=== PATIENT | male | born 1955 | race Caucasian/White ===

== ENCOUNTER → 2016-12-22 | Outpatient (CLI) | payer OTHER ==
[~2016-12-22] MED LIST: ACET325T49 PO; ACET500C4; ANXIETY MED; ARIP10TA11; ASP81CT PO; ASPI-84; BACL10TA; BACL10TA PO; CLOP75TA; CLOP75TA PO; CYAN100T12 PO; DEPRESSION MED; FLUO20CA25; FLUO20CA25 PO; HYDR1CAP2; HYDR1CAP2 PO; LISI10TA PO; LISI5TAB; MELO7.5T PO; NAPR-243 PO; NF-ESOM40C PO; NORT50CA; OXYC-109 PO; PRD20T PO; PYRI25TA11 PO; SIMV80TA3 PO; TEMA30CA PO; TOPI50TA2 PO; TRAM50TA2 PO; lisinopril; metoprolol; seroquel; temazepam
[2016-12-22 13:59] LABS: BASOPHILS % (AUTO) 0 % (0-10); EOSINOPHILS # (AUTO) 0.1 10^3/uL (0.0-0.3); EOSINOPHILS % (AUTO) 1 % (0-10); LYMPHOCYTES # (AUTO) 2.7 X 10^3 (1.0-4.0); LYMPHOCYTES % (AUTO) 27 % (12-44); MEAN CORPUSCULAR HEMOGLOBIN 31 PG (25-34); MEAN CORPUSCULAR HGB CONC 34 G/DL (32-36); MEAN CORPUSCULAR VOLUME 94 FL (80-99); MEAN PLATELET VOLUME 9.6 FL (7.4-10.4); MONOCYTES # (AUTO) 0.6 X 10^3 (0.0-1.0); MONOCYTES % (AUTO) 5 % (0-12); NEUTROPHILS # (AUTO) 6.7 X 10^3 (1.8-7.8); NEUTROPHILS % (AUTO) 66 % (42-75); PLATELET COUNT 247 10^3/uL (130-400); RED CELL DISTRIBUTION WIDTH 13.5 % (10.0-14.5); WHITE BLOOD COUNT 10.1 10^3/uL (4.3-11.0)
--- NOTE | 2016-12-22 14:17 | Diagnostic Imaging Report ---
INDICATION: Preop for lung cancer. COMPARISON: No previous CT scan for comparison. Comparison with the chest x-ray from 04/18/2013. FINDINGS: There is a well-circumscribed nodule that has developed in the right upper lobe measuring 17 mm. There is a calcified granuloma in the left upper lung which is stable. There is question of 2 cm nodule in the right lower lobe noted on the PA view only. The heart is not enlarged. There is no pulmonary edema. No pneumothorax. No pleural effusion. No hilar adenopathy. IMPRESSION: 1. Pulmonary nodule in the right upper lobe measuring 1.7 cm. Question of a second pulmonary nodule in the right lower lobe. 2. Stable granulomatous changes noted on the left. Dictated by: Dictated on workstation # [id number]
[2016-12-22 14:21] LABS: ALANINE AMINOTRANSFERASE 17 U/L (0-55); ALBUMIN 3.9 GM/DL (3.2-4.5); ANION GAP 10 MMOL/L (5-14); ASPARTATE AMINO TRANSFERASE 17 U/L (5-34); BILIRUBIN,TOTAL 0.4 MG/DL (0.1-1.0); BLOOD UREA NITROGEN 7 MG/DL (7-18); BUN/CREATININE RATIO 7 (0-20); CALCIUM 9.1 MG/DL (8.5-10.1); CARBON DIOXIDE 25 MMOL/L (21-32); CHLORIDE 103 MMOL/L (98-107); CREATININE SERUM 0.96 MG/DL (0.60-1.30); GFR ESTIMATED > 60; GLUCOSE 81 MG/DL (70-105); HEMOLYSIS 6 (-100-29); ICTERUS 0.4 (-100-1.9); LIPEMIA 13 (-100-49); POTASSIUM 4.1 MMOL/L (3.6-5.0); SODIUM 138 MMOL/L (135-145); TOTAL PROTEIN 7.4 GM/DL (6.4-8.2)
[2016-12-22 14:23] LABS: BILIRUBIN,URINE NEGATIVE (NEGATIVE); KETONES,URINE NEGATIVE (NEGATIVE); LEUKOCYTE ESTERASE ,URINE NEGATIVE (NEGATIVE); NITRITE,URINE NEGATIVE (NEGATIVE); PH,URINE 6 (5-9); PROTEIN,URINE NEGATIVE (NEGATIVE); UROBILINOGEN,URINE NORMAL (NORMAL)
== END ==
LOC: CARD 13:28
PROVIDERS: ATTEND Thoracic Surgery (Cardiothoracic Vascular Surgery)
DX: Z01.810 Encounter for preprocedural cardiovascular examination (principal); Z01.818 Encounter for other preprocedural examination; C34.90 Malignant neoplasm of unspecified part of unspecified bronchus or lung; R91.8 Other nonspecific abnormal finding of lung field
CPT/HCPCS: 36415; 71020; 80053; 81000; 85025; 93005

== ENCOUNTER 2017-03-04 10:03 | Emergency (ER) | payer OTHER ==
[~2017-03-04] VITALS: Ht 172.7 cm; Wt 80.4 kg
[2017-03-04 11:15] LABS: BASOPHILS % (AUTO) 0 % (0-10); EOSINOPHILS % (AUTO) 0 % (0-10); LYMPHOCYTES # (AUTO) 2.6 X 10^3 (1.0-4.0); LYMPHOCYTES % (AUTO) 20 % (12-44); MEAN CORPUSCULAR HEMOGLOBIN 30 PG (25-34); MEAN CORPUSCULAR HGB CONC 33 G/DL (32-36); MEAN CORPUSCULAR VOLUME 91 FL (80-99); MEAN PLATELET VOLUME 9.2 FL (7.4-10.4); MONOCYTES # (AUTO) 0.9 X 10^3 (0.0-1.0); MONOCYTES % (AUTO) 7 % (0-12); NEUTROPHILS # (AUTO) 9.3 X 10^3 (1.8-7.8); NEUTROPHILS % (AUTO) 73 % (42-75); PLATELET COUNT 274 10^3/uL (130-400); RED BLOOD COUNT 3.99 10^6/uL (4.35-5.85); WHITE BLOOD COUNT 12.7 10^3/uL (4.3-11.0)
[2017-03-04 11:25] LABS: PROTHROMBIN TIME PATIENT 13.7 SEC (12.2-14.7)
[2017-03-04 11:35] LABS: ALANINE AMINOTRANSFERASE 10 U/L (0-55); ALBUMIN 3.7 GM/DL (3.2-4.5); ANION GAP 11 MMOL/L (5-14); ASPARTATE AMINO TRANSFERASE 15 U/L (5-34); BILIRUBIN,TOTAL 0.3 MG/DL (0.1-1.0); BLOOD UREA NITROGEN 15 MG/DL (7-18); BUN/CREATININE RATIO 18; CALCIUM 9.1 MG/DL (8.5-10.1); CARBON DIOXIDE 23 MMOL/L (21-32); CHLORIDE 102 MMOL/L (98-107); CREATININE SERUM 0.84 MG/DL (0.60-1.30); GFR ESTIMATED > 60; GLUCOSE 95 MG/DL (70-105); POTASSIUM 3.9 MMOL/L (3.6-5.0); SODIUM 136 MMOL/L (135-145); TOTAL PROTEIN 7.2 GM/DL (6.4-8.2)
[2017-03-04] MEDS ORDERED: fentaNYL INJECTION 100 MCG/2 ML AMP ONE (11:57)
[2017-03-04] MEDS ORDERED: NS 100 ML (IVPB) BAG IV ONE (12:00)
[2017-03-04] MEDS ORDERED: NS IV 1000 ML 1,000 ML IV SCH (12:00)
[2017-03-04] MEDS ORDERED: IOHEXOL 350 MG/ML 100 ML (OMNIPAQUE 350) VIAL IV ONE (12:00)
--- NOTE | 2017-03-04 12:06 | ED GI ---
General Chief Complaint: Abdominal/GI Problems Stated Complaint: BLACK STOOL Nursing Triage Note: pt reports diarrhea x 1 week and black tarry stools x 2 days; weakness, nausea, abd cramping, diaphoretic. pt s/p RUL Lobectomy 3 months ago. pt has had diarrhea x 4 this am Sepsis Screen: No Definite Risk Source of Information: Patient Exam Limitations: No Limitations History of Present Illness Time Seen By Provider: 12:04 Initial Comments To ER with reports of diarrhea for one week. He's had suprapubic abdominal cramping and discomfort for this timeframe as well. He rates that pain 7 out of 10. He's had weakness and nausea as well. He reports that for the past 2 days his stools have been dark and tarry & without owen blood or mucus. He has no history of GI bleeding. He does state that he has lung cancer and had a right upper lobectomy 3 months ago at [facility]. States he's been taking quite a bit of naproxen lately to control his pain his usual physician is through the [place] in [place]. His last colonoscopy was 2-3 years ago at the [place] in [place]. Timing/Duration: 1 Week Radiation: No Radiation Activities at Onset: None Associated Symptoms: Denies Symptoms Allergies and Home Medications Allergies Coded Allergies: No Known Drug Allergies (Unverified , 12/17/08) Home Medications Aspirin 81 Mg Chew, 81 MG PO DAILY, (Reported) Ciprofloxacin HCl 500 Mg Tablet, 500 MG PO BID, #14 Prescribed by: VENANCIO MEHTA on 03/04/17 1405 Clopidogrel Bisulfate 75 Mg Tablet, 75 MG PO DAILY, (Reported) Hydrocodone/Acetaminophen 1 Each Tablet, 1 EACH PO Q4H PRN for PAIN-SEVERE, #14 Prescribed by: VENANCIO MEHTA on 03/04/17 1407 Metronidazole 500 Mg Tablet, 500 MG PO TID, #21 Prescribed by: VENANCIO MEHTA on 03/04/17 1405 Ondansetron 8 Mg Tab.rapdis, 8 MG PO Q6H PRN for NAUSEA/VOMITING-1ST LINE, #10 Prescribed by: VENANCIO MEHTA on 03/04/17 1405 Oxycodone Hcl/Acetaminophen 1 Each Tablet, 1 EACH PO Q4H PRN, #14 Ref 0 Prescribed by: OSWALD BOWIE on 04/18/132118 Prednisone 20 Mg Tab, 20 MG PO DAILY for 5 Days Prescribed by: OSWALD BOWIE on 04/18/132119 Pyridoxine Hcl 25 Mg Tablet, 25 MG PO DAILY, (Reported) Simvastatin 80 Mg Tablet, 80 MG PO HS, (Reported) Temazepam 30 Mg Capsule, 30 MG PO HS, (Reported) Tramadol Hcl 50 Mg Tablet, 50 MG PO BID, (Reported) [Anxiety Med] , (Reported) [Depression Med] , (Reported) Review of Systems Constitutional: see HPI EENTM: No Symptoms Reported Respiratory: No Symptoms Reported Cardiovascular: No Symptoms Reported Gastrointestinal: See HPI, Abdominal Pain, Diarrhea, Nausea Genitourinary: No Symptoms Reported Musculoskeletal: no symptoms reported Skin: no symptoms reported Psychiatric/Neurological: No Symptoms Reported Endocrine: No Symptoms Reported Hematologic/Lymphatic: No Symptoms Reported Past Hnlxjhy-Nxvofj-Zitdnf Hx Patient Social History Alcohol Use: Denies Use Recreational Drug Use: Yes Drug of Choice: Marijuana--yesterday Smoking Status: Current Everyday Smoker Type Used: Cigarettes 2nd Hand Smoke Exposure: Yes Recent Foreign Travel: No Contact w/Someone Who Travel: No Recent Infectious Disease Expo: No Recent Hopitalizations: Yes (December--lobectomy) Surgeries History of Surgeries: Yes (CAROTID stent) Surgeries: Coronary Stent, Lobectomy Respiratory History of Respiratory Disorde: No Cardiovascular History of Cardiac Disorders: Yes (carotid with stents) Cardiac Disorders: High Cholesterol, Hypertension Neurological History of Neurological Disord: Yes Neurological Disorders: Seizure Disorder, Stroke Reproductive System Hx Reproductive Disorders: No Genitourinary History of Genitourinary Disor: No Gastrointestinal History of Gastrointestinal Di: No Musculoskeletal History of Musculoskeletal Dis: Yes Musculoskeletal Disorders: Arthritis Endocrine History of Endocrine Disorders: No HEENT History of HEENT Disorders: No Cancer History of Cancer: Yes Cancer: Lung, Skin Type of Tx Receive: Surgical Intervention Psychosocial History of Psychiatric Problem: Yes Behavioral Health Disorders: Anxiety, PTSD, Depression Integumentary History of Skin or Integumenta: No Blood Transfusions History of Blood Disorders: No Family Medical History Significant Family History: No Pertinent Family Hx Physical Exam Vital Signs VS - Last 72 Hours, by Label 03/04/17 03/04/17 03/04/17 03/04/17 10:42 12:06 12:06 13:22 Temp 97.0 97.0 97.0 97.0 Pulse 78 Resp 20 B/P (MAP) 140/73 Pulse Ox 97 O2 Delivery Room Air Capillary Refill : Less Than 3 Seconds General Appearance: WD/WN, no apparent distress HEENT: PERRL/EOMI, normal ENT inspection Neck: non-tender, full range of motion Respiratory: normal breath sounds, no respiratory distress, no accessory muscle use Gastrointestinal: normal bowel sounds, soft, tenderness Extremities: normal range of motion, non-tender Neurologic/Psychiatric: alert, normal mood/affect, oriented x 3 Skin: normal color, warm/dry Exam Comments Bedside fecal occult blood is positive Progress/Results/Core Measures Results/Orders Lab Results Laboratory Tests Test 03/04/17 11:09 03/04/17 12:26 Range/Units White Blood Count 12.7 H 4.3-11.0 10^3/uL Red Blood Count 3.99 L 4.35-5.85 10^6/uL Hemoglobin 12.1 L 13.3-17.7 G/DL Hematocrit 36 L 40-54 % Mean Corpuscular Volume 91 80-99 FL Mean Corpuscular Hemoglobin 30 25-34 PG Mean Corpuscular Hemoglobin Concent 33 32-36 G/DL Red Cell Distribution Width 13.0 10.0-14.5 % Platelet Count 274 130-400 10^3/uL Mean Platelet Volume 9.2 7.4-10.4 FL Neutrophils (%) (Auto) 73 42-75 % Lymphocytes (%) (Auto) 20 12-44 % Monocytes (%) (Auto) 7 0-12 % Eosinophils (%) (Auto) 0 0-10 % Basophils (%) (Auto) 0 0-10 % Neutrophils # (Auto) 9.3 H 1.8-7.8 X 10^3 Lymphocytes # (Auto) 2.6 1.0-4.0 X 10^3 Monocytes # (Auto) 0.9 0.0-1.0 X 10^3 Eosinophils # (Auto) 0.0 0.0-0.3 10^3/uL Basophils # (Auto) 0.0 0.0-0.1 10^3/uL Prothrombin Time 13.7 12.2-14.7 SEC INR Comment 1.0 0.8-1.4 Activated Partial Thromboplast Time 38 H 24-35 SEC Sodium Level 136 135-145 MMOL/L Potassium Level 3.9 3.6-5.0 MMOL/L Chloride Level 102 98-107 MMOL/L Carbon Dioxide Level 23 21-32 MMOL/L Anion Gap 11 5-14 MMOL/L Blood Urea Nitrogen 15 7-18 MG/DL Creatinine 0.84 0.60-1.30 MG/DL Estimat Glomerular Filtration Rate > 60 BUN/Creatinine Ratio 18 Glucose Level 95 70-105 MG/DL Calcium Level 9.1 8.5-10.1 MG/DL Total Bilirubin 0.3 0.1-1.0 MG/DL Aspartate Amino Transf (AST/SGOT) 15 5-34 U/L Alanine Aminotransferase (ALT/SGPT) 10 0-55 U/L Alkaline Phosphatase 97 40-136 U/L Total Protein 7.2 6.4-8.2 GM/DL Albumin 3.7 3.2-4.5 GM/DL Urine Color YELLOW Urine Clarity CLEAR Urine pH 6.5 5-9 Urine Specific [place] 1.010 L 1.016-1.022 Urine Protein 1+ H NEGATIVE Urine Glucose (UA) NEGATIVE NEGATIVE Urine Ketones NEGATIVE NEGATIVE Urine Nitrite NEGATIVE NEGATIVE Urine Bilirubin NEGATIVE NEGATIVE Urine Urobilinogen 1 NORMAL MG/DL Urine Leukocyte Esterase NEGATIVE NEGATIVE Urine RBC (Auto) NEGATIVE NEGATIVE Urine RBC NONE /HPF Urine WBC 0-2 /HPF Urine Crystals NONE /LPF Urine Bacteria TRACE /HPF Urine Casts NONE /LPF Urine Mucus NEGATIVE /LPF Urine Culture Indicated NO My Orders Orders - VENANCIO MEHTA APRN Ns Iv 1000 Ml (Sodium Chloride 0.9%) (03/04/17 12:00) Ct Abdomen/Pelvis W (03/04/17 11:54) Fentanyl Injection (Sublimaze Injection (03/04/17 12:15) Fecal Occult Bedside (03/04/17 12:02) Fentanyl Injection (Sublimaze Injection (03/04/17 11:57) Pantoprazole Injection (Protonix Injecti (03/04/17 12:15) Ua Culture If Indicated (03/04/17 12:12) Morphine Injection (Morphine Injection (03/04/17 13:15) Stool Culture (03/04/17 13:06) Parasite Scrn Stool Giard Cryp (03/04/17 13:06) C Difficile Ag + Toxin A/B. (03/04/17 13:06) Ciprofloxacin Tablet (Cipro Tablet) (03/04/17 13:15) Metronidazole Tablet (Flagyl Tablet) (03/04/17 13:15) Medications Given in ED Current Medications Medications Dose Ordered Sig/Pool Route Start Time Stop Time Status Last Admin Dose Admin Fentanyl Citrate 50 mcg ONCE ONCE IVP 03/04/17 12:15 03/04/17 12:16 DC 03/04/17 12:06 50 MCG Iohexol 100 ml ONCE ONCE IV 03/04/17 12:00 03/04/17 12:07 DC 03/04/17 12:14 100 ML Metronidazole 500 mg ONCE ONCE PO 03/04/17 13:15 03/04/17 13:16 DC 03/04/17 13:23 500 MG Morphine Sulfate 4 mg ONCE ONCE IVP 03/04/17 13:15 03/04/17 13:16 DC 03/04/17 13:22 4 MG Pantoprazole 80 mg ONCE ONCE IV 03/04/17 12:15 03/04/17 12:16 DC 03/04/17 13:22 80 MG Sodium Chloride 100 ml ONCE ONCE IV 03/04/17 12:00 03/04/17 12:07 DC 03/04/17 12:14 100 ML Vital Signs/I&O Vital Sign - Last 12Hours 03/04/17 03/04/17 03/04/17 03/04/17 10:42 12:06 12:06 13:22 Temp 97.0 97.0 97.0 97.0 Pulse 78 Resp 20 B/P (MAP) 140/73 Pulse Ox 97 O2 Delivery Room Air Blood Pressure Mean: 95 Diagnostic Imaging Diagonstic Imaging: CT Comments NAME: SOLANGE MAHONEY [facility] REC#: [id number] PT STATUS: REG ER : 1955 PHYSICIAN: VENANCIO MEHTA APRN ADMIT DATE: 03/04/17/ER Draft Date of Exam:03/04/17 CT ABDOMEN/PELVIS W PROCEDURE: CT abdomen and pelvis with contrast. TECHNIQUE: Multiple contiguous axial images were obtained through the abdomen and pelvis after administration of intravenous contrast. INDICATION: Lower abdominal pain. Diarrhea. Black stools. COMPARISON: None FINDINGS: Included portions of the lung bases show 5-6 mm micronodule within the medial margins of the left lower lobe (image 11, series 2). CT abdomen: There is diffuse colonic wall thickening. There is colonic diverticulosis. There is no focal pericolonic inflammatory stranding to suggest acute diverticulitis. Normal appendix is identified. Small bowel loops are nondistended. The kidneys, adrenal glands, spleen, and pancreas have a normal CT appearance. There is a small subcentimeter hypoenhancing focus within the dome of segment 2 of the liver. This may represent a small cyst, but is too small to adequately characterize based on this exam. There is no loculated fluid collection, free fluid, nor free air within the abdomen. No abnormal mesenteric or retroperitoneal adenopathy is seen. There is moderate calcified aortic and arterial atherosclerosis. Bony structures show age-related degenerative changes, but no acute bony abnormalities are identified. CT pelvis: Urinary bladder is grossly unremarkable. There is no loculated fluid collection, free fluid, nor free air within the pelvis. No abnormal lymph nodes are seen. Bony structures show no acute abnormalities. IMPRESSION: 1. Diffuse abnormal colonic wall thickening. Findings are nonspecific, but can be seen with infectious or inflammatory colitis. Colonic malignancy cannot be excluded, but is felt to be unlikely given the diffuse nature of the disease. 2. Colonic diverticulosis, but no convincing evidence of focal acute diverticulitis. 3. Probable small cyst within the dome of segment 2 of the liver. 4. Moderate calcified aortic and arterial atherosclerosis. Correlation for underlying risk factors is recommended. Dictated on workstation # [id number] Dict: 03/04/17 1250 Trans: 03/04/17 1301 [id number] Interpreted by: GERARDO DUENAS MD Electronically signed by: Departure Communication (Admissions) Progress Notes I did discuss the case with Dr. Vasquez. Recommends if the patient is not nauseated and tolerating oral intake okay that he can go home, antibiotics, stool studies, follow up with him for colonoscopy in 3-4 weeks. Patient is agreeable to this. He has no nausea now and states that he is hungry. We have not given anything for nausea here. Impression Impression: Primary Impression: Diarrhea Additional Impression: Colon wall thickening Disposition: 01 HOME, SELF-CARE Condition: Stable Departure-Patient Inst. Decision time for Depature: 14:03 Referrals: SU VASQUEZ BRETT D DO JENKINS, XAVIER M MD NO,LOCAL PHYSICIAN (PCP) Primary Care Physician Patient Instructions: Diarrhea in Adolescents and Adults Add. Discharge Instructions: 1. Return to the emergency room for any bright red bloody stools, lightheadedness, shortness of breath or other concerns 2. Drink plenty of fluids to stay hydrated. Gatorade is a good choice. Pedialyte is an even better choice. 3. Call Dr. Vasquez or a surgeon of your choosing on Sunday to make an appointment to be seen for repeat colonoscopy 4. Antibiotics as directed 5. Stop using the naproxen 6. Do not mix the new pain medication (hydrocodone 7.5) with your current pain medication. All discharge instructions reviewed with patient and/or family. Voiced understanding. Scripts Hydrocodone/Acetaminophen (Elmo 7.5-325 Tablet) 1 Each Tablet 1 EACH PO Q4H Y for PAIN-SEVERE, #14 TAB Prov: VENANCIO MEHTA APRN 03/04/17 Ondansetron (Zofran Odt) 8 Mg Tab.rapdis 8 MG PO Q6H Y for NAUSEA/VOMITING-1ST LINE, #10 TAB Prov: VENANCIO MEHTA APRN 03/04/17 Metronidazole (Flagyl) 500 Mg Tablet 500 MG PO TID, #21 TAB Prov: VENANCIO MEHTA APRN 03/04/17 Ciprofloxacin HCl (Cipro) 500 Mg Tablet 500 MG PO BID, #14 TAB Prov: VENANCIO MEHTA APRN 03/04/17 VENANCIO MEHTA APRN Mar 04, 2017 12:05
[2017-03-04] MEDS ORDERED: PANTOPRAZOLE 40 MG/10 ML (PROTONIX) VIAL IV ONE (12:15)
[2017-03-04] MEDS ORDERED: fentaNYL INJECTION 100 MCG/2 ML AMP IVP ONE (12:15)
[2017-03-04 12:36] LABS: BILIRUBIN,URINE NEGATIVE (NEGATIVE); KETONES,URINE NEGATIVE (NEGATIVE); LEUKOCYTE ESTERASE ,URINE NEGATIVE (NEGATIVE); NITRITE,URINE NEGATIVE (NEGATIVE); PH,URINE 6.5 (5-9); PROTEIN,URINE 1+ (NEGATIVE); UROBILINOGEN,URINE 1 MG/DL (NORMAL)
[2017-03-04 12:43] LABS: WBC,URINE 0-2 /HPF
--- NOTE | 2017-03-04 13:01 | Diagnostic Imaging Report ---
PROCEDURE: CT abdomen and pelvis with contrast. TECHNIQUE: Multiple contiguous axial images were obtained through the abdomen and pelvis after administration of intravenous contrast. INDICATION: Lower abdominal pain. Diarrhea. Black stools. COMPARISON: None FINDINGS: Included portions of the lung bases show 5-6 mm micronodule within the medial margins of the left lower lobe (image 11, series 2). CT abdomen: There is diffuse colonic wall thickening. There is colonic diverticulosis. There is no focal pericolonic inflammatory stranding to suggest acute diverticulitis. Normal appendix is identified. Small bowel loops are nondistended. The kidneys, adrenal glands, spleen, and pancreas have a normal CT appearance. There is a small subcentimeter hypoenhancing focus within the dome of segment 2 of the liver. This may represent a small cyst, but is too small to adequately characterize based on this exam. There is no loculated fluid collection, free fluid, nor free air within the abdomen. No abnormal mesenteric or retroperitoneal adenopathy is seen. There is moderate calcified aortic and arterial atherosclerosis. Bony structures show age-related degenerative changes, but no acute bony abnormalities are identified. CT pelvis: Urinary bladder is grossly unremarkable. There is no loculated fluid collection, free fluid, nor free air within the pelvis. No abnormal lymph nodes are seen. Bony structures show no acute abnormalities. IMPRESSION: 1. Diffuse abnormal colonic wall thickening. Findings are nonspecific, but can be seen with infectious or inflammatory colitis. Colonic malignancy cannot be excluded, but is felt to be unlikely given the diffuse nature of the disease. 2. Colonic diverticulosis, but no convincing evidence of focal acute diverticulitis. 3. Probable small cyst within the dome of segment 2 of the liver. 4. Moderate calcified aortic and arterial atherosclerosis. Correlation for underlying risk factors is recommended. Dictated by: Dictated on workstation # [id number]
[2017-03-04] MEDS ORDERED: morphine INJ 10 MG/ML 1ML (SYR OR VIAL) IVP ONE (13:15)
[2017-03-04] MEDS ORDERED: CIPROFLOXACIN 500 MG (CIPRO) TABLET PO SCH (13:15)
[2017-03-04] MEDS ORDERED: metroNIDAZOLE 500 MG (FLAGYL) TAB PO ONE (13:15)
[2017-03-04] MEDS ORDERED: METR500T PO (14:05)
[2017-03-04] MEDS ORDERED: ONDA8TAB9 PO (14:05)
[2017-03-04] MEDS ORDERED: CIPR-225 PO (14:05)
[2017-03-04] MEDS ORDERED: HYDR-756 PO (14:07)
[2017-03-04 14:25] VITALS: BP 120/79
== END 2017-03-04 14:25 | disposition home or self-care (01) ==
LOC: EDUNIT# 10:03 → ER 10:04
DX: R19.7 Diarrhea, unspecified (principal); K63.89 Other specified diseases of intestine; C34.90 Malignant neoplasm of unspecified part of unspecified bronchus or lung; E78.00 Pure hypercholesterolemia, unspecified; I10 Essential (primary) hypertension; G40.909 Epilepsy, unspecified, not intractable, without status epilepticus; F41.9 Anxiety disorder, unspecified; F32.9 Major depressive disorder, single episode, unspecified; F43.10 Post-traumatic stress disorder, unspecified; M19.90 Unspecified osteoarthritis, unspecified site; F12.10 Cannabis abuse, uncomplicated; F17.210 Nicotine dependence, cigarettes, uncomplicated; Z95.5 Presence of coronary angioplasty implant and graft; Z85.828 Personal history of other malignant neoplasm of skin; Z86.73 Personal history of transient ischemic attack (TIA), and cerebral infarction without residual deficits; Z90.2 Acquired absence of lung [part of]; Z79.82 Long term (current) use of aspirin
CPT/HCPCS: 36415; 74177; 80053; 81000; 85025; 85610; 85730; 96361; 96374; 96375

== ENCOUNTER → 2017-03-05 | Outpatient (CLI) | payer OTHER ==
[~2017-03-05] MED LIST changes: +ASPI-999 PO; +CARV12.53 PO; +CHOL10003 PO; +CIPR-225 PO; +CLON0.5T3 PO; +CLOP75TA69 PO; +HYDR-3062 PO; +HYDR-756 PO; +LEVE500T6 PO; +METR500T PO; +OMG1KC PO; +ONDA8TAB9 PO; +PANT40TA2 PO; +ROSU20TA28 PO; +TRAZ100T92 PO; +VERA40TA2 PO
== END ==
LOC: LAB 10:49
PROVIDERS: ATTEND Nurse Practitioner Family
DX: R19.7 Diarrhea, unspecified (principal)
CPT/HCPCS: 87045; 87046; 87177; 87324; 87328; 87329; 87449

== ENCOUNTER → 2017-03-12 | Day surgery (SDC) | payer OTHER ==
[~2017-03-12] VITALS: Ht 172.7 cm; Wt 79.4 kg
[~2017-03-12] MED LIST changes: -ASPI-999 PO; -CLOP75TA69 PO; +EPINEPHrine INJECTION 1 MG/ML AMP IV SCH; +EPINEPHrine INJECTION 1 MG/ML AMP ONE; +HURRICAINE EXT TUBE (BENZOCAINE) ONE; +HURRICAINE EXT TUBE (BENZOCAINE) XX PRN; +MIDAZOLAM 2 MG/2 ML (VERSED) VIAL ONE; +NICOTINE 21 MG (NICODERM) PATCH TD ONE; +NS IV 1000 ML 1,000 ML IV ONE; +NS IV 500 ML 500 ML IV SCH; +NS IV 500 ML 500 ML ONE; +fentaNYL INJECTION 100 MCG/2 ML AMP IVP ONE; +fentaNYL INJECTION 100 MCG/2 ML AMP IVP STA; +fentaNYL INJECTION 100 MCG/2 ML AMP ONE
--- NOTE | 2017-03-12 11:40 | ED Abdominal Pain ---
General Chief Complaint: Abdominal/GI Problems Stated Complaint: BLACK STOOLS Nursing Triage Note: Pt c/o lower abd pain, nausea, and black stools for 1 week. Pt reports he was seen here in this ED for same symptoms last week and symptoms have not improved. Pt also c/o weakness and dizziness that has gradually gotten worse throughout the week. Sepsis Screen: No Definite Risk Source of Information: Patient Exam Limitations: No Limitations (OSWALD BOWIE MD) History of Present Illness Time Seen By Provider: 11:27 Initial Comments Here with report of nausea, black stools that are watery for the last week and left lower quadrant abdominal pain. States that he is increasingly weak and dizzy and that has gotten worse. [facility] He [facility] and they told him to come here for further evaluation. Denies fever or chills. He did take the antibiotic that was prescribed for the last week and that has not helped. Timing/Duration: 1 Week Severity/Quality: Moderate, Aching Location: LLQ Radiation: No Radiation Activities at Onset: None Modifying Factors: Worsens With Eating, Improves With Resting Associated Symptoms: No Back Pain, No Chest Pain, No Fever/Chills, Fatigue, Nausea/Vomiting, Weakness (OSWALD BOWIE MD) Allergies and Home Medications Allergies Coded Allergies: bupropion (Unverified Allergy, Unknown, 03/12/17) rash Home Medications Aspirin 81 Mg Chew, 2 TAB PO DAILY, (Reported) Carvedilol 12.5 Mg Tablet, 6.25 MG PO BID, (Reported) Cholecalciferol (Vitamin D3) 1,000 Unit Tablet, 1,000 UNIT PO DAILY, (Reported) Clonazepam 0.5 Mg Tablet, 0.5 MG PO DAILY, (Reported) Clopidogrel Bisulfate 75 Mg Tablet, 75 MG PO DAILY, (Reported) Hydrocodone/Acetaminophen 1 Each Tablet, 1-2 TAB PO Q6H, (Reported) Levetiracetam 500 Mg Tablet, 1,000 MG PO BID, (Reported) [place] 3 Polyunsat Fatty Acids 1,000 Mg Cap, 2,000 MG PO DAILY, (Reported) [place] 3 Polyunsat Fatty Acids 1,000 Mg Cap, 1,000 MG PO HS, (Reported) Ondansetron 8 Mg Tab.rapdis, 8 MG PO Q6H PRN for NAUSEA/VOMITING-1ST LINE, #10 Prescribed by: VENANCIO MEHTA on 03/04/17 1405 Pantoprazole Sodium 40 Mg Tablet.dr, 40 MG PO DAILY for 30 Days, #30 Ref 5 Prescribed by: DANA LEWIS on 03/12/17 1734 Rosuvastatin Calcium 20 Mg Tablet, 20 MG PO DAILY, (Reported) Trazodone HCl 100 Mg Tablet, 200 MG PO HS, (Reported) Verapamil HCl 40 Mg Tablet, 40 MG PO BID, (Reported) Review of Systems Constitutional: see HPI, No chills, No fever EENTM: No Symptoms Reported Respiratory: No Symptoms Reported Cardiovascular: No Symptoms Reported Gastrointestinal: See HPI, Abdominal Pain, Diarrhea, Nausea, Poor Appetite, Rectal Bleeding, Denies Vomiting Genitourinary: No Symptoms Reported Musculoskeletal: no symptoms reported Skin: no symptoms reported (OSWALD BOWIE MD) All Other Systems Reviewed Negative Unless Noted: Yes (OSWALD BOWIE MD) Past Beqekgq-Edbpjx-Iszlii Hx Patient Social History Alcohol Use: Denies Use Recreational Drug Use: No Drug of Choice: Marijuana--yesterday Smoking Status: Current Everyday Smoker Type Used: Cigarettes 2nd Hand Smoke Exposure: Yes Recent Foreign Travel: No Contact w/Someone Who Travel: No Recent Infectious Disease Expo: No Recent Hopitalizations: Yes (lobectomy in December @ [place]) (OSWALD BOWIE MD) Surgeries History of Surgeries: Yes (CAROTID stent) Surgeries: Lobectomy (OSWALD BOWIE MD) Respiratory History of Respiratory Disorde: No (OSWALD BOWIE MD) Cardiovascular History of Cardiac Disorders: Yes (carotid with stents) Cardiac Disorders: High Cholesterol, Hypertension (OSWALD BOWIE MD) Neurological History of Neurological Disord: Yes Neurological Disorders: Seizure Disorder, Stroke (OSWALD BOWIE MD) Reproductive System Hx Reproductive Disorders: No (OSWALD BOWIE MD) Genitourinary History of Genitourinary Disor: No (OSWALD BOWIE MD) Gastrointestinal History of Gastrointestinal Di: No (OSWALD BOWIE MD) Musculoskeletal History of Musculoskeletal Dis: Yes Musculoskeletal Disorders: Arthritis (OSWALD BOWIE MD) Endocrine History of Endocrine Disorders: No (OSWALD BOWIE MD) HEENT History of HEENT Disorders: No (OSWALD BOWIE MD) Cancer History of Cancer: Yes Cancer: Lung, Skin Type of Tx Receive: Surgical Intervention (OSWALD BOWIE MD) Psychosocial History of Psychiatric Problem: Yes Behavioral Health Disorders: Anxiety, PTSD, Depression (OSWALD BOWIE MD) Integumentary History of Skin or Integumenta: No (OSWALD BOWIE MD) Blood Transfusions History of Blood Disorders: No (OSWALD BOWIE MD) Reviewed Nursing Assessment Reviewed/Agree w Nursing PMH: Yes (OSWALD BOWIE MD) Family Medical History Significant Family History: No Pertinent Family Hx (OSWALD BOWIE MD) Physical Exam Vital Signs VS - Last 72 Hours, by Label 03/12/17 11:02 Temp 98.1 Pulse 69 Resp 18 B/P (MAP) 107/72 Pulse Ox 98 O2 Delivery Room Air (IMCAH WILSON MD) Vital Signs Capillary Refill : Less Than 3 Seconds (OSWALD BOWIE MD) General Appearance: WD/WN, no apparent distress HEENT: PERRL/EOMI, pharynx normal Neck: full range of motion, supple Respiratory: lungs clear, normal breath sounds Cardiovascular: regular rate, rhythm, no murmur Gastrointestinal: non tender, soft Extremities: non-tender, normal inspection Back: normal inspection, no CVA tenderness, no vertebral tenderness Neurologic/Psychiatric: alert, oriented x 3 Skin: warm/dry (OSWALD BOWIE MD) Progress/Results/Core Measures Results/Orders Lab Results Laboratory Tests Test 03/12/17 11:20 03/12/17 12:28 Range/Units White Blood Count 11.8 H 4.3-11.0 10^3/uL Red Blood Count 3.34 L 4.35-5.85 10^6/uL Hemoglobin 10.1 L 13.3-17.7 G/DL Hematocrit 31 L 40-54 % Mean Corpuscular Volume 93 80-99 FL Mean Corpuscular Hemoglobin 30 25-34 PG Mean Corpuscular Hemoglobin Concent 33 32-36 G/DL Red Cell Distribution Width 13.7 10.0-14.5 % Platelet Count 385 130-400 10^3/uL Mean Platelet Volume 9.3 7.4-10.4 FL Neutrophils (%) (Auto) 72 42-75 % Lymphocytes (%) (Auto) 21 12-44 % Monocytes (%) (Auto) 6 0-12 % Eosinophils (%) (Auto) 1 0-10 % Basophils (%) (Auto) 0 0-10 % Neutrophils # (Auto) 8.5 H 1.8-7.8 X 10^3 Lymphocytes # (Auto) 2.4 1.0-4.0 X 10^3 Monocytes # (Auto) 0.8 0.0-1.0 X 10^3 Eosinophils # (Auto) 0.1 0.0-0.3 10^3/uL Basophils # (Auto) 0.0 0.0-0.1 10^3/uL Sodium Level 134 L 135-145 MMOL/L Potassium Level 4.1 3.6-5.0 MMOL/L Chloride Level 103 98-107 MMOL/L Carbon Dioxide Level 27 21-32 MMOL/L Anion Gap 4 L 5-14 MMOL/L Blood Urea Nitrogen 7 7-18 MG/DL Creatinine 0.79 0.60-1.30 MG/DL Estimat Glomerular Filtration Rate > 60 BUN/Creatinine Ratio 9 Glucose Level 106 H 70-105 MG/DL Calcium Level 8.7 8.5-10.1 MG/DL Total Bilirubin 0.3 0.1-1.0 MG/DL Aspartate Amino Transf (AST/SGOT) 21 5-34 U/L Alanine Aminotransferase (ALT/SGPT) 14 0-55 U/L Alkaline Phosphatase 69 40-136 U/L C-Reactive Protein High Sensitivity 0.66 H 0.00-0.50 MG/DL Total Protein 6.9 6.4-8.2 GM/DL Albumin 3.5 3.2-4.5 GM/DL Urine Color YELLOW Urine Clarity CLEAR Urine pH 6.5 5-9 Urine Specific [place] 1.005 L 1.016-1.022 Urine Protein NEGATIVE NEGATIVE Urine Glucose (UA) NEGATIVE NEGATIVE Urine Ketones NEGATIVE NEGATIVE Urine Nitrite NEGATIVE NEGATIVE Urine Bilirubin NEGATIVE NEGATIVE Urine Urobilinogen NORMAL NORMAL MG/DL Urine Leukocyte Esterase 1+ H NEGATIVE Urine RBC (Auto) NEGATIVE NEGATIVE Urine RBC NONE /HPF Urine WBC RARE /HPF Urine Squamous Epithelial Cells RARE /HPF Urine Crystals NONE /LPF Urine Bacteria NEGATIVE /HPF Urine Casts NONE /LPF Urine Mucus NEGATIVE /LPF Urine Culture Indicated NO (MICAH WILSON MD) Medications Given in ED Current Medications Medications Dose Ordered Sig/Pool Route Start Time Stop Time Status Last Admin Dose Admin Sodium Chloride 1,000 ml @ 0 mls/hr Q0M ONCE IV 03/12/17 11:33 03/12/17 11:35 DC 03/12/17 11:43 1,000 MLS/HR (MICAH WILSON MD) Vital Signs/I&O Vital Sign - Last 12Hours 03/12/17 11:02 Temp 98.1 Pulse 69 Resp 18 B/P (MAP) 107/72 Pulse Ox 98 O2 Delivery Room Air Intake and Output 03/13/17 00:00 Intake Total 1000 ml Balance 1000 ml (MICAH WILSON MD) Blood Pressure Mean: 84 Progress Note : Progress Note Seen and evaluated. IV, labs, normal saline 1 L bolus and fentanyl 75 g IV. Currently states he is not nauseated so we will hold Zofran. Monitor patient. 1500: I did discuss the case with the [facility]. There were able to verify approval for the colonoscopy and upper endoscopy at [facility]. Dr. Lewis paged. I did discuss the case with Dr. Lewis at 1508. He will take patient for upper endoscopy tonight and set up for outpatient colonoscopy in a few days. This was discussed with the patient and family who agree. He is complaining of some abdominal pain. Fentanyl 50 g IV ordered. Patient is a smoker and he is having nicotine withdrawal which is causing him some concern. Nicotine patch 21 mg transdermal ordered. Monitor patient. 1605 : Patient to endoscopy lab. 1733: I did discuss the endoscopy results with Dr. Lewis. Apparently he did have a bleeding ulcer that was injected. He has written discharge instructions on his and and prescriptions and he will have him follow-up for further evaluation and lower GI evaluation including colonoscopy. Postanesthesia care in the ER and then discharged home. (OSWALD BOWIE MD) Departure Communication (Admissions) Progress Notes 1210 went over the patient's lab work with the patient and his . His hemoglobin was 14 1 on a visit here on 12/22/16. On 03/04/17 his hemoglobin was 12.1. Today 03/12/17. His hemoglobin is 10.1. Blood pressure is noted to be 107/72 and pulse 69. It is my opinion that he does not require transfusion or admission today but does require relatively urgent endoscopy to define his problem. He is provided with phone numbers for his providers at the [facility] and I placed a call to his contact nurse Karlene De Leon at [phone] call back from [facility]. They were familiar with the case and allowed that they believe he had been approved for colonoscopy and with confirm this and call back with confirmation materials. [phone] call back from Rossana Toro M.D. she was also aware of the situation. She to allowed that she would confirm and call back. (MICAH WILSON MD) Impression Impression: Primary Impression: GI bleed Qualified Codes: K92.2 - Gastrointestinal hemorrhage, unspecified Additional Impression: Anemia Qualified Codes: D64.9 - Anemia, unspecified Disposition: 01 HOME, SELF-CARE Condition: Stable Departure-Patient Inst. Referrals: DANA LEWIS MD NO,LOCAL PHYSICIAN (PCP) Primary Care Physician Patient Instructions: Gastric Ulcer (DC), Gastrointestinal Bleeding (DC) Add. Discharge Instructions: All discharge instructions reviewed with patient and/or family. Voiced understanding. Follow the discharge instructions given by Dr. Lewis. He will follow-up with him later this week for early next week as directed for colonoscopy. Take medications as directed. Return for worse pain, fever, vomiting, weakness, breathing problems or other concerns as needed. Scripts Pantoprazole Sodium (Protonix) 40 Mg Tablet. 40 MG PO DAILY for 30 Days, #30 TAB 5 Refills Prov: DANA LEWIS MD 03/12/17 OSWALD BOWIE MD Mar 12, 2017 11:40 MICAH WILSON MD Mar 12, 2017 12:20
[2017-03-12 11:47] LABS: BASOPHILS % (AUTO) 0 % (0-10); EOSINOPHILS # (AUTO) 0.1 10^3/uL (0.0-0.3); EOSINOPHILS % (AUTO) 1 % (0-10); LYMPHOCYTES # (AUTO) 2.4 X 10^3 (1.0-4.0); LYMPHOCYTES % (AUTO) 21 % (12-44); MEAN CORPUSCULAR HEMOGLOBIN 30 PG (25-34); MEAN CORPUSCULAR HGB CONC 33 G/DL (32-36); MEAN CORPUSCULAR VOLUME 93 FL (80-99); MEAN PLATELET VOLUME 9.3 FL (7.4-10.4); MONOCYTES # (AUTO) 0.8 X 10^3 (0.0-1.0); MONOCYTES % (AUTO) 6 % (0-12); NEUTROPHILS # (AUTO) 8.5 X 10^3 (1.8-7.8); NEUTROPHILS % (AUTO) 72 % (42-75); PLATELET COUNT 385 10^3/uL (130-400); RED BLOOD COUNT 3.34 10^6/uL (4.35-5.85); RED CELL DISTRIBUTION WIDTH 13.7 % (10.0-14.5); WHITE BLOOD COUNT 11.8 10^3/uL (4.3-11.0)
[2017-03-12 12:17] LABS: ALANINE AMINOTRANSFERASE 14 U/L (0-55); ALBUMIN 3.5 GM/DL (3.2-4.5); ANION GAP 4 MMOL/L (5-14); ASPARTATE AMINO TRANSFERASE 21 U/L (5-34); BILIRUBIN,TOTAL 0.3 MG/DL (0.1-1.0); BLOOD UREA NITROGEN 7 MG/DL (7-18); BUN/CREATININE RATIO 9; CALCIUM 8.7 MG/DL (8.5-10.1); CARBON DIOXIDE 27 MMOL/L (21-32); CHLORIDE 103 MMOL/L (98-107); CREATININE SERUM 0.79 MG/DL (0.60-1.30); GFR ESTIMATED > 60; GLUCOSE 106 MG/DL (70-105); POTASSIUM 4.1 MMOL/L (3.6-5.0); SODIUM 134 MMOL/L (135-145); TOTAL PROTEIN 6.9 GM/DL (6.4-8.2); hs C REACTIVE PROTEIN 0.66 MG/DL (0.00-0.50)
[2017-03-12 12:40] LABS: BILIRUBIN,URINE NEGATIVE (NEGATIVE); KETONES,URINE NEGATIVE (NEGATIVE); LEUKOCYTE ESTERASE ,URINE 1+ (NEGATIVE); NITRITE,URINE NEGATIVE (NEGATIVE); PH,URINE 6.5 (5-9); PROTEIN,URINE NEGATIVE (NEGATIVE); UROBILINOGEN,URINE NORMAL (NORMAL)
[2017-03-12 12:52] LABS: SQUAMOUS EPITHELIAL CELL,UR RARE /HPF; WBC,URINE RARE /HPF
[2017-03-12] MEDS: fentaNYL INJECTION 100 MCG/2 ML AMP IVP PRN ×2 (17:00→17:08)
[2017-03-12] MEDS: MIDAZOLAM 2 MG/2 ML (VERSED) VIAL IVP PRN ×2 (17:03→17:10)
--- NOTE | 2017-03-12 17:24 | Conscious Sedation/ASA ---
Conscious Sedation Pre-Proced Time Reviewed: 16:10 ASA Class: 3 Airway Mallampati Classification: ([place] appropriate class) I. II. III, IV Lungs Heart ASA score ASA 1: a normal healthy patient ASA 2: a patient with a mild systemic disease (mid diabetes, controlled hypertension, obesity ASA 3: a patient with a severe systemic disease that limits activity (angina , COPD, prior Myocardial infarction) ASA 4: a patient with an incapacitating disease that is a constant threat to life (CHF, renal failure) ASA 5: a moribund patient not expected to survive 24 hrs. (ruptured aneurysm) ASA 6: a declared brain patient whose organs are being harvested. For emergent operations, add the letter E after the classification Grade 2 Sedation Plan: Discussed options with patient/fam Note The patient is an appropriate candidate to undergo the planned procedure, sedation, and anesthesia. The patient immediately re-assessed prior to indication. DANA LEWIS MD Mar 12, 2017 5:24 pm
--- NOTE | 2017-03-12 17:28 | History & Physicial ---
History of Present Illness History of Present Illness Reason for visit/HPI 3 weeks history of melena and decreasing hemoglobin by 4 g him a resulting in multiple ER visits. Date of Admission Date Seen by Provider: Mar 12, 2017 Time Seen by Provider: 16:10 I consulted on this patient on 03/12/17 17:24 Attending Physician Dana Lewis MD Admitting Physician No,Local Physician Consult Allergies and Home Medications Allergies Coded Allergies: bupropion (Unverified Allergy, Unknown, 03/12/17) rash Home Medications Aspirin 81 Mg Chew, 2 TAB PO DAILY, (Reported) Carvedilol 12.5 Mg Tablet, 6.25 MG PO BID, (Reported) Cholecalciferol (Vitamin D3) 1,000 Unit Tablet, 1,000 UNIT PO DAILY, (Reported) Clonazepam 0.5 Mg Tablet, 0.5 MG PO DAILY, (Reported) Clopidogrel Bisulfate 75 Mg Tablet, 75 MG PO DAILY, (Reported) Hydrocodone/Acetaminophen 1 Each Tablet, 1-2 TAB PO Q6H, (Reported) Levetiracetam 500 Mg Tablet, 1,000 MG PO BID, (Reported) [place] 3 Polyunsat Fatty Acids 1,000 Mg Cap, 2,000 MG PO DAILY, (Reported) [place] 3 Polyunsat Fatty Acids 1,000 Mg Cap, 1,000 MG PO HS, (Reported) Ondansetron 8 Mg Tab.rapdis, 8 MG PO Q6H PRN for NAUSEA/VOMITING-1ST LINE, #10 Prescribed by: VENANCIO MEHTA on 03/04/17 1405 Rosuvastatin Calcium 20 Mg Tablet, 20 MG PO DAILY, (Reported) Trazodone HCl 100 Mg Tablet, 200 MG PO HS, (Reported) Verapamil HCl 40 Mg Tablet, 40 MG PO BID, (Reported) Past Cxncotw-Rdzyzc-Mxdiiu Hx Patient Social History Marrital Status: Employed/Student: retired Alcohol Use: Denies Use Recreational Drug Use: No Drug of Choice: Marijuana--yesterday Smoking Status: Current Everyday Smoker Type Used: Cigarettes 2nd Hand Smoke Exposure: Yes Recent Foreign Travel: No Contact w/other who traveled: No Recent Hopitalizations: Yes (lobectomy in December @ [place]) Recent Infectious Disease Expo: No Surgeries Yes (CAROTID stent) Cardiac, Lobectomy Respiratory Yes COPD Cardiovascular Yes (carotid with stents) High Cholesterol, Hypertension Neurological Yes Seizure Disorder, Stroke Reproductive System Hx Reproductive Disorders: No Genitourinary No Gastrointestinal Yes Gastrointestinal Bleed Musculoskeletal Yes Arthritis Endocrine History of Endocrine Disorders: No HEENT History of HEENT Disorders: No Cancer Yes Lung, Skin Type of Treatment: Surgical Intervention Psychosocial History of Psychiatric Problem: Yes Behavioral Health Disorders: Anxiety, PTSD, Depression Integumentary History of Skin or Integumenta: No Blood Transfusions History of Blood Disorders: No Reviewed Nursing Assessment Reviewed/Agree w Nursing PMH: Yes Family Medical History Significant Family History: No Pertinent Family Hx Constitutional: weakness Respiratory: cough Cardiovascular: no symptoms reported Gastrointestinal: see HPI Genitourinary: no symptoms reported Skin: no symptoms reported Psychiatric/Neurological: No Symptoms Reported Physical Exam Vital Signs Vital Sign - Last 12Hours 03/12/17 11:02 Temp 98.1 Pulse 69 Resp 18 B/P (MAP) 107/72 Pulse Ox 98 O2 Delivery Room Air Capillary Refill : Less Than 3 Seconds General Appearance: No Apparent Distress HEENT: Normal ENT Inspection Neck: Normal Inspection Respiratory: Lungs Clear Cardiovascular: Regular Rate, Rhythm Gastrointestinal: Non Tender, Soft Rectal: Deferred Back: Normal Inspection Extremity: Normal Inspection Neurologic/Psychiatric: Oriented x3 Skin: Warm/Dry Assessment/Plan Assessment and Plan gentleman with possible upper GI bleeding. Antiplatelet therapy. The risks history of colon polyps 3 years ago. At this point it is reasonable to perform therapeutic upper endoscopy first. Due to stable hemodynamics, an outpatient colonoscopy will be arranged subsequently. Problems: Admission Diagnosis upper GI bleeding DANA LEWIS MD Mar 12, 2017 5:28 pm
--- NOTE | 2017-03-12 17:32 | Endo Procedure Record ---
Endo Procedure Report Date of Procedure Mar 12, 2017 Surgeon (s) DANA LEWIS MD Post Procedure/Op Diagnosis distal erosions and gastritis.healed distal gastric ulcer 4 mm pyloric channel ulcer with surrounding erythema and an adherent blood clot at the center. Procedure Performed EGD with sclerotherapy Description of Procedure Anesthesia Type: Conscious Sedation Specimen(s) collected/removed none Description of the Procedure Indication for the procedure: This gentleman presented with 3 weeks history of melena and decreasing hemoglobin within normal hemodynamics. It is notable that he has been on dual antiplatelet therapy resecting from cardiac intervention and due to history of stroke. In addition, he also reported a history of polyps based a colonoscopy under the [place] system, performed 3 years ago. It was reasonable to perform an upper endoscopy first. Informed consent was obtained after reviewing the procedure in detail. Description of procedure:he was placed in left lateral decub indisposition and his vital signs were monitored. Conscious sedation was achieved using Versed and fentanyl. The flexible gastroscope was introduced down the esophagus, past the stomach, into the proximal duodenum. Findings: Esophagus: Quite tortuous without any varices. There was no esophagitis either. Stomach: Severe distal gastritis and erosions. Healed distal gastric ulcer. 4 mm pyloric channel ulcer with surrounding erythema and an adherent clot at the base. Sclerotherapy was achieved using 1 in 10,000 epinephrine, revealing adequate blanching. Duodenum: Normal He tolerated the procedure well and was taken back to the nursing area in a stable condition. Impression:GI blood loss possibly subacute/chronic, upper GI source very likely. Pyloric channel ulcer with adherent clot. Sclerotherapy completed. Note: Proton pump any beta therapy would be initiated immediately. He'll be brought back within a week to undergo surveillance colonoscopy. DANA LEWIS MD Mar 12, 2017 5:32 pm
--- NOTE | 2017-03-12 17:36 | Discharge Inst-Simple/Standard ---
Discharge Inst-Standard Discharge Medications New, Converted or Re-Newed RX: RX on Chart Patient Instructions/Follow Up Plan of Care/Instructions/FU: my staff will call him regarding an outpatient colonoscopy within a week. Activity as Tolerated: Yes Discharge Diet: No Restrictions DANA LEWIS MD Mar 12, 2017 5:36 pm
[2017-03-12 18:52] VITALS: BP 133/81
== END ==
LOC: EDUNIT# 10:33 → ER 10:36 → ENDO 16:08
PROVIDERS: ATTEND Surgery
DX: K25.4 Chronic or unspecified gastric ulcer with hemorrhage (principal); K29.70 Gastritis, unspecified, without bleeding; Z95.5 Presence of coronary angioplasty implant and graft; F17.210 Nicotine dependence, cigarettes, uncomplicated; E78.00 Pure hypercholesterolemia, unspecified; I10 Essential (primary) hypertension; G40.909 Epilepsy, unspecified, not intractable, without status epilepticus; Z86.73 Personal history of transient ischemic attack (TIA), and cerebral infarction without residual deficits; F41.9 Anxiety disorder, unspecified; F32.9 Major depressive disorder, single episode, unspecified; D64.9 Anemia, unspecified
CPT/HCPCS: 36415; 80053; 81000; 85025; 86141

== ENCOUNTER 2017-03-15 05:34 | Outpatient (CLI) | payer OTHER ==
[~2017-03-15] VITALS: Ht 172.7 cm; Wt 79.5 kg
[~2017-03-15 05:34] MED LIST changes: -EPINEPHrine INJECTION 1 MG/ML AMP IV SCH; -EPINEPHrine INJECTION 1 MG/ML AMP ONE; -HURRICAINE EXT TUBE (BENZOCAINE) ONE; -HURRICAINE EXT TUBE (BENZOCAINE) XX PRN; -MIDAZOLAM 2 MG/2 ML (VERSED) VIAL ONE; -NICOTINE 21 MG (NICODERM) PATCH TD ONE; -NS IV 1000 ML 1,000 ML IV ONE; -NS IV 500 ML 500 ML IV SCH; -NS IV 500 ML 500 ML ONE; -fentaNYL INJECTION 100 MCG/2 ML AMP IVP ONE; -fentaNYL INJECTION 100 MCG/2 ML AMP IVP STA; -fentaNYL INJECTION 100 MCG/2 ML AMP ONE
[2017-03-15] MEDS ORDERED: CLOP75TA69 PO (13:46)
[2017-03-15] MEDS ORDERED: ASPI-999 PO (13:46)
== END 2017-03-15 14:15 ==
LOC: PREOP 05:34
PROVIDERS: ATTEND Surgery
DX: Z01.818 Encounter for other preprocedural examination (principal); Z86.010 Personal history of colon polyps

== ENCOUNTER 2017-03-19 09:46 | Day surgery (SDC) | payer OTHER ==
[~2017-03-19 09:46] MED LIST changes: +ASPI-999 PO; +CLOP75TA69 PO
[2017-03-19] MEDS ORDERED: NS IV 500 ML 500 ML ONE (10:00)
[2017-03-19] MEDS ORDERED: NS IV 500 ML 500 ML IV PRN (10:00)
[2017-03-19 10:10] VITALS: BP 113/44
[2017-03-19] MEDS ORDERED: MIDAZOLAM 2 MG/2 ML (VERSED) VIAL ONE ×3 (10:25)
[2017-03-19] MEDS ORDERED: fentaNYL INJECTION 100 MCG/2 ML AMP ONE ×2 (10:25→10:54)
[2017-03-19] MEDS: fentaNYL INJECTION 100 MCG/2 ML AMP IVP PRN ×4 (10:43→11:02)
[2017-03-19] MEDS: MIDAZOLAM 2 MG/2 ML (VERSED) VIAL IVP PRN ×3 (10:44→11:00)
--- NOTE | 2017-03-19 10:44 | Conscious Sedation/ASA ---
Conscious Sedation Pre-Proced Time Reviewed: 10:43 ASA Class: 2 Airway Mallampati Classification: ([place] appropriate class) I. II. III, IV Lungs Heart ASA score ASA 1: a normal healthy patient ASA 2: a patient with a mild systemic disease (mid diabetes, controlled hypertension, obesity ASA 3: a patient with a severe systemic disease that limits activity (angina , COPD, prior Myocardial infarction) ASA 4: a patient with an incapacitating disease that is a constant threat to life (CHF, renal failure) ASA 5: a moribund patient not expected to survive 24 hrs. (ruptured aneurysm) ASA 6: a declared brain patient whose organs are being harvested. For emergent operations, add the letter E after the classification Grade 1 Sedation Plan: Discussed options with patient/fam Note The patient is an appropriate candidate to undergo the planned procedure, sedation, and anesthesia. The patient immediately re-assessed prior to indication. DANA LEWIS MD Mar 19, 2017 10:44 am
[2017-03-19 11:20] VITALS: BP_SYST 111; BP_SYST 114; BP_DIAS 66
--- NOTE | 2017-03-19 11:20 | Endo Procedure Record ---
Endo Procedure Report Date of Procedure Mar 19, 2017 Surgeon (s) DANA LEWIS MD Post Procedure/Op Diagnosis sigmoid diverticulosis. Procedure Performed colonoscopy to cecum Description of Procedure Anesthesia Type: Conscious Sedation Specimen(s) collected/removed none Description of the Procedure Indication for procedure: This gentleman has a personal history of polyps and came in for surveillance colonoscopy. Quite recently, he has been found to have upper GI bleeding due to a pyloric channel ulcer. Protonix was prescribed but he reports not being compliant.I have encouraged him to continue the tablet without fail. Informed consent was obtained after reviewing the procedure in detail. Description of procedure: He was placed in left lateral decubitus position and his vital signs were monitored. Conscious sedation was achieved using Versed and fentanyl. Digital rectal examination was unremarkable. The colonoscope was then introduced into the rectum and advanced all the way up to the cecum. The scope was then withdrawn slowly and the mucosa examined in a systematic fashion. Findings: Diffuse diverticulosis. No recurrent polyps were found. He tolerated the procedure well and was taken back to the nursing area in a stable condition. Impression: Personal history of polyps. No recurrence today recommend repeating in 5 years. DANA LEWIS MD Mar 19, 2017 11:20 am
--- NOTE | 2017-03-19 11:21 | Discharge Inst-Simple/Standard ---
Discharge Inst-Standard Discharge Medications New, Converted or Re-Newed RX: Other Patient Instructions/Follow Up Plan of Care/Instructions/FU: repeat colonoscopy in 5 years. To continue taking Protonix as directed last week Activity as Tolerated: Yes Discharge Diet: No Restrictions DANA LEWIS MD Mar 19, 2017 11:21 am
[2017-03-19] MEDS ORDERED: PANT40TA2 PO (12:14)
[2017-03-19 12:20] VITALS: BP 114/66
== END 2017-03-19 12:20 | disposition home or self-care (01) ==
LOC: ENDO 09:46
PROVIDERS: ATTEND Surgery
DX: K57.30 Diverticulosis of large intestine without perforation or abscess without bleeding (principal); Z86.010 Personal history of colon polyps; G40.909 Epilepsy, unspecified, not intractable, without status epilepticus; J44.9 Chronic obstructive pulmonary disease, unspecified; F17.210 Nicotine dependence, cigarettes, uncomplicated; Z86.73 Personal history of transient ischemic attack (TIA), and cerebral infarction without residual deficits

== ENCOUNTER 2018-05-01 14:48 | Emergency (ER) | payer OTHER ==
[~2018-05-01] VITALS: Ht 172.7 cm; Wt 79.5 kg
[~2018-05-01 14:48] MED LIST changes: +CLON0.5T13 PO; -CLON0.5T3 PO; +HYDR-4227 PO; -HYDR-756 PO; -ROSU20TA28 PO; +ROSU20TA31 PO; +TRAZ-190 PO; -TRAZ100T92 PO
[2018-05-01] MEDS ORDERED: NS IV 500 ML 500 ML IV ONE (15:05)
--- NOTE | 2018-05-01 15:16 | ED General ---
General Stated Complaint: COUGH FLU SYMPTOMS Source of Information: Patient Exam Limitations: No Limitations History of Present Illness Date Seen by Provider: May 01, 2018 Time Seen by Provider: 14:58 Initial Comments Here with report of chills, cough, body aches and shortness of breath. Has history of lung cancer with lobectomy on the right. Has history of COPD and is oxygen dependent. Arrives coughing with runny nose and low-grade fever. Patient is treated through the [place] system in [place] with hospital at [place]. Patient would prefer to stay here if possible. Timing/Duration: 2-3 Days, Getting Worse Severity: Moderate Associated Systoms: Chest Pain (right side with cough), Cough, Fever/Chills; No Nausea/Vomiting; Shortness of Air, Weakness Allergies and Home Medications Allergies Coded Allergies: bupropion (Unverified Allergy, Unknown, 03/12/17) rash Home Medications Aspirin 81 Mg Tab.chew, 162 MG PO DAILY, (Reported) Carvedilol 12.5 Mg Tablet, 6.25 MG PO BID, (Reported) Cholecalciferol (Vitamin D3) 1,000 Unit Tablet, 1,000 UNIT PO DAILY, (Reported) Clonazepam 0.5 Mg Tablet, 0.5 MG PO DAILY, (Reported) Clopidogrel Bisulfate 75 Mg Tablet, 75 MG PO DAILY, (Reported) Hydrocodone/Acetaminophen 1 Each Tablet, 1-2 TAB PO Q6H, (Reported) Levetiracetam 500 Mg Tablet, 1,000 MG PO BID, (Reported) [place] 3 Polyunsat Fatty Acids 1,000 Mg Cap, 2,000 MG PO DAILY, (Reported) [place] 3 Polyunsat Fatty Acids 1,000 Mg Cap, 1,000 MG PO HS, (Reported) Ondansetron 8 Mg Tab.rapdis, 8 MG PO Q6H PRN for NAUSEA/VOMITING-1ST LINE Prescribed by: VENANCIO MEHTA on 03/04/17 1405 Pantoprazole Sodium 40 Mg Tablet., 40 MG PO DAILY Prescribed by: DANA LEWIS on 03/12/17 1734 Pantoprazole Sodium 40 Mg Tablet., 40 MG PO DAILY Prescribed by: DANA LEWIS on 03/19/17 1214 Rosuvastatin Calcium 20 Mg Tablet, 20 MG PO DAILY, (Reported) Trazodone HCl 100 Mg Tablet, 200 MG PO HS, (Reported) Verapamil HCl 40 Mg Tablet, 40 MG PO BID, (Reported) Patient Home Medication List Home Medication List Reviewed: Yes Review of Systems Review of Systems Constitutional: see HPI EENTM: no symptoms reported Respiratory: see HPI, cough, dyspnea on exertion, short of breath, wheezing Cardiovascular: see HPI; No edema, No syncope Gastrointestinal: No abdominal pain, No melena, No nausea Genitourinary: no symptoms reported Musculoskeletal: see HPI; No back pain; muscle pain Skin: no symptoms reported Psychiatric/Neurological: No Symptoms Reported All Other Systems Reviewed Negative Unless Noted: Yes Past Rcwqaue-Tmbqfk-Tuseom Hx Past Med/Social Hx: Reviewed Nursing Past Med/Soc Hx Patient Social History Alcohol Use: Denies Use Recreational Drug Use: Yes Drug of Choice: Marijuana--yesterday Smoking Status: Current Everyday Smoker Type Used: Cigarettes 2nd Hand Smoke Exposure: Yes Recent Foreign Travel: No Contact w/Someone Who Travel: No Recent Hopitalizations: Yes (lobectomy in December @ [place]) Past Medical History Surgeries: Yes (CAROTID stent) Cardiac, Lobectomy Respiratory: Yes Cardiac: Yes (carotid with stents) High Cholesterol, Hypertension Neurological: Yes Seizure Disorder, Stroke Reproductive Disorders: No Genitourinary: No Gastrointestinal: Yes Gastrointestinal Bleed Musculoskeletal: Yes Arthritis Endocrine: No HEENT: No Cancer: Yes Lung, Skin What Type of Treatment Did You: Surgical Intervention Psychosocial: Yes Anxiety, PTSD, Depression Integumentary: No Blood Disorders: No Family Medical History Reviewed Nursing Family Hx No Pertinent Family Hx Physical Exam-Suspected Sepsis Physical Exam Vital Signs Vital Signs - First Documented 05/01/18 14:52 Temp 99.0 Pulse 89 Resp 18 B/P (MAP) 150/82 (104) Pulse Ox 89 O2 Delivery Room Air Capillary Refill : Height, Weight, BMI Height: 5'8.00" Weight: 175lbs. 5.0oz. 79.401670uo; 26.7 BMI Method:Stated General Appearance: No Apparent Distress, WD/WN HEENT: PERRL/EOMI, Pharyngeal Erythema; No Tonsillar Exudate, No Tonsillar Enlargement; Other (moderate clear rhinorrhea bilateral) Neck: Non Tender, Supple Respiratory: No Respiratory Distress, Decreased Breath Sounds, Wheezing Cardiovascular: Regular Rate, Rhythm, No Murmur Gastrointestinal: Non Tender, Soft Back: Normal Inspection, No CVA Tenderness, No Vertebral Tenderness Extremity: Normal Range of Motion, Non Tender Neurologic/Psychiatric: Alert, Oriented x3 Skin: normal color, warm/dry Focused Exam Lactate Level 05/01/18 15:15: Lactic Acid Level 0.86 Lactic Acid Level Laboratory Tests Test 05/01/18 15:15 Lactic Acid Level 0.86 MMOL/L (0.50-2.00) Progress/Results/Core Measures Suspected Sepsis SIRS Temperature: Pulse: Respiratory Rate: Laboratory Tests 05/01/18 15:15: White Blood Count 8.9 Blood Pressure / Mean: 05/01/18 15:15: Lactic Acid Level 0.86 Laboratory Tests 05/01/18 15:15: Creatinine 0.84, INR Comment 1.0, Platelet Count 199, Total Bilirubin 0.4 Results/Orders Lab Results Laboratory Tests Test 05/01/18 15:15 Range/Units White Blood Count 8.9 4.3-11.0 10^3/uL Red Blood Count 4.66 4.35-5.85 10^6/uL Hemoglobin 14.0 13.3-17.7 G/DL Hematocrit 44 40-54 % Mean Corpuscular Volume 94 80-99 FL Mean Corpuscular Hemoglobin 30 25-34 PG Mean Corpuscular Hemoglobin Concent 32 32-36 G/DL Red Cell Distribution Width 14.5 10.0-14.5 % Platelet Count 199 130-400 10^3/uL Mean Platelet Volume 10.4 7.4-10.4 FL Neutrophils (%) (Auto) 59 42-75 % Lymphocytes (%) (Auto) 29 12-44 % Monocytes (%) (Auto) 11 0-12 % Eosinophils (%) (Auto) 1 0-10 % Basophils (%) (Auto) 0 0-10 % Neutrophils # (Auto) 5.3 1.8-7.8 X 10^3 Lymphocytes # (Auto) 2.6 1.0-4.0 X 10^3 Monocytes # (Auto) 1.0 0.0-1.0 X 10^3 Eosinophils # (Auto) 0.1 0.0-0.3 10^3/uL Basophils # (Auto) 0.0 0.0-0.1 10^3/uL Prothrombin Time 12.9 12.2-14.7 SEC INR Comment 1.0 0.8-1.4 Activated Partial Thromboplast Time 38 H 24-35 SEC Sodium Level 136 135-145 MMOL/L Potassium Level 3.9 3.6-5.0 MMOL/L Chloride Level 97 L 98-107 MMOL/L Carbon Dioxide Level 29 21-32 MMOL/L Anion Gap 10 5-14 MMOL/L Blood Urea Nitrogen 7 7-18 MG/DL Creatinine 0.84 0.60-1.30 MG/DL Estimat Glomerular Filtration Rate > 60 BUN/Creatinine Ratio 8 Glucose Level 88 70-105 MG/DL Lactic Acid Level 0.86 0.50-2.00 MMOL/L Calcium Level 9.6 8.5-10.1 MG/DL Corrected Calcium 9.5 8.5-10.1 MG/DL Total Bilirubin 0.4 0.1-1.0 MG/DL Aspartate Amino Transf (AST/SGOT) 19 5-34 U/L Alanine Aminotransferase (ALT/SGPT) 20 0-55 U/L Alkaline Phosphatase 135 40-136 U/L Total Protein 7.9 6.4-8.2 GM/DL Albumin 4.1 3.2-4.5 GM/DL Micro Results Microbiology 05/01/18 Influenza Types A,B Antigen (JOSE) - Final, Complete My Orders Orders - OSWALD BOWIE MD Cbc With Automated Diff (05/01/18 15:05) Comprehensive Metabolic Panel (05/01/18 15:05) Blood Culture (05/01/18 15:05) Sputum Culture (05/01/18 15:05) Urinalysis (05/01/18 15:05) Urine Culture (05/01/18 15:05) Protime With Inr (05/01/18 15:05) Partial Thromboplastin Time (05/01/18 15:05) Chest 1 View, Ap/Pa Only (05/01/18 15:05) Saline Lock/Iv-Start (05/01/18 15:05) Saline Lock/Iv-Start (05/01/18 15:05) Vital Signs Adult Sepsis Patie Q15M (05/01/18 15:05) O2 (05/01/18 15:05) Remove Rings In Anticipation O (05/01/18 15:05) Lactic Acid Analyzer (05/01/18 15:05) Saline Lock/Iv-Start (05/01/18 15:05) Ns Iv 500 Ml (Sodium Chloride 0.9%) (05/01/18 15:05) Influenza A And B Antigens (05/01/18 15:35) Hydrocodone/Apap 7.5/325 Tab (Lortab 7. (05/01/18 15:49) Ketorolac Injection (Toradol Injection) (05/01/18 15:49) Prednisone Tablet (Deltasone Tablet) (05/01/18 17:00) Medications Given in ED Current Medications Medications Dose Ordered Sig/Pool Route Start Time Stop Time Status Last Admin Dose Admin Sodium Chloride 500 ml @ 0 mls/hr Q0M ONCE IV 05/01/18 15:05 05/01/18 15:08 DC 05/01/18 15:28 500 MLS/HR Vital Signs/I&O 05/01/18 14:52 Temp 99.0 Pulse 89 Resp 18 B/P (MAP) 150/82 (104) Pulse Ox 89 O2 Delivery Room Air Capillary Refill : Progress Note : Progress Note Seen and evaluated. IV, labs, chest x-ray, lactic acid and blood cultures ordered. Normal saline 500 mL bolus. Duo neb ordered. We will get influenza screen. Monitor patient. Toradol 30 mg IV and hydrocodone 7.5/325 one tab by mouth for cough and pain. Monitor patient. 1655: Overall improved. No significant findings for pneumonia and no laboratory data to suggest significant infection. Patient does have rather markedly chronic lung disease. I will go ahead and initiate outpatient doxycycline and steroids for a few days. Patient like to go home. Discharged home with return precautions. Patient verbalize understanding instructions and agreement with plan. Prednisone 40 mg by mouth given prior to discharge. Diagnostic Imaging Diagonstic Imaging: Xray Plain Films/CT/US/NM/MRI: chest Comments VIA [facility] [place], [place] NAME: SOLANGE MAHONEY [facility] REC#: [id number] PT STATUS: REG ER : 1955 PHYSICIAN: OSWALD BOWIE MD ADMIT DATE: 05/01/18/ER Draft Date of Exam:05/01/18 CHEST 1 VIEW, AP/PA ONLY INDICATION: Cough, flu-like symptoms. This patient has history of lung cancer and lobectomy. Exam compared with preoperative study 12/22/2016. FINDINGS: There is interval postsurgical volume loss in the right lung accounting for elevation of the right diaphragm. There is only slight right basilar atelectasis. There is postsurgical retraction at the right hilum. Calcified benign granuloma in the left lung stable. There are rib deformities nonacute on the right presumed postthoracotomy. No pneumothorax. IMPRESSION: Benign left lung granuloma. Postsurgical volume loss and hilar distortion on the right as an expected postoperative finding. Mild basilar atelectasis, otherwise negative. Dictated on workstation # [id number] Dict: 05/01/18 1542 Trans: 05/01/18 1617 [id number] [id number] Interpreted by: SOLANGE BOYER Electronically signed by: Departure Impression Primary Impression: Upper respiratory infection, acute Additional Impression: COPD (chronic obstructive pulmonary disease) with chronic bronchitis Disposition: 01 HOME, SELF-CARE Condition: Improved Departure-Patient Inst. Decision time for Depature: 16:57 Referrals: NO,LOCAL PHYSICIAN (PCP/Family) Primary Care Physician Patient Instructions: Acute Bronchitis, Adult (DC) Add. Discharge Instructions: Take medications as directed. Follow-up with your Dr. in a few days for recheck. Return for worse pain, fever, vomiting, weakness, breathing problems or other concerns as needed. Scripts Prednisone (Prednisone) 20 Mg Tab 40 MG PO DAILY, #6 TAB 0 Refills Prov: OSWALD BOWIE MD 05/01/18 Hydrocodone Bit/Acetaminophen (Hydrocodone/Acetaminophen 5/325mg Tablet) 1 Tab Tab 1 EACH PO Q4-6HR PRN for PAIN-MODERATE MDD 10, #14 TAB 0 Refills Prov: OSWALD BOWIE MD 05/01/18 Doxycycline Hyclate (Doxycycline Hyclate) 100 Mg Tablet 100 MG PO BID, #14 TAB 0 Refills Prov: OSWALD BOWIE MD 05/01/18 OSWALD BOWIE MD May 01, 2018 15:15
--- OUTSIDE RECORDS SUMMARY | 2018-05-01 15:20 | XMS REPORT | Continuity of Care Document ---
Author Author [facility] Organization [facility] Address Unknown Phone Unavailable Care Team Providers Care Locum Tenens Psychiatrist Name Role Phone NO, LOCAL PHYSICIAN PP Unavailable Insurance Providers Payer Name Policy Number Subscriber Name Relationship [facility] [id number] Pedro Mahoney Candi 01 Self / Same As Patient Advance Directives Directive Response Recorded Date Advance Directives N 04/18/13 6:44pm Organ Donor N 04/18/13 6:44pm Problems No Known Problems or Medical conditions. Family History History Response Recorded Date/Time Hx Family Cancer Y sis 11/23/10 8:31pm Hx Family Cardiac Disorders N 11/23/10 8: 31pm Social History History Response Recorded Date/Time Alcohol Use Denies Use 04/18/13 6:44pm Recreational Drug Use N 04/18/13 6:44pm Recent Foreign Travel N 04/18/13 6:44pm Allergies, Adverse Reactions, Alerts Allergen Type Severity Reaction Last Updated No Known Drug Allergies 12/17/08 Medications Medication Dose Units Route Sig Qty Days Prednisone 20 Mg PO DAILY 5 Oxycodone Hcl/Acetaminophen (Percocet 7.5-325 Mg Tablet) 1 Each PO Q4H PRN 14 [Anxiety Med] [Depression Med] Tramadol Hcl 50 Mg PO BID Pyridoxine Hcl 25 Mg PO DAILY Aspirin (Aspirin 81 Mg Chew Tab) 81 Mg PO DAILY Temazepam 30 Mg PO HS Simvastatin 80 Mg PO HS Clopidogrel Bisulfate (Plavix 75 Mg) 75 Mg PO DAILY Topiramate 50 Mg PO DAILY Baclofen 10 Mg PO BID Response Recorded Date/Time Status not known Unknown Results No Known Relevant Diagnostic Tests, Laboratory Data and/or Discharge Summary. Procedures Procedure Code Date LEFT HEART CARDIAC CATH 37.22 12/19/08 CONTRAST AORTOGRAM 88.42 12/19/08 LT HEART ANGIOCARDIOGRAM 88.53 12/19/08 CORONAR ARTERIOGR-2 CATH 88.56 12/19/08 Encounters Encounter Location Date/Time Departed Emergency Room [facility] 6:36pm Discharged Inpatient [facility] 6:30pm
--- OUTSIDE RECORDS SUMMARY | 2018-05-01 15:20 | XMS REPORT | Clinical Summary ---
Author Author [facility] Organization [facility] Address Unknown Phone Unavailable Care Team Providers Care Gettering Operator Name Role Phone PCP Unavailable Allergies Not on File Current Medications Not on file Active Problems Not on file Social History Tobacco Use Types Packs/Day Years Used Date Never Assessed Sex Assigned at Date Recorded Not on file Last Filed Vital Signs Not on file Plan of Treatment Not on file Results Not on filefrom Last 3 Months
--- OUTSIDE RECORDS SUMMARY | 2018-05-01 15:21 | XMS REPORT | Continuity of Care Document ---
Author Author [facility] Organization [facility] Address Unknown Phone Unavailable Allergies Active Description Code Type Severity Reaction Onset Reported/Identified Relationship to Patient Clinical Status Yes No Known Drug Allergies [id number] Drug Allergy Mild N/A 12/17/2008 Yes bupropion [id number] Drug Allergy Unknown N/A 03/12/2017 Medications There is no data. Problems Date Dx Coded Attending Type Code Diagnosis Diagnosed By 04/18/2013 OSWALD BOWIE MD Ot 719.45 JOINT PAIN-PELVIS 04/18/2013 OSWALD BOWIE MD Ot 784.0 HEADACHE 03/04/2017 VENANCIO MEHTA APRN Ot C34.90 MALIGNANT NEOPLASM OF UNSP PART OF UNSP 03/04/2017 VENANCIO MEHTA APRN Ot E78.00 PURE HYPERCHOLESTEROLEMIA, UNSPECIFIED 03/04/2017 VENANCIO MEHTA APRN Ot F12.10 CANNABIS ABUSE, UNCOMPLICATED 03/04/2017 VENANCIO MEHTA APRN Ot F17.210 NICOTINE DEPENDENCE, CIGARETTES, UNCOMPL 03/04/2017 VENANCIO MEHTA APRN Ot F32.9 MAJOR DEPRESSIVE DISORDER, SINGLE EPISOD 03/04/2017 VENANCIO MEHTA APRN Ot F41.9 ANXIETY DISORDER, UNSPECIFIED 03/04/2017 VENANCIO MEHTA APRN Ot F43.10 POST-TRAUMATIC STRESS DISORDER, UNSPECIF 03/04/2017 VENANCIO MEHTA APRN Ot G40.909 EPILEPSY, UNSP, NOT INTRACTABLE, WITHOUT 03/04/2017 VENANCIO MEHTA APRN Ot I10 ESSENTIAL (PRIMARY) HYPERTENSION 03/04/2017 VENANCIO MEHTA APRN Ot K63.89 OTHER SPECIFIED DISEASES OF INTESTINE 03/04/2017 VENANCIO MEHTA APRN Ot M19.90 UNSPECIFIED OSTEOARTHRITIS, UNSPECIFIED 03/04/2017 VENANCIO MEHTA APRN Ot R19.7 DIARRHEA, UNSPECIFIED 03/04/2017 VENANCIO MEHTA APRN Ot Z79.82 MCC (CURRENT) USE OF ASPIRIN 03/04/2017 VENANCIO MEHTA APRN Ot Z85.828 PERSONAL HISTORY OF OTHER MALIGNANT NEOP 03/04/2017 VENANCIO MEHTA APRN Ot Z86.73 PRSNL HX OF TIA (TIA), AND CEREB INFRC W 03/04/2017 VENANCIO MEHTA APRN Ot 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] 03/04/2017 VENANCIO MEHTA APRN Ot Z95.5 PRESENCE OF CORONARY ANGIOPLASTY IMPLANT 03/04/2017 JULIANO YE MD F Ot C34.90 MALIGNANT NEOPLASM OF UNSP PART OF UNSP 03/04/2017 JULIANO YE MD F Ot R91.8 OTHER NONSPECIFIC ABNORMAL FINDING OF VERN 03/04/2017 JULIANO YE MD F Ot Z01.810 ENCOUNTER FOR PREPROCEDURAL CARDIOVASCUL 03/04/2017 JULIANO YE MD Ot Z01.818 ENCOUNTER FOR OTHER PREPROCEDURAL EXAMIN 03/06/2017 VENANCIO MEHTA APRN Ot C34.90 MALIGNANT NEOPLASM OF UNSP PART OF UNSP 03/06/2017 VENANCIO MEHTA APRN Ot E78.00 PURE HYPERCHOLESTEROLEMIA, UNSPECIFIED 03/06/2017 VENANCIO MEHTA APRN Ot F12.10 CANNABIS ABUSE, UNCOMPLICATED 03/06/2017 VENANCIO MEHTA APRN Ot F17.210 NICOTINE DEPENDENCE, CIGARETTES, UNCOMPL 03/06/2017 VENANCIO MEHTA APRN Ot F32.9 MAJOR DEPRESSIVE DISORDER, SINGLE EPISOD 03/06/2017 VENANCIO MEHTA APRN Ot F41.9 ANXIETY DISORDER, UNSPECIFIED 03/06/2017 VENANCIO MEHTA APRN Ot F43.10 POST-TRAUMATIC STRESS DISORDER, UNSPECIF 03/06/2017 VENANCIO MEHTA APRN Ot G40.909 EPILEPSY, UNSP, NOT INTRACTABLE, WITHOUT 03/06/2017 VENANCIO MEHTA APRN Ot I10 ESSENTIAL (PRIMARY) HYPERTENSION 03/06/2017 VENANCIO MEHTA APRN Ot K63.89 OTHER SPECIFIED DISEASES OF INTESTINE 03/06/2017 VENANCIO MEHTA APRN Ot M19.90 UNSPECIFIED OSTEOARTHRITIS, UNSPECIFIED 03/06/2017 VENANCIO MEHTA APRN Ot R19.7 DIARRHEA, UNSPECIFIED 03/06/2017 VENANCIO MEHTA APRN Ot Z79.82 MCC (CURRENT) USE OF ASPIRIN 03/06/2017 VENANCIO MEHTA APRN Ot Z85.828 PERSONAL HISTORY OF OTHER MALIGNANT NEOP 03/06/2017 VENANCIO MEHTA APRN Ot Z86.73 PRSNL HX OF TIA (TIA), AND CEREB INFRC W 03/06/2017 VENANCIO MEHTA APRN Ot 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] 03/06/2017 VENANCIO MEHTA APRN Ot Z95.5 PRESENCE OF CORONARY ANGIOPLASTY IMPLANT 03/06/2017 VENANCIO MEHTA APRN Ot C34.90 MALIGNANT NEOPLASM OF UNSP PART OF UNSP 03/06/2017 VENANCIO MEHTA APRN Ot E78.00 PURE HYPERCHOLESTEROLEMIA, UNSPECIFIED 03/06/2017 VENANCIO MEHTA APRN Ot F12.10 CANNABIS ABUSE, UNCOMPLICATED 03/06/2017 VENANCIO MEHTA APRN Ot F17.210 NICOTINE DEPENDENCE, CIGARETTES, UNCOMPL 03/06/2017 VENANCIO MEHTA APRN Ot F32.9 MAJOR DEPRESSIVE DISORDER, SINGLE EPISOD 03/06/2017 VENANCIO MEHTA APRN Ot F41.9 ANXIETY DISORDER, UNSPECIFIED 03/06/2017 VENANCIO MEHTA APRN Ot F43.10 POST-TRAUMATIC STRESS DISORDER, UNSPECIF 03/06/2017 VENANCIO MEHTA APRN Ot G40.909 EPILEPSY, UNSP, NOT INTRACTABLE, WITHOUT 03/06/2017 VENANCIO MEHTA APRN Ot I10 ESSENTIAL (PRIMARY) HYPERTENSION 03/06/2017 VENANCIO MEHTA APRN Ot K63.89 OTHER SPECIFIED DISEASES OF INTESTINE 03/06/2017 VENANCIO MEHTA APRN Ot M19.90 UNSPECIFIED OSTEOARTHRITIS, UNSPECIFIED 03/06/2017 VENANCIO MEHTA APRN Ot R19.7 DIARRHEA, UNSPECIFIED 03/06/2017 VENANCIO MEHTA APRN Ot Z79.82 MCC (CURRENT) USE OF ASPIRIN 03/06/2017 VENANCIO MEHTA APRN Ot Z85.828 PERSONAL HISTORY OF OTHER MALIGNANT NEOP 03/06/2017 VENANCIO MEHTA APRN Ot Z86.73 PRSNL HX OF TIA (TIA), AND CEREB INFRC W 03/06/2017 VENANCIO MEHTA APRN Ot 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] 03/06/2017 VENANCIO MEHTA APRN Ot Z95.5 PRESENCE OF CORONARY ANGIOPLASTY IMPLANT 03/10/2017 VENANCIO MEHTA APRN Ot C34.90 MALIGNANT NEOPLASM OF UNSP PART OF UNSP 03/10/2017 VENANCIO MEHTA APRN Ot E78.00 PURE HYPERCHOLESTEROLEMIA, UNSPECIFIED 03/10/2017 VENANCIO MEHTA APRN Ot F12.10 CANNABIS ABUSE, UNCOMPLICATED 03/10/2017 VENANCIO MEHTA APRN Ot F17.210 NICOTINE DEPENDENCE, CIGARETTES, UNCOMPL 03/10/2017 VENANCIO MEHTA APRN Ot F32.9 MAJOR DEPRESSIVE DISORDER, SINGLE EPISOD 03/10/2017 VENANCIO MEHTA APRN Ot F41.9 ANXIETY DISORDER, UNSPECIFIED 03/10/2017 VENANCIO MEHTA APRN Ot F43.10 POST-TRAUMATIC STRESS DISORDER, UNSPECIF 03/10/2017 VENANCIO MEHTA APRN Ot G40.909 EPILEPSY, UNSP, NOT INTRACTABLE, WITHOUT 03/10/2017 VENANCIO MEHTA APRN Ot I10 ESSENTIAL (PRIMARY) HYPERTENSION 03/10/2017 VENANCIO MEHTA APRN Ot K63.89 OTHER SPECIFIED DISEASES OF INTESTINE 03/10/2017 VENANCIO MEHTA APRN Ot M19.90 UNSPECIFIED OSTEOARTHRITIS, UNSPECIFIED 03/10/2017 VENANCIO MEHTA APRN Ot R19.7 DIARRHEA, UNSPECIFIED 03/10/2017 VENANCIO MEHTA APRN Ot Z79.82 PRACTICE ASSISTANT (CURRENT) USE OF ASPIRIN 03/10/2017 VENANCIO MEHTA APRN Ot Z85.828 PERSONAL HISTORY OF OTHER MALIGNANT NEOP 03/10/2017 VENANCIO MEHTA APRN Ot Z86.73 PRSNL HX OF TIA (TIA), AND CEREB INFRC W 03/10/2017 VENANCIO MEHTA APRN Ot 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] 03/10/2017 VENANCIO MEHTA APRN Ot Z95.5 PRESENCE OF CORONARY ANGIOPLASTY IMPLANT 03/13/2017 DEBBIE TAN, DANA Hui Ot D64.9 ANEMIA, UNSPECIFIED 03/13/2017 DEBBIE TAN, DANA Hui Ot E78.00 PURE HYPERCHOLESTEROLEMIA, UNSPECIFIED 03/13/2017 DEBBIE TAN, DANA Hui Ot F17.210 NICOTINE DEPENDENCE, CIGARETTES, UNCOMPL 03/13/2017 LEWISDANA FOX MD Ot F32.9 MAJOR DEPRESSIVE DISORDER, SINGLE EPISOD 03/13/2017 DANA LEWIS MD Ot F41.9 ANXIETY DISORDER, UNSPECIFIED 03/13/2017 DANA LEWIS MD Ot G40.909 EPILEPSY, UNSP, NOT INTRACTABLE, WITHOUT 03/13/2017 DANA LEWIS MD Ot I10 ESSENTIAL (PRIMARY) HYPERTENSION 03/13/2017 DANA LEWIS MD Ot K25.4 CHRONIC OR UNSPECIFIED GASTRIC ULCER WIT 03/13/2017 DANA LEWIS MD Ot K29.70 GASTRITIS, UNSPECIFIED, WITHOUT BLEEDING 03/13/2017 DANA LEWIS MD Ot Z86.73 PRSNL HX OF TIA (TIA), AND CEREB INFRC W 03/13/2017 DANA LEWIS MD Ot Z95.5 PRESENCE OF CORONARY ANGIOPLASTY IMPLANT 03/14/2017 DANA LEWIS MD Ot D64.9 ANEMIA, UNSPECIFIED 03/14/2017 DANA LEWIS MD Ot E78.00 PURE HYPERCHOLESTEROLEMIA, UNSPECIFIED 03/14/2017 DANA LEWIS MD Ot F17.210 NICOTINE DEPENDENCE, CIGARETTES, UNCOMPL 03/14/2017 DANA LEWIS MD Ot F32.9 MAJOR DEPRESSIVE DISORDER, SINGLE EPISOD 03/14/2017 DANA LEWIS MD Ot F41.9 ANXIETY DISORDER, UNSPECIFIED 03/14/2017 DANA LEWIS MD Ot G40.909 EPILEPSY, UNSP, NOT INTRACTABLE, WITHOUT 03/14/2017 DANA LEWIS MD Ot I10 ESSENTIAL (PRIMARY) HYPERTENSION 03/14/2017 DANA LEWIS MD Ot K25.4 CHRONIC OR UNSPECIFIED GASTRIC ULCER WIT 03/14/2017 DANA LEWIS MD Ot K29.70 GASTRITIS, UNSPECIFIED, WITHOUT BLEEDING 03/14/2017 DANA LEWIS MD Ot Z86.73 PRSNL HX OF TIA (TIA), AND CEREB INFRC W 03/14/2017 DANA LEWIS MD Ot Z95.5 PRESENCE OF CORONARY ANGIOPLASTY IMPLANT 03/15/2017 DANA LEWIS MD Ot Z01.818 ENCOUNTER FOR OTHER PREPROCEDURAL EXAMIN 03/15/2017 DANA LEWIS MD Ot Z86.010 PERSONAL HISTORY OF COLONIC POLYPS 03/16/2017 DANA LEWIS MD Ot Z01.818 ENCOUNTER FOR OTHER PREPROCEDURAL EXAMIN 03/16/2017 DANA LEWIS MD Ot Z86.010 PERSONAL HISTORY OF COLONIC POLYPS 03/19/2017 DANA LEWIS MD Ot F17.210 NICOTINE DEPENDENCE, CIGARETTES, UNCOMPL 03/19/2017 DANA LEWIS MD, Ot G40.909 EPILEPSY, UNSP, NOT INTRACTABLE, WITHOUT 03/19/2017 DANA LEWIS MD Ot J44.9 CHRONIC OBSTRUCTIVE PULMONARY DISEASE, U 03/19/2017 DANA LEWIS MD Ot K57.30 DVRTCLOS OF LG INT W/O PERFORATION OR AB 03/19/2017 DANA LEWIS MD Ot Z86.010 PERSONAL HISTORY OF COLONIC POLYPS 03/19/2017 DANA LEWIS MD Ot Z86.73 PRSNL HX OF TIA (TIA), AND CEREB INFRC W 03/22/2017 JULIANO YE MD Ot C34.90 MALIGNANT NEOPLASM OF UNSP PART OF UNSP 03/22/2017 RABBI TAN, JULIANO Flores Ot R91.8 OTHER NONSPECIFIC ABNORMAL FINDING OF VERN 03/22/2017 JULIANO YE MD F Ot Z01.810 ENCOUNTER FOR PREPROCEDURAL CARDIOVASCUL 03/22/2017 JULIANO YE MD Ot Z01.818 ENCOUNTER FOR OTHER PREPROCEDURAL EXAMIN 03/22/2017 DANA LEWIS MD Ot D64.9 ANEMIA, UNSPECIFIED 03/22/2017 DANA LEWIS MD Ot E78.00 PURE HYPERCHOLESTEROLEMIA, UNSPECIFIED 03/22/2017 DANA LEWIS MD Ot F17.210 NICOTINE DEPENDENCE, CIGARETTES, UNCOMPL 03/22/2017 DANA LEWIS MD Ot F32.9 MAJOR DEPRESSIVE DISORDER, SINGLE EPISOD 03/22/2017 DANA LEWIS MD Ot F41.9 ANXIETY DISORDER, UNSPECIFIED 03/22/2017 DANA LEWIS MD Ot G40.909 EPILEPSY, UNSP, NOT INTRACTABLE, WITHOUT 03/22/2017 DANA LEWIS MD Ot I10 ESSENTIAL (PRIMARY) HYPERTENSION 03/22/2017 DANA LEWIS MD Ot K25.4 CHRONIC OR UNSPECIFIED GASTRIC ULCER WIT 03/22/2017 DANA LEWIS MD Ot K29.70 GASTRITIS, UNSPECIFIED, WITHOUT BLEEDING 03/22/2017 DANA LEWIS MD Ot Z86.73 PRSNL HX OF TIA (TIA), AND CEREB INFRC W 03/22/2017 DANA LEWIS MD Ot Z95.5 PRESENCE OF CORONARY ANGIOPLASTY IMPLANT 03/23/2017 JULIANO YE MD Ot C34.90 MALIGNANT NEOPLASM OF UNSP PART OF UNSP 03/23/2017 JULIANO YE MD Ot R91.8 OTHER NONSPECIFIC ABNORMAL FINDING OF VERN 03/23/2017 JULIANO YE MD Ot Z01.810 ENCOUNTER FOR PREPROCEDURAL CARDIOVASCUL 03/23/2017 JULIANO YE MD Ot Z01.818 ENCOUNTER FOR OTHER PREPROCEDURAL EXAMIN 03/26/2017 DANA LEWIS MD Ot D64.9 ANEMIA, UNSPECIFIED 03/26/2017 DANA LEWIS MD Ot E78.00 PURE HYPERCHOLESTEROLEMIA, UNSPECIFIED 03/26/2017 DANA LEWIS MD Ot F17.210 NICOTINE DEPENDENCE, CIGARETTES, UNCOMPL 03/26/2017 DANA LEWIS MD Ot F32.9 MAJOR DEPRESSIVE DISORDER, SINGLE EPISOD 03/26/2017 DANA LEWIS MD Ot F41.9 ANXIETY DISORDER, UNSPECIFIED 03/26/2017 DANA LEWIS MD Ot G40.909 EPILEPSY, UNSP, NOT INTRACTABLE, WITHOUT 03/26/2017 DANA LEWIS MD Ot I10 ESSENTIAL (PRIMARY) HYPERTENSION 03/26/2017 DANA LEWIS MD Ot K25.4 CHRONIC OR UNSPECIFIED GASTRIC ULCER WIT 03/26/2017 DANA LEWIS MD Ot K29.70 GASTRITIS, UNSPECIFIED, WITHOUT BLEEDING 03/26/2017 DANA LEWIS MD Ot Z86.73 PRSNL HX OF TIA (TIA), AND CEREB INFRC W 03/26/2017 DANA LEWIS MD Ot Z95.5 PRESENCE OF CORONARY ANGIOPLASTY IMPLANT 03/27/2017 DANA LEWIS MD Ot F17.210 NICOTINE DEPENDENCE, CIGARETTES, UNCOMPL 03/27/2017 DANA LEWIS MD Ot G40.909 EPILEPSY, UNSP, NOT INTRACTABLE, WITHOUT 03/27/2017 DANA LEWIS MD Ot J44.9 CHRONIC OBSTRUCTIVE PULMONARY DISEASE, U 03/27/2017 DANA LEWIS MD Ot K57.30 DVRTCLOS OF LG INT W/O PERFORATION OR AB 03/27/2017 DANA LEWIS MD Ot Z86.010 PERSONAL HISTORY OF COLONIC POLYPS 03/27/2017 DANA LEWIS MD Ot Z86.73 PRSNL HX OF TIA (TIA), AND CEREB INFRC W 03/28/2017 DANA LEWIS MD Ot D64.9 ANEMIA, UNSPECIFIED 03/28/2017 DANA LEWIS MD Ot E78.00 PURE HYPERCHOLESTEROLEMIA, UNSPECIFIED 03/28/2017 DANA LEWIS MD Ot F17.210 NICOTINE DEPENDENCE, CIGARETTES, UNCOMPL 03/28/2017 DANA LEWIS MD Ot F32.9 MAJOR DEPRESSIVE DISORDER, SINGLE EPISOD 03/28/2017 DANA LEWIS MD Ot F41.9 ANXIETY DISORDER, UNSPECIFIED 03/28/2017 DANA LEWIS MD Ot G40.909 EPILEPSY, UNSP, NOT INTRACTABLE, WITHOUT 03/28/2017 DANA LEWIS MD Ot I10 ESSENTIAL (PRIMARY) HYPERTENSION 03/28/2017 DANA LEWIS MD Ot K25.4 CHRONIC OR UNSPECIFIED GASTRIC ULCER WIT 03/28/2017 DANA LEWIS MD Ot K29.70 GASTRITIS, UNSPECIFIED, WITHOUT BLEEDING 03/28/2017 DANA LEWIS MD Ot Z86.73 PRSNL HX OF TIA (TIA), AND CEREB INFRC W 03/28/2017 DANA LEWIS MD Ot Z95.5 PRESENCE OF CORONARY ANGIOPLASTY IMPLANT 03/28/2017 DANA LEWIS MD Ot D64.9 ANEMIA, UNSPECIFIED 03/28/2017 DANA LEWIS MD Ot E78.00 PURE HYPERCHOLESTEROLEMIA, UNSPECIFIED 03/28/2017 DANA LEWIS MD Ot F17.210 NICOTINE DEPENDENCE, CIGARETTES, UNCOMPL 03/28/2017 DANA LEWIS MD Ot F32.9 MAJOR DEPRESSIVE DISORDER, SINGLE EPISOD 03/28/2017 DANA LEWIS MD Ot F41.9 ANXIETY DISORDER, UNSPECIFIED 03/28/2017 DANA LEWIS MD Ot G40.909 EPILEPSY, UNSP, NOT INTRACTABLE, WITHOUT 03/28/2017 DANA LEWIS MD Ot I10 ESSENTIAL (PRIMARY) HYPERTENSION 03/28/2017 DANA LEWIS MD Ot K25.4 CHRONIC OR UNSPECIFIED GASTRIC ULCER WIT 03/28/2017 DANA LEWIS MD Ot K29.70 GASTRITIS, UNSPECIFIED, WITHOUT BLEEDING 03/28/2017 DANA LEWIS MD Ot Z86.73 PRSNL HX OF TIA (TIA), AND CEREB INFRC W 03/28/2017 DANA LEWIS MD Ot Z95.5 PRESENCE OF CORONARY ANGIOPLASTY IMPLANT 03/30/2017 DANA LEWIS MD Ot F17.210 NICOTINE DEPENDENCE, CIGARETTES, UNCOMPL 03/30/2017 DANA LEWIS MD Ot G40.909 EPILEPSY, UNSP, NOT INTRACTABLE, WITHOUT 03/30/2017 DANA LEWIS MD Ot J44.9 CHRONIC OBSTRUCTIVE PULMONARY DISEASE, U 03/30/2017 DANA LEWIS MD Ot K57.30 DVRTCLOS OF LG INT W/O PERFORATION OR AB 03/30/2017 DANA LEWIS MD Ot Z86.010 PERSONAL HISTORY OF COLONIC POLYPS 03/30/2017 DANA LEWIS MD Ot Z86.73 PRSNL HX OF TIA (TIA), AND CEREB INFRC W 04/03/2017 VENANCIO MEHTA APRN Ot R19.7 DIARRHEA, UNSPECIFIED 06/05/2017 JULIANO YE MD Ot C34.90 MALIGNANT NEOPLASM OF UNSP PART OF UNSP 06/05/2017 JULIANO YE MD Ot R91.8 OTHER NONSPECIFIC ABNORMAL FINDING OF VERN 06/05/2017 JULIANO YE MD F Ot Z01.810 ENCOUNTER FOR PREPROCEDURAL CARDIOVASCUL 06/05/2017 JULIANO YE MD Ot Z01.818 ENCOUNTER FOR OTHER PREPROCEDURAL EXAMIN 06/05/2017 JULIANO YE MD Ot C34.90 MALIGNANT NEOPLASM OF UNSP PART OF UNSP 06/05/2017 JULIANO YE MD Ot R91.8 OTHER NONSPECIFIC ABNORMAL FINDING OF VERN 06/05/2017 JULIANO YE MD F Ot Z01.810 ENCOUNTER FOR PREPROCEDURAL CARDIOVASCUL 06/05/2017 JULIANO YE MD Ot Z01.818 ENCOUNTER FOR OTHER PREPROCEDURAL EXAMIN 06/05/2017 VENANCIO MEHTA APRN Ot R19.7 DIARRHEA, UNSPECIFIED 06/05/2017 DANA LEWIS MD Ot D64.9 ANEMIA, UNSPECIFIED 06/05/2017 DANA LEWIS MD Ot E78.00 PURE HYPERCHOLESTEROLEMIA, UNSPECIFIED 06/05/2017 DANA LEWIS MD Ot F17.210 NICOTINE DEPENDENCE, CIGARETTES, UNCOMPL 06/05/2017 DANA LEWIS MD Ot F32.9 MAJOR DEPRESSIVE DISORDER, SINGLE EPISOD 06/05/2017 DANA LEWIS MD Ot F41.9 ANXIETY DISORDER, UNSPECIFIED 06/05/2017 DANA LEWIS MD Ot G40.909 EPILEPSY, UNSP, NOT INTRACTABLE, WITHOUT 06/05/2017 DANA LEWIS MD Ot I10 ESSENTIAL (PRIMARY) HYPERTENSION 06/05/2017 DANA LEWIS MD Ot K25.4 CHRONIC OR UNSPECIFIED GASTRIC ULCER WIT 06/05/2017 DANA LEWIS MD Ot K29.70 GASTRITIS, UNSPECIFIED, WITHOUT BLEEDING 06/05/2017 DANA LEWIS MD Ot Z86.73 PRSNL HX OF TIA (TIA), AND CEREB INFRC W 06/05/2017 DANA LEWIS MD Ot Z95.5 PRESENCE OF CORONARY ANGIOPLASTY IMPLANT 06/08/2017 VENANCIO MEHTA APRN Ot R19.7 DIARRHEA, UNSPECIFIED 06/18/2017 VENANCIO MEHTA APRN Ot R19.7 DIARRHEA, UNSPECIFIED 06/18/2017 VENANCIO MEHTA APRN Ot R19.7 DIARRHEA, UNSPECIFIED Procedures There is no data. Results Test Result Range Complete blood count (CBC) with automated white blood cell (WBC) differential - 12/22/16 13:53 Blood leukocytes automated count (number/volume) 10.1 10*3/uL 4.3-11.0 Blood erythrocytes automated count (number/volume) 4.50 10*6/uL 4.35-5.85 Venous blood hemoglobin measurement (mass/volume) 14.1 g/dL 13.3-17.7 Blood hematocrit (volume fraction) 42 % 40-54 Automated erythrocyte mean corpuscular volume 94 [foz_us] 80-99 Automated erythrocyte mean corpuscular hemoglobin (mass per erythrocyte) 31 pg 25-34 Automated erythrocyte mean corpuscular hemoglobin concentration measurement ( mass/volume) 34 g/dL 32-36 Automated erythrocyte distribution width ratio 13.5 % 10.0-14.5 Automated blood platelet count (count/volume) 247 10*3/uL 130-400 Automated blood platelet mean volume measurement 9.6 [foz_us] 7.4-10.4 Automated blood neutrophils/100 leukocytes 66 % 42-75 Automated blood lymphocytes/100 leukocytes 27 % 12-44 Blood monocytes/100 leukocytes 5 % 0-12 Automated blood eosinophils/100 leukocytes 1 % 0-10 Automated blood basophils/100 leukocytes 0 % 0-10 Blood neutrophils automated count (number/volume) 6.7 10*3 1.8-7.8 Blood lymphocytes automated count (number/volume) 2.7 10*3 1.0-4.0 Blood monocytes automated count (number/volume) 0.6 10*3 0.0-1.0 Automated eosinophil count 0.1 10*3/uL 0.0-0.3 Automated blood basophil count (count/volume) 0.0 10*3/uL 0.0-0.1 Comprehensive metabolic panel - 12/22/16 13:53 Serum or plasma sodium measurement (moles/volume) 138 mmol/L 135-145 Serum or plasma potassium measurement (moles/volume) 4.1 mmol/L 3.6-5.0 Serum or plasma chloride measurement (moles/volume) 103 mmol/L 98-107 Carbon dioxide 25 mmol/L 21-32 Serum or plasma anion gap determination (moles/volume) 10 mmol/L 5-14 Serum or plasma urea nitrogen measurement (mass/volume) 7 mg/dL 7-18 Serum or plasma creatinine measurement (mass/volume) 0.96 mg/dL 0.60-1.30 Serum or plasma urea nitrogen/creatinine mass ratio 7 0- 20 Serum or plasma creatinine measurement with calculation of estimated glomerular filtration rate > NRG Serum or plasma glucose measurement (mass/volume) 81 mg/dL 70-105 Serum or plasma calcium measurement (mass/volume) 9.1 mg/dL 8.5-10.1 Serum or plasma total bilirubin measurement (mass/volume) 0.4 mg/dL 0.1-1.0 Serum or plasma alkaline phosphatase measurement (enzymatic activity/volume) 79 U/L 40-136 Serum or plasma aspartate aminotransferase measurement (enzymatic activity/ volume) 17 U/L 5-34 Serum or plasma alanine aminotransferase measurement (enzymatic activity/volume ) 17 U/L 0-55 Serum or plasma protein measurement (mass/volume) 7.4 g/dL 6.4-8.2 Serum or plasma albumin measurement (mass/volume) 3.9 g/dL 3.2-4.5 Complete urinalysis with reflex to culture - 12/22/16 14:18 Urine color determination YELLOW NRG Urine clarity determination CLEAR NRG Urine pH measurement by test strip 6 5-9 Specific gravity of urine by test strip 1.010 1.016- 1.022 Urine protein assay by test strip, semi-quantitative NEGATIVE NEGATIVE Urine glucose detection by automated test strip NEGATIVE NEGATIVE Erythrocytes detection in urine sediment by light microscopy NEGATIVE NEGATIVE Urine ketones detection by automated test strip NEGATIVE NEGATIVE Urine nitrite detection by test strip NEGATIVE NEGATIVE Urine total bilirubin detection by test strip NEGATIVE NEGATIVE Urine urobilinogen measurement by automated test strip (mass/volume) NORMAL NORMAL Urine leukocyte esterase detection by dipstick NEGATIVE NEGATIVE Automated urine sediment erythrocyte count by microscopy (number/high power field) NONE NRG Automated urine sediment leukocyte count by microscopy (number/high power field ) NONE NRG Bacteria detection in urine sediment by light microscopy NEGATIVE NRG Squamous epithelial cells detection in urine sediment by light microscopy NONE NRG Crystals detection in urine sediment by light microscopy NONE NRG Casts detection in urine sediment by light microscopy NONE NRG Mucus detection in urine sediment by light microscopy NEGATIVE NRG Complete urinalysis with reflex to culture NO NRG Complete blood count (CBC) with automated white blood cell (WBC) differential - 03/04/17 11:09 Blood leukocytes automated count (number/volume) 12.7 10*3/uL 4.3-11.0 Blood erythrocytes automated count (number/volume) 3.99 10*6/uL 4.35-5.85 Venous blood hemoglobin measurement (mass/volume) 12.1 g/dL 13.3-17.7 Blood hematocrit (volume fraction) 36 % 40-54 Automated erythrocyte mean corpuscular volume 91 [foz_us] 80-99 Automated erythrocyte mean corpuscular hemoglobin (mass per erythrocyte) 30 pg 25-34 Automated erythrocyte mean corpuscular hemoglobin concentration measurement ( mass/volume) 33 g/dL 32-36 Automated erythrocyte distribution width ratio 13.0 % 10.0-14.5 Automated blood platelet count (count/volume) 274 10*3/uL 130-400 Automated blood platelet mean volume measurement 9.2 [foz_us] 7.4-10.4 Automated blood neutrophils/100 leukocytes 73 % 42-75 Automated blood lymphocytes/100 leukocytes 20 % 12-44 Blood monocytes/100 leukocytes 7 % 0-12 Automated blood eosinophils/100 leukocytes 0 % 0-10 Automated blood basophils/100 leukocytes 0 % 0-10 Blood neutrophils automated count (number/volume) 9.3 10*3 1.8-7.8 Blood lymphocytes automated count (number/volume) 2.6 10*3 1.0-4.0 Blood monocytes automated count (number/volume) 0.9 10*3 0.0-1.0 Automated eosinophil count 0.0 10*3/uL 0.0-0.3 Automated blood basophil count (count/volume) 0.0 10*3/uL 0.0-0.1 PT panel in platelet poor plasma by coagulation assay - 03/04/17 11:09 Prothrombin time (PT) in platelet poor plasma by coagulation assay 13.7 s 12.2-14.7 INR in platelet poor plasma or blood by coagulation assay 1.0 0.8-1.4 Activated partial thromboplastin time (aPTT) in platelet poor plasma bycoagulation assay - 03/04/17 11:09 Activated partial thromboplastin time (aPTT) in platelet poor plasma bycoagulation assay 38 s 24-35 Comprehensive metabolic panel - 03/04/17 11:09 Serum or plasma sodium measurement (moles/volume) 136 mmol/L 135-145 Serum or plasma potassium measurement (moles/volume) 3.9 mmol/L 3.6-5.0 Serum or plasma chloride measurement (moles/volume) 102 mmol/L 98-107 Carbon dioxide 23 mmol/L 21-32 Serum or plasma anion gap determination (moles/volume) 11 mmol/L 5-14 Serum or plasma urea nitrogen measurement (mass/volume) 15 mg/dL 7-18 Serum or plasma creatinine measurement (mass/volume) 0.84 mg/dL 0.60-1.30 Serum or plasma urea nitrogen/creatinine mass ratio 18 NRG Serum or plasma creatinine measurement with calculation of estimated glomerular filtration rate > NRG Serum or plasma glucose measurement (mass/volume) 95 mg/dL 70-105 Serum or plasma calcium measurement (mass/volume) 9.1 mg/dL 8.5-10.1 Serum or plasma total bilirubin measurement (mass/volume) 0.3 mg/dL 0.1-1.0 Serum or plasma alkaline phosphatase measurement (enzymatic activity/volume) 97 U/L 40-136 Serum or plasma aspartate aminotransferase measurement (enzymatic activity/ volume) 15 U/L 5-34 Serum or plasma alanine aminotransferase measurement (enzymatic activity/volume ) 10 U/L 0-55 Serum or plasma protein measurement (mass/volume) 7.2 g/dL 6.4-8.2 Serum or plasma albumin measurement (mass/volume) 3.7 g/dL 3.2-4.5 Complete urinalysis with reflex to culture - 03/04/17 12:26 Urine color determination YELLOW NRG Urine clarity determination CLEAR NRG Urine pH measurement by test strip 6.5 5-9 Specific gravity of urine by test strip 1.010 1.016- 1.022 Urine protein assay by test strip, semi-quantitative 1+ NEGATIVE Urine glucose detection by automated test strip NEGATIVE NEGATIVE Erythrocytes detection in urine sediment by light microscopy NEGATIVE NEGATIVE Urine ketones detection by automated test strip NEGATIVE NEGATIVE Urine nitrite detection by test strip NEGATIVE NEGATIVE Urine total bilirubin detection by test strip NEGATIVE NEGATIVE Urine urobilinogen measurement by automated test strip (mass/volume) 1 mg/dL NORMAL Urine leukocyte esterase detection by dipstick NEGATIVE NEGATIVE Automated urine sediment erythrocyte count by microscopy (number/high power field) NONE NRG Automated urine sediment leukocyte count by microscopy (number/high power field ) [HPF] NRG Bacteria detection in urine sediment by light microscopy TRACE NRG Crystals detection in urine sediment by light microscopy NONE NRG Casts detection in urine sediment by light microscopy NONE NRG Mucus detection in urine sediment by light microscopy NEGATIVE NRG Complete urinalysis with reflex to culture NO NRG Stool bacteria identification by culture - 03/04/17 22:00 Stool bacteria identification by culture N2 NRG [id number] - 03/04/17 22:00 [id number] FOOTNOTE NRG C DIFFICILE AG + TOXIN A/B. - 03/05/17 11:45 RESULTS NEGATIVE FOR ANTIGEN AND TOXIN A/B NRG Complete blood count (CBC) with automated white blood cell (WBC) differential - 03/12/17 11:20 Blood leukocytes automated count (number/volume) 11.8 10*3/uL 4.3-11.0 Blood erythrocytes automated count (number/volume) 3.34 10*6/uL 4.35-5.85 Venous blood hemoglobin measurement (mass/volume) 10.1 g/dL 13.3-17.7 Blood hematocrit (volume fraction) 31 % 40-54 Automated erythrocyte mean corpuscular volume 93 [foz_us] 80-99 Automated erythrocyte mean corpuscular hemoglobin (mass per erythrocyte) 30 pg 25-34 Automated erythrocyte mean corpuscular hemoglobin concentration measurement ( mass/volume) 33 g/dL 32-36 Automated erythrocyte distribution width ratio 13.7 % 10.0-14.5 Automated blood platelet count (count/volume) 385 10*3/uL 130-400 Automated blood platelet mean volume measurement 9.3 [foz_us] 7.4-10.4 Automated blood neutrophils/100 leukocytes 72 % 42-75 Automated blood lymphocytes/100 leukocytes 21 % 12-44 Blood monocytes/100 leukocytes 6 % 0-12 Automated blood eosinophils/100 leukocytes 1 % 0-10 Automated blood basophils/100 leukocytes 0 % 0-10 Blood neutrophils automated count (number/volume) 8.5 10*3 1.8-7.8 Blood lymphocytes automated count (number/volume) 2.4 10*3 1.0-4.0 Blood monocytes automated count (number/volume) 0.8 10*3 0.0-1.0 Automated eosinophil count 0.1 10*3/uL 0.0-0.3 Automated blood basophil count (count/volume) 0.0 10*3/uL 0.0-0.1 Comprehensive metabolic panel - 03/12/17 11:20 Serum or plasma sodium measurement (moles/volume) 134 mmol/L 135-145 Serum or plasma potassium measurement (moles/volume) 4.1 mmol/L 3.6-5.0 Serum or plasma chloride measurement (moles/volume) 103 mmol/L 98-107 Carbon dioxide 27 mmol/L 21-32 Serum or plasma anion gap determination (moles/volume) 4 mmol/L 5-14 Serum or plasma urea nitrogen measurement (mass/volume) 7 mg/dL 7-18 Serum or plasma creatinine measurement (mass/volume) 0.79 mg/dL 0.60-1.30 Serum or plasma urea nitrogen/creatinine mass ratio 9 NRG Serum or plasma creatinine measurement with calculation of estimated glomerular filtration rate > NRG Serum or plasma glucose measurement (mass/volume) 106 mg/dL 70-105 Serum or plasma calcium measurement (mass/volume) 8.7 mg/dL 8.5-10.1 Serum or plasma total bilirubin measurement (mass/volume) 0.3 mg/dL 0.1-1.0 Serum or plasma alkaline phosphatase measurement (enzymatic activity/volume) 69 U/L 40-136 Serum or plasma aspartate aminotransferase measurement (enzymatic activity/ volume) 21 U/L 5-34 Serum or plasma alanine aminotransferase measurement (enzymatic activity/volume ) 14 U/L 0-55 Serum or plasma protein measurement (mass/volume) 6.9 g/dL 6.4-8.2 Serum or plasma albumin measurement (mass/volume) 3.5 g/dL 3.2-4.5 Serum or plasma C reactive protein measurement (mass/volume) - 03/12/17 11:20 Serum or plasma C reactive protein measurement (mass/volume) 0.66 mg /dL 0.00-0.50 Complete urinalysis with reflex to culture - 03/12/17 12:28 Urine color determination YELLOW NRG Urine clarity determination CLEAR NRG Urine pH measurement by test strip 6.5 5-9 Specific gravity of urine by test strip 1.005 1.016- 1.022 Urine protein assay by test strip, semi-quantitative NEGATIVE NEGATIVE Urine glucose detection by automated test strip NEGATIVE NEGATIVE Erythrocytes detection in urine sediment by light microscopy NEGATIVE NEGATIVE Urine ketones detection by automated test strip NEGATIVE NEGATIVE Urine nitrite detection by test strip NEGATIVE NEGATIVE Urine total bilirubin detection by test strip NEGATIVE NEGATIVE Urine urobilinogen measurement by automated test strip (mass/volume) NORMAL NORMAL Urine leukocyte esterase detection by dipstick 1+ NEGATIVE Automated urine sediment erythrocyte count by microscopy (number/high power field) NONE NRG Automated urine sediment leukocyte count by microscopy (number/high power field ) RARE NRG Bacteria detection in urine sediment by light microscopy NEGATIVE NRG Squamous epithelial cells detection in urine sediment by light microscopy RARE NRG Crystals detection in urine sediment by light microscopy NONE NRG Casts detection in urine sediment by light microscopy NONE NRG Mucus detection in urine sediment by light microscopy NEGATIVE NRG Complete urinalysis with reflex to culture NO NRG Encounters ACCT No. Visit Date/Time Discharge Status Pt. Type Provider Facility Loc./Unit Complaint [id number] 03/19/2017 09:46:00 03/19/2017 12:20:00 DIS Outpatient DEBBIE TAN, DANA Hiu [facility] ENDO HX POLYPS [id number] 03/15/2017 05:34:00 03/15/2017 14:15:00 DIS Outpatient DEBBIE TAN, DANA Hui [facility] PREOP HX POLPYS [id number] 03/12/2017 16:08:00 03/12/2017 23:59:59 CLS Outpatient DANA LEWIS MD [facility] ENDO ESOPHAGOGASTRODUODENOSCOPY [id number] 03/05/2017 10:49:00 03/05/2017 23:59:59 CLS Outpatient VENANCIO MEHTA APRN [facility] LAB STOOL CULTURE [id number] 03/04/2017 10:04:00 03/04/2017 14:25:00 DIS Emergency VENANCIO MEHTA 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
[2018-05-01 15:23] LABS: BASOPHILS % (AUTO) 0 % (0-10); EOSINOPHILS # (AUTO) 0.1 10^3/uL (0.0-0.3); EOSINOPHILS % (AUTO) 1 % (0-10); HEMATOCRIT 44 % (40-54); LYMPHOCYTES # (AUTO) 2.6 X 10^3 (1.0-4.0); LYMPHOCYTES % (AUTO) 29 % (12-44); MEAN CORPUSCULAR HEMOGLOBIN 30 PG (25-34); MEAN CORPUSCULAR HGB CONC 32 G/DL (32-36); MEAN CORPUSCULAR VOLUME 94 FL (80-99); MEAN PLATELET VOLUME 10.4 FL (7.4-10.4); MONOCYTES % (AUTO) 11 % (0-12); NEUTROPHILS # (AUTO) 5.3 X 10^3 (1.8-7.8); NEUTROPHILS % (AUTO) 59 % (42-75); PLATELET COUNT 199 10^3/uL (130-400); RED BLOOD COUNT 4.66 10^6/uL (4.35-5.85); RED CELL DISTRIBUTION WIDTH 14.5 % (10.0-14.5); WHITE BLOOD COUNT 8.9 10^3/uL (4.3-11.0)
[2018-05-01 15:42] LABS: PROTHROMBIN TIME PATIENT 12.9 SEC (12.2-14.7)
[2018-05-01 15:47] LABS: ALANINE AMINOTRANSFERASE 20 U/L (0-55); ALBUMIN 4.1 GM/DL (3.2-4.5); ALKALINE PHOSPHATASE 135 U/L (40-136); BILIRUBIN,TOTAL 0.4 MG/DL (0.1-1.0); BUN/CREATININE RATIO 8; CALCIUM 9.6 MG/DL (8.5-10.1); CARBON DIOXIDE 29 MMOL/L (21-32); CHLORIDE 97 MMOL/L (98-107); CREATININE SERUM 0.84 MG/DL (0.60-1.30); GFR ESTIMATED > 60; GLUCOSE 88 MG/DL (70-105); POTASSIUM 3.9 MMOL/L (3.6-5.0); SODIUM 136 MMOL/L (135-145); TOTAL PROTEIN 7.9 GM/DL (6.4-8.2)
[2018-05-01] MEDS ORDERED: KETOROLAC 30 MG/ML VIAL IVP STA (15:49)
[2018-05-01] MEDS ORDERED: HYDROcodone/APAP 7.5 MG/325 MG (LORTAB, LORCET PLUS) TABLET PO STA (15:49)
--- NOTE | 2018-05-01 15:52 | Diagnostic Imaging Report ---
INDICATION: Cough, flu-like symptoms. This patient has history of lung cancer and lobectomy. Exam compared with preoperative study 12/22/2016. FINDINGS: There is interval postsurgical volume loss in the right lung accounting for elevation of the right diaphragm. There is only slight right basilar atelectasis. There is postsurgical retraction at the right hilum. Calcified benign granuloma in the left lung stable. There are rib deformities nonacute on the right presumed postthoracotomy. No pneumothorax. IMPRESSION: Benign left lung granuloma. Postsurgical volume loss and hilar distortion on the right as an expected postoperative finding. Mild basilar atelectasis, otherwise negative. Dictated by: Dictated on workstation # [id number]
[2018-05-01] MEDS ORDERED: ACHD5005 PO (16:56)
[2018-05-01] MEDS ORDERED: DOXY100T2 PO (16:56)
[2018-05-01] MEDS ORDERED: PRD20T PO (16:56)
[2018-05-01] MEDS ORDERED: predniSONE 20 MG TAB PO ONE (17:00)
[2018-05-01 17:05] VITALS: BP 136/76
== END 2018-05-01 17:05 | disposition home or self-care (01) ==
LOC: EDUNIT# 14:48 → ER 14:51
DX: J06.9 Acute upper respiratory infection, unspecified (principal); J44.9 Chronic obstructive pulmonary disease, unspecified; E78.00 Pure hypercholesterolemia, unspecified; I10 Essential (primary) hypertension; G40.909 Epilepsy, unspecified, not intractable, without status epilepticus; F12.10 Cannabis abuse, uncomplicated; F41.9 Anxiety disorder, unspecified; F32.9 Major depressive disorder, single episode, unspecified; F43.10 Post-traumatic stress disorder, unspecified; F17.210 Nicotine dependence, cigarettes, uncomplicated; Z95.5 Presence of coronary angioplasty implant and graft; Z86.73 Personal history of transient ischemic attack (TIA), and cerebral infarction without residual deficits; Z87.19 Personal history of other diseases of the digestive system; Z85.118 Personal history of other malignant neoplasm of bronchus and lung; Z85.828 Personal history of other malignant neoplasm of skin; Z99.81 Dependence on supplemental oxygen; Z88.8 Allergy status to other drugs, medicaments and biological substances; Z79.82 Long term (current) use of aspirin; Z79.02 Long term (current) use of antithrombotics/antiplatelets
CPT/HCPCS: 36415; 71045; 80053; 83605; 85025; 85610; 85730; 87040; 87804; 96361; 96374

== ENCOUNTER 2018-11-05 10:19 | Emergency (ER) | payer OTHER ==
[~2018-11-05] VITALS: Ht 172.7 cm; Wt 69.4 kg
[2018-11-05 10:19] VITALS: BP 130/84
[~2018-11-05 10:19] MED LIST changes: +ACHD5005 PO; +DOXY100T2 PO
--- OUTSIDE RECORDS SUMMARY | 2018-11-05 10:32 | XMS REPORT | Clinical Summary ---
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
--- OUTSIDE RECORDS SUMMARY | 2018-11-05 10:33 | XMS REPORT | Continuity of Care Document ---
Author Organization Unknown Address Unknown Allergies Active Description Code Type Severity Reaction Onset Reported/Identified Relationship to Patient Clinical Status Yes No Known Drug Allergies [id number] Drug Allergy Mild N/A 12/17/2008 Yes bupropion [id number] Drug Allergy Unknown N/A 03/12/2017 Medications There is no data. Problems Date Dx Coded Attending Type Code Diagnosis Diagnosed By 04/18/2013 AZEB TAN, OSWALD Jeffrey Ot 719.45 JOINT PAIN-PELVIS 04/18/2013 OSWALD BOWIE [...] EPILEPSY, UNSP, NOT INTRACTABLE, WITHOUT 03/04/2017 VENANCIO EMHTA APRN Ot I10 ESSENTIAL (PRIMARY) HYPERTENSION 03/04/2017 VENANCIO MEHTA APRN Ot K63.89 OTHER SPECIFIED DISEASES OF INTESTINE 03/04/2017 VENANCIO MEHTA APRN Ot M19.90 UNSPECIFIED OSTEOARTHRITIS, UNSPECIFIED 03/04/2017 VENANCIO MEHTA APRN Ot R19.7 DIARRHEA, UNSPECIFIED 03/04/2017 VENANCIO MEHTA APRN Ot Z79.82 INTERMEDIATE (CURRENT) USE OF ASPIRIN 03/04/2017 VENANCIO MEHTA [...] PART OF UNSP 03/04/2017 JULIANO YE MD Ot R91.8 OTHER NONSPECIFIC ABNORMAL FINDING OF VERN 03/04/2017 JULIANO YE MD Ot Z01.810 ENCOUNTER FOR PREPROCEDURAL CARDIOVASCUL 03/04/2017 [...] EPILEPSY, UNSP, NOT INTRACTABLE, WITHOUT 03/06/2017 VENANCIO MHETA APRN Ot I10 ESSENTIAL (PRIMARY) HYPERTENSION 03/06/2017 VENANCIO MEHTA APRN Ot K63.89 OTHER SPECIFIED DISEASES OF INTESTINE 03/06/2017 VENANCIO MEHTA APRN Ot M19.90 UNSPECIFIED OSTEOARTHRITIS, UNSPECIFIED 03/06/2017 VENANCIO MEHTA APRN Ot R19.7 DIARRHEA, UNSPECIFIED 03/06/2017 VENANCIO MEHTA APRN Ot Z79.82 INTERMEDIATE (CURRENT) USE OF ASPIRIN 03/06/2017 VENANCIO MEHTA [...] UNSPECIFIED 03/06/2017 VENANCIO MEHTA APRN Ot Z79.82 MODEL MAKER SCALE (CURRENT) USE OF ASPIRIN 03/06/2017 VENANCIO MEHTA [...] UNSPECIFIED 03/10/2017 VENANCIO MEHTA APRN Ot Z79.82 INTERMEDIATE (CURRENT) USE OF ASPIRIN 03/10/2017 VENANCIO MEHTA [...] Ot F17.210 NICOTINE DEPENDENCE, CIGARETTES, UNCOMPL 03/13/2017 DEBBIE TAN, DANA uHi Ot F32.9 MAJOR DEPRESSIVE DISORDER, SINGLE EPISOD [...] Z01.818 ENCOUNTER FOR OTHER PREPROCEDURAL EXAMIN 03/16/2017 DEBBIE TAN, DANA Hui Ot Z86.010 PERSONAL HISTORY OF COLONIC POLYPS 03/19/2017 DANA LEWIS MD Ot F17.210 NICOTINE DEPENDENCE, CIGARETTES, UNCOMPL 03/19/2017 DANA LEWIS MD Ot G40.909 EPILEPSY, UNSP, NOT INTRACTABLE, WITHOUT 03/19/2017 DANA LEWIS MD Ot J44.9 CHRONIC OBSTRUCTIVE PULMONARY DISEASE, U 03/19/2017 DANA LEWIS MD Ot K57.30 DVRTCLOS OF LG INT W/O PERFORATION OR AB 03/19/2017 DANA LEWIS MD Ot Z86.010 PERSONAL HISTORY OF COLONIC POLYPS 03/19/2017 DANA LEWIS MD Ot Z86.73 PRSNL HX OF TIA (TIA), AND CEREB INFRC W 03/22/2017 RABBI TAN, JULIANO F Ot C34.90 MALIGNANT NEOPLASM OF UNSP PART OF UNSP 03/22/2017 RABBI TAN, JULIANO F Ot R91.8 OTHER NONSPECIFIC ABNORMAL FINDING OF VERN 03/22/2017 JULIANO YE MD F Ot Z01.810 ENCOUNTER FOR PREPROCEDURAL CARDIOVASCUL 03/22/2017 JULIANO YE MD F Ot Z01.818 ENCOUNTER FOR OTHER PREPROCEDURAL EXAMIN 03/22/2017 DEBBIE TAN, DANA Hui Ot D64.9 ANEMIA, UNSPECIFIED 03/22/2017 DANA LEWIS MD Ot E78.00 PURE HYPERCHOLESTEROLEMIA, UNSPECIFIED 03/22/2017 DANA LEWIS MD Ot F17.210 NICOTINE DEPENDENCE, CIGARETTES, UNCOMPL 03/22/2017 DEBBIE TAN, DANA Hui Ot F32.9 MAJOR DEPRESSIVE DISORDER, SINGLE EPISOD [...] AND CEREB INFRC W 04/03/2017 VENANCIO MEHTA BUTCHER OR SMALLGOODS MAKER Ot R19.7 DIARRHEA, UNSPECIFIED 06/05/2017 JULIANO YE MD Ot C34.90 MALIGNANT NEOPLASM OF UNSP PART OF UNSP 06/05/2017 JULIANO YE MD Ot R91.8 OTHER NONSPECIFIC ABNORMAL FINDING OF VERN 06/05/2017 JULIANO YE MD Ot Z01.810 ENCOUNTER FOR PREPROCEDURAL CARDIOVASCUL 06/05/2017 JULIANO YE MD Ot Z01.818 ENCOUNTER FOR OTHER PREPROCEDURAL EXAMIN 06/05/2017 JULIANO YE MD Ot C34.90 MALIGNANT NEOPLASM OF UNSP PART OF UNSP 06/05/2017 JULIANO YE MD Ot R91.8 OTHER NONSPECIFIC ABNORMAL FINDING OF VERN 06/05/2017 JULIANO YE MD Ot Z01.810 ENCOUNTER FOR PREPROCEDURAL CARDIOVASCUL 06/05/2017 JULIANO YE MD Ot Z01.818 ENCOUNTER FOR OTHER PREPROCEDURAL EXAMIN 06/05/2017 VENANCIO MEHTA BUTCHER OR SMALLGOODS MAKER Ot R19.7 DIARRHEA, UNSPECIFIED 06/05/2017 DEBBIE TAN, DANA Hui Ot D64.9 ANEMIA, UNSPECIFIED 06/05/2017 DEBBIE TAN, DANA Hui Ot E78.00 PURE HYPERCHOLESTEROLEMIA, UNSPECIFIED 06/05/2017 DEBBIE TAN, DANA Hui Ot F17.210 NICOTINE DEPENDENCE, CIGARETTES, UNCOMPL 06/05/2017 DEBBIE TAN, DANA Hui Ot F32.9 MAJOR DEPRESSIVE DISORDER, SINGLE EPISOD 06/05/2017 DEBBIE TAN, DANA Hui Ot F41.9 ANXIETY DISORDER, UNSPECIFIED 06/05/2017 DEBBIE TAN, DANA Hui Ot G40.909 EPILEPSY, UNSP, NOT INTRACTABLE, WITHOUT 06/05/2017 DANA LEWIS MD Ot I10 ESSENTIAL (PRIMARY) HYPERTENSION 06/05/2017 DEBBIE TAN, DANA Hui Ot K25.4 CHRONIC OR UNSPECIFIED GASTRIC ULCER WIT 06/05/2017 DEBBIE TAN, DANA Hui Ot K29.70 GASTRITIS, UNSPECIFIED, WITHOUT BLEEDING 06/05/2017 DEBBIE TAN, DANA Hui Ot Z86.73 PRSNL HX OF TIA (TIA), AND CEREB INFRC W 06/05/2017 DEBBIE TAN, DANA Hui Ot Z95.5 PRESENCE OF CORONARY ANGIOPLASTY IMPLANT 06/08/2017 VENANCIO MEHTA BUTCHER OR SMALLGOODS MAKER Ot R19.7 DIARRHEA, UNSPECIFIED 06/18/2017 VENANCIO MEHTA BUTCHER OR SMALLGOODS MAKER Ot R19.7 DIARRHEA, UNSPECIFIED 06/18/2017 VENANCIO MEHTA BUTCHER OR SMALLGOODS MAKER Ot R19.7 DIARRHEA, UNSPECIFIED 05/03/2018 OSWALD BOWIE MD Ot E78.00 PURE HYPERCHOLESTEROLEMIA, UNSPECIFIED 05/03/2018 OSWALD BOWIE MD Ot F12.10 CANNABIS ABUSE, UNCOMPLICATED 05/03/2018 OSWALD BOWIE MD Ot F17.210 NICOTINE DEPENDENCE, CIGARETTES, UNCOMPL 05/03/2018 OSWALD BOWIE MD Ot F32.9 MAJOR DEPRESSIVE DISORDER, SINGLE EPISOD 05/03/2018 OSWALD BOWIE MD Ot F41.9 ANXIETY DISORDER, UNSPECIFIED 05/03/2018 OSWALD BOWIE MD Ot F43.10 POST-TRAUMATIC STRESS DISORDER, UNSPECIF 05/03/2018 OSWALD BOWIE MD Ot G40.909 EPILEPSY, UNSP, NOT INTRACTABLE, WITHOUT 05/03/2018 OSWALD BOWIE MD Ot I10 ESSENTIAL (PRIMARY) HYPERTENSION 05/03/2018 OSWALD BOWIE MD, Ot J06.9 ACUTE UPPER RESPIRATORY INFECTION, UNSPE 05/03/2018 OSWALD BOIWE MD, Ot J44.9 CHRONIC OBSTRUCTIVE PULMONARY DISEASE, U 05/03/2018 OSWALD BOWIE MD Ot R05 COUGH 05/03/2018 OSWALD BOIWE MD, Ot Z79.02 MODEL MAKER SCALE (CURRENT) USE OF ANTITHROMBOTI 05/03/2018 OSWALD BOWIE MD, Ot Z79.82 MODEL MAKER SCALE (CURRENT) USE OF ASPIRIN 05/03/2018 OSWALD BOWIE MD, Ot Z85.118 PERSONAL HISTORY OF MALIGNANT NEOPLASM O 05/03/2018 OSWALD BOWIE MD, Ot Z85.828 PERSONAL HISTORY OF OTHER MALIGNANT NEOP 05/03/2018 OSWALD BOWIE MD, Ot Z86.73 PRSNL HX OF TIA (TIA), AND CEREB INFRC W 05/03/2018 OSWALD BOWIE MD, Ot Z87.19 PERSONAL HISTORY OF OTHER DISEASES OF TH 05/03/2018 OSWALD BOWIE MD, Ot Z88.8 ALLERGY STATUS TO OTH DRUG/MEDS/BIOL SUB 05/03/2018 OSWALD BOWIE MD Ot Z95.5 PRESENCE OF CORONARY ANGIOPLASTY IMPLANT 05/03/2018 OSWALD BOWIE MD Ot Z99.81 DEPENDENCE ON SUPPLEMENTAL OXYGEN 05/07/2018 OSWALD BOWIE MD Ot E78.00 PURE HYPERCHOLESTEROLEMIA, UNSPECIFIED 05/07/2018 OSWALD BOWIE MD Ot F12.10 CANNABIS ABUSE, UNCOMPLICATED 05/07/2018 OSWALD BOWIE MD Ot F17.210 NICOTINE DEPENDENCE, CIGARETTES, UNCOMPL 05/07/2018 OSWALD BOWIE MD Ot F32.9 MAJOR DEPRESSIVE DISORDER, SINGLE EPISOD 05/07/2018 OSWALD BOWIE MD, Ot F41.9 ANXIETY DISORDER, UNSPECIFIED 05/07/2018 OSWALD BOWIE MD Ot F43.10 POST-TRAUMATIC STRESS DISORDER, UNSPECIF 05/07/2018 OSWALD BOWIE MD Ot G40.909 EPILEPSY, UNSP, NOT INTRACTABLE, WITHOUT 05/07/2018 OSWALD BOWIE MD Ot I10 ESSENTIAL (PRIMARY) HYPERTENSION 05/07/2018 OSWALD BOWIE MD Ot J06.9 ACUTE UPPER RESPIRATORY INFECTION, UNSPE 05/07/2018 OSWALD BOWIE MD, Ot J44.9 CHRONIC OBSTRUCTIVE PULMONARY DISEASE, U 05/07/2018 OSWALD BOWIE MD, Ot R05 COUGH 05/07/2018 OSWALD BOWIE MD, Ot Z79.02 MODEL MAKER SCALE (CURRENT) USE OF ANTITHROMBOTI 05/07/2018 OSWALD BOWIE MD, Ot Z79.82 INTERMEDIATE (CURRENT) USE OF ASPIRIN 05/07/2018 OSWALD BOWIE MD, Ot Z85.118 PERSONAL HISTORY OF MALIGNANT NEOPLASM O 05/07/2018 OSWALD BOWIE MD, Ot Z85.828 PERSONAL HISTORY OF OTHER MALIGNANT NEOP 05/07/2018 OSWALD BOWIE MD, Ot Z86.73 PRSNL HX OF TIA (TIA), AND CEREB INFRC W 05/07/2018 OSWALD BOWIE MD, Ot Z87.19 PERSONAL HISTORY OF OTHER DISEASES OF TH 05/07/2018 OSWALD BOWIE MD, Ot Z88.8 ALLERGY STATUS TO OT DRUG/MEDS/BIOL SUB 05/07/2018 OSWALD BOWIE MD Ot Z95.5 PRESENCE OF CORONARY ANGIOPLASTY IMPLANT 05/07/2018 OSWALD BOWIE MD Ot Z99.81 DEPENDENCE ON SUPPLEMENTAL OXYGEN 10/25/2018 DWIGHT PHAN MD Ot C34.90 MALIGNANT NEOPLASM OF UNSP PART OF UNSP 10/25/2018 DWIGHT PHAN MD Ot 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 10/25/2018 DWIGHT PHAN MD Ot F17.210 NICOTINE DEPENDENCE, CIGARETTES, UNCOMPL 10/25/2018 DWIGHT PHAN MD Ot G40.909 EPILEPSY, UNSP, NOT INTRACTABLE, WITHOUT 10/25/2018 DWIGHT PHAN MD Ot I10 ESSENTIAL (PRIMARY) HYPERTENSION 10/25/2018 DWIGHT PHAN MD Ot I25.10 ATHSCL HEART DISEASE OF [place] CORONARY 10/25/2018 DWIGHT PHAN MD, Ot J44.9 CHRONIC OBSTRUCTIVE PULMONARY DISEASE, U 10/25/2018 DWIGHT PHAN MD Ot Z79.82 INTERMEDIATE (CURRENT) USE OF ASPIRIN 10/25/2018 DWIGHT PHAN MD, Ot Z79.899 OTHER MODEL MAKER SCALE (CURRENT) DRUG THERAPY 10/25/2018 DWIGHT PHAN MD, Ot Z80.3 FAMILY HISTORY OF MALIGNANT NEOPLASM OF 10/25/2018 DWIGHT PHAN MD, Ot Z86.73 PRSNL HX OF TIA (TIA), AND CEREB INFRC W Procedures There is no data. Results Test [...] Stool bacteria identification by culture N2 NRG [id number] - 03/04/17 22:00 [id number] FOOTNOTE NRG C DIFFICILE AG + TOXIN [...] automated white blood cell (WBC) differential - 05/01/18 15:15 Blood leukocytes automated count (number/volume) 8.9 10*3/uL 4.3-11.0 Blood erythrocytes automated count (number/volume) 4.66 10*6/uL 4.35-5.85 Venous blood hemoglobin measurement (mass/volume) 14.0 g/dL 13.3-17.7 Blood hematocrit (volume fraction) 44 % 40-54 Automated erythrocyte mean corpuscular volume 94 [foz_us] 80-99 Automated erythrocyte mean corpuscular hemoglobin (mass per erythrocyte) 30 pg 25-34 Automated erythrocyte mean corpuscular hemoglobin concentration measurement ( mass/volume) 32 g/dL 32-36 Automated erythrocyte distribution width ratio 14.5 % 10.0-14.5 Automated blood platelet count (count/volume) 199 10*3/uL 130-400 Automated blood platelet mean volume measurement 10.4 [foz_us] 7.4-10.4 Automated blood neutrophils/100 leukocytes 59 % 42-75 Automated blood lymphocytes/100 leukocytes 29 % 12-44 Blood monocytes/100 leukocytes 11 % 0-12 Automated blood eosinophils/100 leukocytes 1 % 0-10 Automated blood basophils/100 leukocytes 0 % 0-10 Blood neutrophils automated count (number/volume) 5.3 10*3 1.8-7.8 Blood lymphocytes automated count (number/volume) 2.6 10*3 1.0-4.0 Blood monocytes automated count (number/volume) 1.0 10*3 0.0-1.0 Automated eosinophil count 0.1 10*3/uL 0.0-0.3 Automated blood basophil count (count/volume) 0.0 10*3/uL 0.0-0.1 Blood lactic acid measurement (moles/volume) - 05/01/18 15:15 Blood lactic acid measurement (moles/volume) 0.86 mmol/L 0.50-2.00 Comprehensive metabolic panel - 05/01/18 15:15 Serum or plasma sodium measurement (moles/volume) 136 mmol/L 135-145 Serum or plasma potassium measurement (moles/volume) 3.9 mmol/L 3.6-5.0 Serum or plasma chloride measurement (moles/volume) 97 mmol/L 98-107 Carbon dioxide 29 mmol/L 21-32 Serum or plasma anion gap determination (moles/volume) 10 mmol/L 5-14 Serum or plasma urea nitrogen measurement (mass/volume) 7 mg/dL 7-18 Serum or plasma creatinine measurement (mass/volume) 0.84 mg/dL 0.60-1.30 Serum or plasma urea nitrogen/creatinine mass ratio 8 NRG Serum or plasma creatinine measurement with calculation of estimated glomerular filtration rate > NRG Serum or plasma glucose measurement (mass/volume) 88 mg/dL 70-105 Serum or plasma calcium measurement (mass/volume) 9.6 mg/dL 8.5-10.1 Serum or plasma total bilirubin measurement (mass/volume) 0.4 mg/dL 0.1-1.0 Serum or plasma alkaline phosphatase measurement (enzymatic activity/volume) 135 U/L 40-136 Serum or plasma aspartate aminotransferase measurement (enzymatic activity/ volume) 19 U/L 5-34 Serum or plasma alanine aminotransferase measurement (enzymatic activity/volume ) 20 U/L 0-55 Serum or plasma protein measurement (mass/volume) 7.9 g/dL 6.4-8.2 Serum or plasma albumin measurement (mass/volume) 4.1 g/dL 3.2-4.5 CALCIUM CORRECTED 9.5 mg/dL 8.5-10.1 PT panel in platelet poor plasma by coagulation assay - 05/01/18 15:15 Prothrombin time (PT) in platelet poor plasma by coagulation assay 12.9 s 12.2-14.7 INR in platelet poor plasma or blood by coagulation assay 1.0 0.8-1.4 Activated partial thromboplastin time (aPTT) in platelet poor plasma bycoagulation assay - 05/01/18 15:15 Activated partial thromboplastin time (aPTT) in platelet poor plasma bycoagulation assay 38 s 24-35 Influenza virus A and B antigen detection - 05/01/18 15:15 FLU RESULT NEGATIVE FOR INFLUENZA A AND B ANTIGENS BY IA NRG Bacterial blood culture - 05/01/18 15:15 QUANTITY OF GROWTH . NRG Bacterial blood culture SEE COMMEN NRG Bacterial blood culture - 05/01/18 15:30 Bacterial blood culture NG NRG Encounters ACCT No. Visit Date/Time Discharge Status Pt. Type Provider Facility Loc./Unit Complaint [id number] 10/24/2018 13:20:00 10/24/2018 23:59:59 CLS Outpatient DWIGHT PHAN MD [facility] ONC [id number] 05/01/2018 14:51:00 05/01/2018 17:05:00 DIS Outpatient OSWALD BOWIE MD [facility] ER COUGH FLU SYMPTOMS [id number] 03/19/2017 09:46:00 03/19/2017 12:20:00 DIS Outpatient DANA LEWIS MD [facility] ENDO HX POLYPS [id number] 03/15/2017 05:34:00 03/15/2017 14:15:00 DIS Outpatient DANA LEWIS MD [facility] PREOP HX POLPYS [id number] 03/12/2017 16:08:00 03/12/2017 23:59:59 CLS Outpatient DANA LEWIS MD [facility] ENDO ESOPHAGOGASTRODUODENOSCOPY [id number] 03/05/2017 10:49:00 03/05/2017 23:59:59 CLS Outpatient VENANCIO MEHTA APRN [facility] LAB STOOL CULTURE [id number] 03/04/2017 10:04:00 03/04/2017 14:25:00 DIS Emergency VENANCIO MEHTA APRN [facility] ER BLACK STOOL [id number] 12/22/2016 13:28:00 12/22/2016 23:59:59 CLS Outpatient RABBI TAN, JULIANO Flroes [facility] CARD Z01.810,Z01.818 [id number] 04/18/2013 18:36:00 04/18/2013 20:39:00 DIS Emergency AZEB TAN, OSWALD Jeffrey [facility] ER HEADACHE
[2018-11-05] MEDS ORDERED: RT-ALBUTEROL/IPRATROPIUM 3 ML (DUONEB) VIAL INH ONE (10:45)
[2018-11-05 10:48] LABS: BASOPHILS % (AUTO) 0 % (0-10); EOSINOPHILS # (AUTO) 0.1 10^3/uL (0.0-0.3); EOSINOPHILS % (AUTO) 1 % (0-10); HEMATOCRIT 41 % (40-54); HEMOGLOBIN 13.7 G/DL (13.3-17.7); LYMPHOCYTES # (AUTO) 1.8 X 10^3 (1.0-4.0); LYMPHOCYTES % (AUTO) 23 % (12-44); MEAN CORPUSCULAR HEMOGLOBIN 31 PG (25-34); MEAN CORPUSCULAR HGB CONC 33 G/DL (32-36); MEAN CORPUSCULAR VOLUME 92 FL (80-99); MEAN PLATELET VOLUME 8.9 FL (7.4-10.4); MONOCYTES # (AUTO) 0.1 X 10^3 (0.0-1.0); MONOCYTES % (AUTO) 1 % (0-12); NEUTROPHILS % (AUTO) 76 % (42-75); PLATELET COUNT 172 10^3/uL (130-400); RED CELL DISTRIBUTION WIDTH 14.2 % (10.0-14.5)
[2018-11-05 11:04] LABS: ALANINE AMINOTRANSFERASE 28 U/L (0-55); ALBUMIN 3.9 GM/DL (3.2-4.5); ALKALINE PHOSPHATASE 104 U/L (40-136); BILIRUBIN,TOTAL 0.9 MG/DL (0.1-1.0); BUN/CREATININE RATIO 16; CALCIUM 9.8 MG/DL (8.5-10.1); CARBON DIOXIDE 38 MMOL/L (21-32); CHLORIDE 94 MMOL/L (98-107); CREATININE SERUM 0.81 MG/DL (0.60-1.30); GFR ESTIMATED > 60; GLUCOSE 108 MG/DL (70-105); POTASSIUM 3.8 MMOL/L (3.6-5.0); SODIUM 135 MMOL/L (135-145); TOTAL PROTEIN 7.4 GM/DL (6.4-8.2)
--- NOTE | 2018-11-05 11:14 | Diagnostic Imaging Report ---
CLINICAL INDICATION: Possible pneumonia. EXAM: Chest x-ray PA and lateral views. COMPARISONS: Chest x-ray dated 04/21/2018. FINDINGS: There is interval improved aeration of right lung base. There is stable architectural distortion and scarring involving the right perihilar and right lung region. Surgical clips in the right perihilar region are again seen. Stable calcified granuloma in the left upper lobe region. There is no pleural effusion pneumothorax. There is no interval lung infiltrate. Pulmonary vasculature and cardiac silhouette is within normal limits. There are mildly hypertrophic spurs involving the thoracic spine. IMPRESSION: 1: There is no radiographic evidence of acute cardiopulmonary process. 2: Interval improved aeration of the right lung base. 3: Stable postop changes to the chest scarring in the right lung region. Dictated by: Dictated on workstation # [id number]
[2018-11-05] MEDS ORDERED: methylPREDNISolone 125 MG (Solu-MEDROL) VIAL IVP ONE (13:00)
[2018-11-05] MEDS ORDERED: ALBU2.5V4 INH (13:05)
[2018-11-05] MEDS ORDERED: PRD20T PO (13:05)
--- NOTE | 2018-11-05 13:07 | ED Respiratory ---
General Chief Complaint: Respiratory Problems Stated Complaint: FEVER;POSS PNEUMONIA;SOA Nursing Triage Note: PT STATES HE HAS HISTORY OF LUNG CANCER. INCREASED USE OF HOME O2 AND COUGHING. PT LAST CHEMO WAS 10/29. SYMPTOMS STARTED 11/01 PT STATES "LOW GRADE FEVER" Source: patient, family Exam Limitations: no limitations History of Present Illness Date Seen by Provider: November 05, 2018 Time Seen by Provider: 10:35 Initial Comments This 62-year-old gentleman presents to the emergency room with complaints of cough and shortness of breath that started on November 01. He has small cell metastatic lung cancer. His last chemotherapy treatment was on October 30. His oncologist is Dr. Phan. Temperature at home was 99.2. He has been afebrile. He uses nasal cannula oxygen as needed. He has used it more continuously over the last few days. Appetite has been poor. He presents here with his . He uses an inhaler at home but does not use nebulizer treatments. He continues to smoke. Allergies and Home Medications Allergies Coded Allergies: bupropion (Unverified Allergy, Unknown, 03/12/17) rash Home Medications Albuterol Sulfate 2.5 Mg/3 Ml Vial.neb, 2.5 MG INH Q4H PRN for SHORTNESS OF BREATH Prescribed by: PIOTR CALDWELL on 11/05/18 1305 Aspirin 81 Mg Tab.chew, 162 MG PO DAILY, (Reported) Carvedilol 12.5 Mg Tablet, 6.25 MG PO BID, (Reported) Cholecalciferol (Vitamin D3) 1,000 Unit Tablet, 1,000 UNIT PO DAILY, (Reported) Clonazepam 0.5 Mg Tablet, 0.5 MG PO DAILY, (Reported) Clopidogrel Bisulfate 75 Mg Tablet, 75 MG PO DAILY, (Reported) Doxycycline Hyclate 100 Mg Tablet, 100 MG PO BID Prescribed by: OSWALD BOWIE on 05/01/18 165 Hydrocodone Bit/Acetaminophen 1 Tab Tab, 1 EACH PO Q4-6HR PRN for PAIN-MODERATE Prescribed by: OSWALD BOWIE on 05/01/18 165 Hydrocodone/Acetaminophen 1 Each Tablet, 1-2 TAB PO Q6H, (Reported) Levetiracetam 500 Mg Tablet, 1,000 MG PO BID, (Reported) [place] 3 Polyunsat Fatty Acids 1,000 Mg Cap, 2,000 MG PO DAILY, (Reported) [place] 3 Polyunsat Fatty Acids 1,000 Mg Cap, 1,000 MG PO HS, (Reported) Ondansetron 8 Mg Tab.rapdis, 8 MG PO Q6H PRN for NAUSEA/VOMITING-1ST LINE Prescribed by: VENANCIO MEHTA on 03/04/17 1405 Pantoprazole Sodium 40 Mg Tablet.dr, 40 MG PO DAILY Prescribed by: DAAN LEWIS on 03/12/17 1734 Pantoprazole Sodium 40 Mg Tablet.dr, 40 MG PO DAILY Prescribed by: DANA LEWIS on 03/19/17 1214 Prednisone 20 Mg Tab, 40 MG PO DAILY Prescribed by: OSWALD BOWIE on 05/01/18 1656 Prednisone 20 Mg Tab, 20 MG PO BID Prescribed by: PIOTR CALDWELL on 11/05/18 1305 Rosuvastatin Calcium 20 Mg Tablet, 20 MG PO DAILY, (Reported) Trazodone HCl 100 Mg Tablet, 200 MG PO HS, (Reported) Verapamil HCl 40 Mg Tablet, 40 MG PO BID, (Reported) Patient Home Medication List Home Medication List Reviewed: Yes Review of Systems Review of Systems Constitutional: no symptoms reported EENTM: no symptoms reported Respiratory: see HPI Cardiovascular: no symptoms reported Gastrointestinal: no symptoms reported Genitourinary: no symptoms reported Musculoskeletal: no symptoms reported Skin: no symptoms reported Psychiatric/Neurological: No Symptoms Reported Hematologic/Lymphatic: See HPI Immunological/Allergic: see HPI Past Xasjwnf-[id number]-[id number] Hx Past Med/Social Hx: Reviewed and Corrections made Patient Social History Alcohol Use: Denies Use Recreational Drug Use: Yes (TRYING TO QUIT- USED TO SMOKE 2 PACKS/DAY) Drug of Choice: Marijuana--1 PER DAY Type Used: Cigarettes 2nd Hand Smoke Exposure: Yes Recent Foreign Travel: No Contact w/Someone Who Travel: No Recent Infectious Disease Expo: No Recent Hopitalizations: Yes (lobectomy in December @ [place]) Physical Abuse: No Sexual Abuse: No Mistreated: No Fear: No Seasonal Allergies Seasonal Allergies: No Past Medical History Surgeries: Yes (CAROTID stent) Cardiac, Lobectomy Respiratory: Yes (LUNG CANCER) COPD Cardiac: Yes (carotid with stents) High Cholesterol, Hypertension Neurological: Yes Seizure Disorder, Stroke Reproductive Disorders: No Genitourinary: No Gastrointestinal: Yes Gastrointestinal Bleed Musculoskeletal: Yes Arthritis Endocrine: No HEENT: No Cancer: Yes Lung, Skin What Type of Treatment Did You: Chemotherapy, Surgical Intervention Psychosocial: Yes Anxiety, PTSD, Depression Integumentary: No Blood Disorders: No Family Medical History No Pertinent Family Hx Physical Exam Vital Signs - First Documented 11/05/18 10:19 Temp 97.9 Pulse 86 Resp 20 B/P (MAP) 130/84 (99) Pulse Ox 93 O2 Delivery Nasal Cannula O2 Flow Rate 2.00 Capillary Refill : Less Than 3 Seconds Height: 5'8.00" Weight: 153lbs. 5.0oz. [id number]; 26.7 BMI Method:Stated General Appearance: WD/WN, mild distress (uncomfortable with cough and shortness of breath) HEENT: PERRL/EOMI, normal ENT inspection, pharynx normal Neck: normal inspection Respiratory: accessory muscle use; No crackles; wheezing, other (decreased air movement with delayed expiratory phase) Cardiovascular: regular rate, rhythm, no edema, no murmur Gastrointestinal: normal bowel sounds, non tender, soft Extremities: non-tender, normal inspection, no pedal edema Neurologic/Psychiatric: maple sugar maker II-XII nml as tested, no motor/sensory deficits, alert, normal mood/affect, oriented x 3 Skin: normal color, warm/dry Progress/Results/Core Measures Suspected Sepsis Recent Fever Within 48 Hours: Yes Infection Criteria Present: Suspected New Infection New/Unexplained Altered Menta: No Sepsis Screen: No Definite Risk SIRS Temperature:97.9 Pulse: 86 Respiratory Rate: 20 Laboratory Tests 11/05/18 10:40: White Blood Count 8.0 Blood Pressure 130 /84 Mean: 99 Laboratory Tests 11/05/18 10:40: Creatinine 0.81, Platelet Count 172, Total Bilirubin 0.9 Results/Orders Lab Results Laboratory Tests Test 11/05/18 10:40 Range/Units White Blood Count 8.0 4.3-11.0 10^3/uL Red Blood Count 4.47 4.35-5.85 10^6/uL Hemoglobin 13.7 13.3-17.7 G/DL Hematocrit 41 40-54 % Mean Corpuscular Volume 92 80-99 FL Mean Corpuscular Hemoglobin 31 25-34 PG Mean Corpuscular Hemoglobin Concent 33 32-36 G/DL Red Cell Distribution Width 14.2 10.0-14.5 % Platelet Count 172 130-400 10^3/uL Mean Platelet Volume 8.9 7.4-10.4 FL Neutrophils (%) (Auto) 76 H 42-75 % Lymphocytes (%) (Auto) 23 12-44 % Monocytes (%) (Auto) 1 0-12 % Eosinophils (%) (Auto) 1 0-10 % Basophils (%) (Auto) 0 0-10 % Neutrophils # (Auto) 6.0 1.8-7.8 X 10^3 Lymphocytes # (Auto) 1.8 1.0-4.0 X 10^3 Monocytes # (Auto) 0.1 0.0-1.0 X 10^3 Eosinophils # (Auto) 0.1 0.0-0.3 10^3/uL Basophils # (Auto) 0.0 0.0-0.1 10^3/uL Sodium Level 135 135-145 MMOL/L Potassium Level 3.8 3.6-5.0 MMOL/L Chloride Level 94 L 98-107 MMOL/L Carbon Dioxide Level 38 H 21-32 MMOL/L Anion Gap 3 L 5-14 MMOL/L Blood Urea Nitrogen 13 7-18 MG/DL Creatinine 0.81 0.60-1.30 MG/DL Estimat Glomerular Filtration Rate > 60 BUN/Creatinine Ratio 16 Glucose Level 108 H 70-105 MG/DL Calcium Level 9.8 8.5-10.1 MG/DL Corrected Calcium 9.9 8.5-10.1 MG/DL Total Bilirubin 0.9 0.1-1.0 MG/DL Aspartate Amino Transf (AST/SGOT) 20 5-34 U/L Alanine Aminotransferase (ALT/SGPT) 28 0-55 U/L Alkaline Phosphatase 104 40-136 U/L C-Reactive Protein High Sensitivity 12.95 H 0.00-0.50 MG/DL Total Protein 7.4 6.4-8.2 GM/DL Albumin 3.9 3.2-4.5 GM/DL My Orders Orders - PIOTR BETANCUR MD Cbc With Automated Diff (11/05/18 10:42) Comprehensive Metabolic Panel (11/05/18 10:42) Hs C Reactive Protein (11/05/18 10:42) Ed Iv/Invasive Line Start (11/05/18 10:42) Albuterol/Ipra Inhalation Soln (Duoneb I (11/05/18 10:45) Chest Pa/Lat (2 View) (11/05/18 10:42) Svn Small Volume Nebulizer (11/05/18 10:42) Methylprednisolone Sod Succ (Solu-Medrol (11/05/18 13:00) Medications Given in ED Current Medications Medications Dose Ordered Sig/Pool Route Start Time Stop Time Status Last Admin Dose Admin Albuterol/ Ipratropium 3 ml ONCE ONCE INH 11/05/18 10:45 11/05/18 10:46 DC 11/05/18 11:06 3 ML Methylprednisolone Sodium Succinate 125 mg ONCE ONCE IVP 11/05/18 13:00 11/05/18 13:01 DC 11/05/18 13:09 125 MG Vital Signs/I&O 11/05/18 11/05/18 10:19 11:06 Temp 97.9 Pulse 86 Resp 20 B/P (MAP) 130/84 (99) Pulse Ox 93 97 O2 Delivery Nasal Cannula Nasal Cannula O2 Flow Rate 2.00 2.00 Capillary Refill : Less Than 3 Seconds Blood Pressure Mean: 99 Progress Note : Progress Note Workup was not suggestive for pneumonia. Patient appears to be having a COPD exacerbation. Symptoms almost completely resolved with a DuoNeb treatment. Case was discussed with Dr. Phan who had no objections to nebulizer treatments and steroids. A dose of Solu-Medrol was given in the ER. Prescriptions for a nebulizer, albuterol solution, and prednisone were given. Diagnostic Imaging Diagonstic Imaging: Xray Plain Films/CT/US/NM/MRI: chest Comments Chest x-ray viewed by me and report reviewed. See report below: NAME: SOLANGE MAHONEY [facility] REC#: [id number] PT STATUS: REG ER : 1955 PHYSICIAN: PIOTR BETANCUR MD ADMIT DATE: 11/05/18/ER Signed Date of Exam: 11/05/18 CHEST PA/LAT (2 VIEW) CLINICAL INDICATION: Possible pneumonia. EXAM: Chest x-ray PA and lateral views. COMPARISONS: Chest x-ray dated 04/21/2018. FINDINGS: There is interval improved aeration of right lung base. There is stable architectural distortion and scarring involving the right perihilar and right lung region. Surgical clips in the right perihilar region are again seen. Stable calcified granuloma in the left upper lobe region. There is no pleural effusion pneumothorax. There is no interval lung infiltrate. Pulmonary vasculature and cardiac silhouette is within normal limits. There are mildly hypertrophic spurs involving the thoracic spine. IMPRESSION: 1: There is no radiographic evidence of acute cardiopulmonary process. 2: Interval improved aeration of the right lung base. 3: Stable postop changes to the chest scarring in the right lung region. Dictated by: Dictated on workstation # [id number] Dict: 11/05/18 1104 Trans: 11/05/18 1234 Interpreted by: DONOVAN FLORENCE MD Electronically signed by: DONOVAN FLROENCE MD 11/05/18 1234 Departure Impression Primary Impression: COPD exacerbation Additional Impression: Small cell lung cancer Disposition: HOME, SELF-CARE Condition: Improved Departure-Patient Inst. Decision time for Depature: 13:02 Referrals: NO,LOCAL PHYSICIAN (PCP/Family) Primary Care Physician Patient Instructions: Chronic Obstructive Pulmonary Disease (COPD), Including Emphysema Add. Discharge Instructions: Follow-up with your primary care provider as soon as possible. Complete the steroids as prescribed. Return to care if you have worsening symptoms or if you develop new symptoms such as fever. Use your inhaled medications as prescribed. Continue to work toward quitting smoking. Consider enrolling in the smoking cessation class and/or pulmonary rehabilitation. See attached information. All discharge instructions reviewed with patient and/or family. Voiced understanding. Scripts Prednisone (Prednisone) 20 Mg Tab 20 MG PO BID, #8 TAB 0 Refills Prov: PIOTR BETANCUR MD 11/05/18 Albuterol Sulfate (Albuterol Sulfate) 2.5 Mg/3 Ml Vial.neb 2.5 MG INH Q4H PRN for SHORTNESS OF BREATH, #30 EA 1 Refill Prov: PIOTR BETANCUR MD 11/05/18 Copy Copies To 1: DWIGHT PHAN MD, JOSHUA T MD November 05, 2018 13:07
== END 2018-11-05 13:30 | disposition home or self-care (01) ==
LOC: EDUNIT# 10:19 → ER 10:20
DX: J44.1 Chronic obstructive pulmonary disease with (acute) exacerbation (principal); C34.90 Malignant neoplasm of unspecified part of unspecified bronchus or lung; E78.00 Pure hypercholesterolemia, unspecified; I10 Essential (primary) hypertension; F41.9 Anxiety disorder, unspecified; F32.9 Major depressive disorder, single episode, unspecified; F43.10 Post-traumatic stress disorder, unspecified; G40.909 Epilepsy, unspecified, not intractable, without status epilepticus; F12.10 Cannabis abuse, uncomplicated; Z77.22 Contact with and (suspected) exposure to environmental tobacco smoke (acute) (chronic); Z95.5 Presence of coronary angioplasty implant and graft; Z85.828 Personal history of other malignant neoplasm of skin; Z87.19 Personal history of other diseases of the digestive system; Z90.2 Acquired absence of lung [part of]; Z88.8 Allergy status to other drugs, medicaments and biological substances; Z86.73 Personal history of transient ischemic attack (TIA), and cerebral infarction without residual deficits; Z92.21 Personal history of antineoplastic chemotherapy; Z99.81 Dependence on supplemental oxygen; Z79.82 Long term (current) use of aspirin; Z79.52 Long term (current) use of systemic steroids
CPT/HCPCS: 36415; 71046; 80053; 85025; 86141; 94640; 96374

== ENCOUNTER 2018-11-08 05:30 | Outpatient (CLI) | payer OTHER ==
[~2018-11-08] VITALS: Ht 172.7 cm; Wt 68.2 kg
[~2018-11-08 05:30] MED LIST changes: +ALBU2.5V4 INH
[2018-11-08] MEDS ORDERED: FOLI1TAB24 PO (10:13)
[2018-11-08] MEDS ORDERED: CYAN250010 PO (10:13)
[2018-11-08] MEDS ORDERED: BUSP10TA95 PO (10:13)
[2018-11-08] MEDS ORDERED: SERT50TA9 PO (10:13)
[2018-11-08] MEDS ORDERED: TRAM50TA2 PO (10:13)
== END 2018-11-08 10:37 | disposition home or self-care (01) ==
LOC: PREOP 05:30
PROVIDERS: ATTEND Surgery
DX: Z01.818 Encounter for other preprocedural examination (principal)

== ENCOUNTER 2018-11-11 09:16 | Day surgery (SDC) | payer OTHER ==
[~2018-11-11] VITALS: Ht 172.7 cm; Wt 68.2 kg
[2018-11-11] VITALS (9 sets, daily range): BP systolic 118–130; BP diastolic 64–74
[~2018-11-11 09:16] MED LIST changes: +BUSP10TA95 PO; +CYAN250010 PO; +FOLI1TAB24 PO; +SERT50TA9 PO
[2018-11-11] MEDS ORDERED: BUP/EPI 0.5% 1:200,000 (SENSORCAINE) 30 ML VIAL ONE (09:24)
[2018-11-11] MEDS ORDERED: HEParin (CENTRAL IV FLUSH) 500 UNIT/5 ML SYR ONE (09:25)
[2018-11-11] MEDS ORDERED: LACTATED RINGERS 1,000 ML IV PRN (09:25)
[2018-11-11] MEDS ORDERED: 0.9% SODIUM CHLORIDE PF INJ 20 ML VIAL ONE (09:25)
[2018-11-11] MEDS ORDERED: LIDOCAINE 1% INJ 20 ML 20 ML VIAL ONE (09:25)
[2018-11-11] MEDS ORDERED: CATHETER FLUSH 10 ML SYR IV PRN (09:30)
[2018-11-11] MEDS ORDERED: ceFAZolin 2 GM/50 ML NS 50 ML IV ONE (09:30)
[2018-11-11] MEDS ORDERED: PROPOFOL INJECTION 50 ML IV ONE (10:01)
[2018-11-11] MEDS ORDERED: MIDAZOLAM 2 MG/2 ML (VERSED) VIAL ONE (10:02)
--- NOTE | 2018-11-11 10:56 | Progress Note-Pre Operative ---
Pre-Operative Progress Note H&P Reviewed The H&P was reviewed, patient examined and no changes noted. Time Seen by Provider: 10:54 Date H&P Reviewed: November 11, 2018 Time H&P Reviewed: 10:55 Pre-Operative Diagnosis: Venous Insufficiency, Lung CA SU VASQUEZ DO November 11, 2018 10:56
--- NOTE | 2018-11-11 11:30 | Progress Note-Post Operative ---
Post-Operative Progess Note Surgeon (s)/Crown Perforator Operator (s) Surgeon SU VASQUEZ DO Crown Perforator Operator: none Pre-Operative Diagnosis Venous Insufficiency, Lung CA Post-Operative Diagnosis Same Procedure & Operative Findings Date of Procedure 11/11/18 Procedure Performed/Findings Guido-cath insertion Anesthesia Type IV sedation by ACADEMIC ADVISER Estimated Blood Loss Estimated blood loss (mL): less than 5ml Specimens/Packing Specimens Removed none SU VASQUEZ DO November 11, 2018 11:30
--- NOTE | 2018-11-11 11:32 | Discharge Inst-Surgical ---
Discharge Inst-Surgical Depart Medication/Instructions New, Converted or Re-Newed RX: Other (pt has home pain meds) Patient Instructions Follow up Appt: Make appointment for 1 week. [phone] Instructions: No strenuous activity. May shower in 24 hours, no tub bath or soaking. Use incentive spirometer at home as directed. No Smoking Skin/Wound Care: May remove bandages in am. You need to leave the Dermabond on incision it will fall off on it's own. Symptoms to Report: Appetite Changes, Extremity Discoloration, Numbness/Tingling, Swelling Increased , Bleeding Excessive, Eyesight Changes, Pain Increased, Urine Color Change, Constipation(Persistent), Fever over 101 degree F, Pain/Pressure in chest, Urinating Difficulty, Cough Up/Vomit Blood, Heart Beat Irreg/Pounding, Pain/ Pressure in jaw, Cramps in feet or legs, Lightheadedness, Pain/Pressure in shoulder, Diarrhea(Persistent), Memory Changes Suddenly, Questions/Concerns, Weight gain consecutive days, Dizziness/Fainting, Nausea/Vomiting, Shortness of Breath, Weight gain over 2 pounds If questions or concerns contact your physician Or seek help at emergency department. Activity Activity as Tolerated: Yes Activity Instructions: Avoid Stress to Incision Diet Discharge Diet: No Restrictions Diet After 24 Hours: Clear Liquid if Nauseous If Any Problems/Questions/Issu: Contact Your Physician, Go to Emergency Room Skin/Wound Care Infection Signs and Symptoms: Increased Redness, Foul Odor of Wound, Increased Drainage, Skin Itchy or Has a Rash, Increased Swelling, Temperature Above 101 F Bathing Instructions: Shower Stitches/Davis/Dermabond Dis: Dermabond Ice Pack: Ice On and Off Site (as needed for pain) SU VASQUEZ DO November 11, 2018 11:32
--- NOTE | 2018-11-11 12:05 | Diagnostic Imaging Report ---
Indication: Fluoroscopy during power port insertion. Fluoroscopy was provided in the OR during PowerPort insertion. 4 seconds of fluoroscopy was utilized. Impression: Fluoroscopy during right-sided PowerPort insertion. Dictated by: Dictated on workstation # [id number]
--- NOTE | 2018-11-11 12:16 | NUR ---
THIS RN PHONED DR. VASQUEZ TO SEE IF NEED CXR PRIOR TO DISCHARGE. DR. VASQUEZ GAVE ORDER NO XRAY NEEDED.
--- NOTE | 2018-11-11 14:51 | Anesthesia-General Post-Op ---
MAC Patient Condition Mental Status/LOC: Same as Preop Cardiovascular: Satisfactory Nausea/Vomiting: Absent Respiratory: Satisfactory Pain: Controlled Complications: Absent Post Op Complications Complications None Follow Up Care/Instructions Patient Instructions None needed. Anesthesiology Discharge Order Discharge Order Patient was seen after the procedure and he was doing well, no complaints, stable vital signs, no apparent adverse anesthesia problems. SUPRIYA VOGT DO November 11, 2018 14:51
--- NOTE | 2018-11-12 00:33 | OPERATIVE REPORT ---
DATE OF SERVICE: 11/11/2018 PREOPERATIVE DIAGNOSES: 1. Venous insufficiency. 2. Lung cancer. POSTOPERATIVE DIAGNOSES: 1. Venous insufficiency. 2. Lung cancer. PROCEDURE: Port-A-Cath insertion right anterior chest wall, right subclavian vein. SURGEON: Anjel Parikh DO. GAS DISTRIBUTION AND EMERGENCY CLERK: None. ANESTHESIA: IV sedation by CLASSROOM TECHNOLOGY TECHNICIAN. SPECIMENS: None. BLOOD LOSS: Less than 5 mL FLUIDS: Per anesthesia. POSTOPERATIVE CONDITION: Stable. INDICATION FOR PROCEDURE: The patient is a 62-year-old male who unfortunately was recently diagnosed with lung cancer, needs a port for IV access for long-term chemotherapy and he has no veins. He states they have been blown. FINDINGS: The patient had a Port-A-Cath placed right anterior chest wall, right subclavian vein, confirmed with fluoroscopy. PROCEDURE NOTE: After informed consent was obtained, the patient was brought to the operating room, placed on the operating table in supine position, sterilely prepped and draped in normal fashion. Local lidocaine was used to infiltrate the skin directly at the right clavicle as well as in the right anterior chest wall. The patient placed slightly Trendelenburg and then advanced the 18-gauge fine needle with negative inspiration, cannulated the subclavian vein on first attempt. Good flash of blood, removed the syringe, then placed a guidewire down the needle using Seldinger technique. It went in easily and then checked fluoroscopy, it was in the superior vena cava, removed the needle, and then held the wire in place with a hemostat, made a stab incision along the wire with a #11 blade and then using 11 blade, made an incision in the right anterior chest wall, carried down through the skin and subcutaneous tissue, then deepened down to subcutaneous tissue with Bovie electrocautery down to the pectoralis major muscle and the fascia and then bluntly created a pocket for the port. Hemostasis obtained using Bovie electrocautery and then used the tunneler to tunnel from the stab incision to pocket the catheter and then over the guidewire placed a dilator using Seldinger technique, it went in easily, checked fluoroscopy, it was in good position down the superior vena cava, removed the inner portion of the dilator sheath as well as the wire and then placed the catheter down the dilator sheath using the Seldinger technique, it went in easily, removed the dilator sheath and then checked with fluoroscopy and a catheter was in good position. There was a wire in the middle of the catheter. This was removed and then cut the catheter and attached to the port. This was then sutured in place with 3-0 Prolene and then accessed the port with a Garcia needle. Good flash of blood then easily flushed with saline and then aspirated and then flushed with 2 mL of heparin. This was then placed into the pocket, sutured in place with 3-0 Prolene and then elected to close the incision, closing the subcutaneous tissue with 3-0 Vicryl, 2 interrupted sutures and then closed the skin with 4-0 undyed Monocryl 3 interrupted subcuticular stitches as well as closing the stab incision with a 4-0 undyed Monocryl subcuticular stitch. Area was cleaned and dried. Dermabond placed over the incisions and then a bandage and pressure dressing. The patient tolerated the procedure. He was transferred to recovery room in stable condition. Sponge, instrument and needle count correct at the end of the case. Job ID: [id number] DocumentID: [id number] Dictated Date: 11/11/2018 13:40:56 Asphalt Dauber Date: 11/12/2018 00:32:13 Dictated By: ANJEL PARIKH DO
== END 2018-11-11 13:10 | disposition home or self-care (01) ==
LOC: SDC 09:16
PROVIDERS: ATTEND Surgery
DX: I87.2 Venous insufficiency (chronic) (peripheral) (principal); C34.91 Malignant neoplasm of unspecified part of right bronchus or lung; J44.9 Chronic obstructive pulmonary disease, unspecified; I11.9 Hypertensive heart disease without heart failure; Z80.3 Family history of malignant neoplasm of breast; F17.210 Nicotine dependence, cigarettes, uncomplicated; I69.354 Hemiplegia and hemiparesis following cerebral infarction affecting left non-dominant side; F32.9 Major depressive disorder, single episode, unspecified; G40.909 Epilepsy, unspecified, not intractable, without status epilepticus; Z79.899 Other long term (current) drug therapy
CPT/HCPCS: 87081; 94664

== ENCOUNTER 2018-11-23 15:44 | Inpatient (IN) | payer OTHER ==
[2018-11-23] VITALS (7 sets, daily range): BP systolic 88–131; BP diastolic 59–83
[~2018-11-23] VITALS: Ht 172.7 cm; Wt 78.3 kg
--- NOTE | 2018-11-23 15:50 | NUR ---
Dr. Govea performed neurological checks; no deficits noted at this time.
[2018-11-23] MEDS ORDERED: RT-ALBUTEROL/IPRATROPIUM 3 ML (DUONEB) VIAL INH ONE ×2 (16:00→16:30)
[2018-11-23] MEDS ORDERED: ASPIRIN 81 MG CHEW (CHILDREN'S ASA) PO ONE (16:00)
--- NOTE | 2018-11-23 16:00 | NUR ---
Pt received 1 L NS from EMS.
[2018-11-23] MEDS ORDERED: methylPREDNISolone 125 MG (Solu-MEDROL) VIAL IVP ONE (16:15)
[2018-11-23 16:19] LABS: BASOPHILS % (AUTO) 0 % (0-10); EOSINOPHILS % (AUTO) 0 % (0-10); HEMATOCRIT 32 % (40-54); HEMOGLOBIN 10.6 G/DL (13.3-17.7); LYMPHOCYTES # (AUTO) 1.1 X 10^3 (1.0-4.0); LYMPHOCYTES % (AUTO) 6 % (12-44); MEAN CORPUSCULAR HEMOGLOBIN 30 PG (25-34); MEAN CORPUSCULAR HGB CONC 33 G/DL (32-36); MEAN CORPUSCULAR VOLUME 91 FL (80-99); MEAN PLATELET VOLUME 8.7 FL (7.4-10.4); MONOCYTES # (AUTO) 0.1 X 10^3 (0.0-1.0); MONOCYTES % (AUTO) 1 % (0-12); NEUTROPHILS # (AUTO) 15.5 X 10^3 (1.8-7.8); NEUTROPHILS % (AUTO) 93 % (42-75); PLATELET COUNT 290 10^3/uL (130-400); WHITE BLOOD COUNT 16.6 10^3/uL (4.3-11.0)
[2018-11-23] MEDS ORDERED: RT-ALBUTEROL SULF 2.5 MG/3 ML PRE-MIX VIAL INH STA (16:19)
[2018-11-23] MEDS ORDERED: fentaNYL INJECTION 100 MCG/2 ML AMP IVP ONE (16:30)
[2018-11-23] MEDS ORDERED: PIPERACILLIN/TAZOBACTAM (BULK) 4.5 GM in NS (IVPB) 100 ML IV ONE (16:30)
[2018-11-23 16:35] LABS: MAGNESIUM 1.4 MG/DL (1.8-2.4)
[2018-11-23] MEDS ORDERED: NS IV 1000 ML 1,000 ML IV ONE ×2 (16:36)
[2018-11-23 16:39] LABS: INR 1.4 (0.8-1.4); PROTHROMBIN TIME PATIENT 17.7 SEC (12.2-14.7)
[2018-11-23 16:42] LABS: ALANINE AMINOTRANSFERASE 34 U/L (0-55); ALBUMIN 2.7 GM/DL (3.2-4.5); ALKALINE PHOSPHATASE 73 U/L (40-136); BILIRUBIN,TOTAL 0.6 MG/DL (0.1-1.0); BUN/CREATININE RATIO 24; CALCIUM 8.5 MG/DL (8.5-10.1); CARBON DIOXIDE 29 MMOL/L (21-32); CHLORIDE 96 MMOL/L (98-107); GFR ESTIMATED > 60; GLUCOSE 75 MG/DL (70-105); POTASSIUM 3.9 MMOL/L (3.6-5.0); SODIUM 134 MMOL/L (135-145); TOTAL PROTEIN 5.8 GM/DL (6.4-8.2)
[2018-11-23 16:52] LABS: LYMPHOCYTES % (MANUAL) 6 %; NEUTROPHILS % (MANUAL) 94 %; RBC MORPH NORMAL
--- NOTE | 2018-11-23 16:57 | ED General ---
General Chief Complaint: Respiratory Problems Stated Complaint: CHEST PAINS,SOB, STROKE LIKE SYMPTOMS Nursing Triage Note: Pt to ED via EMS. EMS reports pt's O2 sat was 74% on 2 L NC. EMS administered 4 L NC and brought pt's O2 sat to 84%. EMS reports then placing pt on mask. EMS reports pt's family believes pt had a seizure at 1500 yesterday. Pt reports feeling as if pt experienced a stroke. Pt reports cough for two days. EMS reports blood sugar of 72 enroute. EMS reports 50 mcg fentanyl. Pt has small cell lung cancer. Pt had chemo Wed. Nursing Sepsis Screen: Possible Sepsis Risk Source of Information: Patient Exam Limitations: No Limitations History of Present Illness Date Seen by Provider: November 23, 2018 Time Seen by Provider: 15:46 Initial Comments This 62-year-old gentleman presents to the emergency room with respiratory failure, dyspnea, and question of right upper extremity weakness. He is being t reated for small cell lung cancer. His last chemotherapy was 3 days ago. His oncologist is Dr. Fraser. His primary care provider is out of [place], [place]. EMS reports his oxygen saturation was 74 percent on his usual 2 L by nasal cannula. The increases nasal cannula to 4 L which improved his auction saturation to 84 percent. They then switched him to a high flow mask. Patient is moving very little air and seems to be having a significant COPD exacerbation. Patient complains of pain described as a belt tightening across his chest that pops when he takes a deep breath. Patient is afebrile upon arrival. A liter of IV fluids is infusing. It was also reported patient had some right upper extremity weakness. Patient has chronic left-sided weakness due to a prior stroke. Right upper extremity weakness is not appreciated on my assessment. Patient has known seizure disorder. Family thought he had a seizure yesterday around 15:00 and weakness started after that. Allergies and Home Medications Allergies Coded Allergies: bupropion (Unverified Allergy, Mild, RASH, 11/08/18) Home Medications Buspirone HCl 10 Mg Tablet, 5 MG PO BID, (Reported) Carvedilol 12.5 Mg Tablet, 6.25 MG PO BID, (Reported) Cyanocobalamin (Vitamin B-12) 2,500 Mcg Tablet, 2,500 MCG PO DAILY, (Reported) Folic Acid 1 Mg Tablet, 1 MG PO DAILY, (Reported) Levetiracetam 500 Mg Tablet, 1,000 MG PO BID, (Reported) [place] 3 Polyunsat Fatty Acids 1,000 Mg Cap, 2,000 MG PO DAILY, (Reported) [place] 3 Polyunsat Fatty Acids 1,000 Mg Cap, 1,000 MG PO HS, (Reported) Sertraline HCl 50 Mg Tablet, 50 MG PO DAILY, (Reported) Tramadol HCl 50 Mg Tablet, 50 MG PO PRN, (Reported) Trazodone HCl 100 Mg Tablet, 200 MG PO HS, (Reported) Verapamil HCl 40 Mg Tablet, 40 MG PO BID, (Reported) Patient Home Medication List Home Medication List Reviewed: Yes Review of Systems Review of Systems Constitutional: see HPI, weakness EENTM: no symptoms reported Respiratory: see HPI Cardiovascular: see HPI Gastrointestinal: no symptoms reported Genitourinary: no symptoms reported Musculoskeletal: no symptoms reported Skin: no symptoms reported Psychiatric/Neurological: No Symptoms Reported Hematologic/Lymphatic: See HPI Immunological/Allergic: see HPI Past Zucdvaa-Pqervr-Acgbyy Hx Past Med/Social Hx: Reviewed Nursing Past Med/Soc Hx Patient Social History Alcohol Use: Denies Use Recreational Drug Use: Yes (TRYING TO QUIT- USED TO SMOKE 2 PACKS/DAY) Drug of Choice: Marijuana--1 PER DAY Smoking Status: Current Everyday Smoker Type Used: Cigarettes 2nd Hand Smoke Exposure: Yes Recent Foreign Travel: No Contact w/Someone Who Travel: No Recent Infectious Disease Expo: No Recent Hopitalizations: No Immunizations Up To Date Date of Pneumonia Vaccine: November 08, 2014 Seasonal Allergies Seasonal Allergies: Yes Past Medical History Surgeries: Yes (CAROTID stent) Lobectomy Respiratory: Yes (LUNG CANCER) COPD (dependence on supplemental oxygen) Cardiac: Yes High Cholesterol, Hypertension Neurological: Yes (LAST SEIZURE-08/2018) Seizure Disorder, Stroke Reproductive Disorders: No Sexually Transmitted Disease: No HIV/AIDS: No Genitourinary: No Gastrointestinal: Yes Gastrointestinal Bleed Musculoskeletal: Yes Arthritis Endocrine: No HEENT: Yes (GLASSES) Loss of Vision: Bilateral Hearing Impairment: Denies Cancer: Yes Lung, Skin What Type of Treatment Did You: Chemotherapy, Surgical Intervention Psychosocial: Yes Anxiety, PTSD, Depression Integumentary: No Blood Disorders: No Adverse Reaction/Blood Tranf: No (N/A) Family Medical History No Pertinent Family Hx Physical Exam-Suspected Sepsis Physical Exam Vital Signs Vital Signs - First Documented 11/23/18 11/23/18 16:05 16:23 Temp 99.7 Pulse 96 Resp 26 B/P (MAP) 104/60 (75) Pulse Ox 98 O2 Delivery Non Rebreather O2 Flow Rate 10.00 Capillary Refill : Less Than 3 Seconds Blood Pressure Mean: 75 Height, Weight, BMI Height: 5'8.00" Weight: 149lbs. 5.0oz. 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 Norm as Tested Skin: normal color, warm/dry Focused Exam Sepsis Stage: Severe Sepsis Possible Source: Pulmonary Lactate Level 11/23/18 16:07: Lactic Acid Level 1.03 Time of Focused Exam: 18:40 Respiratory: No Respiratory Distress; No Crackles; Decreased Breath Sounds (ri ght lung), Wheezing Cardiovascular: Regular Rate, Rhythm, No Edema, No Murmur Capillary Refill: Less Than 3 Seconds Skin: normal color, warm/dry Lactic Acid Level Laboratory Tests Test 11/23/18 16:07 Lactic Acid Level 1.03 MMOL/L (0.50-2.00) Within 3hrs of presentation: Admin fluids, Admin 30ml/kg IBW due to BMI>30, Admin ABX, Blood cultures prior to ABX's, Focus exam, Lactate level Progress/Results/Core Measures Suspected Sepsis Recent Fever Within 48 Hours: Yes Infection Criteria Present: Suspected New Infection New/Unexplained Altered Menta: No Sepsis Screen: Possible Sepsis Risk SIRS Temperature:99.7 Pulse: 96 Respiratory Rate: 26 Laboratory Tests 11/23/18 16:07: White Blood Count 16.6H Blood Pressure 104 /60 Mean: 75 11/23/18 16:07: Lactic Acid Level 1.03 Laboratory Tests 11/23/18 16:07: Creatinine 0.80, INR Comment 1.4, Platelet Count 290, Total Bilirubin 0.6 Results/Orders Lab Results Laboratory Tests Test 11/23/18 16:07 11/23/18 17:15 Range/Units White Blood Count 16.6 H 4.3-11.0 10^3/uL Red Blood Count 3.49 L 4.35-5.85 10^6/uL Hemoglobin 10.6 L 13.3-17.7 G/DL Hematocrit 32 L 40-54 % Mean Corpuscular Volume 91 80-99 FL Mean Corpuscular Hemoglobin 30 25-34 PG Mean Corpuscular Hemoglobin Concent 33 32-36 G/DL Red Cell Distribution Width 15.0 H 10.0-14.5 % Platelet Count 290 130-400 10^3/uL Mean Platelet Volume 8.7 7.4-10.4 FL Neutrophils (%) (Auto) 93 H 42-75 % Lymphocytes (%) (Auto) 6 L 12-44 % Monocytes (%) (Auto) 1 0-12 % Eosinophils (%) (Auto) 0 0-10 % Basophils (%) (Auto) 0 0-10 % Neutrophils # (Auto) 15.5 H 1.8-7.8 X 10^3 Lymphocytes # (Auto) 1.1 1.0-4.0 X 10^3 Monocytes # (Auto) 0.1 0.0-1.0 X 10^3 Eosinophils # (Auto) 0.0 0.0-0.3 10^3/uL Basophils # (Auto) 0.0 0.0-0.1 10^3/uL Neutrophils % (Manual) 94 % Lymphocytes % (Manual) 6 % Blood Morphology Comment NORMAL Prothrombin Time 17.7 H 12.2-14.7 SEC INR Comment 1.4 0.8-1.4 Activated Partial Thromboplast Time 36 H 24-35 SEC Sodium Level 134 L 135-145 MMOL/L Potassium Level 3.9 3.6-5.0 MMOL/L Chloride Level 96 L 98-107 MMOL/L Carbon Dioxide Level 29 21-32 MMOL/L Anion Gap 9 5-14 MMOL/L Blood Urea Nitrogen 19 H 7-18 MG/DL Creatinine 0.80 0.60-1.30 MG/DL Estimat Glomerular Filtration Rate > 60 BUN/Creatinine Ratio 24 Glucose Level 75 70-105 MG/DL Lactic Acid Level 1.03 0.50-2.00 MMOL/L Calcium Level 8.5 8.5-10.1 MG/DL Corrected Calcium 9.5 8.5-10.1 MG/DL Magnesium Level 1.4 L 1.8-2.4 MG/DL Total Bilirubin 0.6 0.1-1.0 MG/DL Aspartate Amino Transf (AST/SGOT) 37 H 5-34 U/L Alanine Aminotransferase (ALT/SGPT) 34 0-55 U/L Alkaline Phosphatase 73 40-136 U/L Myoglobin 232.4 H 10.0-92.0 NG/ML Troponin I < 0.028 <0.028 NG/ML Total Protein 5.8 L 6.4-8.2 GM/DL Albumin 2.7 L 3.2-4.5 GM/DL Urine Color YELLOW Urine Clarity CLEAR Urine pH 5 5-9 Urine Specific [place] 1.010 L 1.016-1.022 Urine Protein 2+ H NEGATIVE Urine Glucose (UA) NEGATIVE NEGATIVE Urine Ketones NEGATIVE NEGATIVE Urine Nitrite NEGATIVE NEGATIVE Urine Bilirubin NEGATIVE NEGATIVE Urine Urobilinogen 1 NORMAL MG/DL Urine Leukocyte Esterase NEGATIVE NEGATIVE Urine RBC (Auto) 1+ H NEGATIVE Urine RBC NONE /HPF Urine WBC 2-5 /HPF Urine Squamous Epithelial Cells RARE /HPF Urine Crystals NONE /LPF Urine Bacteria TRACE /HPF Urine Casts NONE /LPF Urine Mucus NEGATIVE /LPF Urine Culture Indicated CULTURE PENDING My Orders Orders - PIOTR BETANCUR MD Cbc With Automated Diff (11/23/18 15:56) Comprehensive Metabolic Panel (11/23/18 15:56) Blood Culture (11/23/18 15:56) Sputum Culture (11/23/18 15:56) Urinalysis (11/23/18 15:56) Urine Culture (11/23/18 15:56) Protime With Inr (11/23/18 15:56) Partial Thromboplastin Time (11/23/18 15:56) Chest 1 View, Ap/Pa Only (11/23/18 15:56) Ed Iv/Invasive Line Start (11/23/18 15:56) Ed Iv/Invasive Line Start (11/23/18 15:56) Vital Signs Adult Sepsis Patie Q15M (11/23/18 15:56) O2 (11/23/18 15:56) Remove Rings In Anticipation O (11/23/18 15:56) Lactic Acid Analyzer (11/23/18 15:56) Ct Head Wo-R/O Stroke (11/23/18 15:56) Albuterol/Ipra Inhalation Soln (Duoneb I (11/23/18 16:00) Svn Small Volume Nebulizer (11/23/18 15:56) Magnesium (11/23/18 15:56) Ekg Tracing (11/23/18 15:56) Cardiac Profile 1 (11/23/18 15:56) Myoglobin Serum (11/23/18 15:56) Monitor-Rhythm Ecg Trace Only (11/23/18 15:56) Lipid Panel (11/24/18 06:00) Aspirin Chewable Tablet (Baby Aspirin Ch (11/23/18 16:00) Methylprednisolone Sod Succ (Solu-Medrol (11/23/18 16:15) Albuterol Pre-Mix Nebs (Rt) (Proventil (11/23/18 16:19) Albuterol/Ipra Inhalation Soln (Duoneb I (11/23/18 16:30) Svn Small Volume Nebulizer (11/23/18 16:19) Svn Small Volume Nebulizer (11/23/18 16:19) Manual Differential (11/23/18 16:07) Fentanyl Injection (Sublimaze Injection (11/23/18 16:30) Piperacillin/Tazobactam (Bulk) (Zosyn In (11/23/18 16:30) Ns Iv 1000 Ml (Sodium Chloride 0.9%) (11/23/18 16:36) Ns Iv 1000 Ml (Sodium Chloride 0.9%) (11/23/18 16:36) Ct Angio Chest W (11/23/18 17:32) Iohexol Injection (Omnipaque 350 Mg/Ml 1 (11/23/18 18:15) Received Contrast (Hold Metformin- Contr (11/23/18 18:15) Sodium Chloride Flush (Catheter Flush Sy (11/23/18 18:15) Ns (Ivpb) (Sodium Chloride 0.9% Ivpb Bag (11/23/18 18:15) Medications Given in ED Current Medications Medications Dose Ordered Sig/Pool Route Start Time Stop Time Status Last Admin Dose Admin Albuterol/ Ipratropium 3 ml ONCE ONCE INH 11/23/18 16:00 11/23/18 16:01 DC 11/23/18 16:05 3 ML Albuterol/ Ipratropium 3 ml ONCE ONCE INH 11/23/18 16:30 11/23/18 16:31 DC 11/23/18 16:23 3 ML Aspirin 324 mg ONCE ONCE PO 11/23/18 16:00 11/23/18 16:01 DC 11/23/18 16:42 324 MG Fentanyl Citrate 25 mcg ONCE ONCE IVP 11/23/18 16:30 11/23/18 16:31 DC 11/23/18 16:48 25 MCG Iohexol 150 ml ONCE ONCE IV 11/23/18 18:15 11/23/18 18:16 DC 11/23/18 18:07 125 ML Methylprednisolone Sodium Succinate 125 mg ONCE ONCE IVP 11/23/18 16:15 11/23/18 16:16 DC 11/23/18 16:43 125 MG Piperacillin Sod/ Tazobactam Sod 4.5 gm/Sodium Chloride 120 ml @ 240 mls/hr ONCE ONCE IV 11/23/18 16:30 11/23/18 16:59 DC 11/23/18 16:50 240 MLS/HR Sodium Chloride 10 ml NEEDED PRN IV 11/23/18 18:15 11/23/18 18:08 10 ML Sodium Chloride 100 ml ONCE ONCE IV 11/23/18 18:15 11/23/18 18:16 DC 11/23/18 18:08 80 ML Sodium Chloride 1,000 ml @ 0 mls/hr Q0M ONCE IV 11/23/18 16:36 11/23/18 16:39 DC 11/23/18 16:40 1,000 MLS/HR Vital Signs/I&O 11/23/18 11/23/18 11/23/18 16:05 16:23 16:24 Temp 99.7 Pulse 96 Resp 26 B/P (MAP) 104/60 (75) Pulse Ox 98 92 100 O2 Delivery Non Rebreather OxyMask Nasal Cannula O2 Flow Rate 10.00 10.00 10.00 Capillary Refill : Less Than 3 Seconds Blood Pressure Mean: 75 Progress Note : Time: 16:52 Progress Note Patient was seen and examined upon arrival. There is concern for possible sepsis. Septic workup was pursued along with chest pain workup. Patient was found to have extensive infiltrate and/or effusion of the right lung. He was started on Zosyn after blood cultures and lactic acid were drawn. 1 L of IV fluid was administered by EMS and a second liter of normal saline was ordered to fulfill the recommended a 30 ML per kilogram IV fluid bolus. This along with fluid volumes of medications exceeds the recommended volume resuscitation of 2025 mL. Patient received Solu-Medrol 125 mg IV. A DuoNeb treatment was administered. Patient still had delayed expiratory phase and expiratory wheezing. An hour-long nebulizer treatment was ordered. We will proceed to treat with Vapotherm after the hour-long treatment. Patient will be admitted to the ICU for severe sepsis and respiratory failure related to pneumonia, lung cancer, and COPD exacerbation. Patient initially stated he would like to have a full CODE STATUS. However, after discussing possible outcomes of a code situation, patient elects a DO NOT RESUSCITATE. CT head is pending and will be performed after completion of the hour-long nebulizer treatment. Patient's Keppra was ordered to continue on the bridging orders. Family thought patient had a seizure yesterday. Perhaps his pneumonia was precipitated by or worsen by aspiration. ECG Initial ECG Impression Date: November 23, 2018 Initial ECG Impression Time: 15:54 Initial ECG Rate: 94 Initial ECG Rhythm: Normal Sinus Comment Normal sinus rhythm with borderline tachycardia. No ST elevation or depression. No abnormal intervals or axis deviation. Diagnostic Imaging Diagonstic Imaging: Xray Plain Films/CT/US/NM/MRI: chest Comments Chest x-ray viewed by me and report reviewed. See report below: NAME: SOLANGE MAHONEY MED REC#: [id number] PT STATUS: REG ER : 1955 PHYSICIAN: PIOTR BETANCUR MD ADMIT DATE: 11/23/18/ER Signed Date of Exam: 11/23/18 CHEST 1 VIEW, AP/PA ONLY INDICATION: Shortness of air. COMPARISON: 11/05/2018. TECHNIQUE: Single radiograph of the chest dated 11/23/2018. FINDINGS: Right-sided Port-A-Cath is present, new since the prior examination. The distal tip appears to terminate expected location of the cavoatrial junction. The cardiac silhouette is predominantly obscured. Calcified granuloma within the left midlung. Mild left basilar pulmonary opacities have developed. Extensive opacification of the majority of the right hemithorax is identified, though a small portion of right upper lung remains aerated. No significant left pleural effusion. No pneumothorax. Slight rightward shift of the mediastinum. No acute osseous abnormality IMPRESSION: Interval development of near-complete opacification of the right hemithorax. This is felt to relate combination of pleural fluid, atelectasis, and infiltrate. Given mediastinal shift, a component of volume loss is present. Interval placement of right-sided Port-A-Cath with the distal tip near the cavoatrial junction. Mild left basilar atelectasis and/or pneumonitis. Additional findings as above. Dictated by: Dictated on workstation # [id number] Dict: 11/23/18 1631 Trans: 11/23/181748 Interpreted by: CRISTIANA JACOBS MD Electronically signed by: CRISTIANA JACOBS MD 11/23/181748 Diagonstic Imaging: CT Plain Films/CT/US/NM/MRI: chest Comments CT angiogram of the chest viewed by me and report reviewed. See report below: NAME: SOLANGE MAHONEY [facility] REC#: [id number] PT STATUS: REG ER : 1955 PHYSICIAN: PIOTR BETANCUR MD ADMIT DATE: 11/23/18/ER Draft Date of Exam:11/23/18 CT ANGIO CHEST W PROCEDURE: CT angiography of the chest with contrast. TECHNIQUE: Multiple contiguous axial images were obtained through the chest after uneventful bolus administration of intravenous contrast. 2D reconstructed CTA MIP acquisitions were also performed. Auto Exposure Controls were utilized during the CT exam to meet ALARA standards for radiation dose reduction. INDICATION: Small cell lung cancer currently on chemotherapy. Shortness of breath, cough and hypoxia. FINDINGS: The thoracic aorta is normal in caliber without evidence of dissection. There are no filling defects within the pulmonary arteries to suggest pulmonary embolism. There is some prominence of the main pulmonary artery. Pulmonary venous hypertension cannot be excluded. There is an extensive right upper lobe consolidation. There is also extensive right basilar consolidation. There is a right pleural effusion. There is some left basilar atelectasis and/or pneumonitis. Left lung is otherwise clear. There is no pneumothorax. There is subcarinal adenopathy measuring up to 3 cm. There also appears to be some adenopathy about the right hilum, however, this is difficult to delineate due to the areas of adjacent consolidation. There is no pneumothorax. The visualized intra-abdominal structures are unremarkable. There are degenerative changes in the spine. IMPRESSION: 1. Extensive consolidation in the right upper lobe and right lower lobe. Much of this is likely post obstructive pneumonitis although it's difficult to differentiate underlying neoplasm. There is also subcarinal right hilar adenopathy as well as a small right pleural effusion. 2. Minimal left basilar atelectasis and/or pneumonitis. 3. No evidence of aortic dissection or pulmonary embolism. There is, however, prominence of the main pulmonary artery suggestive of pulmonary hypertension. Recommend clinical correlation and, if warranted, followup with echocardiography. Dictated on workstation # [id number] Dict: 11/23/181809 Trans: 11/23/181828 [facility] [id number] Interpreted by: JYOTHI WHITLEY MD Diagonstic Imaging: CT Plain Films/CT/US/NM/MRI: head Comments CT head viewed by me and report reviewed. See report below: NAME: SOLANGE MAHONEY [facility] REC#: [id number] PT STATUS: REG ER : 1955 PHYSICIAN: PIOTR BETANCUR MD ADMIT DATE: 11/23/18/ER Signed Date of Exam: 11/23/18 CT HEAD WO-R/O STROKE PROCEDURE: CT head wo r/o stroke. TECHNIQUE: Multiple contiguous axial images were obtained through the brain without the use of intravenous contrast. Auto Exposure Controls were utilized during the CT exam to meet ALARA standards for radiation dose reduction. INDICATION: Left facial weakness and headache. Comparison made with prior examination 04/18/2013. FINDINGS: There is prominence of ventricles and sulci. There is an unchanged focal area of encephalomalacia in the right frontal lobe compatible with prior CVA. There is mild chronic microvascular ischemic disease. There is no hydrocephalus. There is no midline shift. There is no mass, hemorrhage or extra-axial fluid collection. There is mucosal thickening in the maxillary sinuses bilaterally. Remaining sinuses and mastoid air cells are clear. IMPRESSION: Chronic encephalomalacia in the right frontal lobe compatible with prior CVA. Atrophy and mild chronic microvascular ischemic disease. Mild bilateral maxillary sinus disease. Dictated by: Dictated on workstation # [id number] Dict: 11/23/181808 Trans: 11/23/181821 Interpreted by: JYOTHI WHITLEY MD Electronically signed by: JYOTHI WHITLEY MD 11/23/181821 Departure Communication (Admissions) Time/Spoke to Admitting Phy: 16:33 Dr. Sanchez Time/Spoke to Consulting Phy: 16:22 Dr. Chung Impression Primary Impression: Severe sepsis Additional Impressions: Respiratory failure Qualified Codes: J96.21 - Acute and chronic respiratory failure with hypoxia Pneumonia Qualified Codes: J18.1 - Lobar pneumonia, unspecified organism Small cell lung cancer Atypical chest pain COPD exacerbation Disposition: ADMITTED INPATIENT Condition: Improved Admissions Decision to Admit Reason: Admit from ER (General) Decision to Admit/Date: November 23, 2018 Time/Decision to Admit Time: 15:50 Departure-Patient Inst. Referrals: NO,LOCAL PHYSICIAN (PCP/Family) Primary Care Physician PIOTR BETANCUR MD November 23, 2018 16:57
[2018-11-23 17:25] LABS: BILIRUBIN,URINE NEGATIVE (NEGATIVE); CLARITY,URINE CLEAR; COLOR,URINE YELLOW; GLUCOSE, URINE (UA) NEGATIVE (NEGATIVE); KETONES,URINE NEGATIVE (NEGATIVE); LEUKOCYTE ESTERASE ,URINE NEGATIVE (NEGATIVE); NITRITE,URINE NEGATIVE (NEGATIVE); PH,URINE 5 (5-9); PROTEIN,URINE 2+ (NEGATIVE); UROBILINOGEN,URINE 1 MG/DL (NORMAL)
[2018-11-23 17:32] LABS: BACTERIA,URINE TRACE /HPF; SQUAMOUS EPITHELIAL CELL,UR RARE /HPF
[2018-11-23] MEDS ORDERED: CATHETER FLUSH 10 ML SYR IV PRN (18:15)
[2018-11-23] MEDS ORDERED: HOLD METFORMIN - RECEIVED CONTRAST 20 ML VIAL IV SCH (18:15)
[2018-11-23] MEDS ORDERED: IOHEXOL 350 MG/ML 150 ML (OMNIPAQUE 350) VIAL IV ONE (18:15)
[2018-11-23] MEDS ORDERED: NS 100 ML (IVPB) BAG IV ONE (18:15)
--- NOTE | 2018-11-23 18:17 | Diagnostic Imaging Report ---
PROCEDURE: CT head wo r/o stroke. TECHNIQUE: Multiple contiguous axial images were obtained through the brain without the use of intravenous contrast. Auto Exposure Controls were utilized during the CT exam to meet ALARA standards for radiation dose reduction. INDICATION: Left facial weakness and headache. Comparison made with prior examination 04/18/2013. FINDINGS: There is prominence of ventricles and sulci. There is an unchanged focal area of encephalomalacia in the right frontal lobe compatible with prior CVA. There is mild chronic microvascular ischemic disease. There is no hydrocephalus. There is no midline shift. There is no mass, hemorrhage or extra-axial fluid collection. There is mucosal thickening in the maxillary sinuses bilaterally. Remaining sinuses and mastoid air cells are clear. IMPRESSION: Chronic encephalomalacia in the right frontal lobe compatible with prior CVA. Atrophy and mild chronic microvascular ischemic disease. Mild bilateral maxillary sinus disease. Dictated by: Dictated on workstation # [id number]
--- NOTE | 2018-11-23 18:29 | Diagnostic Imaging Report ---
PROCEDURE: CT angiography of the chest with contrast. TECHNIQUE: Multiple contiguous axial images were obtained through the chest after uneventful bolus administration of intravenous contrast. 2D reconstructed CTA MIP acquisitions were also performed. Auto Exposure Controls were utilized during the CT exam to meet ALARA standards for radiation dose reduction. INDICATION: Small cell lung cancer currently on chemotherapy. Shortness of breath, cough and hypoxia. FINDINGS: The thoracic aorta is normal in caliber without evidence of dissection. There are no filling defects within the pulmonary arteries to suggest pulmonary embolism. There is some prominence of the main pulmonary artery. Pulmonary venous hypertension cannot be excluded. There is an extensive right upper lobe consolidation. There is also extensive right basilar consolidation. There is a right pleural effusion. There is some left basilar atelectasis and/or pneumonitis. Left lung is otherwise clear. There is no pneumothorax. There is subcarinal adenopathy measuring up to 3 cm. There also appears to be some adenopathy about the right hilum, however, this is difficult to delineate due to the areas of adjacent consolidation. There is no pneumothorax. The visualized intra-abdominal structures are unremarkable. There are degenerative changes in the spine. IMPRESSION: 1. Extensive consolidation in the right upper lobe and right lower lobe. Much of this is likely post obstructive pneumonitis although it's difficult to differentiate underlying neoplasm. There is also subcarinal right hilar adenopathy as well as a small right pleural effusion. 2. Minimal left basilar atelectasis and/or pneumonitis. 3. No evidence of aortic dissection or pulmonary embolism. There is, however, prominence of the main pulmonary artery suggestive of pulmonary hypertension. Recommend clinical correlation and, if warranted, followup with echocardiography. Dictated by: Dictated on workstation # [id number]
--- NOTE | 2018-11-23 18:50 | NUR ---
Report given to Marshall RN, in ICU. ICU nurse to call after shift change when ready to receive pt.
--- NOTE | 2018-11-23 19:00 | NUR ---
Report given to DAVID Fraser.
--- NOTE | 2018-11-23 19:03 | NUR ---
report from landon reynaga. she called admit report already and floor will call when they can take pt after shift change.
--- NOTE | 2018-11-23 19:26 | NUR ---
pt here by self alert gcs 15. i helped pt with urinal for ua 375 ml. pt c/o chest pain when he beaths only. also c/o dyspnea. no acute sighns of dyspnea noted though resp shallow nonlabored. no accessory muscle use noted. no cyanosis or duskiness noted. lungs cta with decreased aeration bilaterally. moreso on right. pt denies abd pain. pain rating 6. vs bp machine is 124/68 ausc hr 96 reg ausc resp 20. recheck temp 98.6 p ox 5/nrm is 97. tele shows sr 93.pt has nonproduictive congested cough in er.
--- NOTE | 2018-11-23 19:33 | NUR ---
i called another report to admit nurse mima. she knew some information already. i just gave new set vs . and other information.
--- NOTE | 2018-11-23 19:45 | NUR ---
i am taking pt to admit room now. o2 and tele continue to floor. pt has family here now.
--- NOTE | 2018-11-23 19:48 | NUR ---
SOLANGE MAHONEY admitted to room CU6-1, with an admitting diagnosis of PNEUMONIA,SEPSIS,LUNG CA, COPD EXAC, on 11/23/18 from AM via , accompanied by .SOLANGE MAHONEY introduced to surroundings, call light, bed controls, phone, TV, temperature control, lights, meal times, smoking policy, visitor policy, side rail policy, bathrooms and showers. Patient Rights given to patient in the handbook. SOLANGE MAHONEY verbalizes understanding that [facility] is not responsible for the loss or damage to any personal effects or valuables that are kept in the patients posession during their hospitalization. The following Patient Care Plans were discussed with the : Discharge Planning, ,, and . SOLANGE MAHONEY verbalizes understanding of Interdisciplinary Patient Education. Patient and/or family were informed about the Rapid Response Team and its purpose.
[2018-11-23] MEDS ORDERED: traZODone 100 MG (DESYREL) TAB ONE (20:06)
[2018-11-23] MEDS ORDERED: LEVETIRACETAM 500 MG (KEPPRA) TAB PO ONE (20:07)
[2018-11-23] MEDS ORDERED: VANCOMYCIN INJECTION 1GM (OMNI 250 ML IV ONE (20:08)
[2018-11-23] MEDS ORDERED: NS IV 1000 ML 1,000 ML ONE (20:13)
[2018-11-23] MEDS ORDERED: LACTATED RINGERS 1,000 ML IV SCH (20:41)
[2018-11-23] MEDS: traZODone 100 MG (DESYREL) TAB PO SCH (20:45)
[2018-11-23] MEDS ORDERED: RT-ALBUTEROL SULF 2.5 MG/3 ML PRE-MIX VIAL IH PRN (20:45)
[2018-11-23] MEDS ORDERED: ACETAMINOPHEN 500 MG TAB (TYLENOL) PO PRN (20:45)
[2018-11-23] MEDS ORDERED: EPINEPHrine 1 MG INJECTION 2 MG in NS (IVPB) 250 ML IV SCH (20:45)
[2018-11-23] MEDS: LEVETIRACETAM 1,000 MG (KEPPRA) TABLET PO SCH (20:45)
[2018-11-23] MEDS ORDERED: ONDANSETRON 4 MG/2 ML (SDV) Z0FRAN IV PRN (20:45)
[2018-11-23] MEDS: VASOPRESSIN INJECTION 20 UNIT in NS (IVPB) 100 ML IV SCH (21:03)
[2018-11-23] MEDS: NOREPINEPHRINE 4 MG in NS (IVPB) 250 ML IV SCH ×2 (21:07→22:30)
[2018-11-23] MEDS: NS IV 1000 ML 1,000 ML IV SCH (21:09)
[2018-11-23] MEDS: RT-ALBUTEROL/IPRATROPIUM 3 ML (DUONEB) VIAL IH SCH (21:40)
[2018-11-23] MEDS ORDERED: NS (IVPB) 250 ML ONE (22:19)
[2018-11-23] MEDS ORDERED: NOREPINEPHRINE 4 MG/4 ML (LEVOPHED) AMP IV ONE (22:20)
[2018-11-23] MEDS: PIPERACILLIN/TAZO 4.5 GM/NS 100 ML IV SCH ×2 (22:30)
[2018-11-24] VITALS (25 sets, daily range): BP systolic 89–152; BP diastolic 52–103
[2018-11-24] MEDS ORDERED: NS (IVPB) 100 ML ONE (00:04)
[2018-11-24] MEDS ORDERED: PIPERACILLIN/TAZO 4.5 GM VIAL (ZOSYN) IV ONE (00:04)
[2018-11-24] MEDS: NS IV 1000 ML 1,000 ML IV SCH ×6 (01:24→21:12)
[2018-11-24] MEDS: RT-ALBUTEROL/IPRATROPIUM 3 ML (DUONEB) VIAL IH SCH ×6 (02:25→22:08)
[2018-11-24 03:05] LABS: BASOPHILS % (AUTO) 0 % (0-10); EOSINOPHILS % (AUTO) 0 % (0-10); HEMATOCRIT 27 % (40-54); LYMPHOCYTES # (AUTO) 0.3 X 10^3 (1.0-4.0); LYMPHOCYTES % (AUTO) 3 % (12-44); MEAN CORPUSCULAR HEMOGLOBIN 30 PG (25-34); MEAN CORPUSCULAR HGB CONC 33 G/DL (32-36); MEAN CORPUSCULAR VOLUME 91 FL (80-99); MEAN PLATELET VOLUME 8.8 FL (7.4-10.4); MONOCYTES % (AUTO) 0 % (0-12); NEUTROPHILS # (AUTO) 12.1 X 10^3 (1.8-7.8); NEUTROPHILS % (AUTO) 97 % (42-75); PLATELET COUNT 251 10^3/uL (130-400); RED CELL DISTRIBUTION WIDTH 14.9 % (10.0-14.5); WHITE BLOOD COUNT 12.5 10^3/uL (4.3-11.0)
[2018-11-24 03:22] LABS: BUN/CREATININE RATIO 22; CARBON DIOXIDE 25 MMOL/L (21-32); CHLORIDE 104 MMOL/L (98-107); CHOLESTEROL 94 MG/DL (< 200); CREATININE SERUM 0.69 MG/DL (0.60-1.30); GFR ESTIMATED > 60; GLUCOSE 137 MG/DL (70-105); HDL CHOLESTEROL 28 MG/DL (40-60); MAGNESIUM 1.5 MG/DL (1.8-2.4); PHOSPHORUS 2.7 MG/DL (2.3-4.7); POTASSIUM 3.4 MMOL/L (3.6-5.0); SODIUM 136 MMOL/L (135-145); TRIGLYCERIDES 53 MG/DL (<150); VLDL CHOLESTEROL 11 MG/DL (5-40)
[2018-11-24] MEDS: MAGNESIUM 1 GM/100 ML IVPB 100 ML IV SCH ×3 (04:47→05:04)
[2018-11-24] MEDS: POTASSIUM CL 10MEQ/50ML IVPB 50 ML IV SCH ×3 (04:47→06:11)
[2018-11-24] MEDS: KCL 20 MEQ TAB (K-DUR) PO SCH (04:47)
[2018-11-24] MEDS: VASOPRESSIN INJECTION 20 UNIT in NS (IVPB) 100 ML IV SCH ×3 (05:03→20:31)
--- NOTE | 2018-11-24 05:16 | Pulmonary Consultation ---
History of Present Illness History of Present Illness Date of Consultation 11/24/18 05:11 Time Seen by Provider: 05:11 Date of Admission History of Present Illness 62yo with hx of small cell lung cancer last chemo was Sunday presented to ED secondary to worsening SOB, and questionable seizures with RUE weakness. Head CT in ED was normal. Pt was found to have sepsis he was started on vanco, Zosyn and admitted to ICU. PT normally uses 2 liters of oxygen at home however he states his Sp02 was only 74% on 2liters. Increasing oxygen to 4 liters improved Sp02 to 84%. CXR shows near opacification of right lung. PT is a DNR. He states he has finished chemotherapy. I am consulted for pulmonary/ICU management. Allergies and Home Medications Allergies Coded Allergies: bupropion (Unverified Allergy, Mild, RASH, 11/08/18) Home Medications Buspirone HCl 10 Mg Tablet, 5 MG PO BID, (Reported) Carvedilol 12.5 Mg Tablet, 6.25 MG PO BID, (Reported) Cyanocobalamin (Vitamin B-12) 2,500 Mcg Tablet, 2,500 MCG PO DAILY, (Reported) Folic Acid 1 Mg Tablet, 1 MG PO DAILY, (Reported) Levetiracetam 500 Mg Tablet, 1,000 MG PO BID, (Reported) [place] 3 Polyunsat Fatty Acids 1,000 Mg Cap, 2,000 MG PO DAILY, (Reported) [place] 3 Polyunsat Fatty Acids 1,000 Mg Cap, 1,000 MG PO HS, (Reported) Sertraline HCl 50 Mg Tablet, 50 MG PO DAILY, (Reported) Tramadol HCl 50 Mg Tablet, 50 MG PO PRN, (Reported) Trazodone HCl 100 Mg Tablet, 200 MG PO HS, (Reported) Verapamil HCl 40 Mg Tablet, 40 MG PO BID, (Reported) Past Npvpclf-Xwbbht-Ovryov Hx Past Med/Social Hx: Reviewed Nursing Past Med/Soc Hx Patient Social History Alcohol Use: Denies Use Recreational Drug Use: Yes (TRYING TO QUIT- USED TO SMOKE 2 PACKS/DAY) Drug of Choice: Marijuana--1 PER DAY Smoking Status: Current Everyday Smoker Type Used: Cigarettes 2nd Hand Smoke Exposure: Yes Recent Foreign Travel: No Contact w/Someone Who Travel: No Recent Infectious Disease Expo: No Recent Hopitalizations: No Immunizations Up To Date Date of Pneumonia Vaccine: November 08, 2014 Seasonal Allergies Seasonal Allergies: Yes Past Medical History Surgeries: Yes (CAROTID stent) Lobectomy Respiratory: Yes (LUNG CANCER) COPD (dependence on supplemental oxygen) Cardiac: Yes High Cholesterol, Hypertension Neurological: Yes (LAST SEIZURE-08/2018) Seizure Disorder, Stroke Reproductive Disorders: No Sexually Transmitted Disease: No HIV/AIDS: No Genitourinary: No Gastrointestinal: Yes Gastrointestinal Bleed Musculoskeletal: Yes Arthritis Endocrine: No HEENT: Yes (GLASSES) Loss of Vision: Bilateral Hearing Impairment: Denies Cancer: Yes Lung, Skin What Type of Treatment Did You: Chemotherapy, Surgical Intervention Psychosocial: Yes Anxiety, PTSD, Depression Integumentary: No Blood Disorders: No Adverse Reaction/Blood Tranf: No (N/A) Family Medical History No Pertinent Family Hx Review of Systems Time Seen by Provider: 07:40 Constitutional: Sweats, Weakness, Malaise, Other; No: Fever, Chills Eyes: No: Pain, Vision change, Conjunctivae inflammation, Eyelid inflammation, Other, Redness ENT: Nose congestion Respiratory: Cough, Dry, Shortness of breath, SOB with excertion, Wheezing; No: Hemoptysis Cardiovascular: Palpitations, Orthopnea, Paroxysmal Noc. Dyspnea, Lt Headedness; No: Edema Gastrointestinal: Constipation; No: Nausea, Vomiting, Abdominal Pain, Diarrhea, Melena, Hematochezia, Other Neurological: Weakness, Incoordination, Confusion, Seizures Sepsis Event Evaluation Height, Weight, BMI Height: 5'8.00" Weight: 147lbs. 0.0oz. 66.027451jf; 22.4 BMI Method:Stated Exam Exam Vital Signs Date Time Temp Pulse Resp B/P (MAP) Pulse Ox O2 Delivery O2 Flow Rate FiO2 11/24/18 04:00 90 21 137/72 (93) 95 Vapotherm 60.00 20.00 11/24/18 04:00 91 Vapotherm 20.00 60 11/24/18 03:00 97 14 114/103 (107) 95 Vapotherm 60.00 20.00 11/24/18 02:25 Vapotherm 20.00 55 11/24/18 02:00 89 15 123/64 (83) 95 Vapotherm 60.00 20.00 11/24/18 01:00 78 11/24/18 01:00 78 18 124/70 (88) 94 Vapotherm 60.00 20.00 11/24/18 00:00 91 Vapotherm 20.00 60 11/24/18 00:00 87 19 91/52 (65) 91 Vapotherm 60.00 20.00 11/23/18 23:58 92 Vapotherm 20.00 60 11/23/18 23:53 Vapotherm 60.00 20.00 11/23/18 23:00 85 17 118/66 (83) 96 Vapotherm 55.00 25.00 11/23/18 22:00 85 18 88/59 (69) 90 Vapotherm 55.00 25.00 11/23/18 21:42 Vapotherm 55.00 25.00 11/23/18 21:40 92 Vapotherm 25.00 55 11/23/18 21:16 97 Vapotherm 30.00 50 11/23/18 21:00 6 19 113/66 (82) 92 Vapotherm 50.00 30.00 11/23/18 20:45 90 14 131/83 (99) 95 Vapotherm 50.00 30.00 11/23/18 20:34 Vapotherm 30.00 50 11/23/18 20:30 93 15 128/71 (90) 94 Vapotherm 50.00 30.00 11/23/18 20:15 87 21 113/71 (85) 100 Vapotherm 50.00 30.00 11/23/18 20:00 97.1 89 21 128/69 (88) 98 Vapotherm 50.00 30.00 11/23/18 19:59 90 11/23/18 19:59 80 11/23/18 19:45 99.7 96 26 104/60 (75) 100 Nasal Cannula 10.00 11/23/18 16:24 100 Nasal Cannula 10.00 11/23/18 16:23 99.7 96 26 104/60 (75) 92 OxyMask 10.00 11/23/18 16:05 98 Non Rebreather 10.00 I & O 11/24/18 07:00 Intake Total 1820 ml Output Total 700 ml Balance 1120 ml Height & Weight Height: 5'8.00" Weight: 147lbs. 0.0oz. 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 Evelio Lamar -Mercedes Anemia -Monitor -Occult stool ESME PALOMINO DO November 24, 2018 05:16
[2018-11-24] MEDS: ENOXAPARIN 40 MG/0.4 ML (LOVENOX) SYR SC SCH (05:46)
[2018-11-24] MEDS: methylPREDNISolone 40 MG/ML (Solu-MEDROL) VIAL IV SCH ×4 (06:11→18:11)
[2018-11-24] MEDS: PIPERACILLIN/TAZO 4.5 GM/NS 100 ML IV SCH ×4 (06:32→14:53)
--- NOTE | 2018-11-24 07:12 | NUR ---
Vancomycin - Maint. Dose: 1250mg every 12 hours. Trough 10/26 @ 1900.
[2018-11-24] MEDS: VANCOMYCIN 1250 MG/NS 250 ML IVPB IV SCH ×4 (07:39→19:53)
[2018-11-24] MEDS ORDERED: KCL 20 MEQ TAB (K-DUR) PO ONE (09:00)
--- NOTE | 2018-11-24 09:15 | History & Physical-Hospitalist ---
History of Present Illness HPI/Chief Complaint The patient is a 62-year-old white male with history of small cell lung cancer who last underwent chemotherapy on . As I recall this was his third round any been tolerating them relatively well. He noted increased fatigue and then had a syncopal episode yesterday but the family felt was likely a seizure. They were not present to converse with but upon arrival to the emergency room his oxygen level was in the 70s. He required prolonged breathing treatment and was noted to have significant new chest x-ray findings essentially the right inferior two thirds of the thorax was krys out. He reported some increase in cough that was nonproductive and also denied hemoptysis. He denied chills or fever just reporting extreme fatigue. He had no night sweats denied abdominal pain dysuria or flank pain. He has past history of left-sided CVA with right- sided hemiparesis with good recovery but sometime following his stroke he did develop generalized seizure disorder and is been on Keppra a gram twice a day. He reports that he has been compliant with medication and does not believe he is missed any doses. Date Seen 11/24/18 Time Seen by a Provider: 08:00 Attending Physician Charli Christian MD PCP No,Local Physician Referring Physician Date of Admission November 23, 2018 at 16:56 Home Medications & Allergies Home Medications Reviewed patient Home Medication Reconciliation performed by pharmacy medication reconciliations windows laptop technician and/or nursing. Patients Allergies have been reviewed. Allergies Allergies Coded Allergies bupropion (Unverified Allergy, Mild, RASH, 11/08/18) Past Hdadeyf-Ldbpll-Cgnxtr Hx Past Med/Social Hx: Reviewed Nursing Past Med/Soc Hx, Reviewed and Corrections made Patient Social History Alcohol Use: Denies Use Recreational Drug Use: Yes (TRYING TO QUIT- USED TO SMOKE 2 PACKS/DAY) Drug of Choice: Marijuana--1 PER DAY Smoking Status: Current Everyday Smoker Type Used: Cigarettes 2nd Hand Smoke Exposure: Yes Recent Foreign Travel: No Contact w/other who traveled: No Recent Hopitalizations: No Recent Infectious Disease Expo: No Immunizations Up To Date Date of Pneumonia Vaccine: November 08, 2014 Seasonal Allergies Seasonal Allergies: Yes Past Medical History Surgeries: Lobectomy Respiratory: COPD Cardiac: High Cholesterol, Hypertension Neurological: Seizure Disorder, Stroke Reproductive: No Sexually Transmitted Disease: No HIV/AIDS: No Gastrointestinal: Gastrointestinal Bleed Musculoskeletal: Arthritis Loss of Vision: Bilateral Hearing Impairment: Denies Cancer: Lung, Skin What Type of Treatment Did You: Chemotherapy, Surgical Intervention Psychosocial: Anxiety, PTSD, Depression History of Blood Disorders: No Adverse Reaction to Blood Emmanuel: No (N/A) Family History No Pertinent Family Hx Review of Systems Constitutional: see HPI, weakness Respiratory: cough, dyspnea on exertion; No hemoptysis, No orthopnea, No phlegm; short of breath; No stridor; wheezing; No other Cardiovascular: see HPI; No chest pain, No edema, No Hx of Intervention, No palpitations; syncope; No vascular heart diseas, No other Physical Exam Physical Exam Vital Signs Vital Signs - First Documented 11/23/18 11/23/18 11/23/18 16:05 16:23 20:34 Temp 99.7 Pulse 96 Resp 26 B/P (MAP) 104/60 (75) Pulse Ox 98 O2 Delivery Non Rebreather O2 Flow Rate 10.00 FiO2 50 Capillary Refill : Less Than 3 Seconds Height, Weight, BMI Height: 5'8.00" Weight: 157lbs. 0.0oz. 71.663064mw; 22.4 BMI Method:Stated General Appearance: No Apparent Distress, Chronically ill, Mild Distress Neck: Full Range of Motion, Normal Inspection, Non Tender Respiratory: No Accessory Muscle Use, No Respiratory Distress, Other (Absent breath sounds right base and mid lung field few rales noted in the right upper lobe lung field posteriorly and left lower lobe no wheezing noted on regular respiration.) Cardiovascular: Regular Rate, Rhythm, No Edema, No Gallop, No JVD, No Murmur, N ormal Peripheral Pulses Gastrointestinal: Normal Bowel Sounds, No Organomegaly, No Pulsatile Mass, Soft, Other (Mild tenderness in the left mid and lower quadrants of the abdomen there is no rebound or guarding no mass is noted bowel sounds are positive no distention is noted.) Neurologic/Psychiatric: Alert, Oriented x3, Normal Mood/Affect Results Results/Procedures Labs Laboratory Tests 11/23/18 16:07 11/24/18 03:00 Patient resulted labs reviewed. Assessment/Plan Admission Diagnosis A/P 1. Likely postobstructive right sided pneumonia secondary to report of small cell lung cancer with severe sepsis. Condition improved significantly since admission continue anti-inflammatory therapy and broad-spectrum antibiotics. 2. 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 3. Reported small cell lung cancer patient just finished 3 rounds of chemotherapy considering thisblood count abnormalities noted and the patient has been able to mount a white blood cell response to infection. 4. 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 Considering this will hold sertraline for now Admission Status: Inpatient Order (span 2 midnights) Reason for Inpatient Admission: See admission diagnosis Clinical Quality Measures DVT/VTE Risk/Contraindication: Risk Factor Score Per Nursin RFS Level Per Nursing on Admit: 4+=Very High CHARLI CHRISTIAN MD November 24, 2018 09:15
[2018-11-24] MEDS: PANTOPRAZOLE 40 MG (PROTONIX) VIAL IV SCH (09:23)
[2018-11-24] MEDS: LEVETIRACETAM 1,000 MG (KEPPRA) TABLET PO SCH ×2 (09:23→19:54)
--- NOTE | 2018-11-24 09:27 | Diagnostic Imaging Report ---
INDICATION: Sepsis, pneumonia. COMPARISON: November 23, 2018. TECHNIQUE: Single radiograph of the chest dated 11/24/2018. FINDINGS: Right-sided Port-A-Cath is again identified. Near-complete opacification of the right hemithorax, worsened since the prior examination. Decreased lung volumes with increasing left basilar opacities. Calcified granuloma within the left midlung. The cardiac silhouette is predominantly obscured, though grossly stable. No significant pulmonary vascular congestion on the left. No pneumothorax. Osseous structures appear stable. IMPRESSION: Worsening near-complete opacification of the right hemithorax, felt to relate to a combination of pleural fluid with adjacent atelectasis and/or infiltrate. Neoplasm in this region not excluded. Decreasing lung volumes with increasing mild left basilar atelectasis and/or pneumonitis. Additional stable findings as above. Dictated by: Dictated on workstation # [id number]
[2018-11-24] MEDS: NOREPINEPHRINE 4 MG in NS (IVPB) 250 ML IV SCH (16:36)
[2018-11-24] MEDS: HYDROcodone/APAP 5 MG/325 MG (LORTAB) TAB PO PRN (17:08)
[2018-11-24] MEDS: traZODone 100 MG (DESYREL) TAB PO SCH (19:54)
[2018-11-25] VITALS (16 sets, daily range): BP systolic 110–184; BP diastolic 62–100
[2018-11-25] MEDS: methylPREDNISolone 40 MG/ML (Solu-MEDROL) VIAL IV SCH ×5 (00:22→23:50)
[2018-11-25] MEDS: PIPERACILLIN/TAZO 4.5 GM/NS 100 ML IV SCH ×8 (00:22→23:50)
[2018-11-25] MEDS: NOREPINEPHRINE 4 MG in NS (IVPB) 250 ML IV SCH (02:06)
[2018-11-25] MEDS: NS IV 1000 ML 1,000 ML IV SCH ×2 (02:06→05:29)
[2018-11-25] MEDS: RT-ALBUTEROL/IPRATROPIUM 3 ML (DUONEB) VIAL IH SCH ×6 (02:22→22:37)
[2018-11-25 04:25] LABS: BASOPHILS % (AUTO) 0 % (0-10); EOSINOPHILS % (AUTO) 0 % (0-10); HEMATOCRIT 25 % (40-54); HEMOGLOBIN 8.4 G/DL (13.3-17.7); LYMPHOCYTES # (AUTO) 0.4 X 10^3 (1.0-4.0); LYMPHOCYTES % (AUTO) 6 % (12-44); MEAN CORPUSCULAR HEMOGLOBIN 30 PG (25-34); MEAN CORPUSCULAR HGB CONC 33 G/DL (32-36); MEAN CORPUSCULAR VOLUME 92 FL (80-99); MEAN PLATELET VOLUME 8.4 FL (7.4-10.4); MONOCYTES % (AUTO) 1 % (0-12); NEUTROPHILS # (AUTO) 6.8 X 10^3 (1.8-7.8); NEUTROPHILS % (AUTO) 94 % (42-75); PLATELET COUNT 182 10^3/uL (130-400); RED CELL DISTRIBUTION WIDTH 15.3 % (10.0-14.5); WHITE BLOOD COUNT 7.3 10^3/uL (4.3-11.0)
[2018-11-25 04:47] LABS: BUN/CREATININE RATIO 17; CALCIUM 8.3 MG/DL (8.5-10.1); CARBON DIOXIDE 24 MMOL/L (21-32); CHLORIDE 107 MMOL/L (98-107); CREATININE SERUM 0.64 MG/DL (0.60-1.30); GFR ESTIMATED > 60; GLUCOSE 122 MG/DL (70-105); MAGNESIUM 1.7 MG/DL (1.8-2.4); PHOSPHORUS 2.9 MG/DL (2.3-4.7); POTASSIUM 3.4 MMOL/L (3.6-5.0); SODIUM 140 MMOL/L (135-145)
[2018-11-25] MEDS: POTASSIUM CL 10MEQ/50ML IVPB 50 ML IV SCH (05:31)
[2018-11-25] MEDS: VASOPRESSIN INJECTION 20 UNIT in NS (IVPB) 100 ML IV SCH (05:32)
[2018-11-25] MEDS: MAGNESIUM 1 GM/100 ML IVPB 100 ML IV SCH ×3 (05:32→07:03)
[2018-11-25] MEDS: KCL 20 MEQ TAB (K-DUR) PO SCH (05:32)
[2018-11-25] MEDS: ENOXAPARIN 40 MG/0.4 ML (LOVENOX) SYR SC SCH (05:43)
--- NOTE | 2018-11-25 06:51 | Pulmonary Progress Note ---
Subjective Time Seen by a Provider: 07:44 Subjective/Events-last exam PT states he feels improved however he is still requiring Vapotherm. Sepsis Event Evaluation Height, Weight, BMI Height: 5'8.00" Weight: 152lbs. 0.0oz. 68.806432fe; 22.4 BMI Method:Stated Focused Exam Lactate Level 11/23/18 16:07: Lactic Acid Level 1.03 Time of Focused Exam: 18:40 Exam Exam Vital Signs Date Time Temp Pulse Resp B/P (MAP) Pulse Ox O2 Delivery O2 Flow Rate FiO2 11/25/18 06:17 96 Vapotherm 20.00 50 11/25/18 06:00 91 20 150/75 (100) 95 Vapotherm 50.00 20.00 11/25/18 05:00 98 26 153/83 (106) 95 Vapotherm 50.00 20.00 11/25/18 04:00 95 Vapotherm 20.00 50 11/25/18 04:00 80 19 122/66 (84) 93 Vapotherm 50.00 20.00 11/25/18 03:00 86 11 134/73 (93) 95 Vapotherm 50.00 20.00 11/25/18 02:22 96 Vapotherm 20.00 50 11/25/18 02:00 80 10 126/69 (88) 96 Vapotherm 50.00 20.00 11/25/18 01:00 85 22 110/62 (78) 93 Vapotherm 50.00 20.00 11/25/18 01:00 85 11/25/18 00:00 93 23 126/66 (86) 98 Vapotherm 50.00 20.00 11/25/18 00:00 95 Vapotherm 20.00 50 11/24/18 23:00 99 20 110/61 (77) 97 Vapotherm 50.00 20.00 11/24/18 22:08 96 Vapotherm 20.00 50 11/24/18 22:00 109 20 132/75 (94) Vapotherm 50.00 20.00 11/24/18 21:00 126 31 142/91 (108) Vapotherm 50.00 20.00 11/24/18 20:00 112 13 125/68 (87) 95 Vapotherm 50.00 20.00 5/26/19 20:00 91 Vapotherm 20.00 60 11/24/18 19:18 98.3 113 20 131/73 (92) 94 Vapotherm 50.00 20.00 11/24/18 19:00 115 11/24/18 19:00 115 20 129/84 (99) 94 Vapotherm 50.00 20.00 11/24/18 18:44 95 Vapotherm 20.00 50 11/24/18 18:00 112 18 121/65 (83) 91 Vapotherm 50.00 20.00 11/24/18 17:00 109 15 134/74 (94) 98 Vapotherm 50.00 20.00 11/24/18 16:00 108 31 130/73 (92) 95 Vapotherm 50.00 20.00 11/24/18 16:00 91 Vapotherm 20.00 60 11/24/18 15:00 113 13 124/67 (86) 90 Vapotherm 50.00 20.00 11/24/18 14:58 99.3 11/24/18 14:34 91 Vapotherm 20.00 45 11/24/18 14:00 106 26 117/58 (77) 93 Vapotherm 50.00 20.00 11/24/18 13:00 110 11/24/18 13:00 109 24 111/74 (86) 91 Vapotherm 50.00 20.00 11/24/18 12:12 90 Vapotherm 20.00 45 11/24/18 12:00 108 31 118/59 (78) 90 Vapotherm 45.00 20.00 11/24/18 12:00 91 Vapotherm 20.00 60 11/24/18 11:00 92 21 117/68 (84) 93 Vapotherm 45.00 20.00 11/24/18 10:42 91 Vapotherm 20.00 45 11/24/18 10:00 105 15 126/65 (85) 89 Vapotherm 45.00 20.00 11/24/18 09:00 92 20 121/67 (85) 96 Vapotherm 45.00 20.00 11/24/18 08:10 93 11/24/18 08:00 91 Vapotherm 20.00 60 11/24/18 08:00 98 19 89/52 (64) 95 Vapotherm 45.00 20.00 11/24/18 07:00 102 17 106/59 (54) 92 Vapotherm 45.00 20.00 I & O 11/25/18 07:00 Intake Total 1410 ml Output Total 1850 ml Balance -440 ml Height & Weight Height: 5'8.00" Weight: 152lbs. 0.0oz. 68.102046ne; 22.4 BMI Method:Stated General Appearance: No Apparent Distress, Anxious, Chronically ill HEENT: PERRL/EOMI, Normal ENT Inspection Neck: Full Range of Motion, Normal Inspection, Non Tender Respiratory: No Accessory Muscle Use, No Respiratory Distress, Other (Absent breath sounds right base and mid lung field few rales noted in the right upper lobe lung field posteriorly and left lower lobe no wheezing noted on regular respiration.) Cardiovascular: Regular Rate, Rhythm, No Edema, No Gallop, No JVD, No Murmur, Normal Peripheral Pulses Capillary Refill: Less Than 3 Seconds Extremity: Normal Capillary Refill, Normal Inspection, No Pedal Edema Neurologic/Psychiatric: Alert, Oriented x3, Normal Mood/Affect Results Lab Laboratory Tests 11/23/18 16:07 11/24/18 03:00 11/25/18 04:20 Assessment/Plan Assessment/Plan Postobstructive PNA with hypoxia -Oxygen -Ruiz culture -Vanco Zosyn -IVF -Recent mediport placement for chemo Pulmonary edema -D/C IVF =Give lasix 40mg IV X 1 -Monitor COPDAE -SVNs -Solumedrol 40 IV Q 6 small cell lung cancer PT states he has finished chemo -Follows with Dr. Evelio Maxwell Anemia -Monitor -Occult stool ESME PALOMINO DO November 25, 2018 06:51
[2018-11-25] MEDS ORDERED: KCL 20 MEQ TAB (K-DUR) PO ONE ×2 (07:00→08:00)
[2018-11-25] MEDS ORDERED: FUROSEMIDE 40 MG/4 ML INJ (LASIX) IVP ONE (07:45)
[2018-11-25] MEDS: VANCOMYCIN 1250 MG/NS 250 ML IVPB IV SCH ×4 (09:06→20:44)
[2018-11-25] MEDS: PANTOPRAZOLE 40 MG (PROTONIX) VIAL IV SCH (09:07)
[2018-11-25] MEDS: LEVETIRACETAM 1,000 MG (KEPPRA) TABLET PO SCH ×2 (09:07→20:44)
[2018-11-25] MEDS: HYDROcodone/APAP 5 MG/325 MG (LORTAB) TAB PO PRN ×3 (09:08→20:45)
--- NOTE | 2018-11-25 09:18 | Diagnostic Imaging Report ---
Portable erect AP chest 305 hours. INDICATION: Sepsis, pneumonia. FINDINGS: As noted on the prior exam of 11/24/2018, there is near-complete opacification of the right hemithorax by atelectasis/infiltrate and fluid. The left lung remains clear. The heart is partially obscured but it seems stable. The mediastinum is not widened. The osseous structures are intact. The right-sided central venous catheter is unchanged in position. IMPRESSION: Stable chest. There has been no adverse change since the prior exam. A followup exam would be recommended for continued study. Dictated by: Dictated on workstation # [id number]
--- NOTE | 2018-11-25 17:20 | NUR ---
SOLANGE MAHONEY Candi admitted to room 423-1, with an admitting diagnosis of PNEUMONIA, LUNG CA, on 11/23/18 from ICU via WHEELCHAIR, accompanied by TONE CABINET ASSEMBLER, , AND RT.SOLANGE MAHONEY introduced to surroundings, call light, bed controls, phone, TV, temperature control, lights, meal times, smoking policy, visitor policy, side rail policy, bathrooms and showers. Patient Rights given to patient in the handbook. SOLANGE MAHONEY verbalizes understanding that [facility] is not responsible for the loss or damage to any personal effects or valuables that are kept in the patients posession during their hospitalization. SOLANGE MAHONEY verbalizes understanding of Interdisciplinary Patient Education. Patient and/or family were informed about the Rapid Response Team and its purpose. PATIENT ON 5L NASAL CANNULA. OXYGEN SATURATIONS CHECK UPON ARRIVAL. NO COMPLAINTS OR NEEDS AT THIS TIME.
--- NOTE | 2018-11-25 17:26 | NUR ---
patient transfered to [facility] bedside report given to Hallie RN - RT assisted patient tolerating well on nasal cannula 5L
[2018-11-25] MEDS ORDERED: TROUGH ORDER-PHARMACY XX NR (19:00)
[2018-11-25] MEDS: traZODone 100 MG (DESYREL) TAB PO SCH (20:45)
[2018-11-26] VITALS: BP 145/70
[2018-11-26] MEDS: RT-ALBUTEROL/IPRATROPIUM 3 ML (DUONEB) VIAL IH SCH ×6 (03:33→21:47)
[2018-11-26 04:00] VITALS: BP 163/77
[2018-11-26] MEDS: PIPERACILLIN/TAZO 4.5 GM/NS 100 ML IV SCH ×6 (05:45→22:20)
[2018-11-26] MEDS: ENOXAPARIN 40 MG/0.4 ML (LOVENOX) SYR SC SCH (05:45)
[2018-11-26] MEDS: methylPREDNISolone 40 MG/ML (Solu-MEDROL) VIAL IV SCH ×3 (05:45→18:28)
[2018-11-26] MEDS: MAGNESIUM 1 GM/100 ML IVPB 100 ML IV SCH (06:00)
[2018-11-26] MEDS: POTASSIUM CL 10MEQ/50ML IVPB 50 ML IV SCH (06:00)
[2018-11-26] MEDS: KCL 20 MEQ TAB (K-DUR) PO SCH (07:46)
[2018-11-26] MEDS: VANCOMYCIN 1250 MG/NS 250 ML IVPB IV SCH ×2 (08:10)
[2018-11-26] MEDS: LEVETIRACETAM 1,000 MG (KEPPRA) TABLET PO SCH ×2 (08:10→20:18)
[2018-11-26] MEDS: PANTOPRAZOLE 40 MG (PROTONIX) VIAL IV SCH (08:11)
[2018-11-26 08:34] VITALS: BP 160/78
[2018-11-26 12:00] VITALS: BP 174/82
[2018-11-26] MEDS: HYDROcodone/APAP 5 MG/325 MG (LORTAB) TAB PO PRN (12:12)
--- NOTE | 2018-11-26 12:17 | Diagnostic Imaging Report ---
INDICATION: Pneumonia, pleural effusion. TECHNIQUE: Single view chest 11:04 AM. CORRELATION STUDY: 11/25/2018 FINDINGS: There is again noted significant opacification large portion of the right lower hemithorax. It is likely owing to combination of consolidation and right pleural effusion. However, there is improved pneumatization of the right upper lung field. Generally stable given the largely obscured right aspect. Surgical clips and soft tissue neck are present. Right-sided Csarwp-z-Fdaa catheter appears stable. IMPRESSION: 1. Continued significant consolidation along with effusion of the right lower hemithorax. However, there has been some improvement with improved pneumatization of the right upper lung field. Dictated by: Dictated on workstation # [id number]
[2018-11-26] MEDS ORDERED: CYAN100088 PO (12:54)
[2018-11-26] MEDS ORDERED: DONE10TA41 PO (12:54)
[2018-11-26] MEDS ORDERED: IPRA30SP NS (12:54)
[2018-11-26] MEDS ORDERED: TIOT4MIS3 IH (12:54)
[2018-11-26] MEDS ORDERED: RT-ALBUINH IH (12:54)
[2018-11-26] MEDS ORDERED: OLOD4MIS2 IH (12:54)
--- NOTE | 2018-11-26 13:01 | NUR ---
HAD A LIST [facility] AND WENT OVER IT WITH THE PATIENT. HE VERIFIED HOW HE TAKES EACH MEDICATION. HE STATES HE DOES NOT TAKE ANYTHING OTC.
--- NOTE | 2018-11-26 13:47 | Pulmonary Progress Note ---
Sepsis Event Evaluation Height, Weight, BMI Height: " Weight: 173lbs. 12.8oz. 78.010120aa; 22.4 BMI Method:Stated Focused Exam Lactate Level 11/23/18 16:07: Lactic Acid Level 1.03 Time of Focused Exam: 18:40 Exam Exam Vital Signs Date Time Temp Pulse Resp B/P (MAP) Pulse Ox O2 Delivery O2 Flow Rate FiO2 11/26/18 12:00 98.0 98 19 174/82 (112) 95 Nasal Cannula 3.00 11/26/18 10:57 95 Nasal Cannula 3.50 11/26/18 08:34 98.7 95 21 160/78 (105) 96 Nasal Cannula 3.00 11/26/18 08:00 Nasal Cannula 3.00 11/26/18 07:16 93 Nasal Cannula 3.50 11/26/18 04:00 98.6 100 20 163/77 (105) 95 Nasal Cannula 3.00 11/26/18 03:33 92 Nasal Cannula 3.00 11/26/18 00:00 98.6 99 20 145/70 (95) 94 Nasal Cannula 3.00 11/25/18 22:37 95 Nasal Cannula 3.00 11/25/18 22:15 94 Nasal Cannula 2.00 11/25/18 19:25 99.2 88 20 162/75 (104) 97 Nasal Cannula 3.00 11/25/18 19:16 96 Nasal Cannula 4.00 11/25/18 17:20 Nasal Cannula 5.00 11/25/18 17:15 98.7 92 20 171/80 (110) 98 Nasal Cannula 4.00 11/25/18 17:15 97 Nasal Cannula 5.00 11/25/18 16:00 Vapotherm 10.00 35 11/25/18 15:51 98.1 11/25/18 15:11 96 Vapotherm 15.00 35 11/25/18 15:00 89 22 173/87 (115) 93 Vapotherm 35.00 15.00 11/25/18 14:00 94 23 175/92 (119) 95 Vapotherm 35.00 15.00 I & O 11/26/18 07:00 Intake Total 1542.5 ml Output Total 1970 ml Balance -427.5 ml Height & Weight Height: " Weight: 173lbs. 12.8oz. 78.307088ik; 22.4 BMI Method:Stated General Appearance: No Apparent Distress, Anxious, Chronically ill HEENT: PERRL/EOMI, Normal ENT Inspection Neck: Full Range of Motion, Normal Inspection, Non Tender Respiratory: No Accessory Muscle Use, No Respiratory Distress, Other (Absent breath sounds right base and mid lung field few rales noted in the right upper lobe lung field posteriorly and left lower lobe no wheezing noted on regular respiration.) Cardiovascular: Regular Rate, Rhythm, No Edema, No Gallop, No JVD, No Murmur, Normal Peripheral Pulses Capillary Refill: Less Than 3 Seconds Extremity: Normal Capillary Refill, Normal Inspection, No Pedal Edema Neurologic/Psychiatric: Alert, Oriented x3, Normal Mood/Affect Results Lab Laboratory Tests 11/25/18 04:20 Assessment/Plan Assessment/Plan Postobstructive PNA with hypoxia -Oxygen -Ruiz culture -Vanco Zosyn -IVF -Recent mediport placement for chemo Pulmonary edema -D/C IVF =Give lasix 40mg IV X 1 -Monitor COPDAE -SVNs -Solumedrol 40 IV Q 6 small cell lung cancer PT states he has finished chemo -Follows with Dr. Evelio Maxwell Anemia -Monitor -Occult stool ESME PALOMINO DO November 26, 2018 13:47
[2018-11-26 15:48] VITALS: BP 164/76
--- NOTE | 2018-11-26 16:09 | Progress Note-Hospitalist ---
Progress Note Progress Notes/Assess & Plan Date Seen 11/26/18 Time Seen by Provider: 16:04 Assessment & Plan The patient is a 62-year-old white male who was admitted over the weekend. He apparently had severe sepsis likely as a result of his lung cancer and bronchial obstruction. Chest x-ray showed a decline in his function with a near total opacification of the right lung over the period of . He reports that he is feeling better today and wants to go home. He was reminded the reason he was feeling better was most likely his IV antibiotics. He states he has been able to cough up some mucus today. Physical exam: He appears older than stated age. Lungs show markedly decreased breath sounds on the right. CV is regular. Impression: Carcinoma of the lung. 2.bronchial obstruction/pneumonia. Plan: Continue IV antibiotics. The patient may be allowed to walk in the hallways. Focused Exam Lactate Level 11/23/18 16:07: Lactic Acid Level 1.03 Time of Focused Exam: 18:40 MICAH WILSON MD November 26, 2018 16:09
[2018-11-26] MEDS ORDERED: ALPRAZolam 0.25 MG (XANAX) TAB ONE (17:39)
[2018-11-26] MEDS: ALPRAZolam 0.25 MG (XANAX) TAB PO PRN ×2 (17:53→22:23)
[2018-11-26 20:08] VITALS: BP 160/84
[2018-11-26] MEDS: traZODone 100 MG (DESYREL) TAB PO SCH (20:19)
[2018-11-27] VITALS: BP 151/85
[2018-11-27] MEDS: RT-ALBUTEROL/IPRATROPIUM 3 ML (DUONEB) VIAL IH SCH ×3 (01:46→10:59)
[2018-11-27 04:00] VITALS: BP 165/85
[2018-11-27] MEDS: ENOXAPARIN 40 MG/0.4 ML (LOVENOX) SYR SC SCH (05:15)
[2018-11-27] MEDS: PIPERACILLIN/TAZO 4.5 GM/NS 100 ML IV SCH ×2 (06:31)
[2018-11-27] MEDS ORDERED: predniSONE 20 MG TAB PO SCH (07:00)
--- NOTE | 2018-11-27 07:23 | Pulmonary Progress Note ---
Subjective Time Seen by a Provider: 07:23 Sepsis Event Evaluation Height, Weight, BMI Height: 5'8.00" Weight: 172lbs. 9.6oz. [id number]; 22.4 BMI Method:Stated Focused Exam Time of Focused Exam: 18:40 Exam Exam Vital Signs Date Time Temp Pulse Resp B/P (MAP) Pulse Ox O2 Delivery O2 Flow Rate FiO2 11/27/18 04:00 96.8 99 16 165/85 (111) 97 Nasal Cannula 3.00 11/27/18 01:46 94 Nasal Cannula 3.00 11/27/18 00:00 97.0 101 16 151/85 (107) 96 Nasal Cannula 3.00 11/26/18 21:48 95 Nasal Cannula 3.00 11/26/18 20:20 Nasal Cannula 3.00 11/26/18 20:08 99.2 95 18 160/84 (109) 97 Nasal Cannula 3.00 11/26/18 18:36 98 Nasal Cannula 3.00 11/26/18 15:48 99.2 84 16 164/76 (105) 98 Nasal Cannula 3.00 11/26/18 14:26 96 Nasal Cannula 3.00 11/26/18 12:00 98.0 98 19 174/82 (112) 95 Nasal Cannula 3.00 11/26/18 10:57 95 Nasal Cannula 3.50 11/26/18 08:34 98.7 95 21 160/78 (105) 96 Nasal Cannula 3.00 11/26/18 08:00 Nasal Cannula 3.00 I & O 11/27/18 07:00 Intake Total 2142.5 ml Output Total 2300 ml Balance -157.5 ml Height & Weight Height: 5'8.00" Weight: 172lbs. 9.6oz. [id number]; 22.4 BMI Method:Stated General Appearance: No Apparent Distress, Anxious, Chronically ill HEENT: PERRL/EOMI, Normal ENT Inspection Neck: Full Range of Motion, Normal Inspection, Non Tender Respiratory: No Accessory Muscle Use, No Respiratory Distress, Other (Absent breath sounds right base and mid lung field few rales noted in the right upper lobe lung field posteriorly and left lower lobe no wheezing noted on regular respiration.) Cardiovascular: Regular Rate, Rhythm, No Edema, No Gallop, No JVD, No Murmur, Normal Peripheral Pulses Capillary Refill: Less Than 3 Seconds Extremity: Normal Capillary Refill, Normal Inspection, No Pedal Edema Neurologic/Psychiatric: Alert, Oriented x3, Normal Mood/Affect Assessment/Plan Assessment/Plan Postobstructive PNA with hypoxia -Oxygen -Ruiz culture - Zosyn -IVF -Recent mediport placement for chemo Pulmonary edema -Monitor COPDAE -SVNs small cell lung cancer PT states he has finished chemo -Follows with Dr. Evelio Lamar -Mercedes Anemia -Monitor -Occult stool ESME PALOMINO DO November 27, 2018 07:23
[2018-11-27 08:00] VITALS: BP 159/80
[2018-11-27] MEDS: LEVETIRACETAM 1,000 MG (KEPPRA) TABLET PO SCH (08:37)
[2018-11-27] MEDS ORDERED: PANTOPRAZOLE 40 MG (PROTONIX) TAB PO SCH (09:00)
[2018-11-27] MEDS ORDERED: POLYETHYLENE GLYCOL 17 GM (MIRALAX) PACK ONE (10:17)
[2018-11-27] MEDS ORDERED: SENNOSIDES 8.6 MG (SENOKOT) TAB ONE (10:18)
[2018-11-27] MEDS ORDERED: SENNA W/DOCUSATE (SENOKOT S) TABLET PO NR (10:30)
[2018-11-27] MEDS ORDERED: POLYETHYLENE GLYCOL 17 GM (MIRALAX) PACK PO NR (10:30)
[2018-11-27] MEDS ORDERED: PRED10TA22 PO ×2 (11:03→11:07)
[2018-11-27] MEDS ORDERED: CEFD300C3 PO ×2 (11:03→11:07)
--- NOTE | 2018-11-27 11:03 | Discharge Summary-Hospitalist ---
Diagnosis/Chief Complaint Date of Admission November 23, 2018 at 16:56 Date of Discharge Discharge Date: November 27, 2018 Admission Diagnosis A/P 1. Likely postobstructive right sided pneumonia secondary to report of small cell lung cancer with severe sepsis. Condition improved significantly since admission continue anti-inflammatory therapy and broad-spectrum antibiotics. 2. 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 3. Reported small cell lung cancer patient just finished 3 rounds of chemotherapy considering thisblood count abnormalities noted and the patient has been able to mount a white blood cell response to infection. 4. 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 Considering this will hold sertraline for now Discharge Diagnosis (1) Severe sepsis Status: Resolved (2) Small cell lung cancer Status: Acute (3) COPD exacerbation Status: Acute (4) Atypical chest pain Status: Resolved (5) Pneumonia Status: Acute (6) COPD (chronic obstructive pulmonary disease) with chronic bronchitis Status: Chronic Discharge Summary Discharge Physical Exam Allergies: Coded Allergies: bupropion (Unverified Allergy, Mild, RASH, 11/08/18) Vitals & I&Os Vital Signs Date Time Temp Pulse Resp B/P (MAP) Pulse Ox O2 Delivery O2 Flow Rate FiO2 11/27/18 10:59 91 Nasal Cannula 3.00 11/27/18 08:00 98.5 99 20 159/80 (106) 11/25/18 16:00 35 General Appearance: No Apparent Distress, WD/WN, Chronically ill Respiratory: Chest Non Tender, Lungs Clear, No Accessory Muscle Use, No Respiratory Distress, Decreased Breath Sounds Cardiovascular: Regular Rate, Rhythm, No Edema, No Gallop, No JVD, No Murmur, Normal Peripheral Pulses Neurologic/Psychiatric: Alert, Oriented x3, No Motor/Sensory Deficits, Normal Mood/Affect Hospital Course Was the Problem List Reviewed?: Yes Hospital course: patient had a lengthy hospital course after he was admitted for severe sepsis due to lung cancer and post obstructive pneumonia. Dr Chung assisted in management of this difficult case. Abx along with aggressive IVF helped resolve the acute issue along with IV steroids. Patient was able to go home as requested on 11/27/18 with close f/u with [facility] and f/u with Dr Chung but very poor prognosis overall remains. Labs (last 24 hrs) Microbiology 11/23/18 Blood Culture - Preliminary, Resulted No growth 11/23/18 Urine Culture - Final, Complete Proteus mirabilis Patient resulted labs reviewed. Discussion & Recommendations Discharge Planning: <30 minutes discharge planning Discharge Home Medications: Active Scripts Active Prednisone 10 Mg Tab.ds.pk 10 Mg PO DAILY Take 6 tabs(60mg)daily,decrease by 1 tab(10mg)every other day. Cefdinir 300 Mg Capsule 300 Mg PO BID Reported Stiolto Respimat Inhal [place] (Tiotropium Br/Olodaterol HCl) 4 Gm Mist.inhal 2 Puff IH DAILY Ipratropium [place] 30 Ml [place] 2 Sprays NS BID Proair Hfa (Albuterol Sulfate) 1 Puff Puff 2 Puff IH QID PRN 1 PUFF = 90 MCG Donepezil HCl 10 Mg Tablet 5 Mg PO DAILY TAKES 1/2 (10MG) TABLET B-12 (Cyanocobalamin (Vitamin B-12)) 1,000 Mcg Tablet 1,000 Mcg PO DAILY Folic Acid 1 Mg Tablet 1 Mg PO DAILY Sertraline HCl 50 Mg Tablet 25 Mg PO DAILY TAKES 1/2 (50MG) TABLET Tramadol HCl 50 Mg Tablet 100 Mg PO Q6H PRN Fish Oil 1,000 mg Capsule ([place] 3 Polyunsat Fatty Acids) 1,000 Mg Cap 1,000 Mg PO HS Fish Oil 1,000 mg Capsule ([place] 3 Polyunsat Fatty Acids) 1,000 Mg Cap 2,000 Mg PO DAILY TAKES 2 (1000MG) CAPSULES Carvedilol 12.5 Mg Tablet 6.25 Mg PO BID TAKES 1/2 (12.5MG) TABLET Trazodone HCl 100 Mg Tablet 200 Mg PO HS TAKES 2 (100MG) TABLETS Verapamil HCl 40 Mg Tablet 40 Mg PO BID Levetiracetam 500 Mg Tablet 1,000 Mg PO BID TAKES 2 (500MG) TABLETS Instructions to patient/family Please see electronic discharge instructions given to patient. Clinical Quality Measures DVT/VTE Risk/Contraindication: Risk Factor Score Per Nursin RFS Level Per Nursing on Admit: 4+=Very High Problem Qualifiers (1) Pneumonia: Pneumonia type: due to unspecified organism Laterality: right Lung location: lower lobe of lung Qualified Codes: J18.1 - Lobar pneumonia, unspecified organism SHABNAM GONCALVES DO November 27, 2018 11:03
[2018-11-27 12:00] VITALS: BP 170/80
--- NOTE | 2018-11-27 12:00 | NUR ---
GROSHONG FLUSHED WITH 20ML SALINE, NEEDLE REMOVED, SITE WITHOUT REDNESS OR SWELLING, DISCHARGE INSTRUCTIONS GIVEN, VERBALIZED UNDERSTANDING, DENIES PAIN OR SOB, HOME OXYGEN, INSTRUCTED ON FOLLOW UP APPOINTMENTS AND MEDICATIONS
[2018-11-27 12:20] VITALS: BP 170/80
--- NOTE | 2018-11-27 12:20 | NUR ---
SOLANGE AMHONEY demonstrates understanding of discharge instructions and accurately returns instructions upon questioning. Copy of Post-Discharge Instructions and Medication Discharge Instructions given to PATIENT. SOLANGE MAHONEY is able to manage continuing needs after discharge. Patients belongings returned to PATIENT. Skin dry and intact; no breakdown noted. Patient discharged from [facility] [place] on 11/27/18 at 1220. SOLANGE MAHONEY left floor via W/C, accompanied by STAFF AND .
--- NOTE | 2018-11-27 13:25 | NUR ---
Faxed the scripts, discharge summary and medication list to the [facility] which was
== END 2018-11-27 12:20 | disposition home or self-care (01) | DRG 871 ==
LOC: EDUNIT# 15:44 → ER 15:46 → ICU 16:56 → 4TH 11-25 16:57
PROVIDERS: ADMIT Internal Medicine; ATTEND Internal Medicine
DX: A41.9 Sepsis, unspecified organism (principal); R65.20 Severe sepsis without septic shock; J96.21 Acute and chronic respiratory failure with hypoxia; J18.1 Lobar pneumonia, unspecified organism; J44.0 Chronic obstructive pulmonary disease with (acute) lower respiratory infection; J44.1 Chronic obstructive pulmonary disease with (acute) exacerbation; C34.91 Malignant neoplasm of unspecified part of right bronchus or lung; I69.854 Hemiplegia and hemiparesis following other cerebrovascular disease affecting left non-dominant side; Z66 Do not resuscitate; J81.1 Chronic pulmonary edema; R07.89 Other chest pain; I69.998 Other sequelae following unspecified cerebrovascular disease; G40.909 Epilepsy, unspecified, not intractable, without status epilepticus; F17.210 Nicotine dependence, cigarettes, uncomplicated; E78.00 Pure hypercholesterolemia, unspecified; I10 Essential (primary) hypertension; D64.9 Anemia, unspecified; F41.9 Anxiety disorder, unspecified; F32.9 Major depressive disorder, single episode, unspecified; F43.10 Post-traumatic stress disorder, unspecified; M19.91 Primary osteoarthritis, unspecified site; Z99.81 Dependence on supplemental oxygen; Z90.2 Acquired absence of lung [part of]; Z92.21 Personal history of antineoplastic chemotherapy; Z85.828 Personal history of other malignant neoplasm of skin; Z95.828 Presence of other vascular implants and grafts
CPT/HCPCS: 36415; 70450; 71045; 71275; 80048; 80053; 80061; 80202; 81000; 82274; 83605; 83735; 83874; 84100; 84484; 85007; 85025; 85027; 85610; 85730; 87040; 87077; 87088; 87186; 93005; 93041; 94640; 94644; 94760; 96361; 96365; 96375

== ENCOUNTER → 2018-12-16 | Outpatient (CLI) | payer OTHER ==
[~2018-12-16] MED LIST changes: +BARIUM SUSPENSION 2.1% (VANILLA SILQ) 450 ML PO ONE; +CEFD300C3 PO; +CYAN100088 PO; +DONE10TA41 PO; +HOLD METFORMIN - RECEIVED CONTRAST 20 ML VIAL IV SCH; +IOHEXOL 350 MG/ML 100 ML (OMNIPAQUE 350) VIAL IV ONE; +IPRA30SP NS; +NS 100 ML (IVPB) BAG IV ONE; +OLOD4MIS2 IH; +PRED10TA22 PO; +RT-ALBUINH IH; +TIOT4MIS3 IH
--- NOTE | 2018-12-16 16:30 | Diagnostic Imaging Report ---
PROCEDURE: CT chest with contrast, CT abdomen and pelvis with and without contrast. TECHNIQUE: Pre and post intravenous contrast axial imaging of the abdomen and pelvis and post contrast axial imaging of the chest were performed. Auto Exposure Controls were utilized during the CT exam to meet ALARA standards for radiation dose reduction. INDICATION: Lung cancer. COMPARISON: CT chest of 11/23/2018. FINDINGS: CT CHEST: Right upper lobectomy has been performed. Compensatory hyperinflation of the right middle and lower lobes is present. No concerning pulmonary nodules or masses within the residual right lung. Groundglass attenuation in the posterior right lower lobe may relate to atelectasis. No contralateral, left-sided indeterminate pulmonary nodule. Stable calcified left upper lobe pulmonary nodule compatible with old granulomatous infection. No pleural effusion or pneumothorax. Stable right IJ Port-A-Cath. No supraclavicular or axillary lymphadenopathy. Marked improvement in mediastinal lymphadenopathy. Subcarinal lymphadenopathy is no longer present. Lower right paratracheal lymph node measures 0.8 cm (previously 0.8 cm). No juxtaphrenic lymphadenopathy. Heart is normal in size without pericardial effusion. No concerning focal osseous lesion within the chest. CT ABDOMEN AND PELVIS: No free intraperitoneal air or fluid. Subcentimeter hypodensity in the left hepatic lobe is stable since 2017. No new hepatic lesion. The spleen and pancreas are normal. Gallbladder is decompressed. No adrenal mass. No solid renal mass or obstructive uropathy. Urinary bladder is normally filled. Colonic diverticulosis without diverticulitis. No bowel obstruction. No abdominal or pelvic lymphadenopathy. Extensive atherosclerotic plaquing of the normal caliber aorta. No abdominal or pelvic lymphadenopathy. No concerning focal osseous lesion. IMPRESSION: CHEST: 1. Status post right upper lobectomy without features of recurrent lung cancer. 2. Marked improvement in subcarinal lymphadenopathy since exam of 11/23/2018. ABDOMEN AND PELVIS: 1. No features of metastatic disease in the abdomen or pelvis. Dictated by: Dictated on workstation # [id number]
== END ==
LOC: RAD 15:16
PROVIDERS: ATTEND Internal Medicine Hematology & Oncology
DX: C34.90 Malignant neoplasm of unspecified part of unspecified bronchus or lung (principal); R59.0 Localized enlarged lymph nodes; Z90.2 Acquired absence of lung [part of]; Z95.828 Presence of other vascular implants and grafts
CPT/HCPCS: 71260; 74178

== ENCOUNTER 2019-01-23 14:49 | Outpatient (RCR) | payer OTHER ==
[~2019-01-23 14:49] MED LIST changes: -BARIUM SUSPENSION 2.1% (VANILLA SILQ) 450 ML PO ONE; -HOLD METFORMIN - RECEIVED CONTRAST 20 ML VIAL IV SCH; -IOHEXOL 350 MG/ML 100 ML (OMNIPAQUE 350) VIAL IV ONE; -NS 100 ML (IVPB) BAG IV ONE; -ROSU20TA31 PO; +ROSU20TA32 PO
[2019-01-23 15:17] LABS: BASOPHILS % (AUTO) 0 % (0-10); EOSINOPHILS # (AUTO) 0.1 10^3/uL (0.0-0.3); EOSINOPHILS % (AUTO) 1 % (0-10); HEMATOCRIT 28 % (40-54); HEMOGLOBIN 8.8 G/DL (13.3-17.7); LYMPHOCYTES # (AUTO) 2.2 X 10^3 (1.0-4.0); LYMPHOCYTES % (AUTO) 34 % (12-44); MEAN CORPUSCULAR HGB CONC 32 G/DL (32-36); MEAN CORPUSCULAR VOLUME 102 FL (80-99); MEAN PLATELET VOLUME 8.9 FL (7.4-10.4); MONOCYTES # (AUTO) 0.7 X 10^3 (0.0-1.0); MONOCYTES % (AUTO) 11 % (0-12); NEUTROPHILS # (AUTO) 3.6 X 10^3 (1.8-7.8); NEUTROPHILS % (AUTO) 55 % (42-75); PLATELET COUNT 218 10^3/uL (130-400); RED CELL DISTRIBUTION WIDTH 17.5 % (10.0-14.5); WHITE BLOOD COUNT 6.6 10^3/uL (4.3-11.0)
[2019-01-23 15:31] LABS: MEAN CORPUSCULAR HEMOGLOBIN 32 PG (25-34)
[2019-01-23 15:50] LABS: BUN/CREATININE RATIO 10; CALCIUM 9.3 MG/DL (8.5-10.1); CARBON DIOXIDE 28 MMOL/L (21-32); CHLORIDE 99 MMOL/L (98-107); CREATININE SERUM 0.83 MG/DL (0.60-1.30); GFR ESTIMATED > 60; GLUCOSE 111 MG/DL (70-105); POTASSIUM 3.5 MMOL/L (3.6-5.0); SODIUM 135 MMOL/L (135-145)
== END 2019-01-28 15:12 | disposition home or self-care (01) ==
LOC: ONC 14:49
PROVIDERS: ATTEND Internal Medicine Hematology & Oncology
DX: C34.90 Malignant neoplasm of unspecified part of unspecified bronchus or lung (principal); C77.1 Secondary and unspecified malignant neoplasm of intrathoracic lymph nodes; I10 Essential (primary) hypertension; J44.9 Chronic obstructive pulmonary disease, unspecified; I25.10 Atherosclerotic heart disease of native coronary artery without angina pectoris; G40.909 Epilepsy, unspecified, not intractable, without status epilepticus; F17.210 Nicotine dependence, cigarettes, uncomplicated; Z86.73 Personal history of transient ischemic attack (TIA), and cerebral infarction without residual deficits; Z79.899 Other long term (current) drug therapy; Z79.82 Long term (current) use of aspirin; Z80.3 Family history of malignant neoplasm of breast
CPT/HCPCS: 36415; 80048; 85025

== ENCOUNTER 2019-01-29 10:17 | Outpatient (RCR) | payer OTHER ==
[~2019-01-29] VITALS: Ht 170.2 cm; Wt 64.9 kg
[~2019-01-29 10:17] MED LIST changes: +FOSAPREPITANT DIMEGLUMINE 150 MG in NS (IVPB) CANCER CENTER ONLY 150 ML IV SCH; +NS IV 1000 ML (CANCER CTR) IV SCH; +PALONOSETRON HCL 0.25 MG, DEXAMETHASONE INJECTION 10 MG in NS (IVPB) CANCER CENTER 50 ML IV SCH; +PEMBROLIZUMAB 200 MG in NS (IVPB) CANCER CENTER 50 ML IV SCH; +PEMETREXED DISODIUM 500 MG, PEMETREXED DISODIUM 400 MG in NS (IVPB) CANCER CENTER 100 ML IV SCH
[2019-01-29 10:46] LABS: BASOPHILS % (AUTO) 0 % (0-10); EOSINOPHILS % (AUTO) 0 % (0-10); HEMATOCRIT 28 % (40-54); LYMPHOCYTES # (AUTO) 1.8 X 10^3 (1.0-4.0); LYMPHOCYTES % (AUTO) 16 % (12-44); MEAN CORPUSCULAR HEMOGLOBIN 33 PG (25-34); MEAN CORPUSCULAR HGB CONC 32 G/DL (32-36); MEAN CORPUSCULAR VOLUME 103 FL (80-99); MEAN PLATELET VOLUME 8.9 FL (7.4-10.4); MONOCYTES # (AUTO) 0.8 X 10^3 (0.0-1.0); MONOCYTES % (AUTO) 7 % (0-12); NEUTROPHILS % (AUTO) 78 % (42-75); PLATELET COUNT 377 10^3/uL (130-400); WHITE BLOOD COUNT 11.6 10^3/uL (4.3-11.0)
[2019-01-29 11:02] LABS: ALANINE AMINOTRANSFERASE 16 U/L (0-55); ALBUMIN 3.5 GM/DL (3.2-4.5); ALKALINE PHOSPHATASE 122 U/L (40-136); BILIRUBIN,TOTAL 0.2 MG/DL (0.1-1.0); BUN/CREATININE RATIO 9; CALCIUM 9.5 MG/DL (8.5-10.1); CARBON DIOXIDE 26 MMOL/L (21-32); CHLORIDE 100 MMOL/L (98-107); CREATININE SERUM 0.82 MG/DL (0.60-1.30); GFR ESTIMATED > 60; GLUCOSE 126 MG/DL (70-105); SODIUM 138 MMOL/L (135-145)
[2019-01-29] MEDS ORDERED: CYANOCOBALAMIN INJ 1000 MCG/ML (CANCER CENTER) ONE (11:32)
== END 2019-01-30 08:32 | disposition home or self-care (01) ==
LOC: ONC 10:17
PROVIDERS: ATTEND Internal Medicine Hematology & Oncology
DX: Z51.11 Encounter for antineoplastic chemotherapy (principal); C34.90 Malignant neoplasm of unspecified part of unspecified bronchus or lung; C77.1 Secondary and unspecified malignant neoplasm of intrathoracic lymph nodes; I10 Essential (primary) hypertension; J44.9 Chronic obstructive pulmonary disease, unspecified; I25.10 Atherosclerotic heart disease of native coronary artery without angina pectoris; G40.909 Epilepsy, unspecified, not intractable, without status epilepticus; F17.210 Nicotine dependence, cigarettes, uncomplicated; Z86.73 Personal history of transient ischemic attack (TIA), and cerebral infarction without residual deficits; Z79.899 Other long term (current) drug therapy; Z79.82 Long term (current) use of aspirin; Z80.3 Family history of malignant neoplasm of breast
CPT/HCPCS: 36591; 80053; 85025; 96367; 96372; 96375; 96411; 96413

== ENCOUNTER → 2019-03-10 | Outpatient (CLI) | payer OTHER ==
[~2019-03-10] MED LIST changes: +BARIUM SUSPENSION 2.1% (VANILLA SILQ) 450 ML PO ONE; -FOSAPREPITANT DIMEGLUMINE 150 MG in NS (IVPB) CANCER CENTER ONLY 150 ML IV SCH; +HOLD METFORMIN - RECEIVED CONTRAST 20 ML VIAL IV SCH; +IOHEXOL 350 MG/ML 100 ML (OMNIPAQUE 350) VIAL IV ONE; +NS 100 ML (IVPB) BAG IV ONE; -NS IV 1000 ML (CANCER CTR) IV SCH; -PALONOSETRON HCL 0.25 MG, DEXAMETHASONE INJECTION 10 MG in NS (IVPB) CANCER CENTER 50 ML IV SCH; -PEMBROLIZUMAB 200 MG in NS (IVPB) CANCER CENTER 50 ML IV SCH; -PEMETREXED DISODIUM 500 MG, PEMETREXED DISODIUM 400 MG in NS (IVPB) CANCER CENTER 100 ML IV SCH
--- NOTE | 2019-03-10 13:11 | Diagnostic Imaging Report ---
PROCEDURE: CT chest with contrast, CT abdomen and pelvis with and without contrast. TECHNIQUE: Pre and post intravenous contrast axial imaging of the abdomen and pelvis and post contrast axial imaging of the chest were performed. Auto Exposure Controls were utilized during the CT exam to meet ALARA standards for radiation dose reduction. INDICATION: Small cell lung carcinoma and COPD. COMPARISON: Correlation is made with prior CT from 12/16/2018. CT CHEST: Right chest wall port is again noted. Postsurgical changes of right upper lobectomy are again noted with compensatory inflation of the right middle lobe and right lower lobe. No residual or recurrent mass is detected. Previously noted ground-glass opacities in the right lower lobe are stable and again likely owing to atelectasis. The left lung contains a calcified granuloma in the left upper lobe. No noncalcified nodule or mass is seen. No pericardial or pleural fluid is identified. No axillary lymphadenopathy is detected. Right paratracheal lymph node is stable in size at approximately 0.8 cm in short axis. Subcarinal fullness shows continued improvement. Soft tissue density versus atelectasis along the right heart border demonstrates improvement. Coni are unremarkable. IMPRESSION: Stable to improved CT of the chest when compared with exam from 12/16/2018. No new abnormality is seen CT ABDOMEN AND PELVIS: Left lobe of the liver again demonstrates a small low-density lesion, stable when compared with prior study. No new liver mass is seen. The gallbladder is unremarkable. No biliary ductal dilatation is seen. The pancreas and spleen are unremarkable. No adrenal mass is detected. Kidneys are unremarkable. The aorta is heavily calcified but nonaneurysmal. No central retroperitoneal or mesenteric lymphadenopathy is detected. The bowel loops are nonobstructed. There is diverticulosis of the descending and sigmoid colon but no evidence of acute diverticulitis. Bladder is unremarkable. No definite pelvic lymphadenopathy is seen. No definite osteolytic or blastic lesions are seen. IMPRESSION: Stable CT of the abdomen and pelvis when compared with 12/16/2018. There is no CT evidence of metastatic disease. Dictated by: Dictated on workstation # [id number]
== END ==
LOC: RAD 11:20
PROVIDERS: ATTEND Internal Medicine Hematology & Oncology
DX: C34.90 Malignant neoplasm of unspecified part of unspecified bronchus or lung (principal); J44.9 Chronic obstructive pulmonary disease, unspecified; Z95.828 Presence of other vascular implants and grafts; Z90.2 Acquired absence of lung [part of]
CPT/HCPCS: 71260; 74178

== ENCOUNTER 2019-04-28 13:32 | Emergency (ER) | payer OTHER ==
[~2019-04-28] VITALS: Ht 172.7 cm; Wt 64.5 kg
[~2019-04-28 13:32] MED LIST changes: -BARIUM SUSPENSION 2.1% (VANILLA SILQ) 450 ML PO ONE; -HOLD METFORMIN - RECEIVED CONTRAST 20 ML VIAL IV SCH; -IOHEXOL 350 MG/ML 100 ML (OMNIPAQUE 350) VIAL IV ONE; -NS 100 ML (IVPB) BAG IV ONE
[2019-04-28] MEDS ORDERED: ASPIRIN 81 MG CHEW (CHILDREN'S ASA) PO ONE (14:00)
[2019-04-28] MEDS ORDERED: morphine INJ 10 MG/ML 1ML (SYR OR VIAL) IVP STA ×2 (14:02→15:05)
[2019-04-28 14:06] LABS: BASOPHILS % (AUTO) 0 % (0-10); EOSINOPHILS % (AUTO) 1 % (0-10); HEMATOCRIT 26 % (40-54); HEMOGLOBIN 8.1 G/DL (13.3-17.7); LYMPHOCYTES # (AUTO) 1.6 X 10^3 (1.0-4.0); LYMPHOCYTES % (AUTO) 22 % (12-44); MEAN CORPUSCULAR HEMOGLOBIN 33 PG (25-34); MEAN CORPUSCULAR HGB CONC 31 G/DL (32-36); MEAN CORPUSCULAR VOLUME 105 FL (80-99); MEAN PLATELET VOLUME 8.7 FL (7.4-10.4); MONOCYTES # (AUTO) 0.1 X 10^3 (0.0-1.0); MONOCYTES % (AUTO) 1 % (0-12); NEUTROPHILS # (AUTO) 5.7 X 10^3 (1.8-7.8); NEUTROPHILS % (AUTO) 77 % (42-75); PLATELET COUNT 242 10^3/uL (130-400); WHITE BLOOD COUNT 7.4 10^3/uL (4.3-11.0)
--- NOTE | 2019-04-28 14:13 | Diagnostic Imaging Report ---
INDICATION: Shortness of air and chest discomfort. Time of exam 2:02 p.m. COMPARISON: Correlation is made with prior chest from 11/26/2018. FINDINGS: Right chest wall port has tip overlying the SVC. Right hemidiaphragm is chronically elevated. There is some minimal infiltrate or atelectasis in the right base, acuity indeterminate. Minimal density in the left base near the costophrenic angle is noted, indeterminate. Mid and upper lung johnson are clear. There is no effusion or pneumothorax. IMPRESSION: Bibasilar opacities, right greater. Overall appearance of the chest has improved since October exam where there was significant infiltrate present in the right lung. Today's findings are indeterminate between chronic versus acute infiltrate. Continued follow-up could be performed. Dictated by: Dictated on workstation # [id number]
[2019-04-28 14:19] LABS: INR 1.2 (0.8-1.4); PROTHROMBIN TIME PATIENT 15.2 SEC (12.2-14.7)
[2019-04-28 14:29] LABS: ALANINE AMINOTRANSFERASE 14 U/L (0-55); ALBUMIN 2.9 GM/DL (3.2-4.5); ALKALINE PHOSPHATASE 86 U/L (40-136); BILIRUBIN,TOTAL 0.7 MG/DL (0.1-1.0); BUN/CREATININE RATIO 19; CALCIUM 8.8 MG/DL (8.5-10.1); CARBON DIOXIDE 28 MMOL/L (21-32); CHLORIDE 95 MMOL/L (98-107); CREATININE SERUM 0.86 MG/DL (0.60-1.30); GFR ESTIMATED > 60; GLUCOSE 108 MG/DL (70-105); MAGNESIUM 1.7 MG/DL (1.6-2.4); POTASSIUM 3.6 MMOL/L (3.6-5.0); SODIUM 132 MMOL/L (135-145); TOTAL PROTEIN 5.6 GM/DL (6.4-8.2)
--- NOTE | 2019-04-28 14:32 | ED Respiratory ---
General Chief Complaint: Respiratory Problems Stated Complaint: CHEST PAIN;SOA;CA Nursing Triage Note: Pt to room #1 via ED w/c by ed staff with c/o SOA and chest discomfort upon taking a deep breath. Pt reports onset of symptoms on 04/24/19. Reports hx lung cancer. Initial O2 sat on RA 87%. 3L O2 via nc applied and O2 sat giselle to 98%. Reports intermittent productive cough. Pt reports numbness to Lt hand. Pt reports to have fallen on 04/23/19 and is experiencing Lt hip discomfort. History of Present Illness Date Seen by Provider: Apr 28, 2019 Time Seen by Provider: 13:35 Initial Comments 63 Year old male presents with SOA, chest pain that begins on right side and radiates to left side. No posterior chest pain or radiation to arms. Has a history of small cell lung cancer, he had chemotherapy last week. He took 1 tramadol earlier today with no resolution in symptoms. Patient fell on 04/23/19 and is complaining of left hip pain. He is able to ambulate, with minimal discomfort. Timing/Duration: intermittent Severity: mild Prior Episodes/Possible Cause: frequent episodes Modifying Factors: Improves With Oxygen, Improves With Rest Associated Symptoms: chest pain/soreness, cough (productive at times); No fever/chills, No headache, No lightheadedness, No muscle aches; shortness of breath (chronic), wheezing (chronic) Allergies and Home Medications Allergies Coded Allergies: bupropion (Unverified Allergy, Mild, RASH, 11/08/18) Home Medications Albuterol Sulfate 1 Puff Puff, 2 PUFF IH QID PRN for SHORTNESS OF BREATH, (Reported) 1 PUFF = 90 MCG Carvedilol 12.5 Mg Tablet, 6.25 MG PO BID, (Reported) TAKES 1/2 (12.5MG) TABLET Cefdinir 300 Mg Capsule, 300 MG PO BID Prescribed by: SHABNAM GONCALVES on 11/27/18 1107 Cyanocobalamin (Vitamin B-12) 1,000 Mcg Tablet, 1,000 MCG PO DAILY, (Reported) Donepezil HCl 10 Mg Tablet, 5 MG PO DAILY, (Reported) TAKES 1/2 (10MG) TABLET Folic Acid 1 Mg Tablet, 1 MG PO DAILY, (Reported) Ipratropium [place] 30 Ml [place], 2 SPRAYS NS BID, (Reported) Levetiracetam 500 Mg Tablet, 1,000 MG PO BID, (Reported) TAKES 2 (500MG) TABLETS [place] 3 Polyunsat Fatty Acids 1,000 Mg Cap, 2,000 MG PO DAILY, (Reported) TAKES 2 (1000MG) CAPSULES [place] 3 Polyunsat Fatty Acids 1,000 Mg Cap, 1,000 MG PO HS, (Reported) Prednisone 10 Mg Tab.ds.pk, 10 MG PO DAILY Take 6 tabs(60mg)daily,decrease by 1 tab(10mg)every other day. Prescribed by: SHABNAM GONCALVES on 11/27/18 1107 Sertraline HCl 50 Mg Tablet, 25 MG PO DAILY, (Reported) TAKES 1/2 (50MG) TABLET Tiotropium Br/Olodaterol HCl 4 Gm Mist.inhal, 2 PUFF IH DAILY, (Reported) Tramadol HCl 50 Mg Tablet, 100 MG PO Q6H PRN for PAIN-MODERATE, (Reported) Trazodone HCl 100 Mg Tablet, 200 MG PO HS, (Reported) TAKES 2 (100MG) TABLETS Verapamil HCl 40 Mg Tablet, 40 MG PO BID, (Reported) Patient Home Medication List Home Medication List Reviewed: Yes Review of Systems Review of Systems Constitutional: no symptoms reported, chills Respiratory: see HPI, cough, dyspnea on exertion; No hemoptysis; short of breath, wheezing All Other Systems Reviewed Negative Unless Noted: Yes Past Ehhwqzl-Wfgabo-Imiptj Hx Past Med/Social Hx: Reviewed Nursing Past Med/Soc Hx Patient Social History Alcohol Use: Denies Use Recreational Drug Use: Yes (TRYING TO QUIT- USED TO SMOKE 2 PACKS/DAY) Drug of Choice: Marijuana--1 PER DAY Smoking Status: Heavy Tobacco Smoker (1-1-1/2 packs a day) Type Used: Cigarettes 2nd Hand Smoke Exposure: Yes Recent Foreign Travel: No Contact w/Someone Who Travel: No Recent Infectious Disease Expo: No Recent Hopitalizations: No Immunizations Up To Date Date of Pneumonia Vaccine: November 08, 2014 Seasonal Allergies Seasonal Allergies: Yes Past Medical History Surgeries: Yes (CAROTID stent) Lobectomy Respiratory: Yes (LUNG CANCER) COPD Cardiac: Yes High Cholesterol, Hypertension Neurological: Yes (LAST SEIZURE-08/2018) Seizure Disorder, Stroke Reproductive Disorders: No Sexually Transmitted Disease: No HIV/AIDS: No Genitourinary: No Gastrointestinal: Yes Gastrointestinal Bleed Musculoskeletal: Yes Arthritis Endocrine: No HEENT: Yes (GLASSES) Loss of Vision: Bilateral Hearing Impairment: Denies Cancer: Yes Lung, Skin What Type of Treatment Did You: Chemotherapy, Surgical Intervention Psychosocial: Yes Anxiety, PTSD, Depression Integumentary: No Blood Disorders: No Adverse Reaction/Blood Tranf: No (N/A) Family Medical History No Pertinent Family Hx Physical Exam Vital Signs - First Documented 04/28/19 13:34 Temp 35.5 Pulse 78 Resp 20 B/P (MAP) 132/65 (87) Pulse Ox 98 O2 Delivery Nasal Cannula O2 Flow Rate 3.00 Capillary Refill : Less Than 3 Seconds Height: 5'8.00" Weight: 172lbs. 9.6oz. [id number]; 21.00 BMI Method:Stated General Appearance: WD/WN, no apparent distress Eyes: Bilateral Eye Normal Inspection, Bilateral Eye PERRL, Bilateral Eye EOMI HEENT: PERRL/EOMI, normal ENT inspection, TMs normal, pharynx normal Neck: non-tender, full range of motion, supple, normal inspection Respiratory: chest non-tender, lungs clear, no respiratory distress, wheezing Cardiovascular: normal peripheral pulses, regular rate, rhythm Gastrointestinal: normal bowel sounds, non tender, soft Extremities: normal inspection, no pedal edema, other (limitation of motion left hip secondary to pain.) Neurologic/Psychiatric: no motor/sensory deficits, alert, normal mood/affect, oriented x 3 Skin: normal color, warm/dry Progress/Results/Core Measures Suspected Sepsis Recent Fever Within 48 Hours: No Infection Criteria Present: Suspected New Infection New/Unexplained Altered Menta: No Sepsis Screen: No Definite Risk SIRS Temperature: Pulse: 78 Respiratory Rate: 20 Laboratory Tests 04/28/19 13:55: White Blood Count 7.4 Blood Pressure 132 /65 Mean: 87 Laboratory Tests 04/28/19 13:55: Creatinine 0.86, INR Comment 1.2, Platelet Count 242, Total Bilirubin 0.7 Results/Orders Lab Results Laboratory Tests Test 04/28/19 13:55 Range/Units White Blood Count 7.4 4.3-11.0 10^3/uL Red Blood Count 2.46 L 4.35-5.85 10^6/uL Hemoglobin 8.1 L 13.3-17.7 G/DL Hematocrit 26 L 40-54 % Mean Corpuscular Volume 105 H 80-99 FL Mean Corpuscular Hemoglobin 33 25-34 PG Mean Corpuscular Hemoglobin Concent 31 L 32-36 G/DL Red Cell Distribution Width 15.0 H 10.0-14.5 % Platelet Count 242 130-400 10^3/uL Mean Platelet Volume 8.7 7.4-10.4 FL Neutrophils (%) (Auto) 77 H 42-75 % Lymphocytes (%) (Auto) 22 12-44 % Monocytes (%) (Auto) 1 0-12 % Eosinophils (%) (Auto) 1 0-10 % Basophils (%) (Auto) 0 0-10 % Neutrophils # (Auto) 5.7 1.8-7.8 X 10^3 Lymphocytes # (Auto) 1.6 1.0-4.0 X 10^3 Monocytes # (Auto) 0.1 0.0-1.0 X 10^3 Eosinophils # (Auto) 0.0 0.0-0.3 10^3/uL Basophils # (Auto) 0.0 0.0-0.1 10^3/uL Prothrombin Time 15.2 H 12.2-14.7 SEC INR Comment 1.2 0.8-1.4 Activated Partial Thromboplast Time 36 H 24-35 SEC Sodium Level 132 L 135-145 MMOL/L Potassium Level 3.6 3.6-5.0 MMOL/L Chloride Level 95 L 98-107 MMOL/L Carbon Dioxide Level 28 21-32 MMOL/L Anion Gap 9 5-14 MMOL/L Blood Urea Nitrogen 16 7-18 MG/DL Creatinine 0.86 0.60-1.30 MG/DL Estimat Glomerular Filtration Rate > 60 BUN/Creatinine Ratio 19 Glucose Level 108 H 70-105 MG/DL Calcium Level 8.8 8.5-10.1 MG/DL Corrected Calcium 9.7 8.5-10.1 MG/DL Magnesium Level 1.7 1.6-2.4 MG/DL Total Bilirubin 0.7 0.1-1.0 MG/DL Aspartate Amino Transf (AST/SGOT) 18 5-34 U/L Alanine Aminotransferase (ALT/SGPT) 14 0-55 U/L Alkaline Phosphatase 86 40-136 U/L Myoglobin 47.4 10.0-92.0 NG/ML Troponin I < 0.028 <0.028 NG/ML B-Type Natriuretic Peptide 24.3 <100.0 PG/ML Total Protein 5.6 L 6.4-8.2 GM/DL Albumin 2.9 L 3.2-4.5 GM/DL My Orders Orders - TIFF GRAF BNP (04/28/19 13:59) Cbc With Automated Diff (04/28/19 13:59) Magnesium (04/28/19 13:59) Chest 1 View, Ap/Pa Only (04/28/19 13:59) Ekg Tracing (04/28/19 13:59) Cardiac Profile 1 (04/28/19 13:59) Comprehensive Metabolic Panel (04/28/19 13:59) Myoglobin Serum (04/28/19 13:59) Protime With Inr (04/28/19 13:59) Partial Thromboplastin Time (04/28/19 13:59) O2 (04/28/19 13:59) Monitor-Rhythm Ecg Trace Only (04/28/19 13:59) Ed Iv/Invasive Line Start (04/28/19 13:59) Aspirin Chewable Tablet (Baby Aspirin Ch (04/28/19 14:00) Morphine Injection (Morphine Injection (04/28/19 14:02) Pelvis With Left Hip 2-3 Views (04/28/19 15:01) Morphine Injection (Morphine Injection (04/28/19 15:05) Medications Given in ED Current Medications Medications Dose Ordered Sig/Pool Route Start Time Stop Time Status Last Admin Dose Admin Aspirin 324 mg ONCE ONCE PO 04/28/19 14:00 04/28/19 14:01 DC 04/28/19 14:13 324 MG Vital Signs/I&O 04/28/19 04/28/19 04/28/19 04/28/19 13:34 13:50 14:13 14:13 Temp 35.5 35.5 35.5 Pulse 78 Resp 20 B/P (MAP) 132/65 (87) Pulse Ox 98 87 O2 Delivery Nasal Cannula Nasal Cannula O2 Flow Rate 3.00 3.00 04/28/19 04/28/19 15:39 16:29 Temp 35.5 36.0 Pulse 76 Resp 20 B/P (MAP) 122/74 (87) Pulse Ox 97 O2 Delivery Nasal Cannula O2 Flow Rate 3.00 Capillary Refill : Less Than 3 Seconds Blood Pressure Mean: 87 POS Progress Note : Time: 13:35 Progress Note Patient evaluated EKG, chest x-ray and labs. 1400 will obtain pelvis and left hip x-ray. 1415 patient reports improvement in his symptoms after the morphine. 1500 reviewed labs and x-ray, no acute findings. 1600 discharge instructions and return precautions reviewed with the patient and his . All questions answered. ECG Initial ECG Impression Date: Apr 28, 2019 Initial ECG Impression Time: 13:44 Initial ECG Rate: 75 Initial ECG Rhythm: Normal Sinus Initial ECG Intervals: Normal Initial ECG Intervals [place] 136, QRSD 88, QT 408, QTc 456. [place] P 34, QRS 56, T 45. Initial ECG Impression: Normal Initial ECG Comparisson: Unchanged Comment Reviewed with Dr. Bazzi, agreed with interpretation. Diagnostic Imaging Diagonstic Imaging: Xray Plain Films/CT/US/NM/MRI: chest Comments NAME: SOLANGE [facility]ONEY [facility] REC#: [id number] PT STATUS: REG ER : 1955 PHYSICIAN: TIFF GRAF ADMIT DATE: 04/28/19/ER Draft POSDate of Exam:04/28/19 CHEST 1 VIEW, AP/PA ONLY INDICATION: Shortness of air and chest discomfort. Time of exam 2:02 p.m. COMPARISON: Correlation is made with prior chest from 11/26/2018. FINDINGS: Right chest wall port has tip overlying the SVC. Right hemidiaphragm is chronically elevated. There is some minimal infiltrate or atelectasis in the right base, acuity indeterminate. Minimal density in the left base near the costophrenic angle is noted, indeterminate. Mid and upper lung johnson are clear. There is no effusion or pneumothorax. IMPRESSION: Bibasilar opacities, right greater. Overall appearance of the chest has improved since October exam where there was significant infiltrate present in the right lung. Today's findings are indeterminate between chronic versus acute infiltrate. Continued follow-up could be performed. Dictated on workstation # [id number] Dict: 04/28/19 1409 Trans: 04/28/19 1413 [id number] Interpreted by: DAMASO CORTÉS MD Electronically signed by: Reviewed: Reviewed by Me Departure Impression Primary Impression: SOB (shortness of breath) on exertion Additional Impression: Small cell lung cancer in adult Disposition: 01 HOME, SELF-CARE Condition: Improved Departure-Patient Inst. Decision time for Depature: 16:20 Referrals: NO,LOCAL PHYSICIAN (PCP/Family) Primary Care Physician Patient Instructions: Lung Cancer (DC), Shortness of Breath (Dyspnea) Add. Discharge Instructions: Continue home medications and oxygen. Follow-up with your oncologist or primary care provider if continued shortness of breath or increased pain. Return to the emergency department for new, urgent health care needs. All discharge instructions reviewed with patient and/or family. Voiced understanding. Copy Copies To 1: DWIGHT PHAN MD, AMY ARNP Apr 28, 2019 14:32 POS
--- NOTE | 2019-04-28 15:32 | Diagnostic Imaging Report ---
INDICATION: Fall with left hip pain. AP pelvis and AP and oblique views of the left hip are obtained. FINDINGS: No fracture or acute bony abnormality is seen. There is mild joint space narrowing of both hips. SI joints show mild degenerative change and appear symmetric. There are vascular calcifications noted. IMPRESSION: Chronic findings as above with no acute-appearing bony abnormality. Dictated by: Dictated on workstation # [id number]
[2019-04-28 16:29] VITALS: BP 122/74
== END 2019-04-28 16:27 | disposition home or self-care (01) ==
LOC: EDUNIT# 13:32 → ER 13:33
DX: R06.02 Shortness of breath (principal); C34.90 Malignant neoplasm of unspecified part of unspecified bronchus or lung; C79.9 Secondary malignant neoplasm of unspecified site; I10 Essential (primary) hypertension; E78.00 Pure hypercholesterolemia, unspecified; J44.9 Chronic obstructive pulmonary disease, unspecified; G40.909 Epilepsy, unspecified, not intractable, without status epilepticus; F43.10 Post-traumatic stress disorder, unspecified; F41.9 Anxiety disorder, unspecified; F32.9 Major depressive disorder, single episode, unspecified; F17.210 Nicotine dependence, cigarettes, uncomplicated; Z86.73 Personal history of transient ischemic attack (TIA), and cerebral infarction without residual deficits; Z95.5 Presence of coronary angioplasty implant and graft; Z85.828 Personal history of other malignant neoplasm of skin; Z90.2 Acquired absence of lung [part of]; Z88.8 Allergy status to other drugs, medicaments and biological substances; Z79.52 Long term (current) use of systemic steroids
CPT/HCPCS: 36415; 71045; 80053; 83735; 83874; 83880; 84484; 85025; 85610; 85730; 93005; 93041; 96374; 96376

== ENCOUNTER → 2019-05-08 | Outpatient (RCR) | payer OTHER ==
[2019-02-07 12:07] LABS: BASOPHILS % (AUTO) 0 % (0-10); EOSINOPHILS % (AUTO) 1 % (0-10); HEMATOCRIT 28 % (40-54); HEMOGLOBIN 8.9 G/DL (13.3-17.7); LYMPHOCYTES # (AUTO) 1.6 X 10^3 (1.0-4.0); LYMPHOCYTES % (AUTO) 51 % (12-44); MEAN CORPUSCULAR HEMOGLOBIN 33 PG (25-34); MEAN CORPUSCULAR HGB CONC 32 G/DL (32-36); MEAN CORPUSCULAR VOLUME 103 FL (80-99); MEAN PLATELET VOLUME 9.3 FL (7.4-10.4); MONOCYTES # (AUTO) 0.6 X 10^3 (0.0-1.0); MONOCYTES % (AUTO) 20 % (0-12); NEUTROPHILS # (AUTO) 0.9 X 10^3 (1.8-7.8); NEUTROPHILS % (AUTO) 29 % (42-75); PLATELET COUNT 117 10^3/uL (130-400); WHITE BLOOD COUNT 3.1 10^3/uL (4.3-11.0)
[2019-02-07 12:23] LABS: ALANINE AMINOTRANSFERASE 60 U/L (0-55); ALBUMIN 3.5 GM/DL (3.2-4.5); ALKALINE PHOSPHATASE 127 U/L (40-136); BILIRUBIN,TOTAL 0.4 MG/DL (0.1-1.0); BUN/CREATININE RATIO 9; CALCIUM 9.6 MG/DL (8.5-10.1); CARBON DIOXIDE 30 MMOL/L (21-32); CHLORIDE 99 MMOL/L (98-107); CREATININE SERUM 0.81 MG/DL (0.60-1.30); GFR ESTIMATED > 60; GLUCOSE 109 MG/DL (70-105); POTASSIUM 3.5 MMOL/L (3.6-5.0); SODIUM 138 MMOL/L (135-145); TOTAL PROTEIN 6.5 GM/DL (6.4-8.2)
[2019-02-14 13:23] LABS: BASOPHILS % (AUTO) 0 % (0-10); EOSINOPHILS # (AUTO) 0.1 10^3/uL (0.0-0.3); EOSINOPHILS % (AUTO) 1 % (0-10); HEMATOCRIT 30 % (40-54); HEMOGLOBIN 9.8 G/DL (13.3-17.7); LYMPHOCYTES # (AUTO) 1.8 X 10^3 (1.0-4.0); LYMPHOCYTES % (AUTO) 29 % (12-44); MEAN CORPUSCULAR HEMOGLOBIN 33 PG (25-34); MEAN CORPUSCULAR HGB CONC 32 G/DL (32-36); MEAN CORPUSCULAR VOLUME 103 FL (80-99); MEAN PLATELET VOLUME 8.8 FL (7.4-10.4); MONOCYTES # (AUTO) 0.6 X 10^3 (0.0-1.0); MONOCYTES % (AUTO) 10 % (0-12); NEUTROPHILS # (AUTO) 3.7 X 10^3 (1.8-7.8); NEUTROPHILS % (AUTO) 60 % (42-75); PLATELET COUNT 179 10^3/uL (130-400); RED CELL DISTRIBUTION WIDTH 14.9 % (10.0-14.5); WHITE BLOOD COUNT 6.1 10^3/uL (4.3-11.0)
[2019-02-14 13:37] LABS: BUN/CREATININE RATIO 7; CALCIUM 9.1 MG/DL (8.5-10.1); CARBON DIOXIDE 32 MMOL/L (21-32); CHLORIDE 99 MMOL/L (98-107); CREATININE SERUM 0.84 MG/DL (0.60-1.30); GFR ESTIMATED > 60; GLUCOSE 139 MG/DL (70-105); POTASSIUM 3.8 MMOL/L (3.6-5.0); SODIUM 139 MMOL/L (135-145)
[2019-02-19 09:52] LABS: BASOPHILS % (AUTO) 0 % (0-10); EOSINOPHILS % (AUTO) 0 % (0-10); HEMATOCRIT 30 % (40-54); HEMOGLOBIN 9.8 G/DL (13.3-17.7); LYMPHOCYTES % (AUTO) 21 % (12-44); MEAN CORPUSCULAR HEMOGLOBIN 33 PG (25-34); MEAN CORPUSCULAR HGB CONC 32 G/DL (32-36); MEAN CORPUSCULAR VOLUME 102 FL (80-99); MEAN PLATELET VOLUME 8.7 FL (7.4-10.4); MONOCYTES # (AUTO) 0.6 X 10^3 (0.0-1.0); MONOCYTES % (AUTO) 6 % (0-12); NEUTROPHILS % (AUTO) 73 % (42-75); PLATELET COUNT 340 10^3/uL (130-400); RED CELL DISTRIBUTION WIDTH 15.2 % (10.0-14.5); WHITE BLOOD COUNT 9.6 10^3/uL (4.3-11.0)
[2019-02-19 10:22] LABS: ALANINE AMINOTRANSFERASE 19 U/L (0-55); ALBUMIN 3.4 GM/DL (3.2-4.5); ALKALINE PHOSPHATASE 145 U/L (40-136); BILIRUBIN,TOTAL 0.3 MG/DL (0.1-1.0); BUN/CREATININE RATIO 9; CALCIUM 9.4 MG/DL (8.5-10.1); CARBON DIOXIDE 28 MMOL/L (21-32); CHLORIDE 99 MMOL/L (98-107); CREATININE SERUM 0.81 MG/DL (0.60-1.30); GFR ESTIMATED > 60; GLUCOSE 116 MG/DL (70-105); MAGNESIUM 1.8 MG/DL (1.6-2.4); SODIUM 138 MMOL/L (135-145)
[2019-02-27 08:48] LABS: BASOPHILS % (AUTO) 0 % (0-10); EOSINOPHILS % (AUTO) 1 % (0-10); HEMATOCRIT 29 % (40-54); HEMOGLOBIN 9.3 G/DL (13.3-17.7); LYMPHOCYTES # (AUTO) 1.5 X 10^3 (1.0-4.0); LYMPHOCYTES % (AUTO) 54 % (12-44); MEAN CORPUSCULAR HEMOGLOBIN 33 PG (25-34); MEAN CORPUSCULAR HGB CONC 32 G/DL (32-36); MEAN CORPUSCULAR VOLUME 103 FL (80-99); MEAN PLATELET VOLUME 9.1 FL (7.4-10.4); MONOCYTES # (AUTO) 0.4 X 10^3 (0.0-1.0); MONOCYTES % (AUTO) 16 % (0-12); NEUTROPHILS # (AUTO) 0.8 X 10^3 (1.8-7.8); NEUTROPHILS % (AUTO) 29 % (42-75); PLATELET COUNT 125 10^3/uL (130-400); RED CELL DISTRIBUTION WIDTH 14.7 % (10.0-14.5); WHITE BLOOD COUNT 2.7 10^3/uL (4.3-11.0)
[2019-02-27 09:19] LABS: BUN/CREATININE RATIO 10; CARBON DIOXIDE 27 MMOL/L (21-32); CHLORIDE 100 MMOL/L (98-107); POTASSIUM 3.6 MMOL/L (3.6-5.0); SODIUM 138 MMOL/L (135-145)
[2019-02-27 09:20] LABS: ALANINE AMINOTRANSFERASE 31 U/L (0-55); ALBUMIN 3.3 GM/DL (3.2-4.5); ALKALINE PHOSPHATASE 124 U/L (40-136); BILIRUBIN,TOTAL 0.5 MG/DL (0.1-1.0); CALCIUM 9.3 MG/DL (8.5-10.1); GFR ESTIMATED > 60; GLUCOSE 117 MG/DL (70-105); TOTAL PROTEIN 6.4 GM/DL (6.4-8.2)
[2019-03-12 10:30] LABS: BASOPHILS % (AUTO) 0 % (0-10); EOSINOPHILS % (AUTO) 0 % (0-10); HEMATOCRIT 30 % (40-54); HEMOGLOBIN 9.5 G/DL (13.3-17.7); LYMPHOCYTES # (AUTO) 2.1 X 10^3 (1.0-4.0); LYMPHOCYTES % (AUTO) 21 % (12-44); MEAN CORPUSCULAR HEMOGLOBIN 33 PG (25-34); MEAN CORPUSCULAR HGB CONC 32 G/DL (32-36); MEAN CORPUSCULAR VOLUME 104 FL (80-99); MONOCYTES # (AUTO) 0.4 X 10^3 (0.0-1.0); MONOCYTES % (AUTO) 4 % (0-12); NEUTROPHILS # (AUTO) 7.7 X 10^3 (1.8-7.8); NEUTROPHILS % (AUTO) 75 % (42-75); PLATELET COUNT 333 10^3/uL (130-400); RED CELL DISTRIBUTION WIDTH 14.8 % (10.0-14.5); WHITE BLOOD COUNT 10.2 10^3/uL (4.3-11.0)
[2019-03-12 10:48] LABS: ALANINE AMINOTRANSFERASE 13 U/L (0-55); ALBUMIN 3.3 GM/DL (3.2-4.5); ALKALINE PHOSPHATASE 135 U/L (40-136); BILIRUBIN,TOTAL 0.3 MG/DL (0.1-1.0); BUN/CREATININE RATIO 8; CALCIUM 9.2 MG/DL (8.5-10.1); CARBON DIOXIDE 27 MMOL/L (21-32); CHLORIDE 98 MMOL/L (98-107); CREATININE SERUM 0.83 MG/DL (0.60-1.30); GFR ESTIMATED > 60; GLUCOSE 177 MG/DL (70-105); POTASSIUM 3.4 MMOL/L (3.6-5.0); SODIUM 136 MMOL/L (135-145); TOTAL PROTEIN 6.5 GM/DL (6.4-8.2)
[2019-03-21 14:11] LABS: BASOPHILS % (AUTO) 0 % (0-10); EOSINOPHILS # (AUTO) 0.1 10^3/uL (0.0-0.3); EOSINOPHILS % (AUTO) 2 % (0-10); HEMATOCRIT 26 % (40-54); HEMOGLOBIN 8.4 G/DL (13.3-17.7); LYMPHOCYTES # (AUTO) 1.9 X 10^3 (1.0-4.0); LYMPHOCYTES % (AUTO) 62 % (12-44); MEAN CORPUSCULAR HEMOGLOBIN 33 PG (25-34); MEAN CORPUSCULAR HGB CONC 32 G/DL (32-36); MEAN CORPUSCULAR VOLUME 103 FL (80-99); MEAN PLATELET VOLUME 10.1 FL (7.4-10.4); MONOCYTES # (AUTO) 0.6 X 10^3 (0.0-1.0); MONOCYTES % (AUTO) 20 % (0-12); NEUTROPHILS # (AUTO) 0.5 X 10^3 (1.8-7.8); NEUTROPHILS % (AUTO) 17 % (42-75); PLATELET COUNT 109 10^3/uL (130-400); RED CELL DISTRIBUTION WIDTH 13.7 % (10.0-14.5)
[2019-03-21 14:28] LABS: BUN/CREATININE RATIO 9; CALCIUM 9.1 MG/DL (8.5-10.1); CARBON DIOXIDE 32 MMOL/L (21-32); CHLORIDE 97 MMOL/L (98-107); CREATININE SERUM 0.82 MG/DL (0.60-1.30); GFR ESTIMATED > 60; GLUCOSE 89 MG/DL (70-105); POTASSIUM 3.6 MMOL/L (3.6-5.0); SODIUM 136 MMOL/L (135-145)
[2019-03-28 13:57] LABS: BASOPHILS % (AUTO) 0 % (0-10); EOSINOPHILS # (AUTO) 0.1 10^3/uL (0.0-0.3); EOSINOPHILS % (AUTO) 1 % (0-10); HEMATOCRIT 28 % (40-54); HEMOGLOBIN 9.2 G/DL (13.3-17.7); LYMPHOCYTES # (AUTO) 2.7 X 10^3 (1.0-4.0); LYMPHOCYTES % (AUTO) 37 % (12-44); MEAN CORPUSCULAR HEMOGLOBIN 34 PG (25-34); MEAN CORPUSCULAR HGB CONC 33 G/DL (32-36); MEAN CORPUSCULAR VOLUME 103 FL (80-99); MEAN PLATELET VOLUME 9.3 FL (7.4-10.4); MONOCYTES # (AUTO) 0.8 X 10^3 (0.0-1.0); MONOCYTES % (AUTO) 11 % (0-12); NEUTROPHILS # (AUTO) 3.8 X 10^3 (1.8-7.8); NEUTROPHILS % (AUTO) 52 % (42-75); PLATELET COUNT 199 10^3/uL (130-400); RED CELL DISTRIBUTION WIDTH 13.9 % (10.0-14.5); WHITE BLOOD COUNT 7.4 10^3/uL (4.3-11.0)
[2019-03-28 14:12] LABS: BUN/CREATININE RATIO 9; CALCIUM 9.2 MG/DL (8.5-10.1); CARBON DIOXIDE 30 MMOL/L (21-32); CHLORIDE 98 MMOL/L (98-107); GFR ESTIMATED > 60; GLUCOSE 102 MG/DL (70-105); POTASSIUM 3.8 MMOL/L (3.6-5.0); SODIUM 136 MMOL/L (135-145)
[2019-04-02 10:07] LABS: BASOPHILS % (AUTO) 0 % (0-10); EOSINOPHILS % (AUTO) 0 % (0-10); HEMATOCRIT 29 % (40-54); LYMPHOCYTES % (AUTO) 21 % (12-44); MEAN CORPUSCULAR HEMOGLOBIN 33 PG (25-34); MEAN CORPUSCULAR HGB CONC 31 G/DL (32-36); MEAN CORPUSCULAR VOLUME 105 FL (80-99); MEAN PLATELET VOLUME 8.8 FL (7.4-10.4); MONOCYTES # (AUTO) 0.4 X 10^3 (0.0-1.0); MONOCYTES % (AUTO) 5 % (0-12); NEUTROPHILS % (AUTO) 74 % (42-75); PLATELET COUNT 437 10^3/uL (130-400); RED CELL DISTRIBUTION WIDTH 15.2 % (10.0-14.5); WHITE BLOOD COUNT 9.4 10^3/uL (4.3-11.0)
[2019-04-02 10:40] LABS: ALANINE AMINOTRANSFERASE 18 U/L (0-55); ALBUMIN 3.2 GM/DL (3.2-4.5); ALKALINE PHOSPHATASE 147 U/L (40-136); BILIRUBIN,TOTAL 0.3 MG/DL (0.1-1.0); BUN/CREATININE RATIO 8; CARBON DIOXIDE 29 MMOL/L (21-32); CHLORIDE 100 MMOL/L (98-107); CREATININE SERUM 0.93 MG/DL (0.60-1.30); GFR ESTIMATED > 60; GLUCOSE 175 MG/DL (70-105); SODIUM 137 MMOL/L (135-145); TOTAL PROTEIN 6.7 GM/DL (6.4-8.2)
[2019-04-09 12:05] LABS: BASOPHILS % (AUTO) 0 % (0-10); EOSINOPHILS # (AUTO) 0.1 10^3/uL (0.0-0.3); EOSINOPHILS % (AUTO) 2 % (0-10); HEMATOCRIT 29 % (40-54); HEMOGLOBIN 9.5 G/DL (13.3-17.7); LYMPHOCYTES % (AUTO) 46 % (12-44); MEAN CORPUSCULAR HEMOGLOBIN 34 PG (25-34); MEAN CORPUSCULAR HGB CONC 32 G/DL (32-36); MEAN CORPUSCULAR VOLUME 105 FL (80-99); MEAN PLATELET VOLUME 8.9 FL (7.4-10.4); MONOCYTES # (AUTO) 0.1 X 10^3 (0.0-1.0); MONOCYTES % (AUTO) 2 % (0-12); NEUTROPHILS # (AUTO) 2.3 X 10^3 (1.8-7.8); NEUTROPHILS % (AUTO) 51 % (42-75); PLATELET COUNT 203 10^3/uL (130-400); RED CELL DISTRIBUTION WIDTH 14.4 % (10.0-14.5); WHITE BLOOD COUNT 4.4 10^3/uL (4.3-11.0)
[2019-04-09 12:26] LABS: BUN/CREATININE RATIO 16; CALCIUM 9.6 MG/DL (8.5-10.1); CARBON DIOXIDE 30 MMOL/L (21-32); CHLORIDE 98 MMOL/L (98-107); GFR ESTIMATED > 60; GLUCOSE 113 MG/DL (70-105); POTASSIUM 4.1 MMOL/L (3.6-5.0); SODIUM 137 MMOL/L (135-145)
[2019-04-23 10:07] LABS: BASOPHILS % (AUTO) 0 % (0-10); EOSINOPHILS % (AUTO) 0 % (0-10); HEMATOCRIT 29 % (40-54); HEMOGLOBIN 9.1 G/DL (13.3-17.7); LYMPHOCYTES # (AUTO) 1.7 X 10^3 (1.0-4.0); LYMPHOCYTES % (AUTO) 21 % (12-44); MEAN CORPUSCULAR HEMOGLOBIN 33 PG (25-34); MEAN CORPUSCULAR HGB CONC 32 G/DL (32-36); MEAN CORPUSCULAR VOLUME 105 FL (80-99); MEAN PLATELET VOLUME 8.9 FL (7.4-10.4); MONOCYTES # (AUTO) 0.4 X 10^3 (0.0-1.0); MONOCYTES % (AUTO) 5 % (0-12); NEUTROPHILS % (AUTO) 74 % (42-75); PLATELET COUNT 352 10^3/uL (130-400); RED CELL DISTRIBUTION WIDTH 14.4 % (10.0-14.5); WHITE BLOOD COUNT 8.1 10^3/uL (4.3-11.0)
[2019-04-23 10:28] LABS: ALANINE AMINOTRANSFERASE 16 U/L (0-55); ALBUMIN 3.3 GM/DL (3.2-4.5); ALKALINE PHOSPHATASE 148 U/L (40-136); BILIRUBIN,TOTAL 0.3 MG/DL (0.1-1.0); BUN/CREATININE RATIO 8; CALCIUM 8.8 MG/DL (8.5-10.1); CARBON DIOXIDE 29 MMOL/L (21-32); CHLORIDE 104 MMOL/L (98-107); CREATININE SERUM 0.83 MG/DL (0.60-1.30); GFR ESTIMATED > 60; GLUCOSE 173 MG/DL (70-105); POTASSIUM 3.6 MMOL/L (3.6-5.0); SODIUM 139 MMOL/L (135-145); TOTAL PROTEIN 6.3 GM/DL (6.4-8.2)
[~2019-05-08] VITALS: Ht 170.2 cm; Wt 65.8 kg
[~2019-05-08] MED LIST changes: +CYANOCOBALAMIN INJ 1000 MCG/ML (CANCER CENTER) ONE; +DEXAMETHASONE IV PRN; +FOSAPREPITANT DIMEGLUMINE 150 MG in NS (IVPB) CANCER CENTER ONLY 150 ML IV SCH; +NS IV 1000 ML (CANCER CTR) IV SCH; +ONDANSETRON IV PRN; +PALONOSETRON HCL 0.25 MG, DEXAMETHASONE INJECTION 10 MG in NS (IVPB) CANCER CENTER 50 ML IV SCH; +PEMBROLIZUMAB 200 MG in NS (IVPB) CANCER CENTER 50 ML IV SCH; +PEMETREXED DISODIUM 500 MG, PEMETREXED DISODIUM 400 MG in NS (IVPB) CANCER CENTER 100 ML IV SCH; +[UNRECOGNIZED DRUG - OTHER] IV PRN
[2019-05-08 09:34] LABS: BASOPHILS % (AUTO) 0 % (0-10); EOSINOPHILS # (AUTO) 0.1 10^3/uL (0.0-0.3); EOSINOPHILS % (AUTO) 1 % (0-10); HEMATOCRIT 27 % (40-54); HEMOGLOBIN 8.4 G/DL (13.3-17.7); LYMPHOCYTES # (AUTO) 2.4 X 10^3 (1.0-4.0); LYMPHOCYTES % (AUTO) 29 % (12-44); MEAN CORPUSCULAR HEMOGLOBIN 34 PG (25-34); MEAN CORPUSCULAR HGB CONC 31 G/DL (32-36); MEAN CORPUSCULAR VOLUME 108 FL (80-99); MEAN PLATELET VOLUME 9.1 FL (7.4-10.4); MONOCYTES # (AUTO) 0.7 X 10^3 (0.0-1.0); MONOCYTES % (AUTO) 9 % (0-12); NEUTROPHILS # (AUTO) 5.2 X 10^3 (1.8-7.8); NEUTROPHILS % (AUTO) 62 % (42-75); PLATELET COUNT 226 10^3/uL (130-400); RED CELL DISTRIBUTION WIDTH 14.3 % (10.0-14.5); WHITE BLOOD COUNT 8.4 10^3/uL (4.3-11.0)
[2019-05-08 09:49] LABS: BUN/CREATININE RATIO 10; CARBON DIOXIDE 32 MMOL/L (21-32); CHLORIDE 99 MMOL/L (98-107); GFR ESTIMATED > 60; GLUCOSE 90 MG/DL (70-105); POTASSIUM 3.9 MMOL/L (3.6-5.0); SODIUM 140 MMOL/L (135-145)
== END | disposition home or self-care (01) ==
LOC: ONC 02-07 11:47
PROVIDERS: ATTEND Internal Medicine Hematology & Oncology
DX: Z51.11 Encounter for antineoplastic chemotherapy (principal); C34.90 Malignant neoplasm of unspecified part of unspecified bronchus or lung; C77.1 Secondary and unspecified malignant neoplasm of intrathoracic lymph nodes; I10 Essential (primary) hypertension; J44.9 Chronic obstructive pulmonary disease, unspecified; I25.10 Atherosclerotic heart disease of native coronary artery without angina pectoris; G40.909 Epilepsy, unspecified, not intractable, without status epilepticus; F17.210 Nicotine dependence, cigarettes, uncomplicated; Z86.73 Personal history of transient ischemic attack (TIA), and cerebral infarction without residual deficits; Z79.899 Other long term (current) drug therapy; Z79.82 Long term (current) use of aspirin; Z80.3 Family history of malignant neoplasm of breast
CPT/HCPCS: 36415; 36591; 80048; 80053; 83735; 84443; 85025; 96367; 96372; 96375; 96401; 96411; 96413; 96417

== ENCOUNTER → 2019-06-06 | Outpatient (CLI) | payer OTHER ==
[~2019-06-06] MED LIST changes: +BARIUM SUSPENSION 2.1% (VANILLA SILQ) 450 ML PO ONE; +CATHETER FLUSH 10 ML SYR IV PRN; -CLON0.5T13 PO; +CLON0.5T4 PO; -CYANOCOBALAMIN INJ 1000 MCG/ML (CANCER CENTER) ONE; -DEXAMETHASONE IV PRN; -FOSAPREPITANT DIMEGLUMINE 150 MG in NS (IVPB) CANCER CENTER ONLY 150 ML IV SCH; +HOLD METFORMIN - RECEIVED CONTRAST 20 ML VIAL IV SCH; +IOHEXOL 350 MG/ML 100 ML (OMNIPAQUE 350) VIAL IV ONE; +NS 100 ML (IVPB) BAG IV ONE; -NS IV 1000 ML (CANCER CTR) IV SCH; -ONDANSETRON IV PRN; -PALONOSETRON HCL 0.25 MG, DEXAMETHASONE INJECTION 10 MG in NS (IVPB) CANCER CENTER 50 ML IV SCH; -PEMBROLIZUMAB 200 MG in NS (IVPB) CANCER CENTER 50 ML IV SCH; -PEMETREXED DISODIUM 500 MG, PEMETREXED DISODIUM 400 MG in NS (IVPB) CANCER CENTER 100 ML IV SCH; +TRM50T PO; -[UNRECOGNIZED DRUG - OTHER] IV PRN
--- NOTE | 2019-06-06 16:24 | Diagnostic Imaging Report ---
PROCEDURE: CT chest with contrast, CT abdomen and pelvis with and without contrast. TECHNIQUE: Pre and post intravenous contrast axial imaging of the abdomen and pelvis and post contrast axial imaging of the chest were performed. Auto Exposure Controls were utilized during the CT exam to meet ALARA standards for radiation dose reduction. INDICATION: History of small cell lung carcinoma. On chemotherapy. Tightness in pelvic area. CORRELATION STUDY: 03/10/2019. FINDINGS: CT CHEST: Right subclavian Njyvws-S-Ngvq catheter is present, tip over the cavoatrial junction. Heart size is within normal limits. Mild aortic valve calcification. Thoracic aorta with scattered wall calcification. Postoperative changes of the right lung with surgical clips in the right hilum and subcarinal region. Minimal soft tissue prominence in the subcarinal region. No pathologically enlarged mediastinal lymph nodes. Visualized portions of the thyroid gland are unremarkable. Gastroesophageal junction is unremarkable. Elevated right diaphragm with right lung volume loss, owing to upper lobectomy. Emphysematous changes of the remaining lung johnson. No consolidating infiltrate. No abnormal pulmonary mass. Calcified granuloma of the left lung. Surgical changes of the posterior fifth and sixth ribs. CT ABDOMEN and PELVIS: 1. Low-density foci in the left lobe of liver, likely of no significance. Gallbladder is present. Gallbladder is contracted, there is question of some gallbladder wall thickening. No bile duct dilatation. Spleen, atrophic pancreas, and adrenal glands are unremarkable. Kidneys with normal enhancement. No obstruction. Dense aortoiliac wall calcification is present. Additionally, there is significant calcification at the origin of the mesenteric as well as renal arteries with various degrees of narrowing. Stomach is mildly distended with retained gastric contents. There are diffuse somewhat prominent fluid and gas-filled loops of small bowel present. A definitive transition point or findings to suggest complete obstruction are not demonstrated. A moderate severity of fecal retention with stool throughout the colon. Colonic diverticulosis without evidence for acute diverticulitis. Normal appendix is present in the right lower quadrant. No abdominal ascites or free air. Urinary bladder and prostate gland are unremarkable. Osseous structures demonstrate no acute abnormality. IMPRESSION: CT CHEST: 1. Postoperative changes of the right lung. Overall findings are generally stable without evidence for acute abnormality of the chest. CT ABDOMEN and PELVIS: 1. Prominent fluid-filled loops of small bowel. Definitive transition point to suggest high-degree obstruction is not demonstrated. Findings could be reflective of nonspecific enteritis or perhaps ileus. Low-grade or early obstruction is considered less likely but not excluded. Follow-up imaging, as clinically warranted. 2. Moderate-severity fecal retention with colonic diverticulosis. No acute diverticulitis. 3. Significant aortoiliac vascular calcification with various degrees of narrowing at the takeoff of the great vessels as well as through the iliac arteries. Dictated by: Dictated on workstation # [id number]
== END ==
LOC: RAD 13:21
PROVIDERS: ATTEND Internal Medicine Hematology & Oncology
DX: K57.30 Diverticulosis of large intestine without perforation or abscess without bleeding (principal); K59.00 Constipation, unspecified; I70.0 Atherosclerosis of aorta; I70.8 Atherosclerosis of other arteries; C34.11 Malignant neoplasm of upper lobe, right bronchus or lung
CPT/HCPCS: 71260; 74178

== ENCOUNTER → 2019-06-11 | Outpatient (CLI) | payer OTHER ==
[~2019-06-11] MED LIST changes: -BARIUM SUSPENSION 2.1% (VANILLA SILQ) 450 ML PO ONE; -CATHETER FLUSH 10 ML SYR IV PRN; +CLON0.5T13 PO; -CLON0.5T4 PO; +GADOBUTROL 7.5 MMOL/7.5 ML (GADAVIST) VIAL IV ONE; -HOLD METFORMIN - RECEIVED CONTRAST 20 ML VIAL IV SCH; -IOHEXOL 350 MG/ML 100 ML (OMNIPAQUE 350) VIAL IV ONE; -NS 100 ML (IVPB) BAG IV ONE; -TRM50T PO
--- NOTE | 2019-06-11 12:50 | Diagnostic Imaging Report ---
PROCEDURE: MR imaging of the brain with and without contrast. TECHNIQUE: Multiplanar, multisequence MR imaging of the brain was performed with and without contrast. INDICATION: Lung cancer. Evaluate for metastatic disease. Headaches. COMPARISON: 11/27/2018 FINDINGS: No acute ischemia, mass, or hemorrhage. No abnormal enhancement is seen. Old infarct is noted in the anterior right frontal lobe with surrounding gliosis. Scattered chronic microvascular disease is noted. The ventricles and cortical sulci are diffusely prominent. The basilar cisterns are symmetric and unremarkable. The sellar and suprasellar regions have a normal appearance. There is loss of flow void in the right internal carotid artery representing chronic occlusion. Reconstitution of the flow void is noted in the terminal right ICA likely secondary to collateral flow. The brainstem and posterior fossa are unremarkable. Mild mucosal thickening is seen in the paranasal sinuses. The mastoid air cells demonstrate normal signal characteristics. The globes and orbits are symmetric and unremarkable. The scalp and calvarium have a normal appearance. IMPRESSION: 1. No acute ischemia, mass, or hemorrhage. No abnormal enhancement to suggest metastatic disease. 2. Old infarct in the anterior right frontal lobe. Associated chronic occlusion of the right ICA is noted with reconstitution of flow void in the terminal right ICA. 3. Generalized parenchymal volume loss with chronic microvascular disease. Dictated by: Dictated on workstation # [id number]
== END ==
LOC: RAD 11:18
PROVIDERS: ATTEND Internal Medicine Hematology & Oncology
DX: C34.11 Malignant neoplasm of upper lobe, right bronchus or lung (principal); I63.89 Other cerebral infarction; G93.89 Other specified disorders of brain
CPT/HCPCS: 70553

== ENCOUNTER 2019-08-01 10:25 | Outpatient (RCR) | payer OTHER ==
[2019-05-14 10:06] LABS: BASOPHILS % (AUTO) 0 % (0-10); EOSINOPHILS % (AUTO) 0 % (0-10); HEMATOCRIT 27 % (40-54); HEMOGLOBIN 8.6 G/DL (13.3-17.7); LYMPHOCYTES # (AUTO) 2.2 X 10^3 (1.0-4.0); LYMPHOCYTES % (AUTO) 31 % (12-44); MEAN CORPUSCULAR HEMOGLOBIN 34 PG (25-34); MEAN CORPUSCULAR HGB CONC 32 G/DL (32-36); MEAN CORPUSCULAR VOLUME 109 FL (80-99); MEAN PLATELET VOLUME 8.9 FL (7.4-10.4); MONOCYTES # (AUTO) 0.7 X 10^3 (0.0-1.0); MONOCYTES % (AUTO) 10 % (0-12); NEUTROPHILS % (AUTO) 58 % (42-75); PLATELET COUNT 370 10^3/uL (130-400); RED CELL DISTRIBUTION WIDTH 16.6 % (10.0-14.5); WHITE BLOOD COUNT 6.9 10^3/uL (4.3-11.0)
[2019-05-14 10:27] LABS: ALANINE AMINOTRANSFERASE 12 U/L (0-55); ALKALINE PHOSPHATASE 126 U/L (40-136); BILIRUBIN,TOTAL 0.4 MG/DL (0.1-1.0); BUN/CREATININE RATIO 10; CALCIUM 8.6 MG/DL (8.5-10.1); CARBON DIOXIDE 31 MMOL/L (21-32); CHLORIDE 99 MMOL/L (98-107); CREATININE SERUM 0.99 MG/DL (0.60-1.30); GFR ESTIMATED > 60; GLUCOSE 107 MG/DL (70-105); SODIUM 135 MMOL/L (135-145); TOTAL PROTEIN 6.3 GM/DL (6.4-8.2)
[2019-05-21 10:56] LABS: BASOPHILS % (AUTO) 0 % (0-10); EOSINOPHILS # (AUTO) 0.2 10^3/uL (0.0-0.3); EOSINOPHILS % (AUTO) 1 % (0-10); HEMATOCRIT 32 % (40-54); LYMPHOCYTES # (AUTO) 2.7 X 10^3 (1.0-4.0); LYMPHOCYTES % (AUTO) 20 % (12-44); MEAN CORPUSCULAR HEMOGLOBIN 34 PG (25-34); MEAN CORPUSCULAR HGB CONC 31 G/DL (32-36); MEAN CORPUSCULAR VOLUME 109 FL (80-99); MEAN PLATELET VOLUME 8.3 FL (7.4-10.4); MONOCYTES # (AUTO) 1.5 X 10^3 (0.0-1.0); MONOCYTES % (AUTO) 12 % (0-12); NEUTROPHILS # (AUTO) 8.9 X 10^3 (1.8-7.8); NEUTROPHILS % (AUTO) 67 % (42-75); PLATELET COUNT 312 10^3/uL (130-400); RED CELL DISTRIBUTION WIDTH 16.6 % (10.0-14.5); WHITE BLOOD COUNT 13.3 10^3/uL (4.3-11.0)
[2019-05-21 11:10] LABS: BUN/CREATININE RATIO 8; CALCIUM 8.7 MG/DL (8.5-10.1); CARBON DIOXIDE 31 MMOL/L (21-32); CHLORIDE 101 MMOL/L (98-107); CREATININE SERUM 0.83 MG/DL (0.60-1.30); GFR ESTIMATED > 60; GLUCOSE 97 MG/DL (70-105); POTASSIUM 3.6 MMOL/L (3.6-5.0); SODIUM 139 MMOL/L (135-145)
[2019-05-21 11:37] LABS: ALANINE AMINOTRANSFERASE 21 U/L (0-55); ALBUMIN 3.2 GM/DL (3.2-4.5); ALKALINE PHOSPHATASE 93 U/L (40-136); BILIRUBIN,TOTAL 0.3 MG/DL (0.1-1.0); TOTAL PROTEIN 6.1 GM/DL (6.4-8.2)
[2019-06-06 13:56] LABS: BASOPHILS % (AUTO) 0 % (0-10); EOSINOPHILS % (AUTO) 1 % (0-10); HEMATOCRIT 32 % (40-54); HEMOGLOBIN 10.1 G/DL (13.3-17.7); LYMPHOCYTES % (AUTO) 16 % (12-44); MEAN CORPUSCULAR HEMOGLOBIN 35 PG (25-34); MEAN CORPUSCULAR HGB CONC 32 G/DL (32-36); MEAN CORPUSCULAR VOLUME 109 FL (80-99); MEAN PLATELET VOLUME 9.6 FL (7.4-10.4); MONOCYTES # (AUTO) 0.2 X 10^3 (0.0-1.0); MONOCYTES % (AUTO) 3 % (0-12); NEUTROPHILS # (AUTO) 5.3 X 10^3 (1.8-7.8); NEUTROPHILS % (AUTO) 81 % (42-75); PLATELET COUNT 211 10^3/uL (130-400); RED CELL DISTRIBUTION WIDTH 14.6 % (10.0-14.5); WHITE BLOOD COUNT 6.6 10^3/uL (4.3-11.0)
[2019-06-06 14:16] LABS: BUN/CREATININE RATIO 8; CALCIUM 9.6 MG/DL (8.5-10.1); CARBON DIOXIDE 29 MMOL/L (21-32); CHLORIDE 99 MMOL/L (98-107); CREATININE SERUM 0.95 MG/DL (0.60-1.30); GFR ESTIMATED > 60; GLUCOSE 80 MG/DL (70-105); POTASSIUM 3.8 MMOL/L (3.6-5.0); SODIUM 138 MMOL/L (135-145)
[2019-06-11 09:12] LABS: BASOPHILS % (AUTO) 0 % (0-10); EOSINOPHILS % (AUTO) 0 % (0-10); HEMATOCRIT 32 % (40-54); HEMOGLOBIN 10.3 G/DL (13.3-17.7); LYMPHOCYTES # (AUTO) 1.2 X 10^3 (1.0-4.0); LYMPHOCYTES % (AUTO) 13 % (12-44); MEAN CORPUSCULAR HEMOGLOBIN 35 PG (25-34); MEAN CORPUSCULAR HGB CONC 33 G/DL (32-36); MEAN CORPUSCULAR VOLUME 107 FL (80-99); MEAN PLATELET VOLUME 8.6 FL (7.4-10.4); MONOCYTES # (AUTO) 0.2 X 10^3 (0.0-1.0); MONOCYTES % (AUTO) 2 % (0-12); NEUTROPHILS # (AUTO) 7.8 X 10^3 (1.8-7.8); NEUTROPHILS % (AUTO) 85 % (42-75); PLATELET COUNT 340 10^3/uL (130-400); RED CELL DISTRIBUTION WIDTH 14.6 % (10.0-14.5); WHITE BLOOD COUNT 9.2 10^3/uL (4.3-11.0)
[2019-06-11 09:33] LABS: ALANINE AMINOTRANSFERASE 12 U/L (0-55); ALBUMIN 3.4 GM/DL (3.2-4.5); ALKALINE PHOSPHATASE 126 U/L (40-136); BILIRUBIN,TOTAL 0.3 MG/DL (0.1-1.0); BUN/CREATININE RATIO 9; CALCIUM 9.1 MG/DL (8.5-10.1); CARBON DIOXIDE 28 MMOL/L (21-32); CHLORIDE 100 MMOL/L (98-107); CREATININE SERUM 0.97 MG/DL (0.60-1.30); GFR ESTIMATED > 60; GLUCOSE 174 MG/DL (70-105); POTASSIUM 4.2 MMOL/L (3.6-5.0); SODIUM 137 MMOL/L (135-145); TOTAL PROTEIN 6.7 GM/DL (6.4-8.2)
[2019-07-11 09:24] LABS: BASOPHILS % (AUTO) 0 % (0-10); EOSINOPHILS % (AUTO) 0 % (0-10); HEMATOCRIT 27 % (40-54); HEMOGLOBIN 8.6 G/DL (13.3-17.7); LYMPHOCYTES # (AUTO) 1.2 X 10^3 (1.0-4.0); LYMPHOCYTES % (AUTO) 12 % (12-44); MEAN CORPUSCULAR HEMOGLOBIN 34 PG (25-34); MEAN CORPUSCULAR HGB CONC 32 G/DL (32-36); MEAN CORPUSCULAR VOLUME 108 FL (80-99); MEAN PLATELET VOLUME 8.4 FL (7.4-10.4); MONOCYTES # (AUTO) 0.4 X 10^3 (0.0-1.0); MONOCYTES % (AUTO) 4 % (0-12); NEUTROPHILS # (AUTO) 7.9 X 10^3 (1.8-7.8); NEUTROPHILS % (AUTO) 84 % (42-75); PLATELET COUNT 296 10^3/uL (130-400); RED CELL DISTRIBUTION WIDTH 14.1 % (10.0-14.5); WHITE BLOOD COUNT 9.4 10^3/uL (4.3-11.0)
[2019-07-11 09:47] LABS: ALANINE AMINOTRANSFERASE 24 U/L (0-55); ALKALINE PHOSPHATASE 118 U/L (40-136); BILIRUBIN,TOTAL 0.4 MG/DL (0.1-1.0); BUN/CREATININE RATIO 9; CALCIUM 9.4 MG/DL (8.5-10.1); CARBON DIOXIDE 32 MMOL/L (21-32); CHLORIDE 94 MMOL/L (98-107); CREATININE SERUM 0.81 MG/DL (0.60-1.30); GFR ESTIMATED > 60; GLUCOSE 172 MG/DL (70-105); POTASSIUM 3.4 MMOL/L (3.6-5.0); SODIUM 137 MMOL/L (135-145); TOTAL PROTEIN 6.7 GM/DL (6.4-8.2)
[2019-07-30 13:54] LABS: BASOPHILS # (AUTO) 0.1 10^3/uL (0.0-0.1); BASOPHILS % (AUTO) 1 % (0-10); EOSINOPHILS # (AUTO) 0.3 10^3/uL (0.0-0.3); EOSINOPHILS % (AUTO) 4 % (0-10); HEMATOCRIT 33 % (40-54); HEMOGLOBIN 10.5 G/DL (13.3-17.7); LYMPHOCYTES # (AUTO) 2.2 X 10^3 (1.0-4.0); LYMPHOCYTES % (AUTO) 25 % (12-44); MEAN CORPUSCULAR HEMOGLOBIN 33 PG (25-34); MEAN CORPUSCULAR HGB CONC 31 G/DL (32-36); MEAN CORPUSCULAR VOLUME 106 FL (80-99); MEAN PLATELET VOLUME 9.1 FL (7.4-10.4); MONOCYTES # (AUTO) 0.7 X 10^3 (0.0-1.0); MONOCYTES % (AUTO) 8 % (0-12); NEUTROPHILS # (AUTO) 5.4 X 10^3 (1.8-7.8); NEUTROPHILS % (AUTO) 62 % (42-75); PLATELET COUNT 248 10^3/uL (130-400); RED CELL DISTRIBUTION WIDTH 13.8 % (10.0-14.5); WHITE BLOOD COUNT 8.6 10^3/uL (4.3-11.0)
[2019-07-30 14:23] LABS: ALANINE AMINOTRANSFERASE 9 U/L (0-55); ALBUMIN 3.2 GM/DL (3.2-4.5); ALKALINE PHOSPHATASE 137 U/L (40-136); BILIRUBIN,TOTAL 0.6 MG/DL (0.1-1.0); BUN/CREATININE RATIO 8; CALCIUM 9.9 MG/DL (8.5-10.1); CARBON DIOXIDE 34 MMOL/L (21-32); CHLORIDE 96 MMOL/L (98-107); CREATININE SERUM 0.87 MG/DL (0.60-1.30); GFR ESTIMATED > 60; GLUCOSE 97 MG/DL (70-105); POTASSIUM 3.8 MMOL/L (3.6-5.0); SODIUM 137 MMOL/L (135-145); TOTAL PROTEIN 7.4 GM/DL (6.4-8.2)
[~2019-08-01 10:25] MED LIST changes: +BARIUM SUSPENSION 2.1% (VANILLA SILQ) 450 ML PO ONE; +CATHETER FLUSH 10 ML SYR IV PRN; -CLON0.5T13 PO; +CLON0.5T4 PO; +DEXAMETHASONE IV PRN; -GADOBUTROL 7.5 MMOL/7.5 ML (GADAVIST) VIAL IV ONE; +HOLD METFORMIN - RECEIVED CONTRAST 20 ML VIAL IV SCH; +IOHEXOL 350 MG/ML 100 ML (OMNIPAQUE 350) VIAL IV ONE; +NS 100 ML (IVPB) BAG IV ONE; +NS IV 1000 ML (CANCER CTR) IV SCH; +ONDANSETRON IV PRN; +PEMBROLIZUMAB 200 MG in NS (IVPB) CANCER CENTER 50 ML IV SCH; +PEMETREXED DISODIUM 500 MG, PEMETREXED DISODIUM 400 MG in NS (IVPB) CANCER CENTER 100 ML IV SCH; +PEMETREXED DISODIUM IV SCH; +TRM50T PO; +[UNRECOGNIZED DRUG - OTHER] IV PRN; +[UNRECOGNIZED DRUG - OTHER] IV SCH
== END 2019-08-12 | disposition home or self-care (01) ==
LOC: ONC 10:25
PROVIDERS: ATTEND Internal Medicine Hematology & Oncology
DX: Z51.11 Encounter for antineoplastic chemotherapy (principal); C34.11 Malignant neoplasm of upper lobe, right bronchus or lung; J34.89 Other specified disorders of nose and nasal sinuses; J44.9 Chronic obstructive pulmonary disease, unspecified; G62.9 Polyneuropathy, unspecified; I51.9 Heart disease, unspecified; Z79.899 Other long term (current) drug therapy; Z79.82 Long term (current) use of aspirin; Z86.73 Personal history of transient ischemic attack (TIA), and cerebral infarction without residual deficits
CPT/HCPCS: 36591; 80048; 80053; 82607; 83735; 85025; 96367; 96375; 96411; 96413; 96523

== ENCOUNTER → 2019-08-15 | Outpatient (CLI) | payer OTHER ==
[~2019-08-15] MED LIST changes: -BARIUM SUSPENSION 2.1% (VANILLA SILQ) 450 ML PO ONE; -DEXAMETHASONE IV PRN; +GADOBUTROL 10 MMOL/10 ML (GADAVIST) VIAL IV ONE; -NS IV 1000 ML (CANCER CTR) IV SCH; -ONDANSETRON IV PRN; -PEMBROLIZUMAB 200 MG in NS (IVPB) CANCER CENTER 50 ML IV SCH; -PEMETREXED DISODIUM 500 MG, PEMETREXED DISODIUM 400 MG in NS (IVPB) CANCER CENTER 100 ML IV SCH; -PEMETREXED DISODIUM IV SCH; -[UNRECOGNIZED DRUG - OTHER] IV PRN; -[UNRECOGNIZED DRUG - OTHER] IV SCH
--- NOTE | 2019-08-15 10:50 | Diagnostic Imaging Report ---
EXAMINATION: CT Chest with intravenous contrast, CT Abdomen and Pelvis without and with intravenous contrast. TECHNIQUE: Pre and post intravenous contrast axial imaging of the abdomen and pelvis and post contrast axial imaging of the chest were performed. All CT scans use one or more of the following dose optimizing techniques: automated exposure control, MA and/or KvP adjustment based on a patient size and exam type, or iterative reconstruction. HISTORY: Lung cancer. COMPARISON: 06/06/2019. FINDINGS: There is no edema or pneumonia. There is a tiny right pleural effusion. No pneumothorax. There is a new 2.0 x 2.3 cm area of consolidation in the right middle lobe. Right upper lobe has been resected. Interstitial thickening in the right lower lobe is also seen. Right port catheter tip terminates in the superior vena cava. Heart size is normal. There are mild coronary artery calcifications. No pericardial effusion. Aorta is normal in caliber. There is no axillary or supraclavicular lymphadenopathy. There is no mediastinal lymphadenopathy. Small cyst in segment II of the liver is unchanged measuring 7 mm. There is no biliary ductal dilation. Gallbladder is normal. Pancreas is normal. Spleen is normal. Adrenal glands are normal. The kidneys are normal. There is no hydronephrosis. Urinary bladder is normal. Visualized bowel is normal in caliber without obstruction or inflammation. No free fluid or air. No abdominal or pelvic lymphadenopathy. Aorta is normal in caliber without aneurysm. There are no suspicious osseus lesions. There has been a right thoracotomy. IMPRESSION: 1. New consolidation in the right middle lobe, interstitial thickening in the right lower lobe, and tiny right pleural effusion. Findings favored to be related to an infectious process. However, if the patient is not symptomatic of this, then this would be concerning for metastatic disease, at the minimum short-term follow-up is recommended. Dictated by: Dictated on workstation # [id number]
--- NOTE | 2019-08-15 12:11 | Diagnostic Imaging Report ---
PROCEDURE: MR imaging of the brain with and without contrast. TECHNIQUE: Multiplanar, multisequence MR imaging of the brain was performed with and without contrast. INDICATION: History of lung cancer. History of headaches. Evaluate for metastatic disease. COMPARISON: MRI brain on 06/11/2019. FINDINGS: No acute ischemia, mass, or hemorrhage. Old infarct is again noted in the right frontal lobe. Scattered chronic microvascular disease is seen in the periventricular and subcortical white matter. No abnormal enhancement is visualized to suggest metastatic disease. The ventricles and cortical sulci are prominent. The basilar cisterns are symmetric and unremarkable. The sellar and suprasellar regions have a normal appearance. There is loss of flow void in the right ICA representing chronic occlusion. Collateral flow is noted to the right KRANTHI and MCA. The brainstem and posterior fossa are unremarkable. Mild mucosal thickening is seen in the paranasal sinuses. The mastoid air cells demonstrate normal signal characteristics. The globes and orbits are symmetric and unremarkable. The scalp and calvarium have a normal appearance. IMPRESSION: 1. No acute ischemia, mass, or hemorrhage. No abnormal enhancement to suggest metastatic disease. 2. Old infarct in the right frontal lobe with associated chronic occlusion of the right ICA. Collateral flow is noted in the right KRANTHI and MCA. 3. Chronic microvascular disease with generalized parenchymal volume loss. Dictated by: Dictated on workstation # [id number]
== END ==
LOC: RAD 09:46
PROVIDERS: ATTEND Internal Medicine Hematology & Oncology
DX: C34.11 Malignant neoplasm of upper lobe, right bronchus or lung (principal); I63.231 Cerebral infarction due to unspecified occlusion or stenosis of right carotid arteries; J18.1 Lobar pneumonia, unspecified organism; Z95.828 Presence of other vascular implants and grafts
CPT/HCPCS: 70553; 71260; 74178

== ENCOUNTER 2019-10-29 08:48 | Outpatient (RCR) | payer MEDICARE, OTHER ==
[2019-08-15 11:32] LABS: BASOPHILS % (AUTO) 0 % (0-10); EOSINOPHILS # (AUTO) 0.1 10^3/uL (0.0-0.3); EOSINOPHILS % (AUTO) 1 % (0-10); HEMATOCRIT 35 % (40-54); HEMOGLOBIN 10.8 G/DL (13.3-17.7); LYMPHOCYTES # (AUTO) 1.8 X 10^3 (1.0-4.0); LYMPHOCYTES % (AUTO) 17 % (12-44); MEAN CORPUSCULAR HEMOGLOBIN 32 PG (25-34); MEAN CORPUSCULAR HGB CONC 31 G/DL (32-36); MEAN CORPUSCULAR VOLUME 104 FL (80-99); MEAN PLATELET VOLUME 9.1 FL (7.4-10.4); MONOCYTES # (AUTO) 0.8 X 10^3 (0.0-1.0); MONOCYTES % (AUTO) 7 % (0-12); NEUTROPHILS # (AUTO) 7.6 X 10^3 (1.8-7.8); NEUTROPHILS % (AUTO) 74 % (42-75); PLATELET COUNT 229 10^3/uL (130-400); RED CELL DISTRIBUTION WIDTH 12.9 % (10.0-14.5); WHITE BLOOD COUNT 10.3 10^3/uL (4.3-11.0)
[2019-08-15 11:51] LABS: BUN/CREATININE RATIO 9; CARBON DIOXIDE 31 MMOL/L (21-32); CHLORIDE 94 MMOL/L (98-107); CREATININE SERUM 0.79 MG/DL (0.60-1.30); GFR ESTIMATED > 60; GLUCOSE 95 MG/DL (70-105); POTASSIUM 3.6 MMOL/L (3.6-5.0); SODIUM 135 MMOL/L (135-145)
[2019-08-22 10:03] LABS: BASOPHILS % (AUTO) 0 % (0-10); EOSINOPHILS # (AUTO) 0.2 10^3/uL (0.0-0.3); EOSINOPHILS % (AUTO) 3 % (0-10); HEMATOCRIT 32 % (40-54); LYMPHOCYTES # (AUTO) 2.6 X 10^3 (1.0-4.0); LYMPHOCYTES % (AUTO) 33 % (12-44); MEAN CORPUSCULAR HEMOGLOBIN 32 PG (25-34); MEAN CORPUSCULAR HGB CONC 31 G/DL (32-36); MEAN CORPUSCULAR VOLUME 103 FL (80-99); MEAN PLATELET VOLUME 8.7 FL (7.4-10.4); MONOCYTES # (AUTO) 0.6 X 10^3 (0.0-1.0); MONOCYTES % (AUTO) 7 % (0-12); NEUTROPHILS # (AUTO) 4.3 X 10^3 (1.8-7.8); NEUTROPHILS % (AUTO) 56 % (42-75); PLATELET COUNT 252 10^3/uL (130-400); RED CELL DISTRIBUTION WIDTH 12.6 % (10.0-14.5); WHITE BLOOD COUNT 7.7 10^3/uL (4.3-11.0)
[2019-08-22 10:22] LABS: ALANINE AMINOTRANSFERASE 11 U/L (0-55); ALBUMIN 2.8 GM/DL (3.2-4.5); ALKALINE PHOSPHATASE 118 U/L (40-136); BILIRUBIN,TOTAL 0.3 MG/DL (0.1-1.0); BUN/CREATININE RATIO 11; CALCIUM 9.3 MG/DL (8.5-10.1); CARBON DIOXIDE 34 MMOL/L (21-32); CHLORIDE 97 MMOL/L (98-107); CREATININE SERUM 0.74 MG/DL (0.60-1.30); GFR ESTIMATED > 60; GLUCOSE 77 MG/DL (70-105); POTASSIUM 3.6 MMOL/L (3.6-5.0); SODIUM 137 MMOL/L (135-145); TOTAL PROTEIN 6.4 GM/DL (6.4-8.2)
[2019-09-19 09:46] LABS: BASOPHILS # (AUTO) 0.1 10^3/uL (0.0-0.1); BASOPHILS % (AUTO) 1 % (0-10); EOSINOPHILS # (AUTO) 0.3 10^3/uL (0.0-0.3); EOSINOPHILS % (AUTO) 3 % (0-10); HEMATOCRIT 36 % (40-54); HEMOGLOBIN 11.3 G/DL (13.3-17.7); LYMPHOCYTES # (AUTO) 3.2 X 10^3 (1.0-4.0); LYMPHOCYTES % (AUTO) 37 % (12-44); MEAN CORPUSCULAR HEMOGLOBIN 31 PG (25-34); MEAN CORPUSCULAR HGB CONC 32 G/DL (32-36); MEAN CORPUSCULAR VOLUME 98 FL (80-99); MEAN PLATELET VOLUME 9.2 FL (7.4-10.4); MONOCYTES # (AUTO) 0.8 X 10^3 (0.0-1.0); MONOCYTES % (AUTO) 10 % (0-12); NEUTROPHILS # (AUTO) 4.2 X 10^3 (1.8-7.8); NEUTROPHILS % (AUTO) 50 % (42-75); PLATELET COUNT 261 10^3/uL (130-400); RED CELL DISTRIBUTION WIDTH 13.9 % (10.0-14.5); WHITE BLOOD COUNT 8.5 10^3/uL (4.3-11.0)
[2019-09-19 10:08] LABS: ALANINE AMINOTRANSFERASE 11 U/L (0-55); ALBUMIN 3.2 GM/DL (3.2-4.5); ALKALINE PHOSPHATASE 133 U/L (40-136); BILIRUBIN,TOTAL 0.3 MG/DL (0.1-1.0); BUN/CREATININE RATIO 12; CARBON DIOXIDE 30 MMOL/L (21-32); CHLORIDE 97 MMOL/L (98-107); CREATININE SERUM 0.83 MG/DL (0.60-1.30); GFR ESTIMATED > 60; GLUCOSE 86 MG/DL (70-105); POTASSIUM 3.8 MMOL/L (3.6-5.0); SODIUM 135 MMOL/L (135-145)
[2019-10-09 08:41] LABS: BASOPHILS % (AUTO) 1 % (0-10); EOSINOPHILS # (AUTO) 0.3 10^3/uL (0.0-0.3); EOSINOPHILS % (AUTO) 5 % (0-10); HEMATOCRIT 39 % (40-54); HEMOGLOBIN 12.2 G/DL (13.3-17.7); LYMPHOCYTES # (AUTO) 2.4 X 10^3 (1.0-4.0); LYMPHOCYTES % (AUTO) 37 % (12-44); MEAN CORPUSCULAR HEMOGLOBIN 31 PG (25-34); MEAN CORPUSCULAR HGB CONC 31 G/DL (32-36); MEAN CORPUSCULAR VOLUME 99 FL (80-99); MEAN PLATELET VOLUME 9.5 FL (7.4-10.4); MONOCYTES # (AUTO) 0.6 X 10^3 (0.0-1.0); MONOCYTES % (AUTO) 9 % (0-12); NEUTROPHILS # (AUTO) 3.1 X 10^3 (1.8-7.8); NEUTROPHILS % (AUTO) 48 % (42-75); PLATELET COUNT 216 10^3/uL (130-400); WHITE BLOOD COUNT 6.5 10^3/uL (4.3-11.0)
[2019-10-09 08:49] LABS: ALBUMIN 3.3 GM/DL (3.2-4.5); CHLORIDE 100 MMOL/L (98-107); POTASSIUM 3.6 MMOL/L (3.6-5.0); SODIUM 139 MMOL/L (135-145)
[2019-10-09 08:50] LABS: CALCIUM 9.8 MG/DL (8.5-10.1)
[2019-10-09 08:51] LABS: GLUCOSE 118 MG/DL (70-105)
[2019-10-09 08:52] LABS: TOTAL PROTEIN 7.1 GM/DL (6.4-8.2)
[2019-10-09 08:53] LABS: BILIRUBIN,TOTAL 0.3 MG/DL (0.1-1.0); CARBON DIOXIDE 29 MMOL/L (21-32)
[2019-10-09 08:55] LABS: ALKALINE PHOSPHATASE 122 U/L (40-136); CREATININE SERUM 0.87 MG/DL (0.60-1.30); GFR ESTIMATED > 60
[2019-10-09 08:56] LABS: BUN/CREATININE RATIO 10
[2019-10-09 08:58] LABS: ALANINE AMINOTRANSFERASE 8 U/L (0-55)
[~2019-10-29 08:48] MED LIST changes: -CATHETER FLUSH 10 ML SYR IV PRN; +DEXAMETHASONE IV PRN; -GADOBUTROL 10 MMOL/10 ML (GADAVIST) VIAL IV ONE; -HOLD METFORMIN - RECEIVED CONTRAST 20 ML VIAL IV SCH; -HYDR-3062 PO; -IOHEXOL 350 MG/ML 100 ML (OMNIPAQUE 350) VIAL IV ONE; -NS 100 ML (IVPB) BAG IV ONE; +NS IV 1000 ML (CANCER CTR) IV SCH; +ONDANSETRON IV PRN; +PEMBROLIZUMAB 200 MG in NS (IVPB) CANCER CENTER 50 ML IV SCH; +PEMETREXED DISODIUM IV SCH; -TRAZ-190 PO; +TRAZ-227 PO; +[UNRECOGNIZED DRUG - OTHER] IV PRN; +[UNRECOGNIZED DRUG - OTHER] IV SCH
[2019-10-29 09:00] LABS: BASOPHILS % (AUTO) 1 % (0-10); EOSINOPHILS # (AUTO) 0.4 10^3/uL (0.0-0.3); EOSINOPHILS % (AUTO) 5 % (0-10); HEMATOCRIT 42 % (40-54); HEMOGLOBIN 13.3 G/DL (13.3-17.7); LYMPHOCYTES # (AUTO) 3.2 X 10^3 (1.0-4.0); LYMPHOCYTES % (AUTO) 37 % (12-44); MEAN CORPUSCULAR HEMOGLOBIN 30 PG (25-34); MEAN CORPUSCULAR HGB CONC 32 G/DL (32-36); MEAN CORPUSCULAR VOLUME 96 FL (80-99); MEAN PLATELET VOLUME 9.5 FL (7.4-10.4); MONOCYTES # (AUTO) 0.7 X 10^3 (0.0-1.0); MONOCYTES % (AUTO) 8 % (0-12); NEUTROPHILS # (AUTO) 4.3 X 10^3 (1.8-7.8); NEUTROPHILS % (AUTO) 50 % (42-75); PLATELET COUNT 190 10^3/uL (130-400); RED CELL DISTRIBUTION WIDTH 14.2 % (10.0-14.5); WHITE BLOOD COUNT 8.8 10^3/uL (4.3-11.0)
[2019-10-29 09:23] LABS: ALANINE AMINOTRANSFERASE 7 U/L (0-55); ALBUMIN 3.3 GM/DL (3.2-4.5); ALKALINE PHOSPHATASE 120 U/L (40-136); BILIRUBIN,TOTAL 0.3 MG/DL (0.1-1.0); BUN/CREATININE RATIO 10; CALCIUM 9.8 MG/DL (8.5-10.1); CARBON DIOXIDE 28 MMOL/L (21-32); CHLORIDE 100 MMOL/L (98-107); CREATININE SERUM 0.92 MG/DL (0.60-1.30); GFR ESTIMATED > 60; GLUCOSE 103 MG/DL (70-105); POTASSIUM 3.8 MMOL/L (3.6-5.0); SODIUM 138 MMOL/L (135-145); TOTAL PROTEIN 7.4 GM/DL (6.4-8.2)
== END 2019-11-13 | disposition home or self-care (01) ==
LOC: ONC 08:48
PROVIDERS: ATTEND Internal Medicine Hematology & Oncology
DX: Z51.11 Encounter for antineoplastic chemotherapy (principal); C34.11 Malignant neoplasm of upper lobe, right bronchus or lung; J34.89 Other specified disorders of nose and nasal sinuses; J44.9 Chronic obstructive pulmonary disease, unspecified; G62.9 Polyneuropathy, unspecified; I51.9 Heart disease, unspecified; Z79.899 Other long term (current) drug therapy; Z79.82 Long term (current) use of aspirin; Z86.73 Personal history of transient ischemic attack (TIA), and cerebral infarction without residual deficits
CPT/HCPCS: 36591; 80048; 80053; 85025; 96413

== ENCOUNTER → 2019-12-03 | Outpatient (CLI) | payer OTHER ==
[~2019-12-03] MED LIST changes: +BARIUM SUSPENSION 2.1% (VANILLA SILQ) 450 ML PO ONE; +CATHETER FLUSH 10 ML SYR IV PRN; -DEXAMETHASONE IV PRN; +HOLD METFORMIN - RECEIVED CONTRAST 20 ML VIAL IV SCH; +IOHEXOL 350 MG/ML 100 ML (OMNIPAQUE 350) VIAL IV ONE; +NS 100 ML (IVPB) BAG IV ONE; -NS IV 1000 ML (CANCER CTR) IV SCH; -ONDANSETRON IV PRN; -PEMBROLIZUMAB 200 MG in NS (IVPB) CANCER CENTER 50 ML IV SCH; -PEMETREXED DISODIUM IV SCH; -[UNRECOGNIZED DRUG - OTHER] IV PRN; -[UNRECOGNIZED DRUG - OTHER] IV SCH
--- NOTE | 2019-12-03 14:02 | Diagnostic Imaging Report ---
PROCEDURE: CT chest with contrast, CT abdomen with and without contrast. TECHNIQUE: Precontrast acquisitions were acquired through the abdomen. Multiple contiguous axial images were obtained through the chest and abdomen after administration of intravenous contrast. Auto Exposure Controls were utilized during the CT exam to meet ALARA standards for radiation dose reduction. INDICATION: Lung neoplasm. This study is performed for follow-up. COMPARISON: Correlation is made with prior CT from 08/15/2019. FINDINGS: CT CHEST: A right chest wall port has tip at the SVC-right atrial junction. No axillary or supraclavicular lymphadenopathy is seen. No definite mediastinal or hilar lymphadenopathy is detected. No pericardial or pleural fluid is identified. Postsurgical changes of right upper lobectomy are again noted. The area of new airspace consolidation in the upper right chest within the right middle lobe has nearly completely resolved. There is an enlarging nodule in the posteromedial left lower lobe measuring 9 mm. A nodule at this location was barely visible measuring 3 to 4 mm in August. No other new nodule is detected. Calcified nodule in the left upper lobe is stable. IMPRESSION: 1. Near-complete resolution of airspace infiltrate in right upper lung when compared with examination four months earlier. 2. Enlarging left lower lobe pulmonary nodule, concerning for a metastatic nodule. This is likely too small for percutaneous biopsy. PET scan may be useful for further evaluation. CT ABDOMEN: The liver appears stable. Gallbladder is unremarkable. No biliary ductal dilatation is seen. The pancreas and spleen are unremarkable. No adrenal mass is identified. No definite renal mass or hydronephrosis is detected. The aorta is heavily calcified but nonaneurysmal. There is heavy calcification of the iliac vessels as well. No central retroperitoneal or mesenteric lymphadenopathy is identified. Small and large bowel loops are normal in caliber. No obstruction is identified. There is no ascites or fluid collection. IMPRESSION: No evidence of abdominal lymphadenopathy or metastatic disease. No acute feature is identified. Dictated by: Dictated on workstation # [id number]
== END ==
LOC: RAD 11:00
PROVIDERS: ATTEND Internal Medicine Hematology & Oncology
DX: C34.11 Malignant neoplasm of upper lobe, right bronchus or lung (principal); Z72.0 Tobacco use; Z90.2 Acquired absence of lung [part of]
CPT/HCPCS: 71260; 74170

== ENCOUNTER 2020-02-13 09:56 | Outpatient (RCR) | payer OTHER ==
[2019-11-20 08:38] LABS: BASOPHILS % (AUTO) 0 % (0-10); EOSINOPHILS # (AUTO) 0.2 10^3/uL (0.0-0.3); EOSINOPHILS % (AUTO) 2 % (0-10); HEMATOCRIT 37 % (40-54); HEMOGLOBIN 12.3 G/DL (13.3-17.7); LYMPHOCYTES # (AUTO) 2.4 X 10^3 (1.0-4.0); LYMPHOCYTES % (AUTO) 22 % (12-44); MEAN CORPUSCULAR HEMOGLOBIN 31 PG (25-34); MEAN CORPUSCULAR HGB CONC 33 G/DL (32-36); MEAN CORPUSCULAR VOLUME 94 FL (80-99); MEAN PLATELET VOLUME 9.6 FL (7.4-10.4); MONOCYTES # (AUTO) 1.3 X 10^3 (0.0-1.0); MONOCYTES % (AUTO) 12 % (0-12); NEUTROPHILS # (AUTO) 7.3 X 10^3 (1.8-7.8); NEUTROPHILS % (AUTO) 65 % (42-75); PLATELET COUNT 193 10^3/uL (130-400); RED CELL DISTRIBUTION WIDTH 14.2 % (10.0-14.5); WHITE BLOOD COUNT 11.3 10^3/uL (4.3-11.0)
[2019-11-20 09:01] LABS: ALANINE AMINOTRANSFERASE 10 U/L (0-55); ALBUMIN 3.2 GM/DL (3.2-4.5); ALKALINE PHOSPHATASE 110 U/L (40-136); BILIRUBIN,TOTAL 0.6 MG/DL (0.1-1.0); BUN/CREATININE RATIO 12; CALCIUM 9.5 MG/DL (8.5-10.1); CARBON DIOXIDE 29 MMOL/L (21-32); CHLORIDE 96 MMOL/L (98-107); CREATININE SERUM 0.89 MG/DL (0.60-1.30); GFR ESTIMATED > 60; GLUCOSE 105 MG/DL (70-105); POTASSIUM 3.4 MMOL/L (3.6-5.0); SODIUM 135 MMOL/L (135-145); TOTAL PROTEIN 7.2 GM/DL (6.4-8.2)
[2019-12-12 09:08] LABS: BASOPHILS % (AUTO) 1 % (0-10); EOSINOPHILS # (AUTO) 0.3 10^3/uL (0.0-0.3); EOSINOPHILS % (AUTO) 4 % (0-10); HEMATOCRIT 42 % (40-54); HEMOGLOBIN 13.5 G/DL (13.3-17.7); LYMPHOCYTES # (AUTO) 2.7 X 10^3 (1.0-4.0); LYMPHOCYTES % (AUTO) 36 % (12-44); MEAN CORPUSCULAR HEMOGLOBIN 31 PG (25-34); MEAN CORPUSCULAR HGB CONC 32 G/DL (32-36); MEAN CORPUSCULAR VOLUME 96 FL (80-99); MEAN PLATELET VOLUME 9.5 FL (7.4-10.4); MONOCYTES # (AUTO) 0.9 X 10^3 (0.0-1.0); MONOCYTES % (AUTO) 12 % (0-12); NEUTROPHILS # (AUTO) 3.6 X 10^3 (1.8-7.8); NEUTROPHILS % (AUTO) 48 % (42-75); PLATELET COUNT 169 10^3/uL (130-400); RED CELL DISTRIBUTION WIDTH 15.4 % (10.0-14.5); WHITE BLOOD COUNT 7.5 10^3/uL (4.3-11.0)
[2019-12-12 09:30] LABS: ALANINE AMINOTRANSFERASE 10 U/L (0-55); ALBUMIN 3.5 GM/DL (3.2-4.5); ALKALINE PHOSPHATASE 127 U/L (40-136); BILIRUBIN,TOTAL 0.3 MG/DL (0.1-1.0); BUN/CREATININE RATIO 9; CALCIUM 9.5 MG/DL (8.5-10.1); CARBON DIOXIDE 26 MMOL/L (21-32); CHLORIDE 100 MMOL/L (98-107); CREATININE SERUM 0.93 MG/DL (0.60-1.30); GFR ESTIMATED > 60; GLUCOSE 132 MG/DL (70-105); POTASSIUM 3.4 MMOL/L (3.6-5.0); SODIUM 137 MMOL/L (135-145); TOTAL PROTEIN 7.3 GM/DL (6.4-8.2)
[2020-01-01 09:55] LABS: BASOPHILS # (AUTO) 0.1 10^3/uL (0.0-0.1); BASOPHILS % (AUTO) 1 % (0-10); EOSINOPHILS # (AUTO) 0.3 10^3/uL (0.0-0.3); EOSINOPHILS % (AUTO) 4 % (0-10); HEMATOCRIT 41 % (40-54); HEMOGLOBIN 13.2 G/DL (13.3-17.7); LYMPHOCYTES # (AUTO) 3.2 X 10^3 (1.0-4.0); LYMPHOCYTES % (AUTO) 42 % (12-44); MEAN CORPUSCULAR HEMOGLOBIN 31 PG (25-34); MEAN CORPUSCULAR HGB CONC 32 G/DL (32-36); MEAN CORPUSCULAR VOLUME 97 FL (80-99); MEAN PLATELET VOLUME 9.7 FL (7.4-10.4); MONOCYTES # (AUTO) 0.6 X 10^3 (0.0-1.0); MONOCYTES % (AUTO) 8 % (0-12); NEUTROPHILS # (AUTO) 3.5 X 10^3 (1.8-7.8); NEUTROPHILS % (AUTO) 46 % (42-75); PLATELET COUNT 211 10^3/uL (130-400); RED CELL DISTRIBUTION WIDTH 15.9 % (10.0-14.5); WHITE BLOOD COUNT 7.7 10^3/uL (4.3-11.0)
[2020-01-01 10:21] LABS: ALANINE AMINOTRANSFERASE 11 U/L (0-55); ALBUMIN 3.7 GM/DL (3.2-4.5); ALKALINE PHOSPHATASE 103 U/L (40-136); BILIRUBIN,TOTAL 0.4 MG/DL (0.1-1.0); BUN/CREATININE RATIO 9; CALCIUM 9.9 MG/DL (8.5-10.1); CARBON DIOXIDE 30 MMOL/L (21-32); CHLORIDE 100 MMOL/L (98-107); CREATININE SERUM 0.95 MG/DL (0.60-1.30); GFR ESTIMATED > 60; GLUCOSE 101 MG/DL (70-105); SODIUM 139 MMOL/L (135-145); TOTAL PROTEIN 7.5 GM/DL (6.4-8.2)
[2020-01-22 11:03] LABS: BASOPHILS % (AUTO) 0 % (0-10); EOSINOPHILS # (AUTO) 0.3 10^3/uL (0.0-0.3); EOSINOPHILS % (AUTO) 3 % (0-10); HEMATOCRIT 41 % (40-54); HEMOGLOBIN 13.2 G/DL (13.3-17.7); LYMPHOCYTES # (AUTO) 3.2 X 10^3 (1.0-4.0); LYMPHOCYTES % (AUTO) 31 % (12-44); MEAN CORPUSCULAR HEMOGLOBIN 31 PG (25-34); MEAN CORPUSCULAR HGB CONC 32 G/DL (32-36); MEAN CORPUSCULAR VOLUME 97 FL (80-99); MEAN PLATELET VOLUME 9.5 FL (7.4-10.4); MONOCYTES # (AUTO) 0.6 X 10^3 (0.0-1.0); MONOCYTES % (AUTO) 6 % (0-12); NEUTROPHILS # (AUTO) 6.2 X 10^3 (1.8-7.8); NEUTROPHILS % (AUTO) 60 % (42-75); PLATELET COUNT 182 10^3/uL (130-400); RED CELL DISTRIBUTION WIDTH 15.8 % (10.0-14.5); WHITE BLOOD COUNT 10.4 10^3/uL (4.3-11.0)
[2020-01-22 11:24] LABS: ALANINE AMINOTRANSFERASE 15 U/L (0-55); ALBUMIN 3.8 GM/DL (3.2-4.5); ALKALINE PHOSPHATASE 114 U/L (40-136); BILIRUBIN,TOTAL 0.4 MG/DL (0.1-1.0); BUN/CREATININE RATIO 8; CALCIUM 9.5 MG/DL (8.5-10.1); CARBON DIOXIDE 26 MMOL/L (21-32); CHLORIDE 102 MMOL/L (98-107); GFR ESTIMATED > 60; GLUCOSE 113 MG/DL (70-105); POTASSIUM 3.7 MMOL/L (3.6-5.0); SODIUM 138 MMOL/L (135-145); TOTAL PROTEIN 7.4 GM/DL (6.4-8.2)
[~2020-02-13 09:56] MED LIST changes: -BARIUM SUSPENSION 2.1% (VANILLA SILQ) 450 ML PO ONE; -CATHETER FLUSH 10 ML SYR IV PRN; -HOLD METFORMIN - RECEIVED CONTRAST 20 ML VIAL IV SCH; -IOHEXOL 350 MG/ML 100 ML (OMNIPAQUE 350) VIAL IV ONE; -NS 100 ML (IVPB) BAG IV ONE; +NS IV 1000 ML (CANCER CTR) IV SCH; +PEMBROLIZUMAB 200 MG in NS (IVPB) CANCER CENTER 50 ML IV SCH
[2020-02-13 10:14] LABS: BASOPHILS % (AUTO) 0 % (0-10); EOSINOPHILS # (AUTO) 0.6 10^3/uL (0.0-0.3); EOSINOPHILS % (AUTO) 7 % (0-10); HEMATOCRIT 40 % (40-54); HEMOGLOBIN 13.1 G/DL (13.3-17.7); LYMPHOCYTES # (AUTO) 2.6 X 10^3 (1.0-4.0); LYMPHOCYTES % (AUTO) 30 % (12-44); MEAN CORPUSCULAR HEMOGLOBIN 32 PG (25-34); MEAN CORPUSCULAR HGB CONC 33 G/DL (32-36); MEAN CORPUSCULAR VOLUME 99 FL (80-99); MEAN PLATELET VOLUME 8.9 FL (7.4-10.4); MONOCYTES # (AUTO) 0.6 X 10^3 (0.0-1.0); MONOCYTES % (AUTO) 7 % (0-12); NEUTROPHILS # (AUTO) 5.1 X 10^3 (1.8-7.8); NEUTROPHILS % (AUTO) 57 % (42-75); PLATELET COUNT 174 10^3/uL (130-400); RED CELL DISTRIBUTION WIDTH 14.8 % (10.0-14.5); WHITE BLOOD COUNT 8.9 10^3/uL (4.3-11.0)
[2020-02-13 10:37] LABS: ALANINE AMINOTRANSFERASE 7 U/L (0-55); ALBUMIN 3.6 GM/DL (3.2-4.5); ALKALINE PHOSPHATASE 107 U/L (40-136); BILIRUBIN,TOTAL 0.3 MG/DL (0.1-1.0); BUN/CREATININE RATIO 11; CALCIUM 9.3 MG/DL (8.5-10.1); CARBON DIOXIDE 31 MMOL/L (21-32); CHLORIDE 101 MMOL/L (98-107); CREATININE SERUM 0.91 MG/DL (0.60-1.30); GFR ESTIMATED > 60; GLUCOSE 89 MG/DL (70-105); POTASSIUM 4.1 MMOL/L (3.6-5.0); SODIUM 137 MMOL/L (135-145)
== END 2020-02-19 | disposition home or self-care (01) ==
LOC: ONC 09:56
PROVIDERS: ATTEND Internal Medicine Hematology & Oncology
DX: Z51.11 Encounter for antineoplastic chemotherapy (principal); C34.11 Malignant neoplasm of upper lobe, right bronchus or lung; J34.89 Other specified disorders of nose and nasal sinuses; J44.9 Chronic obstructive pulmonary disease, unspecified; G62.9 Polyneuropathy, unspecified; I51.9 Heart disease, unspecified; Z79.899 Other long term (current) drug therapy; Z79.82 Long term (current) use of aspirin; Z86.73 Personal history of transient ischemic attack (TIA), and cerebral infarction without residual deficits
CPT/HCPCS: 80053; 85025; 96413; G0463; 36591; 84443; 99213

== ENCOUNTER 2020-05-26 09:44 | Outpatient (RCR) | payer OTHER ==
[2020-03-04 10:08] LABS: BASOPHILS % (AUTO) 0 % (0-10); EOSINOPHILS # (AUTO) 0.6 10^3/uL (0.0-0.3); EOSINOPHILS % (AUTO) 6 % (0-10); HEMATOCRIT 41 % (40-54); HEMOGLOBIN 13.4 G/DL (13.3-17.7); LYMPHOCYTES # (AUTO) 3.4 X 10^3 (1.0-4.0); LYMPHOCYTES % (AUTO) 37 % (12-44); MEAN CORPUSCULAR HEMOGLOBIN 32 PG (25-34); MEAN CORPUSCULAR HGB CONC 32 G/DL (32-36); MEAN CORPUSCULAR VOLUME 99 FL (80-99); MEAN PLATELET VOLUME 9.7 FL (7.4-10.4); MONOCYTES # (AUTO) 0.6 X 10^3 (0.0-1.0); MONOCYTES % (AUTO) 7 % (0-12); NEUTROPHILS # (AUTO) 4.5 X 10^3 (1.8-7.8); NEUTROPHILS % (AUTO) 50 % (42-75); PLATELET COUNT 176 10^3/uL (130-400); WHITE BLOOD COUNT 9.1 10^3/uL (4.3-11.0)
[2020-03-04 10:28] LABS: ALANINE AMINOTRANSFERASE 9 U/L (0-55); ALBUMIN 3.8 GM/DL (3.2-4.5); ALKALINE PHOSPHATASE 92 U/L (40-136); BILIRUBIN,TOTAL 0.3 MG/DL (0.1-1.0); BUN/CREATININE RATIO 10; CALCIUM 9.6 MG/DL (8.5-10.1); CARBON DIOXIDE 29 MMOL/L (21-32); CHLORIDE 101 MMOL/L (98-107); CREATININE SERUM 0.94 MG/DL (0.60-1.30); GFR ESTIMATED > 60; GLUCOSE 93 MG/DL (70-105); POTASSIUM 3.7 MMOL/L (3.6-5.0); SODIUM 138 MMOL/L (135-145); TOTAL PROTEIN 7.2 GM/DL (6.4-8.2)
[2020-03-26 09:48] LABS: BASOPHILS # (AUTO) 0.1 10^3/uL (0.0-0.1); BASOPHILS % (AUTO) 1 % (0-10); EOSINOPHILS # (AUTO) 0.5 10^3/uL (0.0-0.3); EOSINOPHILS % (AUTO) 6 % (0-10); HEMATOCRIT 42 % (40-54); HEMOGLOBIN 13.8 g/dL (13.3-17.7); LYMPHOCYTES # (AUTO) 3.1 10^3/uL (1.0-4.0); LYMPHOCYTES % (AUTO) 35 % (12-44); MEAN CORPUSCULAR HEMOGLOBIN 32 pg (25-34); MEAN CORPUSCULAR HGB CONC 33 g/dL (32-36); MEAN CORPUSCULAR VOLUME 99 fL (80-99); MEAN PLATELET VOLUME 9.6 fL (9.0-12.2); MONOCYTES # (AUTO) 0.6 10^3/uL (0.0-1.0); MONOCYTES % (AUTO) 7 % (0-12); NEUTROPHILS # (AUTO) 4.6 10^3/uL (1.8-7.8); NEUTROPHILS % (AUTO) 51 % (42-75); PLATELET COUNT 166 10^3/uL (130-400); WHITE BLOOD COUNT 8.9 10^3/uL (4.3-11.0)
[2020-03-26 10:08] LABS: ALANINE AMINOTRANSFERASE 11 U/L (0-55); ALBUMIN 3.7 GM/DL (3.2-4.5); ALKALINE PHOSPHATASE 104 U/L (40-136); BILIRUBIN,TOTAL 0.4 MG/DL (0.1-1.0); BUN/CREATININE RATIO 9; CALCIUM 9.5 MG/DL (8.5-10.1); CARBON DIOXIDE 28 MMOL/L (21-32); CHLORIDE 101 MMOL/L (98-107); CREATININE SERUM 0.97 MG/DL (0.60-1.30); GFR ESTIMATED > 60; GLUCOSE 98 MG/DL (70-105); POTASSIUM 3.9 MMOL/L (3.6-5.0); SODIUM 138 MMOL/L (135-145); TOTAL PROTEIN 7.2 GM/DL (6.4-8.2)
[2020-04-20 11:28] LABS: BASOPHILS % (AUTO) 0 % (0-10); EOSINOPHILS # (AUTO) 0.5 10^3/uL (0.0-0.3); EOSINOPHILS % (AUTO) 5 % (0-10); HEMATOCRIT 42 % (40-54); HEMOGLOBIN 13.6 g/dL (13.3-17.7); LYMPHOCYTES # (AUTO) 2.5 10^3/uL (1.0-4.0); LYMPHOCYTES % (AUTO) 27 % (12-44); MEAN CORPUSCULAR HEMOGLOBIN 32 pg (25-34); MEAN CORPUSCULAR HGB CONC 32 g/dL (32-36); MEAN CORPUSCULAR VOLUME 100 fL (80-99); MEAN PLATELET VOLUME 9.8 fL (9.0-12.2); MONOCYTES # (AUTO) 0.6 10^3/uL (0.0-1.0); MONOCYTES % (AUTO) 6 % (0-12); NEUTROPHILS # (AUTO) 5.7 10^3/uL (1.8-7.8); NEUTROPHILS % (AUTO) 62 % (42-75); PLATELET COUNT 180 10^3/uL (130-400); WHITE BLOOD COUNT 9.3 10^3/uL (4.3-11.0)
[2020-04-20 11:53] LABS: ALANINE AMINOTRANSFERASE 13 U/L (0-55); ALBUMIN 3.8 GM/DL (3.2-4.5); ALKALINE PHOSPHATASE 101 U/L (40-136); BILIRUBIN,TOTAL 0.4 MG/DL (0.1-1.0); BUN/CREATININE RATIO 9; CALCIUM 9.8 MG/DL (8.5-10.1); CARBON DIOXIDE 29 MMOL/L (21-32); CHLORIDE 101 MMOL/L (98-107); CREATININE SERUM 0.96 MG/DL (0.60-1.30); GFR ESTIMATED > 60; GLUCOSE 87 MG/DL (70-105); SODIUM 140 MMOL/L (135-145); TOTAL PROTEIN 7.2 GM/DL (6.4-8.2)
[2020-05-04 10:46] LABS: BASOPHILS # (AUTO) 0.1 10^3/uL (0.0-0.1); BASOPHILS % (AUTO) 1 % (0-10); EOSINOPHILS # (AUTO) 0.7 10^3/uL (0.0-0.3); EOSINOPHILS % (AUTO) 7 % (0-10); HEMATOCRIT 44 % (40-54); HEMOGLOBIN 14.1 g/dL (13.3-17.7); LYMPHOCYTES # (AUTO) 2.7 10^3/uL (1.0-4.0); LYMPHOCYTES % (AUTO) 29 % (12-44); MEAN CORPUSCULAR HEMOGLOBIN 32 pg (25-34); MEAN CORPUSCULAR HGB CONC 32 g/dL (32-36); MEAN CORPUSCULAR VOLUME 100 fL (80-99); MEAN PLATELET VOLUME 9.8 fL (9.0-12.2); MONOCYTES # (AUTO) 0.5 10^3/uL (0.0-1.0); MONOCYTES % (AUTO) 6 % (0-12); NEUTROPHILS # (AUTO) 5.5 10^3/uL (1.8-7.8); NEUTROPHILS % (AUTO) 58 % (42-75); PLATELET COUNT 192 10^3/uL (130-400); WHITE BLOOD COUNT 9.4 10^3/uL (4.3-11.0)
[2020-05-04 11:08] LABS: ALANINE AMINOTRANSFERASE 13 U/L (0-55); ALBUMIN 3.8 GM/DL (3.2-4.5); ALKALINE PHOSPHATASE 113 U/L (40-136); BILIRUBIN,TOTAL 0.4 MG/DL (0.1-1.0); BUN/CREATININE RATIO 10; CALCIUM 9.5 MG/DL (8.5-10.1); CARBON DIOXIDE 31 MMOL/L (21-32); CHLORIDE 101 MMOL/L (98-107); CREATININE SERUM 1.08 MG/DL (0.60-1.30); GFR ESTIMATED > 60; GLUCOSE 124 MG/DL (70-105); POTASSIUM 4.1 MMOL/L (3.6-5.0); SODIUM 140 MMOL/L (135-145); TOTAL PROTEIN 7.1 GM/DL (6.4-8.2)
== END 2020-06-02 | disposition home or self-care (01) ==
LOC: ONC 09:44
PROVIDERS: ATTEND Internal Medicine Hematology & Oncology
DX: Z51.11 Encounter for antineoplastic chemotherapy (principal); C34.11 Malignant neoplasm of upper lobe, right bronchus or lung; J44.9 Chronic obstructive pulmonary disease, unspecified; G62.9 Polyneuropathy, unspecified; J34.89 Other specified disorders of nose and nasal sinuses; I63.9 Cerebral infarction, unspecified; I11.9 Hypertensive heart disease without heart failure; I25.10 Atherosclerotic heart disease of native coronary artery without angina pectoris; Z79.899 Other long term (current) drug therapy; Z86.73 Personal history of transient ischemic attack (TIA), and cerebral infarction without residual deficits; Z79.82 Long term (current) use of aspirin; Z98.890 Other specified postprocedural states
CPT/HCPCS: 36591; 80053; 84443; 85025; 96413

== ENCOUNTER 2020-06-28 12:51 | Outpatient (RCR) | payer OTHER ==
[2020-06-28 13:16] LABS: BASOPHILS # (AUTO) 0.1 10^3/uL (0.0-0.1); BASOPHILS % (AUTO) 1 % (0-10); EOSINOPHILS # (AUTO) 0.5 10^3/uL (0.0-0.3); EOSINOPHILS % (AUTO) 6 % (0-10); HEMATOCRIT 44 % (40-54); HEMOGLOBIN 14.1 g/dL (13.3-17.7); LYMPHOCYTES # (AUTO) 2.5 10^3/uL (1.0-4.0); LYMPHOCYTES % (AUTO) 29 % (12-44); MEAN CORPUSCULAR HEMOGLOBIN 33 pg (25-34); MEAN CORPUSCULAR HGB CONC 32 g/dL (32-36); MEAN CORPUSCULAR VOLUME 102 fL (80-99); MEAN PLATELET VOLUME 9.7 fL (9.0-12.2); MONOCYTES # (AUTO) 0.5 10^3/uL (0.0-1.0); MONOCYTES % (AUTO) 6 % (0-12); NEUTROPHILS # (AUTO) 5.1 10^3/uL (1.8-7.8); NEUTROPHILS % (AUTO) 59 % (42-75); PLATELET COUNT 161 10^3/uL (130-400); WHITE BLOOD COUNT 8.6 10^3/uL (4.3-11.0)
[2020-06-28 13:33] LABS: ALANINE AMINOTRANSFERASE 14 U/L (0-55); ALBUMIN 3.8 GM/DL (3.2-4.5); ALKALINE PHOSPHATASE 100 U/L (40-136); BILIRUBIN,TOTAL 0.4 MG/DL (0.1-1.0); BUN/CREATININE RATIO 11; CALCIUM 9.2 MG/DL (8.5-10.1); CARBON DIOXIDE 30 MMOL/L (21-32); CHLORIDE 102 MMOL/L (98-107); CREATININE SERUM 1.03 MG/DL (0.60-1.30); GFR ESTIMATED > 60; GLUCOSE 110 MG/DL (70-105); SODIUM 138 MMOL/L (135-145); TOTAL PROTEIN 7.5 GM/DL (6.4-8.2)
== END 2020-07-09 13:35 | disposition home or self-care (01) ==
LOC: ONC 12:51
PROVIDERS: ATTEND Internal Medicine Hematology & Oncology
DX: C34.90 Malignant neoplasm of unspecified part of unspecified bronchus or lung (principal); J44.9 Chronic obstructive pulmonary disease, unspecified; G62.9 Polyneuropathy, unspecified; J34.89 Other specified disorders of nose and nasal sinuses; I63.9 Cerebral infarction, unspecified; I11.9 Hypertensive heart disease without heart failure; I25.10 Atherosclerotic heart disease of native coronary artery without angina pectoris; R10.9 Unspecified abdominal pain; Z86.73 Personal history of transient ischemic attack (TIA), and cerebral infarction without residual deficits; Z79.82 Long term (current) use of aspirin; Z98.890 Other specified postprocedural states; Z79.899 Other long term (current) drug therapy
CPT/HCPCS: 36591; 80053; 85025; 96413

== ENCOUNTER → 2020-09-23 | Outpatient (CLI) | payer OTHER ==
[~2020-09-23] MED LIST changes: +CATHETER FLUSH 10 ML SYR IV PRN; -FOLI1TAB24 PO; +FOLI1TAB33 PO; +HOLD METFORMIN - RECEIVED CONTRAST 20 ML VIAL IV SCH; +IOHEXOL 350 MG/ML 100 ML (OMNIPAQUE 350) VIAL IV ONE; +NS 100 ML (IVPB) BAG IV ONE; -NS IV 1000 ML (CANCER CTR) IV SCH; -PEMBROLIZUMAB 200 MG in NS (IVPB) CANCER CENTER 50 ML IV SCH; +SERT-413 PO; -SERT50TA9 PO
--- NOTE | 2020-09-23 11:48 | Diagnostic Imaging Report ---
EXAMINATION: CT Chest and Abdomen with intravenous contrast. TECHNIQUE: Multiple contiguous axial images were obtained through the chest and abdomen after the uneventful administration of intravenous contrast. All CT scans use one or more of the following dose optimizing techniques: automated exposure control, MA and/or KvP adjustment based on a patient size and exam type, or iterative reconstruction. HISTORY: Hypersomnia COMPARISON: 12/30/2019 FINDINGS: There is no edema or pneumonia. No pleural effusion. No pneumothorax. A 17 x 15 mm left lower lobe nodules increased in size previously measuring 9 x 8 mm. There is scarring or atelectasis in the right lower lobe. There has been a wedge resection of the right upper lobe. There is no axillary or supraclavicular lymphadenopathy. There is no mediastinal lymphadenopathy. Heart size is normal. There are no coronary artery calcifications. No pericardial effusion. Aorta is normal in caliber. Right-sided Port-A-Cath is present. Small hypoattenuating segment 4A liver lesion is not clearly seen on prior exam, possibly due to phase of contrast. It measures 7 mm and is too small to fully characterize. There is no biliary ductal dilation. Gallbladder is normal. Pancreas is normal. Spleen is normal. Adrenal glands are normal. The kidneys are normal. There is no hydronephrosis. Visualized bowel is normal in caliber without obstruction or inflammation. No free fluid or air. No abdominal lymphadenopathy. Aorta is normal in caliber without aneurysm. There are no suspicious osseus lesions. IMPRESSION: 1. Continued increase in size of left lower lobe nodule likely representing metastatic disease. 2. No metastatic disease seen in the abdomen. Dictated by: Dictated on workstation # [id number]
== END ==
LOC: RAD 10:15
PROVIDERS: ATTEND Internal Medicine Hematology & Oncology
DX: C34.11 Malignant neoplasm of upper lobe, right bronchus or lung (principal); N63.20 Unspecified lump in the left breast, unspecified quadrant
CPT/HCPCS: 71260; 74160

== ENCOUNTER 2020-09-30 15:32 | Outpatient (RCR) | payer OTHER ==
[2020-08-19 11:17] LABS: BASOPHILS % (AUTO) 0 % (0-10); EOSINOPHILS # (AUTO) 0.6 10^3/uL (0.0-0.3); EOSINOPHILS % (AUTO) 6 % (0-10); HEMATOCRIT 44 % (40-54); HEMOGLOBIN 14.2 g/dL (13.3-17.7); LYMPHOCYTES # (AUTO) 3.3 10^3/uL (1.0-4.0); LYMPHOCYTES % (AUTO) 34 % (12-44); MEAN CORPUSCULAR HEMOGLOBIN 32 pg (25-34); MEAN CORPUSCULAR HGB CONC 32 g/dL (32-36); MEAN CORPUSCULAR VOLUME 100 fL (80-99); MEAN PLATELET VOLUME 9.5 fL (9.0-12.2); MONOCYTES # (AUTO) 0.6 10^3/uL (0.0-1.0); MONOCYTES % (AUTO) 6 % (0-12); NEUTROPHILS # (AUTO) 5.2 10^3/uL (1.8-7.8); NEUTROPHILS % (AUTO) 54 % (42-75); PLATELET COUNT 155 10^3/uL (130-400); WHITE BLOOD COUNT 9.7 10^3/uL (4.3-11.0)
[2020-08-19 11:38] LABS: ALANINE AMINOTRANSFERASE 12 U/L (0-55); ALBUMIN 3.8 GM/DL (3.2-4.5); ALKALINE PHOSPHATASE 97 U/L (40-136); BILIRUBIN,TOTAL 0.4 MG/DL (0.1-1.0); BUN/CREATININE RATIO 12; CARBON DIOXIDE 30 MMOL/L (21-32); CHLORIDE 101 MMOL/L (98-107); CREATININE SERUM 1.03 MG/DL (0.60-1.30); GFR ESTIMATED > 60; GLUCOSE 112 MG/DL (70-105); POTASSIUM 4.1 MMOL/L (3.6-5.0); SODIUM 137 MMOL/L (135-145); TOTAL PROTEIN 7.4 GM/DL (6.4-8.2)
[2020-09-09 10:22] LABS: BASOPHILS # (AUTO) 0.1 10^3/uL (0.0-0.1); BASOPHILS % (AUTO) 1 % (0-10); EOSINOPHILS # (AUTO) 0.8 10^3/uL (0.0-0.3); EOSINOPHILS % (AUTO) 7 % (0-10); HEMATOCRIT 46 % (40-54); HEMOGLOBIN 14.7 g/dL (13.3-17.7); LYMPHOCYTES # (AUTO) 3.3 10^3/uL (1.0-4.0); LYMPHOCYTES % (AUTO) 30 % (12-44); MEAN CORPUSCULAR HEMOGLOBIN 32 pg (25-34); MEAN CORPUSCULAR HGB CONC 32 g/dL (32-36); MEAN CORPUSCULAR VOLUME 100 fL (80-99); MEAN PLATELET VOLUME 9.8 fL (9.0-12.2); MONOCYTES # (AUTO) 0.7 10^3/uL (0.0-1.0); MONOCYTES % (AUTO) 7 % (0-12); NEUTROPHILS # (AUTO) 6.2 10^3/uL (1.8-7.8); NEUTROPHILS % (AUTO) 56 % (42-75); PLATELET COUNT 171 10^3/uL (130-400); WHITE BLOOD COUNT 11.1 10^3/uL (4.3-11.0)
[2020-09-09 10:38] LABS: ALANINE AMINOTRANSFERASE 16 U/L (0-55); ALBUMIN 3.9 GM/DL (3.2-4.5); ALKALINE PHOSPHATASE 98 U/L (40-136); BILIRUBIN,TOTAL 0.4 MG/DL (0.1-1.0); BUN/CREATININE RATIO 15; CALCIUM 9.3 MG/DL (8.5-10.1); CARBON DIOXIDE 29 MMOL/L (21-32); CHLORIDE 100 MMOL/L (98-107); CREATININE SERUM 0.99 MG/DL (0.60-1.30); GFR ESTIMATED > 60; GLUCOSE 94 MG/DL (70-105); POTASSIUM 4.2 MMOL/L (3.6-5.0); SODIUM 139 MMOL/L (135-145); TOTAL PROTEIN 7.5 GM/DL (6.4-8.2)
[2020-09-30 13:28] LABS: BASOPHILS % (AUTO) 1 % (0-10); EOSINOPHILS # (AUTO) 0.3 10^3/uL (0.0-0.3); EOSINOPHILS % (AUTO) 4 % (0-10); HEMATOCRIT 43 % (40-54); LYMPHOCYTES # (AUTO) 2.4 10^3/uL (1.0-4.0); LYMPHOCYTES % (AUTO) 29 % (12-44); MEAN CORPUSCULAR HEMOGLOBIN 33 pg (25-34); MEAN CORPUSCULAR HGB CONC 32 g/dL (32-36); MEAN CORPUSCULAR VOLUME 101 fL (80-99); MEAN PLATELET VOLUME 9.9 fL (9.0-12.2); MONOCYTES # (AUTO) 0.6 10^3/uL (0.0-1.0); MONOCYTES % (AUTO) 7 % (0-12); NEUTROPHILS # (AUTO) 4.9 10^3/uL (1.8-7.8); NEUTROPHILS % (AUTO) 59 % (42-75); PLATELET COUNT 193 10^3/uL (130-400); WHITE BLOOD COUNT 8.3 10^3/uL (4.3-11.0)
[2020-09-30 13:39] LABS: ALANINE AMINOTRANSFERASE 14 U/L (0-55); ALBUMIN 3.8 GM/DL (3.2-4.5); ALKALINE PHOSPHATASE 105 U/L (40-136); BILIRUBIN,TOTAL 0.4 MG/DL (0.1-1.0); BUN/CREATININE RATIO 10; CALCIUM 8.8 MG/DL (8.5-10.1); CARBON DIOXIDE 30 MMOL/L (21-32); CHLORIDE 100 MMOL/L (98-107); CREATININE SERUM 1.05 MG/DL (0.60-1.30); GFR ESTIMATED > 60; GLUCOSE 109 MG/DL (70-105); POTASSIUM 4.1 MMOL/L (3.6-5.0); SODIUM 137 MMOL/L (135-145); TOTAL PROTEIN 7.4 GM/DL (6.4-8.2)
[~2020-09-30 15:32] MED LIST changes: -CATHETER FLUSH 10 ML SYR IV PRN; -HOLD METFORMIN - RECEIVED CONTRAST 20 ML VIAL IV SCH; -IOHEXOL 350 MG/ML 100 ML (OMNIPAQUE 350) VIAL IV ONE; -NS 100 ML (IVPB) BAG IV ONE; +NS IV 1000 ML (CANCER CTR) IV SCH; +PEMBROLIZUMAB 200 MG in NS (IVPB) CANCER CENTER 50 ML IV SCH
== END 2020-10-18 | disposition home or self-care (01) ==
LOC: ONC 15:32
PROVIDERS: ATTEND Internal Medicine Hematology & Oncology
DX: Z51.11 Encounter for antineoplastic chemotherapy (principal); C34.11 Malignant neoplasm of upper lobe, right bronchus or lung; J44.9 Chronic obstructive pulmonary disease, unspecified; G62.9 Polyneuropathy, unspecified; J34.89 Other specified disorders of nose and nasal sinuses; I63.9 Cerebral infarction, unspecified; I11.9 Hypertensive heart disease without heart failure; I25.10 Atherosclerotic heart disease of native coronary artery without angina pectoris; Z79.899 Other long term (current) drug therapy; Z86.73 Personal history of transient ischemic attack (TIA), and cerebral infarction without residual deficits; Z79.82 Long term (current) use of aspirin; Z98.890 Other specified postprocedural states
CPT/HCPCS: 36591; 80053; 85025; 96413

== ENCOUNTER 2020-12-30 12:49 | Outpatient (RCR) | payer OTHER ==
[2020-11-02 14:02] LABS: BASOPHILS # (AUTO) 0.1 10^3/uL (0.0-0.1); BASOPHILS % (AUTO) 1 % (0-10); EOSINOPHILS # (AUTO) 0.2 10^3/uL (0.0-0.3); EOSINOPHILS % (AUTO) 3 % (0-10); HEMATOCRIT 44 % (40-54); LYMPHOCYTES # (AUTO) 2.4 10^3/uL (1.0-4.0); LYMPHOCYTES % (AUTO) 26 % (12-44); MEAN CORPUSCULAR HEMOGLOBIN 32 pg (25-34); MEAN CORPUSCULAR HGB CONC 32 g/dL (32-36); MEAN CORPUSCULAR VOLUME 100 fL (80-99); MEAN PLATELET VOLUME 9.1 fL (9.0-12.2); MONOCYTES # (AUTO) 0.6 10^3/uL (0.0-1.0); MONOCYTES % (AUTO) 6 % (0-12); NEUTROPHILS % (AUTO) 65 % (42-75); PLATELET COUNT 229 10^3/uL (130-400); WHITE BLOOD COUNT 9.3 10^3/uL (4.3-11.0)
[2020-11-02 14:24] LABS: ALANINE AMINOTRANSFERASE 15 U/L (0-55); ALBUMIN 3.7 GM/DL (3.2-4.5); ALKALINE PHOSPHATASE 101 U/L (40-136); BILIRUBIN,TOTAL 0.3 MG/DL (0.1-1.0); BUN/CREATININE RATIO 11; CALCIUM 9.3 MG/DL (8.5-10.1); CARBON DIOXIDE 34 MMOL/L (21-32); CHLORIDE 101 MMOL/L (98-107); CREATININE SERUM 0.98 MG/DL (0.60-1.30); GFR ESTIMATED > 60; GLUCOSE 85 MG/DL (70-105); POTASSIUM 4.3 MMOL/L (3.6-5.0); SODIUM 139 MMOL/L (135-145); TOTAL PROTEIN 7.6 GM/DL (6.4-8.2)
[2020-12-02 11:11] LABS: BASOPHILS # (AUTO) 0.1 10^3/uL (0.0-0.1); BASOPHILS % (AUTO) 1 % (0-10); EOSINOPHILS # (AUTO) 0.2 10^3/uL (0.0-0.3); EOSINOPHILS % (AUTO) 2 % (0-10); HEMATOCRIT 45 % (40-54); HEMOGLOBIN 14.6 g/dL (13.3-17.7); LYMPHOCYTES % (AUTO) 32 % (12-44); MEAN CORPUSCULAR HEMOGLOBIN 33 pg (25-34); MEAN CORPUSCULAR HGB CONC 33 g/dL (32-36); MEAN CORPUSCULAR VOLUME 100 fL (80-99); MEAN PLATELET VOLUME 9.6 fL (9.0-12.2); MONOCYTES # (AUTO) 0.7 10^3/uL (0.0-1.0); MONOCYTES % (AUTO) 7 % (0-12); NEUTROPHILS # (AUTO) 5.4 10^3/uL (1.8-7.8); NEUTROPHILS % (AUTO) 58 % (42-75); PLATELET COUNT 176 10^3/uL (130-400); WHITE BLOOD COUNT 9.3 10^3/uL (4.3-11.0)
[2020-12-02 11:33] LABS: ALANINE AMINOTRANSFERASE 20 U/L (0-55); ALBUMIN 3.9 GM/DL (3.2-4.5); ALKALINE PHOSPHATASE 96 U/L (40-136); BILIRUBIN,TOTAL 0.4 MG/DL (0.1-1.0); BUN/CREATININE RATIO 10; CALCIUM 9.4 MG/DL (8.5-10.1); CARBON DIOXIDE 30 MMOL/L (21-32); CHLORIDE 101 MMOL/L (98-107); GFR ESTIMATED > 60; GLUCOSE 82 MG/DL (70-105); POTASSIUM 3.9 MMOL/L (3.6-5.0); SODIUM 138 MMOL/L (135-145); TOTAL PROTEIN 7.5 GM/DL (6.4-8.2)
[~2020-12-30 12:49] MED LIST changes: +NIVOLUMAB 480 MG in NS (IVPB) CANCER CENTER 100 ML IV SCH
[2020-12-30 13:08] LABS: BASOPHILS # (AUTO) 0.1 10^3/uL (0.0-0.1); BASOPHILS % (AUTO) 1 % (0-10); EOSINOPHILS # (AUTO) 0.2 10^3/uL (0.0-0.3); EOSINOPHILS % (AUTO) 3 % (0-10); HEMATOCRIT 47 % (40-54); HEMOGLOBIN 15.1 g/dL (13.3-17.7); LYMPHOCYTES # (AUTO) 2.7 10^3/uL (1.0-4.0); LYMPHOCYTES % (AUTO) 31 % (12-44); MEAN CORPUSCULAR HEMOGLOBIN 32 pg (25-34); MEAN CORPUSCULAR HGB CONC 32 g/dL (32-36); MEAN CORPUSCULAR VOLUME 100 fL (80-99); MEAN PLATELET VOLUME 9.6 fL (9.0-12.2); MONOCYTES # (AUTO) 0.5 10^3/uL (0.0-1.0); MONOCYTES % (AUTO) 6 % (0-12); NEUTROPHILS # (AUTO) 5.3 10^3/uL (1.8-7.8); NEUTROPHILS % (AUTO) 60 % (42-75); PLATELET COUNT 168 10^3/uL (130-400); WHITE BLOOD COUNT 8.8 10^3/uL (4.3-11.0)
[2020-12-30 13:28] LABS: ALANINE AMINOTRANSFERASE 16 U/L (0-55); ALBUMIN 3.9 GM/DL (3.2-4.5); ALKALINE PHOSPHATASE 82 U/L (40-136); BILIRUBIN,TOTAL 0.5 MG/DL (0.1-1.0); BUN/CREATININE RATIO 13; CALCIUM 9.7 MG/DL (8.5-10.1); CARBON DIOXIDE 28 MMOL/L (21-32); CHLORIDE 101 MMOL/L (98-107); GFR ESTIMATED > 60; GLUCOSE 107 MG/DL (70-105); POTASSIUM 4.1 MMOL/L (3.6-5.0); SODIUM 138 MMOL/L (135-145); TOTAL PROTEIN 7.5 GM/DL (6.4-8.2)
== END 2021-01-23 | disposition home or self-care (01) ==
LOC: ONC 12:49
PROVIDERS: ATTEND Internal Medicine Hematology & Oncology
DX: Z51.11 Encounter for antineoplastic chemotherapy (principal); C34.11 Malignant neoplasm of upper lobe, right bronchus or lung; J44.9 Chronic obstructive pulmonary disease, unspecified; G62.9 Polyneuropathy, unspecified; J34.89 Other specified disorders of nose and nasal sinuses; I63.9 Cerebral infarction, unspecified; I11.9 Hypertensive heart disease without heart failure; I25.10 Atherosclerotic heart disease of native coronary artery without angina pectoris; Z79.899 Other long term (current) drug therapy; Z86.73 Personal history of transient ischemic attack (TIA), and cerebral infarction without residual deficits; Z79.82 Long term (current) use of aspirin; Z98.890 Other specified postprocedural states
CPT/HCPCS: 36591; 80053; 84443; 85025; 96413; 99213

== ENCOUNTER 2021-03-24 11:11 | Outpatient (RCR) | payer OTHER ==
[2021-02-24 13:06] LABS: BASOPHILS % (AUTO) 1 % (0-10); EOSINOPHILS # (AUTO) 0.1 10^3/uL (0.0-0.3); EOSINOPHILS % (AUTO) 2 % (0-10); HEMATOCRIT 44 % (40-54); HEMOGLOBIN 14.2 g/dL (13.3-17.7); LYMPHOCYTES # (AUTO) 2.4 10^3/uL (1.0-4.0); LYMPHOCYTES % (AUTO) 28 % (12-44); MEAN CORPUSCULAR HEMOGLOBIN 32 pg (25-34); MEAN CORPUSCULAR HGB CONC 32 g/dL (32-36); MEAN CORPUSCULAR VOLUME 101 fL (80-99); MEAN PLATELET VOLUME 9.6 fL (9.0-12.2); MONOCYTES # (AUTO) 0.5 10^3/uL (0.0-1.0); MONOCYTES % (AUTO) 6 % (0-12); NEUTROPHILS # (AUTO) 5.4 10^3/uL (1.8-7.8); NEUTROPHILS % (AUTO) 63 % (42-75); PLATELET COUNT 161 10^3/uL (130-400); WHITE BLOOD COUNT 8.6 10^3/uL (4.3-11.0)
[2021-02-24 13:35] LABS: ALBUMIN 3.9 GM/DL (3.2-4.5); BILIRUBIN,TOTAL 0.5 MG/DL (0.1-1.0); CALCIUM 9.6 MG/DL (8.5-10.1); CREATININE SERUM 1.02 MG/DL (0.60-1.30); POTASSIUM 4.1 MMOL/L (3.6-5.0); TOTAL PROTEIN 7.5 GM/DL (6.4-8.2)
[~2021-03-24 11:11] MED LIST changes: -PEMBROLIZUMAB 200 MG in NS (IVPB) CANCER CENTER 50 ML IV SCH
[2021-03-24 11:26] LABS: BASOPHILS # (AUTO) 0.1 10^3/uL (0.0-0.1); BASOPHILS % (AUTO) 1 % (0-10); EOSINOPHILS # (AUTO) 0.4 10^3/uL (0.0-0.3); EOSINOPHILS % (AUTO) 3 % (0-10); HEMATOCRIT 48 % (40-54); HEMOGLOBIN 15.4 g/dL (13.3-17.7); LYMPHOCYTES # (AUTO) 3.2 10^3/uL (1.0-4.0); LYMPHOCYTES % (AUTO) 28 % (12-44); MEAN CORPUSCULAR HEMOGLOBIN 32 pg (25-34); MEAN CORPUSCULAR HGB CONC 32 g/dL (32-36); MEAN CORPUSCULAR VOLUME 100 fL (80-99); MEAN PLATELET VOLUME 9.6 fL (9.0-12.2); MONOCYTES # (AUTO) 0.7 10^3/uL (0.0-1.0); MONOCYTES % (AUTO) 7 % (0-12); NEUTROPHILS % (AUTO) 61 % (42-75); PLATELET COUNT 185 10^3/uL (130-400); WHITE BLOOD COUNT 11.4 10^3/uL (4.3-11.0)
[2021-03-24 12:09] LABS: ALBUMIN 3.7 GM/DL (3.2-4.5); BILIRUBIN,TOTAL 0.5 MG/DL (0.1-1.0); CALCIUM 9.2 MG/DL (8.5-10.1); CREATININE SERUM 0.92 MG/DL (0.60-1.30); POTASSIUM 3.9 MMOL/L (3.6-5.0); TOTAL PROTEIN 7.5 GM/DL (6.4-8.2)
== END 2021-04-20 15:44 | disposition home or self-care (01) ==
LOC: ONC 11:11
PROVIDERS: ATTEND Internal Medicine Hematology & Oncology
DX: Z51.11 Encounter for antineoplastic chemotherapy (principal); C34.11 Malignant neoplasm of upper lobe, right bronchus or lung; G62.9 Polyneuropathy, unspecified; J44.9 Chronic obstructive pulmonary disease, unspecified; J34.89 Other specified disorders of nose and nasal sinuses; Z79.899 Other long term (current) drug therapy; Z86.73 Personal history of transient ischemic attack (TIA), and cerebral infarction without residual deficits; Z79.82 Long term (current) use of aspirin; Z98.890 Other specified postprocedural states
CPT/HCPCS: 36591; 80053; 84443; 85025; 96413

== ENCOUNTER 2021-06-16 09:53 | Outpatient (RCR) | payer OTHER ==
[2021-04-21 11:20] LABS: BASOPHILS # (AUTO) 0.1 10^3/uL (0.0-0.1); BASOPHILS % (AUTO) 1 % (0-10); EOSINOPHILS # (AUTO) 0.3 10^3/uL (0.0-0.3); EOSINOPHILS % (AUTO) 3 % (0-10); HEMATOCRIT 48 % (40-54); HEMOGLOBIN 15.3 g/dL (13.3-17.7); LYMPHOCYTES # (AUTO) 3.4 10^3/uL (1.0-4.0); LYMPHOCYTES % (AUTO) 35 % (12-44); MEAN CORPUSCULAR HEMOGLOBIN 32 pg (25-34); MEAN CORPUSCULAR HGB CONC 32 g/dL (32-36); MEAN CORPUSCULAR VOLUME 100 fL (80-99); MEAN PLATELET VOLUME 9.8 fL (9.0-12.2); MONOCYTES # (AUTO) 0.6 10^3/uL (0.0-1.0); MONOCYTES % (AUTO) 6 % (0-12); NEUTROPHILS # (AUTO) 5.5 10^3/uL (1.8-7.8); NEUTROPHILS % (AUTO) 56 % (42-75); PLATELET COUNT 181 10^3/uL (130-400); WHITE BLOOD COUNT 9.9 10^3/uL (4.3-11.0)
[2021-04-21 11:39] LABS: ALBUMIN 3.8 GM/DL (3.2-4.5); BILIRUBIN,TOTAL 0.4 MG/DL (0.1-1.0); CALCIUM 9.6 MG/DL (8.5-10.1); CREATININE SERUM 0.99 MG/DL (0.60-1.30); POTASSIUM 4.3 MMOL/L (3.6-5.0)
[~2021-06-16 09:53] MED LIST changes: +NIVOLUMAB IV SCH; +NS IV SCH
[2021-06-16 10:13] LABS: BASOPHILS # (AUTO) 0.1 10^3/uL (0.0-0.1); BASOPHILS % (AUTO) 1 % (0-10); EOSINOPHILS # (AUTO) 0.2 10^3/uL (0.0-0.3); EOSINOPHILS % (AUTO) 2 % (0-10); HEMATOCRIT 48 % (40-54); LYMPHOCYTES # (AUTO) 3.2 10^3/uL (1.0-4.0); LYMPHOCYTES % (AUTO) 35 % (12-44); MEAN CORPUSCULAR HEMOGLOBIN 31 pg (25-34); MEAN CORPUSCULAR HGB CONC 31 g/dL (32-36); MEAN CORPUSCULAR VOLUME 100 fL (80-99); MEAN PLATELET VOLUME 9.6 fL (9.0-12.2); MONOCYTES # (AUTO) 0.6 10^3/uL (0.0-1.0); MONOCYTES % (AUTO) 7 % (0-12); NEUTROPHILS # (AUTO) 4.9 10^3/uL (1.8-7.8); NEUTROPHILS % (AUTO) 55 % (42-75); PLATELET COUNT 185 10^3/uL (130-400)
[2021-06-16 10:40] LABS: ALBUMIN 3.4 GM/DL (3.2-4.5); BILIRUBIN,TOTAL 0.4 MG/DL (0.1-1.0); CALCIUM 8.2 MG/DL (8.5-10.1); CREATININE SERUM 0.88 MG/DL (0.60-1.30); POTASSIUM 3.4 MMOL/L (3.6-5.0); TOTAL PROTEIN 6.6 GM/DL (6.4-8.2)
[2021-06-26] MEDS ORDERED: DOXY100T2 PO (15:01)
[2021-06-26] MEDS ORDERED: DEXA6TAB6 PO (15:01)
[2021-06-26] MEDS ORDERED: BENZ100C18 PO (15:01)
== END 2021-07-01 | disposition home or self-care (01) ==
LOC: ONC 09:53
PROVIDERS: ATTEND Internal Medicine Hematology & Oncology
DX: Z51.11 Encounter for antineoplastic chemotherapy (principal); C34.11 Malignant neoplasm of upper lobe, right bronchus or lung; G62.9 Polyneuropathy, unspecified; J44.9 Chronic obstructive pulmonary disease, unspecified; J34.89 Other specified disorders of nose and nasal sinuses; K21.9 Gastro-esophageal reflux disease without esophagitis; Z79.899 Other long term (current) drug therapy; Z86.73 Personal history of transient ischemic attack (TIA), and cerebral infarction without residual deficits; Z79.82 Long term (current) use of aspirin; Z98.890 Other specified postprocedural states
CPT/HCPCS: 36591; 80053; 84443; 85025; 96413; 99213

== ENCOUNTER 2021-06-26 12:01 | Emergency (ER) | payer OTHER ==
[~2021-06-26] VITALS: Ht 172 cm; Wt 65.0 kg
[~2021-06-26 12:01] MED LIST changes: -NIVOLUMAB 480 MG in NS (IVPB) CANCER CENTER 100 ML IV SCH; -NIVOLUMAB IV SCH; -NS IV 1000 ML (CANCER CTR) IV SCH; -NS IV SCH
[2021-06-26] MEDS ORDERED: LACTATED RINGERS 1,000 ML IV ONE (12:15)
[2021-06-26 12:34] LABS: BASOPHILS % (AUTO) 0 % (0-10); MEAN CORPUSCULAR VOLUME 100 fL (80-99); MONOCYTES % (AUTO) 9 % (0-12)
[2021-06-26 12:36] LABS: EOSINOPHILS # (AUTO) 0.1 10^3/uL (0.0-0.3); EOSINOPHILS % (AUTO) 2 % (0-10); HEMATOCRIT 46 % (40-54); HEMOGLOBIN 14.4 g/dL (13.3-17.7); LYMPHOCYTES # (AUTO) 1.3 10^3/uL (1.0-4.0); LYMPHOCYTES % (AUTO) 33 % (12-44); MEAN CORPUSCULAR HEMOGLOBIN 31 pg (25-34); MEAN CORPUSCULAR HGB CONC 32 g/dL (32-36); MEAN PLATELET VOLUME 11.5 fL (9.0-12.2); MONOCYTES # (AUTO) 0.3 10^3/uL (0.0-1.0); NEUTROPHILS # (AUTO) 2.1 10^3/uL (1.8-7.8); NEUTROPHILS % (AUTO) 56 % (42-75); PLATELET COUNT 86 10^3/uL (130-400); WHITE BLOOD COUNT 3.8 10^3/uL (4.3-11.0)
[2021-06-26 12:45] LABS: ALBUMIN 3.5 GM/DL (3.2-4.5); CHLORIDE 98 MMOL/L (98-107); POTASSIUM 3.9 MMOL/L (3.6-5.0); SODIUM 137 MMOL/L (135-145)
[2021-06-26 12:46] LABS: CALCIUM 8.5 MG/DL (8.5-10.1)
[2021-06-26 12:47] LABS: GLUCOSE 97 MG/DL (70-105); TOTAL PROTEIN 7.2 GM/DL (6.4-8.2)
[2021-06-26 12:48] LABS: CARBON DIOXIDE 30 MMOL/L (21-32); FIBRIN DEGRADATION PRODUCTS 0.94 UG/ML (0.00-0.49); INR 0.9 (0.8-1.4); PROTHROMBIN TIME PATIENT 12.7 SEC (12.2-14.7)
[2021-06-26 12:49] LABS: BILIRUBIN,TOTAL 0.4 MG/DL (0.1-1.0)
[2021-06-26 12:51] LABS: ALKALINE PHOSPHATASE 87 U/L (40-136); CREATININE SERUM 0.95 MG/DL (0.60-1.30); GFR ESTIMATED 79
[2021-06-26 12:52] LABS: BUN/CREATININE RATIO 11
[2021-06-26 12:54] LABS: ALANINE AMINOTRANSFERASE 21 U/L (0-55); CREATINE KINASE 101 U/L (30-200); MAGNESIUM 1.8 MG/DL (1.6-2.4)
[2021-06-26 13:02] LABS: CREATINE KINASE MB 1.6 NG/ML (<6.6); ERYTHROCYTE SEDIMENTATION RATE 18 MM/HR (0-30)
--- NOTE | 2021-06-26 13:19 | Diagnostic Imaging Report ---
EXAMINATION: Chest 1 view HISTORY: DYSPNEA, COVID+ COMPARISON: 04/28/2019 FINDINGS: Heart size and pulmonary vasculature are normal. There is elevation of the right hemidiaphragm. Patchy interstitial opacities are present within both lungs. A right-sided Port-A-Cath is present. Trace bilateral pleural fluid. No pneumothorax. The osseous structures are intact. IMPRESSION: 1. Patchy interstitial opacities within both lungs which could be seen with atypical infection or pulmonary edema. Dictated by: Dictated on workstation # [id number]
--- NOTE | 2021-06-26 13:42 | ED General ---
General Chief Complaint: COVID19 Suspect/Confirmed Stated Complaint: COVID POSITIVE/SOB/HX LUNG CA Source of Information: Patient Allergies and Home Medications Allergies Coded Allergies: bupropion (Unverified Allergy, Mild, RASH, 11/08/18) Patient Home Medication List Albuterol Sulfate (Proair Hfa) 1 Puff Puff, 2 PUFF IH QID PRN for SHORTNESS OF B REATH, (Reported) Entered as Reported by: HORTENCIA GARCIA on 11/26/18 1254 Benzonatate (Tessalon Perles) 100 Mg Capsule, 200 MG PO TID Prescribed by: NICOLE MORTENSEN on 06/26/21 1501 Carvedilol (Carvedilol) 12.5 Mg Tablet, 6.25 MG PO BID, (Reported) Entered as Reported by: SHAQUILLE LAW on 03/12/17 1113 Cefdinir (Cefdinir) 300 Mg Capsule, 300 MG PO BID Prescribed by: SHABNAM GONCALVES on 11/27/18 1107 Cyanocobalamin (Vitamin B-12) (B-12) 1,000 Mcg Tablet, 1,000 MCG PO DAILY, (Reported) Entered as Reported by: HORTENCIA GARCIA on 11/26/18 1254 Dexamethasone (Decadron) 6 Mg Tablet, 6 MG PO DAILY Prescribed by: NICOLE MORTENSEN on 06/26/21 1501 Donepezil HCl (Donepezil HCl) 10 Mg Tablet, 5 MG PO DAILY, (Reported) Entered as Reported by: HORTENCIA GARCIA on 11/26/18 1254 Doxycycline Hyclate (Doxycycline Hyclate) 100 Mg Tablet, 100 MG PO BID Prescribed by: NICOLE MORTENSEN on 06/26/21 1501 Folic Acid (Folic Acid) 1 Mg Tablet, 1 MG PO DAILY, (Reported) Entered as Reported by: LIVAN GRANADOS on 11/08/18 1013 Ipratropium [place] (Ipratropium [place]) 30 Ml [place], 2 SPRAYS NS BID, (Reported) Entered as Reported by: HORTENCIA GARCIA on 11/26/18 1254 Levetiracetam (Levetiracetam) 500 Mg Tablet, 1,000 MG PO BID, (Reported) Entered as Reported by: SHAQUILLE LAW on 03/12/17 1110 [place] 3 Polyunsat Fatty Acids (Fish Oil 1,000 mg Capsule) 1,000 Mg Cap, 2,000 MG PO DAILY, (Reported) Entered as Reported by: SHAQUILLE LAW on 03/12/17 111 [place] 3 Polyunsat Fatty Acids (Fish Oil 1,000 mg Capsule) 1,000 Mg Cap, 1,000 MG PO HS, (Reported) Entered as Reported by: SHAQUILLE LAW on 03/12/17 111 Prednisone (Prednisone) 10 Mg Tab.ds.pk, 10 MG PO DAILY Prescribed by: SHABNAM GONCALVES on 11/27/18 1107 Sertraline HCl (Sertraline HCl) 50 Mg Tablet, 25 MG PO DAILY, (Reported) Entered as Reported by: LIVAN GRANADOS on 11/08/18 1013 Tiotropium Br/Olodaterol HCl (Stiolto Respimat Inhal [place]) 4 Gm Mist.inhal, 2 PUFF IH DAILY, (Reported) Entered as Reported by: HORTENCIA GARCIA on 11/26/18 1254 Tramadol HCl (Tramadol HCl) 50 Mg Tablet, 100 MG PO Q6H PRN for PAIN-MODERATE, (Reported) Entered as Reported by: LIVAN GRANADOS on 11/08/18 1013 Trazodone HCl (Trazodone HCl) 100 Mg Tablet, 200 MG PO HS, (Reported) Entered as Reported by: SHAQUILLE LAW on 03/12/17 111 Verapamil HCl (Verapamil HCl) 40 Mg Tablet, 40 MG PO BID, (Reported) Entered as Reported by: SHAQUILLE LAW on 03/12/17 111 Past Vcpvzbq-Qgovzr-Tmkeqt Hx Seasonal Allergies Seasonal Allergies: Yes Past Medical History Surgeries: Yes (CAROTID stent) Lobectomy Respiratory: Yes (LUNG CANCER) COPD Cardiac: Yes High Cholesterol, Hypertension Neurological: Yes (LAST SEIZURE-08/2018) Seizure Disorder, Stroke Reproductive Disorders: No Sexually Transmitted Disease: No HIV/AIDS: No Genitourinary: No Gastrointestinal: Yes Gastrointestinal Bleed Musculoskeletal: Yes Arthritis Endocrine: No HEENT: Yes (GLASSES) Loss of Vision: Bilateral Hearing Impairment: Denies Cancer: Yes Lung, Skin What Type of Treatment Did You: Chemotherapy, Surgical Intervention Psychosocial: Yes Anxiety, PTSD, Depression Integumentary: No Blood Disorders: No Adverse Reaction/Blood Tranf: No (N/A) Family Medical History No Pertinent Family Hx Physical Exam Vital Signs Vital Signs - First Documented 06/26/21 06/26/21 12:05 16:03 Temp 37.0 Pulse 70 Resp 30 B/P (MAP) 90/57 Pulse Ox 99 O2 Delivery Nasal Cannula O2 Flow Rate 2.00 Capillary Refill : Height, Weight, BMI Height: 5'8.00" Weight: 172lbs. 9.6oz. [id number]; 21.00 BMI Method:Stated Focused Exam Lactate Level 06/26/21 12:26: Lactic Acid Level 0.87 Lactic Acid Level Laboratory Tests Test 06/26/21 12: Lactic Acid Level 0.87 MMOL/L (0.50-2.00) Progress/Results/Core Measures Suspected Sepsis SIRS Temperature: Pulse: Respiratory Rate: Laboratory Tests 06/26/21 12:26: White Blood Count 3.8L Blood Pressure / Mean: 06/26/21 12:26: Lactic Acid Level 0.87 Laboratory Tests 06/26/21 12:26: Creatinine 0.95, INR Comment 0.9, Platelet Count 86L, Total Bilirubin 0.4 Results/Orders Lab Results Laboratory Tests Test 06/26/21 12:12 06/26/21 12:26 06/26/21 14:20 Range/Units Influenza Type A (RT-PCR) Not Detected Not Detecte Influenza Type B (RT-PCR) Not Detected Not Detecte SARS-CoV-2 RNA (RT-PCR) Detected H Not Detecte White Blood Count 3.8 L 4.3-11.0 10^3/uL Red Blood Count 4.58 4.30-5.52 10^6/uL Hemoglobin 14.4 13.3-17.7 g/dL Hematocrit 46 40-54 % Mean Corpuscular Volume 100 H 80-99 fL Mean Corpuscular Hemoglobin 31 25-34 pg Mean Corpuscular Hemoglobin Concent 32 32-36 g/dL Red Cell Distribution Width 13.9 10.0-14.5 % Platelet Count 86 L 130-400 10^3/uL Mean Platelet Volume 11.5 9.0-12.2 fL Immature Granulocyte % (Auto) 0 % Neutrophils (%) (Auto) 56 42-75 % Lymphocytes (%) (Auto) 33 12-44 % Monocytes (%) (Auto) 9 0-12 % Eosinophils (%) (Auto) 2 0-10 % Basophils (%) (Auto) 0 0-10 % Neutrophils # (Auto) 2.1 1.8-7.8 10^3/uL Lymphocytes # (Auto) 1.3 1.0-4.0 10^3/uL Monocytes # (Auto) 0.3 0.0-1.0 10^3/uL Eosinophils # (Auto) 0.1 0.0-0.3 10^3/uL Basophils # (Auto) 0.0 0.0-0.1 10^3/uL Immature Granulocyte # (Auto) 0.0 0.0-0.1 10^3/uL Percent Immature Platelet Fraction 5.7 0.0-7.6 % Erythrocyte Sedimentation Rate 18 0-30 MM/HR Prothrombin Time 12.7 12.2-14.7 SEC INR Comment 0.9 0.8-1.4 Activated Partial Thromboplast Time 36 H 24-35 SEC D-Dimer 0.94 H 0.00-0.49 UG/ML Sodium Level 137 135-145 MMOL/L Potassium Level 3.9 3.6-5.0 MMOL/L Chloride Level 98 98-107 MMOL/L Carbon Dioxide Level 30 21-32 MMOL/L Anion Gap 9 5-14 MMOL/L Blood Urea Nitrogen 10 7-18 MG/DL Creatinine 0.95 0.60-1.30 MG/DL Estimat Glomerular Filtration Rate 79 BUN/Creatinine Ratio 11 Glucose Level 97 70-105 MG/DL Lactic Acid Level 0.87 0.50-2.00 MMOL/L Calcium Level 8.5 8.5-10.1 MG/DL Corrected Calcium 8.9 8.5-10.1 MG/DL Magnesium Level 1.8 1.6-2.4 MG/DL Total Bilirubin 0.4 0.1-1.0 MG/DL Aspartate Amino Transf (AST/SGOT) 36 H 5-34 U/L Alanine Aminotransferase (ALT/SGPT) 21 0-55 U/L Alkaline Phosphatase 87 40-136 U/L Lactate Dehydrogenase 239 H 125-220 U/L Total Creatine Kinase 101 30-200 U/L Creatine Kinase MB 1.6 <6.6 NG/ML Myoglobin 109.0 H 10.0-92.0 NG/ML Troponin I < 0.028 <0.028 NG/ML C-Reactive Protein High Sensitivity 3.81 H 0.00-0.50 MG/DL B-Type Natriuretic Peptide < 10.0 <100.0 PG/ML Total Protein 7.2 6.4-8.2 GM/DL Albumin 3.5 3.2-4.5 GM/DL Procalcitonin 0.03 <0.10 NG/ML Urine Color YELLOW Urine Clarity CLEAR Urine pH 6.5 5-9 Urine Specific [place] <=1.005 1.016-1.022 Urine Protein NEGATIVE NEGATIVE Urine Glucose (UA) NEGATIVE NEGATIVE Urine Ketones NEGATIVE NEGATIVE Urine Nitrite NEGATIVE NEGATIVE Urine Bilirubin NEGATIVE NEGATIVE Urine Urobilinogen 0.2 < = 1.0 MG/DL Urine Leukocyte Esterase NEGATIVE NEGATIVE Urine RBC (Auto) NEGATIVE NEGATIVE Urine RBC NONE /HPF Urine WBC NONE /HPF Urine Squamous Epithelial Cells RARE /HPF Urine Crystals NONE /LPF Urine Bacteria NEGATIVE /HPF Urine Casts NONE /LPF Urine Mucus NEGATIVE /LPF Urine Culture Indicated NO My Orders Orders - NICOLE MORTENSEN DO Ed Iv/Invasive Line Start (06/26/21 12:12) Ekg Tracing (06/26/21 12:12) O2 (06/26/21 12:12) Monitor-Rhythm Ecg Trace Only (06/26/21 12:12) Chest 1 View, Ap/Pa Only (06/26/21 12:12) Bnp Krysta (06/26/21 12:12) Cbc With Automated Diff (06/26/21 12:12) Comprehensive Metabolic Panel (06/26/21 12:12) Creatine Kinase (06/26/21 12:12) Creatine Kinase Mb (06/26/21 12:12) Hs C Reactive Protein (06/26/21 12:12) Fibrin Degradation Products (06/26/21 12:12) Lactic Acid Analyzer (06/26/21 12:12) Magnesium (06/26/21 12:12) Procalcitonin (Pct) (06/26/21 12:12) Protime With Inr (06/26/21 12:12) Partial Thromboplastin Time (06/26/21 12:12) Ua Culture If Indicated (06/26/21 12:12) Erythrocyte Sedimentation Rate (06/26/21 12:12) Myoglobin Serum (06/26/21 12:12) Troponin I [place] (06/26/21 12:12) Ed Iv/Invasive Line Start (06/26/21 12:12) Lactated Ringers (Lr 1000 Ml Iv Solution (06/26/21 12:15) LDH (06/26/21 12:12) Urine Culture (06/26/21 12:12) Ed Iv/Invasive Line Start (06/26/21 12:12) Ed Iv/Invasive Line Start (06/26/21 12:12) Vital Signs Adult Sepsis Patie Q15M (06/26/21 12:12) O2 (06/26/21 12:12) Remove Rings In Anticipation O (06/26/21 12:12) Covid-19 External Lab Results (06/26/21 12:12) Covid 19 Inhouse Test (06/26/21 12:41) Influenza A And B By Pcr (06/26/21 12:41) Isolation Central Supply Req (06/26/21 12:41) Dexamethasone Injection (Decadron Inje (06/26/21 12:45) Ct Angio Chest W (06/26/21 13:44) Iohexol Injection (Omnipaque 350 Mg/Ml 1 (06/26/21 14:00) Received Contrast (Hold Metformin- Contr (06/26/21 14:00) Ns (Ivpb) (Sodium Chloride 0.9% Ivpb Bag (06/26/21 14:00) Bamlanivimab (Non Form) (Bamlanivimab (N (06/26/21 15:00) Epinephrine 1 Mg Injection (Adrenalin I (06/26/21 15:00) Diphenhydramine Injection (Benadryl Inje (06/26/21 15:00) Ondansetron Injection (Zofran Injectio (06/26/21 15:00) Acetaminophen Tablet (Tylenol Tablet) (06/26/21 15:00) Dexamethasone Injection (Decadron Inje (06/26/21 15:35) Medications Given in ED Current Medications Medications Dose Ordered Sig/Pool Route Start Time Stop Time Status Last Admin Dose Admin Bamlanivimab 700 mg/Etesevimab 1400 mg/Sodium Chloride 160 ml @ 310 mls/hr ONCE ONCE IV 06/26/21 15:00 06/26/21 15:30 DC 06/26/21 15:52 310 MLS/HR Dexamethasone Sodium Phosphate 10 mg ONCE ONCE IV 06/26/21 12:45 06/26/21 12:46 DC 06/26/21 15:50 10 MG Iohexol 100 ml ONCE ONCE IV 06/26/21 14:00 06/26/21 14:01 DC 06/26/21 14:12 77 ML Lactated Ringer's 1,000 ml @ 0 mls/hr Q0M ONCE IV 06/26/21 12:15 06/26/21 12:16 DC 06/26/21 12:29 1,000 MLS/HR Sodium Chloride 100 ml ONCE ONCE IV 06/26/21 14:00 06/26/21 14:01 DC 06/26/21 14:12 80 ML Vital Signs/I&O 06/26/21 06/26/21 06/26/21 12:05 16:03 16:21 Temp 37.0 37.2 37.1 Pulse 70 65 61 Resp 30 20 20 B/P (MAP) 90/57 117/74 Pulse Ox 99 96 99 O2 Delivery Nasal Cannula Nasal Cannula Nasal Cannula O2 Flow Rate 2.00 2.00 2.00 Capillary Refill : Progress Note : Progress Note PLACED IN ISOLATION ROOM PPE WORN AT ALL TIMES PT NORMALLY WEARS HOME O2 AT 2L/NC BUT DID NOT BRING HIS OXYGEN WITH HIM INITIAL O2 SATS WERE IN 60'S, PLACED ON O2 AND SATS QUICKLY UP TO 98% Diagnostic Imaging Comments CXR--PER RADIOLOGIST REPORT AT 1342 FINDINGS: Heart size and pulmonary vasculature are normal. There is elevation of the right hemidiaphragm. Patchy interstitial opacities are present within both lungs. A right-sided Port-A-Cath is present. Trace bilateral pleural fluid. No pneumothorax. The osseous structures are intact. IMPRESSION: 1. Patchy interstitial opacities within both lungs which could be seen with atypical infection or pulmonary edema. CT CHEST ANGIOGRAM--PER RADIOLOGIST REPORT AT 1431 FINDINGS: Vascular: No filling defects within the pulmonary arteries. Thoracic aorta is normal in caliber. Calcification of the aorta and coronary vessels. Thyroid: The thyroid is normal. Mediastinum: Heart size is normal without significant pericardial effusion. No suspicious lymphadenopathy. Lungs and airways: Patchy consolidation within the lung bases. No pleural effusion or pneumothorax. The airways are normal. Upper abdomen: The subphrenic structures are normal. Musculoskeletal: Degenerative changes of the spine without suspicious osseous lesion or compression fracture. IMPRESSION: 1. No findings of pulmonary embolus. 2. Patchy consolidation within the lower lungs which can be seen with history of COVID 19 and pneumonia. Reviewed: Reviewed by Me Departure Impression Primary Impression: Pneumonia due to COVID-19 virus Additional Impressions: COPD (chronic obstructive pulmonary disease) Lung cancer Disposition: 01 HOME, SELF-CARE Condition: Stable Departure-Patient Inst. Decision time for Depature: 14:32 Referrals: JENNY HERRERA MD (PCP/Family) Primary Care Physician Patient Instructions: COVID-19 (DC), Preventing the Spread of an Infectious Disease, Chronic Obstructive Pulmonary Disease (COPD) (DC), Atypical Pneumonia (Mycoplasma and Viral) (DC), Bamlanivimab and Etesevimab FDA Fact Sheet Add. Discharge Instructions: TYLENOL AND MOTRIN NEEDED FOR PAIN OR FEVER MUCINEX DM FOR COUGH USE YOUR INHALERS PRESCRIBED HOME OXYGEN PRESCRIBED FOLLOW UP WITH THE [facility] IN 2-3 DAYS FOR FURTHER CARE, RETURN TO ER IF WORSE QUARANTINE FOR AN ADDITIONAL 10 DAYS. All discharge instructions reviewed with patient and/or family. Voiced understanding. Scripts Benzonatate (TESSALON PERLES) 100 Mg Capsule 200 MG PO TID, #50 CAP Prov: NICOLE MORTENSEN DO 06/26/21 Dexamethasone (Decadron) 6 Mg Tablet 6 MG PO DAILY, #10 TAB Prov: NICOLE MORTENSEN DO 06/26/21 Doxycycline Hyclate (Doxycycline Hyclate) 100 Mg Tablet 100 MG PO BID, #20 TAB 0 Refills Prov: NICOLE MORTENSEN DO 06/26/21 NICOLE MORTENSEN DO Jun 26, 2021 13:42
[2021-06-26] MEDS ORDERED: NS 100 ML (IVPB) BAG IV ONE (14:00)
[2021-06-26] MEDS ORDERED: HOLD METFORMIN - RECEIVED CONTRAST 20 ML VIAL IV SCH (14:00)
[2021-06-26] MEDS ORDERED: IOHEXOL 350 MG/ML 100 ML (OMNIPAQUE 350) VIAL IV ONE (14:00)
--- NOTE | 2021-06-26 14:24 | Diagnostic Imaging Report ---
EXAMINATION: CT angiography of the chest. TECHNIQUE: Contrast enhanced thin section helical images were obtained through the chest with intravenous contrast timed for the optimal opacification of the arterial structures per CTA protocol. Post-processing, reconstructions and interpretation of angiographic images of the vessels was performed. 3D MIP reconstructions were performed and reviewed. All CT scans use one or more of the following dose optimizing techniques: automated exposure control, MA and/or KvP adjustment based on a patient size and exam type, or iterative reconstruction. HISTORY: COVID positive, chest pain COMPARISON: 09/23/2020 FINDINGS: Vascular: No filling defects within the pulmonary arteries. Thoracic aorta is normal in caliber. Calcification of the aorta and coronary vessels. Thyroid: The thyroid is normal. Mediastinum: Heart size is normal without significant pericardial effusion. No suspicious lymphadenopathy. Lungs and airways: Patchy consolidation within the lung bases. No pleural effusion or pneumothorax. The airways are normal. Upper abdomen: The subphrenic structures are normal. Musculoskeletal: Degenerative changes of the spine without suspicious osseous lesion or compression fracture. IMPRESSION: 1. No findings of pulmonary embolus. 2. Patchy consolidation within the lower lungs which can be seen with history of COVID 19 and pneumonia. Dictated by: Dictated on workstation # [id number]
[2021-06-26 14:27] LABS: BILIRUBIN,URINE NEGATIVE (NEGATIVE); CLARITY,URINE CLEAR; COLOR,URINE YELLOW; GLUCOSE, URINE (UA) NEGATIVE (NEGATIVE); KETONES,URINE NEGATIVE (NEGATIVE); LEUKOCYTE ESTERASE ,URINE NEGATIVE (NEGATIVE); NITRITE,URINE NEGATIVE (NEGATIVE); PH,URINE 6.5 (5-9); PROTEIN,URINE NEGATIVE (NEGATIVE)
[2021-06-26 14:34] LABS: BACTERIA,URINE NEGATIVE /HPF; SQUAMOUS EPITHELIAL CELL,UR RARE /HPF
[2021-06-26] MEDS ORDERED: ONDANSETRON 4 MG/2 ML (SDV) Z0FRAN IV PRN (15:00)
[2021-06-26] MEDS ORDERED: ACETAMINOPHEN 500 MG TAB (TYLENOL) PO PRN (15:00)
[2021-06-26] MEDS ORDERED: diphenhydrAMINE 50 MG/ML INJ (BENADRYL) IV PRN (15:00)
[2021-06-26] MEDS ORDERED: BAMLANIVIMAB 700 MG/ETESEVIMAB 1,400 MG IN NS IV ONE ×3 (15:00)
[2021-06-26] MEDS ORDERED: EPINEPHrine INJECTION 1 MG/ML AMP IM PRN (15:00)
[2021-06-26] MEDS ORDERED: DOXY100T2 PO (15:01)
[2021-06-26] MEDS ORDERED: DEXA6TAB6 PO (15:01)
[2021-06-26] MEDS ORDERED: BENZ100C18 PO (15:01)
[2021-06-26 17:30] VITALS: BP 125/66
== END 2021-06-26 17:30 | disposition home or self-care (01) ==
LOC: EDUNIT# 12:01 → ER 12:02
DX: U07.1 COVID-19 (principal); J12.82 Pneumonia due to coronavirus disease 2019; C34.90 Malignant neoplasm of unspecified part of unspecified bronchus or lung; J44.9 Chronic obstructive pulmonary disease, unspecified; I10 Essential (primary) hypertension; E78.00 Pure hypercholesterolemia, unspecified; F41.9 Anxiety disorder, unspecified; F32.9 Major depressive disorder, single episode, unspecified; F43.10 Post-traumatic stress disorder, unspecified; G40.909 Epilepsy, unspecified, not intractable, without status epilepticus; Z86.73 Personal history of transient ischemic attack (TIA), and cerebral infarction without residual deficits; Z90.2 Acquired absence of lung [part of]; Z79.899 Other long term (current) drug therapy
CPT/HCPCS: 36415; 71045; 71275; 80053; 81000; 82550; 82553; 83605; 83615; 83735; 83874; 83880; 84145; 84484; 85025; 85379; 85610; 85652; 85730; 86141; 87088; 87636; 93005; 93041

== ENCOUNTER 2021-07-14 10:48 | Outpatient (RCR) | payer OTHER ==
[~2021-07-14 10:48] MED LIST changes: +BENZ100C18 PO; +DEXA6TAB6 PO; +NIVOLUMAB 480 MG in NS (IVPB) CANCER CENTER 100 ML IV SCH; +NS IV 1000 ML (CANCER CTR) IV SCH
[2021-07-14 11:06] LABS: BASOPHILS % (AUTO) 0 % (0-10); EOSINOPHILS % (AUTO) 0 % (0-10); HEMOGLOBIN 13.6 g/dL (13.3-17.7); MEAN CORPUSCULAR VOLUME 99 fL (80-99); WHITE BLOOD COUNT 9.6 10^3/uL (4.3-11.0)
[2021-07-14 11:08] LABS: HEMATOCRIT 43 % (40-54); LYMPHOCYTES # (AUTO) 2.1 10^3/uL (1.0-4.0); LYMPHOCYTES % (AUTO) 22 % (12-44); MEAN CORPUSCULAR HEMOGLOBIN 32 pg (25-34); MEAN CORPUSCULAR HGB CONC 32 g/dL (32-36); MEAN PLATELET VOLUME 9.6 fL (9.0-12.2); MONOCYTES # (AUTO) 0.7 10^3/uL (0.0-1.0); MONOCYTES % (AUTO) 8 % (0-12); NEUTROPHILS # (AUTO) 6.6 10^3/uL (1.8-7.8); NEUTROPHILS % (AUTO) 70 % (42-75); PLATELET COUNT 154 10^3/uL (130-400)
[2021-07-14 11:27] LABS: ALBUMIN 3.5 GM/DL (3.2-4.5); BILIRUBIN,TOTAL 0.5 MG/DL (0.1-1.0); CALCIUM 9.2 MG/DL (8.5-10.1); CREATININE SERUM 0.97 MG/DL (0.60-1.30); POTASSIUM 4.3 MMOL/L (3.6-5.0); TOTAL PROTEIN 6.9 GM/DL (6.4-8.2)
== END 2021-08-01 | disposition home or self-care (01) ==
LOC: ONC 10:48
PROVIDERS: ATTEND Internal Medicine Hematology & Oncology
DX: Z51.11 Encounter for antineoplastic chemotherapy (principal); Z45.2 Encounter for adjustment and management of vascular access device; C34.11 Malignant neoplasm of upper lobe, right bronchus or lung; G62.9 Polyneuropathy, unspecified; J43.1 Panlobular emphysema; J34.89 Other specified disorders of nose and nasal sinuses; K21.9 Gastro-esophageal reflux disease without esophagitis; Z79.899 Other long term (current) drug therapy; Z86.73 Personal history of transient ischemic attack (TIA), and cerebral infarction without residual deficits; Z79.82 Long term (current) use of aspirin; Z98.890 Other specified postprocedural states
CPT/HCPCS: 36591; 80053; 85025; 96413; 99213

== ENCOUNTER 2021-08-11 10:48 | Outpatient (RCR) | payer OTHER ==
[2021-08-11 11:23] LABS: BASOPHILS % (AUTO) 1 % (0-10); EOSINOPHILS # (AUTO) 0.1 10^3/uL (0.0-0.3); EOSINOPHILS % (AUTO) 2 % (0-10); HEMATOCRIT 41 % (40-54); HEMOGLOBIN 12.7 g/dL (13.3-17.7); LYMPHOCYTES # (AUTO) 1.8 10^3/uL (1.0-4.0); LYMPHOCYTES % (AUTO) 28 % (12-44); MEAN CORPUSCULAR HEMOGLOBIN 32 pg (25-34); MEAN CORPUSCULAR HGB CONC 31 g/dL (32-36); MEAN CORPUSCULAR VOLUME 102 fL (80-99); MEAN PLATELET VOLUME 10.4 fL (9.0-12.2); MONOCYTES # (AUTO) 0.6 10^3/uL (0.0-1.0); MONOCYTES % (AUTO) 9 % (0-12); NEUTROPHILS # (AUTO) 3.9 10^3/uL (1.8-7.8); NEUTROPHILS % (AUTO) 60 % (42-75); PLATELET COUNT 142 10^3/uL (130-400); WHITE BLOOD COUNT 6.5 10^3/uL (4.3-11.0)
[2021-08-11 11:49] LABS: ALBUMIN 3.1 GM/DL (3.2-4.5); BILIRUBIN,TOTAL 0.4 MG/DL (0.1-1.0); CALCIUM 7.7 MG/DL (8.5-10.1); CREATININE SERUM 0.74 MG/DL (0.60-1.30); POTASSIUM 3.4 MMOL/L (3.6-5.0); TOTAL PROTEIN 6.2 GM/DL (6.4-8.2)
== END 2021-08-29 | disposition home or self-care (01) ==
LOC: ONC 10:48
PROVIDERS: ATTEND Internal Medicine Hematology & Oncology
DX: Z51.11 Encounter for antineoplastic chemotherapy (principal); Z45.2 Encounter for adjustment and management of vascular access device; C34.11 Malignant neoplasm of upper lobe, right bronchus or lung; G62.9 Polyneuropathy, unspecified; J43.1 Panlobular emphysema; J34.89 Other specified disorders of nose and nasal sinuses; K21.9 Gastro-esophageal reflux disease without esophagitis; Z79.899 Other long term (current) drug therapy; Z86.73 Personal history of transient ischemic attack (TIA), and cerebral infarction without residual deficits; Z79.82 Long term (current) use of aspirin; Z98.890 Other specified postprocedural states
CPT/HCPCS: 36591; 80053; 82728; 83540; 83550; 84443; 85025; 96413

== ENCOUNTER 2021-09-21 10:58 | Outpatient (RCR) | payer OTHER ==
[2021-09-21 11:39] LABS: BASOPHILS % (AUTO) 0 % (0-10); EOSINOPHILS # (AUTO) 0.2 10^3/uL (0.0-0.3); EOSINOPHILS % (AUTO) 2 % (0-10); HEMATOCRIT 45 % (40-54); HEMOGLOBIN 14.3 g/dL (13.3-17.7); LYMPHOCYTES # (AUTO) 2.5 10^3/uL (1.0-4.0); LYMPHOCYTES % (AUTO) 33 % (12-44); MEAN CORPUSCULAR HEMOGLOBIN 31 pg (25-34); MEAN CORPUSCULAR HGB CONC 32 g/dL (32-36); MEAN CORPUSCULAR VOLUME 99 fL (80-99); MEAN PLATELET VOLUME 10.4 fL (9.0-12.2); MONOCYTES # (AUTO) 0.5 10^3/uL (0.0-1.0); MONOCYTES % (AUTO) 7 % (0-12); NEUTROPHILS # (AUTO) 4.5 10^3/uL (1.8-7.8); NEUTROPHILS % (AUTO) 58 % (42-75); PLATELET COUNT 164 10^3/uL (130-400); WHITE BLOOD COUNT 7.7 10^3/uL (4.3-11.0)
[2021-09-21 11:54] LABS: ALBUMIN 3.5 GM/DL (3.2-4.5); BILIRUBIN,TOTAL 0.5 MG/DL (0.1-1.0); CALCIUM 8.8 MG/DL (8.5-10.1); CREATININE SERUM 0.92 MG/DL (0.60-1.30); POTASSIUM 3.9 MMOL/L (3.6-5.0)
== END 2021-09-29 | disposition home or self-care (01) ==
LOC: ONC 10:58
PROVIDERS: ATTEND Internal Medicine Hematology & Oncology
DX: Z51.11 Encounter for antineoplastic chemotherapy (principal); C34.11 Malignant neoplasm of upper lobe, right bronchus or lung; G62.9 Polyneuropathy, unspecified; J44.9 Chronic obstructive pulmonary disease, unspecified; K21.9 Gastro-esophageal reflux disease without esophagitis; Z87.891 Personal history of nicotine dependence
CPT/HCPCS: 36591; 80053; 85025; 96360; 96413; 99213

== ENCOUNTER 2021-10-20 12:43 | Outpatient (RCR) | payer OTHER ==
[~2021-10-20] VITALS: Ht 170.2 cm; Wt 61.7 kg
[~2021-10-20 12:43] MED LIST changes: +HEParin (CENTRAL IV FLUSH) 500 UNIT/5 ML SYR IV PRN; +NIVOLUMAB 480 MG in NS (IVPB) 100 ML IV SCH; -NIVOLUMAB 480 MG in NS (IVPB) CANCER CENTER 100 ML IV SCH; +NS (IVPB) 250 ML IV SCH; -NS IV 1000 ML (CANCER CTR) IV SCH
[2021-10-20 13:24] LABS: BASOPHILS % (AUTO) 0 % (0-10); EOSINOPHILS % (AUTO) 1 % (0-10); HEMATOCRIT 37 % (40-54); HEMOGLOBIN 11.6 g/dL (13.3-17.7); LYMPHOCYTES # (AUTO) 1.2 10^3/uL (1.0-4.0); LYMPHOCYTES % (AUTO) 17 % (12-44); MEAN CORPUSCULAR HEMOGLOBIN 31 pg (25-34); MEAN CORPUSCULAR HGB CONC 31 g/dL (32-36); MEAN CORPUSCULAR VOLUME 100 fL (80-99); MEAN PLATELET VOLUME 9.4 fL (9.0-12.2); MONOCYTES # (AUTO) 0.4 10^3/uL (0.0-1.0); MONOCYTES % (AUTO) 6 % (0-12); NEUTROPHILS # (AUTO) 5.3 10^3/uL (1.8-7.8); NEUTROPHILS % (AUTO) 76 % (42-75); PLATELET COUNT 213 10^3/uL (130-400)
[2021-10-20 13:49] LABS: ALBUMIN 3.2 GM/DL (3.2-4.5); BILIRUBIN,TOTAL 0.4 MG/DL (0.1-1.0); CALCIUM 8.9 MG/DL (8.5-10.1); CREATININE SERUM 0.86 MG/DL (0.60-1.30); TOTAL PROTEIN 7.1 GM/DL (6.4-8.2)
== END 2021-10-29 | disposition home or self-care (01) ==
LOC: ONC 12:43
PROVIDERS: ATTEND Internal Medicine Hematology & Oncology
DX: C34.90 Malignant neoplasm of unspecified part of unspecified bronchus or lung (principal); I10 Essential (primary) hypertension; I25.10 Atherosclerotic heart disease of native coronary artery without angina pectoris; J44.9 Chronic obstructive pulmonary disease, unspecified; G40.909 Epilepsy, unspecified, not intractable, without status epilepticus
CPT/HCPCS: 36591; 80053; 82728; 83540; 83550; 85025; 99213

== ENCOUNTER → 2021-10-26 | Outpatient (CLI) | payer OTHER ==
[~2021-10-26] MED LIST changes: +CATHETER FLUSH 10 ML SYR IV PRN; -HEParin (CENTRAL IV FLUSH) 500 UNIT/5 ML SYR IV PRN; +IOHEXOL 350 MG/ML 100 ML (OMNIPAQUE 350) VIAL IV ONE; -NIVOLUMAB 480 MG in NS (IVPB) 100 ML IV SCH; -NS (IVPB) 250 ML IV SCH; +NS 100 ML (IVPB) BAG IV ONE
--- NOTE | 2021-10-26 14:44 | Diagnostic Imaging Report ---
PROCEDURE: CT chest, abdomen, and pelvis with contrast. TECHNIQUE: Multiple contiguous axial images were obtained through the chest, abdomen, and pelvis after the administration of intravenous contrast. Auto Exposure Controls were utilized during the CT exam to meet ALARA standards for radiation dose reduction. INDICATION: Right lung cancer, post surgery and chemotherapy. COMPARISON: Exam compared with prior CT chest dated 06/26/2021. Most recent abdominal CT is 09/23/2020. FINDINGS: CHEST: Soft tissue mass in the left lower lobe medially today measures 3.6 x 2.5 cm. One year ago, it measured a diameter of 1.7 cm. On the more recent study, it was nearly skipped over and profoundly degraded by focal motion artifact at its level. No new lung mass is evident. There is some partial atelectasis at the lung bases. There are some postsurgical changes to the right apex. There is no axillary, hilar, or mediastinal lymphadenopathy. No acute chest wall pathology. ABDOMEN AND PELVIS: Liver, spleen, adrenals, and pancreas are unremarkable. The gallbladder and bile ducts are unremarkable. There is no abdominopelvic mesenteric or retroperitoneal lymphadenopathy. There is no bowel, biliary, or urinary tract obstruction. The urinary bladder is nondistended, but its wall is equivocally thickened. No perivesical edema. There is severe diverticulosis of the sigmoid, but no features of acute diverticulitis. No abscess, hematoma, or acute fluid collection. No acute or suspect bony pathology. IMPRESSION: Left lower lobe mass, increased in size from prior. No new focal abnormality or lymphadenopathy. The abdominopelvic portion of the study is stable and showed no evidence of metastatic disease. No acute finding. Dictated by: Dictated on workstation # [id number]
== END ==
LOC: RAD 10:45
PROVIDERS: ATTEND Internal Medicine Hematology & Oncology
DX: C34.11 Malignant neoplasm of upper lobe, right bronchus or lung (principal); R91.8 Other nonspecific abnormal finding of lung field; Z92.21 Personal history of antineoplastic chemotherapy; Z98.890 Other specified postprocedural states
CPT/HCPCS: 71260; 74177

== ENCOUNTER 2021-10-31 10:37 | Outpatient (RCR) | payer OTHER ==
[~2021-10-31 10:37] MED LIST changes: -CATHETER FLUSH 10 ML SYR IV PRN; -IOHEXOL 350 MG/ML 100 ML (OMNIPAQUE 350) VIAL IV ONE; -NS 100 ML (IVPB) BAG IV ONE
== END 2021-11-29 | disposition home or self-care (01) ==
LOC: ONC 10:37
PROVIDERS: ATTEND Internal Medicine Hematology & Oncology
DX: C34.11 Malignant neoplasm of upper lobe, right bronchus or lung (principal); K21.9 Gastro-esophageal reflux disease without esophagitis; J43.1 Panlobular emphysema; Z72.0 Tobacco use
CPT/HCPCS: 99213

== ENCOUNTER 2021-12-02 11:03 | Outpatient (RCR) | payer OTHER | END 2021-12-29 | disposition home or self-care (01) | LOC: ONC 11:03 | PROVIDERS: ATTEND Internal Medicine Hematology & Oncology | DX: C34.11 Malignant neoplasm of upper lobe, right bronchus or lung (principal); K21.9 Gastro-esophageal reflux disease without esophagitis; J43.1 Panlobular emphysema; Z72.0 Tobacco use ==

== ENCOUNTER 2022-01-05 09:58 | Outpatient (RCR) | payer OTHER ==
[2022-01-05 10:12] LABS: BASOPHILS % (AUTO) 1 % (0-10); EOSINOPHILS # (AUTO) 0.1 10^3/uL (0.0-0.3); EOSINOPHILS % (AUTO) 2 % (0-10); HEMATOCRIT 46 % (40-54); HEMOGLOBIN 14.5 g/dL (13.3-17.7); LYMPHOCYTES # (AUTO) 1.7 10^3/uL (1.0-4.0); LYMPHOCYTES % (AUTO) 28 % (12-44); MEAN CORPUSCULAR HEMOGLOBIN 31 pg (25-34); MEAN CORPUSCULAR HGB CONC 32 g/dL (32-36); MEAN CORPUSCULAR VOLUME 99 fL (80-99); MEAN PLATELET VOLUME 10.2 fL (9.0-12.2); MONOCYTES # (AUTO) 0.3 10^3/uL (0.0-1.0); MONOCYTES % (AUTO) 6 % (0-12); NEUTROPHILS # (AUTO) 3.8 10^3/uL (1.8-7.8); NEUTROPHILS % (AUTO) 63 % (42-75); PLATELET COUNT 155 10^3/uL (130-400)
[2022-01-05 10:46] LABS: ALBUMIN 3.7 GM/DL (3.2-4.5); BILIRUBIN,TOTAL 0.4 MG/DL (0.1-1.0); CALCIUM 9.5 MG/DL (8.5-10.1); CREATININE SERUM 0.94 MG/DL (0.60-1.30); POTASSIUM 3.8 MMOL/L (3.6-5.0); TOTAL PROTEIN 7.2 GM/DL (6.4-8.2)
== END 2022-01-29 | disposition home or self-care (01) ==
LOC: ONC 09:58
PROVIDERS: ATTEND Internal Medicine Hematology & Oncology
DX: C34.11 Malignant neoplasm of upper lobe, right bronchus or lung (principal); K21.9 Gastro-esophageal reflux disease without esophagitis; J43.1 Panlobular emphysema; Z72.0 Tobacco use
CPT/HCPCS: 36415; 80053; 84443; 85025; 99213

== ENCOUNTER 2022-04-06 11:09 | Outpatient (RCR) | payer OTHER ==
[~2022-04-06 11:09] MED LIST changes: +ALBU8.5H6 IH; -RT-ALBUINH IH
[2022-04-06 11:33] LABS: BASOPHILS % (AUTO) 0 % (0-10); EOSINOPHILS # (AUTO) 0.3 10^3/uL (0.0-0.3); EOSINOPHILS % (AUTO) 4 % (0-10); HEMATOCRIT 43 % (40-54); HEMOGLOBIN 13.8 g/dL (13.3-17.7); LYMPHOCYTES # (AUTO) 2.3 10^3/uL (1.0-4.0); LYMPHOCYTES % (AUTO) 31 % (12-44); MEAN CORPUSCULAR HEMOGLOBIN 32 pg (25-34); MEAN CORPUSCULAR HGB CONC 32 g/dL (32-36); MEAN CORPUSCULAR VOLUME 100 fL (80-99); MEAN PLATELET VOLUME 10.3 fL (9.0-12.2); MONOCYTES # (AUTO) 0.5 10^3/uL (0.0-1.0); MONOCYTES % (AUTO) 7 % (0-12); NEUTROPHILS # (AUTO) 4.1 10^3/uL (1.8-7.8); NEUTROPHILS % (AUTO) 57 % (42-75); PLATELET COUNT 148 10^3/uL (130-400); WHITE BLOOD COUNT 7.2 10^3/uL (4.3-11.0)
[2022-04-06 11:55] LABS: ALBUMIN 3.6 GM/DL (3.2-4.5); BILIRUBIN,TOTAL 0.4 MG/DL (0.1-1.0); CALCIUM 9.1 MG/DL (8.5-10.1); CREATININE SERUM 0.99 MG/DL (0.60-1.30); POTASSIUM 3.9 MMOL/L (3.6-5.0); TOTAL PROTEIN 7.1 GM/DL (6.4-8.2)
== END 2022-05-01 | disposition home or self-care (01) ==
LOC: ONC 11:09
PROVIDERS: ATTEND Internal Medicine Hematology & Oncology
DX: C34.11 Malignant neoplasm of upper lobe, right bronchus or lung (principal); K21.9 Gastro-esophageal reflux disease without esophagitis; J43.1 Panlobular emphysema; Z72.0 Tobacco use
CPT/HCPCS: 36415; 80053; 85025; 99213

== ENCOUNTER 2022-07-13 10:23 | Outpatient (RCR) | payer OTHER ==
[~2022-07-13 10:23] MED LIST changes: +CLOP-31 PO; -CLOP75TA69 PO
== END 2022-08-01 | disposition home or self-care (01) ==
LOC: ONC 10:23
PROVIDERS: ATTEND Internal Medicine Hematology & Oncology
DX: C34.11 Malignant neoplasm of upper lobe, right bronchus or lung (principal); K21.9 Gastro-esophageal reflux disease without esophagitis; J43.1 Panlobular emphysema; Z72.0 Tobacco use

== ENCOUNTER 2022-08-16 10:10 | Outpatient (RCR) | payer OTHER ==
[2022-08-16 10:31] LABS: BASOPHILS % (AUTO) 1 % (0-10); EOSINOPHILS # (AUTO) 0.2 10^3/uL (0.0-0.3); EOSINOPHILS % (AUTO) 3 % (0-10); HEMATOCRIT 45 % (40-54); HEMOGLOBIN 14.5 g/dL (13.3-17.7); LYMPHOCYTES # (AUTO) 2.3 10^3/uL (1.0-4.0); LYMPHOCYTES % (AUTO) 37 % (12-44); MEAN CORPUSCULAR HEMOGLOBIN 32 pg (25-34); MEAN CORPUSCULAR HGB CONC 32 g/dL (32-36); MEAN CORPUSCULAR VOLUME 100 fL (80-99); MEAN PLATELET VOLUME 10.1 fL (9.0-12.2); MONOCYTES # (AUTO) 0.5 10^3/uL (0.0-1.0); MONOCYTES % (AUTO) 9 % (0-12); NEUTROPHILS # (AUTO) 3.1 10^3/uL (1.8-7.8); NEUTROPHILS % (AUTO) 50 % (42-75); PLATELET COUNT 149 10^3/uL (130-400); WHITE BLOOD COUNT 6.1 10^3/uL (4.3-11.0)
[2022-08-16 11:06] LABS: ALBUMIN 3.9 GM/DL (3.2-4.5); BILIRUBIN,TOTAL 0.6 MG/DL (0.1-1.0); CALCIUM 9.8 MG/DL (8.5-10.1); POTASSIUM 3.6 MMOL/L (3.6-5.0); TOTAL PROTEIN 7.7 GM/DL (6.4-8.2)
== END 2022-08-29 | disposition home or self-care (01) ==
LOC: ONC 10:10
PROVIDERS: ATTEND Internal Medicine Hematology & Oncology
DX: Z45.2 Encounter for adjustment and management of vascular access device (principal); C34.11 Malignant neoplasm of upper lobe, right bronchus or lung; K21.9 Gastro-esophageal reflux disease without esophagitis; J44.9 Chronic obstructive pulmonary disease, unspecified; Z72.0 Tobacco use
CPT/HCPCS: 36415; 80053; 85025; 96523

== ENCOUNTER 2022-10-26 13:54 | Outpatient (RCR) | payer OTHER ==
[2022-10-26 14:21] LABS: BASOPHILS % (AUTO) 0 % (0-10); EOSINOPHILS # (AUTO) 0.4 10^3/uL (0.0-0.3); EOSINOPHILS % (AUTO) 6 % (0-10); HEMATOCRIT 42 % (40-54); HEMOGLOBIN 13.5 g/dL (13.3-17.7); LYMPHOCYTES # (AUTO) 2.3 10^3/uL (1.0-4.0); LYMPHOCYTES % (AUTO) 30 % (12-44); MEAN CORPUSCULAR HEMOGLOBIN 32 pg (25-34); MEAN CORPUSCULAR HGB CONC 33 g/dL (32-36); MEAN CORPUSCULAR VOLUME 99 fL (80-99); MEAN PLATELET VOLUME 10.2 fL (9.0-12.2); MONOCYTES # (AUTO) 0.5 10^3/uL (0.0-1.0); MONOCYTES % (AUTO) 6 % (0-12); NEUTROPHILS # (AUTO) 4.4 10^3/uL (1.8-7.8); NEUTROPHILS % (AUTO) 58 % (42-75); PLATELET COUNT 158 10^3/uL (130-400); WHITE BLOOD COUNT 7.6 10^3/uL (4.3-11.0)
[2022-10-26 14:41] LABS: ALBUMIN 3.7 GM/DL (3.2-4.5); BILIRUBIN,TOTAL 0.3 MG/DL (0.1-1.0); CALCIUM 9.2 MG/DL (8.5-10.1); CREATININE SERUM 1.16 MG/DL (0.60-1.30); TOTAL PROTEIN 7.2 GM/DL (6.4-8.2)
== END 2022-10-29 ==
LOC: ONC 13:54
PROVIDERS: ATTEND Internal Medicine Hematology & Oncology
DX: C34.11 Malignant neoplasm of upper lobe, right bronchus or lung (principal); K21.9 Gastro-esophageal reflux disease without esophagitis; J43.9 Emphysema, unspecified; Z72.0 Tobacco use
CPT/HCPCS: 36415; 80053; 85025

== ENCOUNTER 2022-11-08 13:59 | Observation (INO) | payer OTHER, MEDICARE ==
[~2022-11-08] VITALS: Ht 172 cm; Wt 56.6 kg
--- NOTE | 2022-11-08 14:15 | ED Neurological Problem ---
General Stated Complaint: STROKE-LIKE SYMPTOMS Source: patient, family () Exam Limitations: no limitations History of Present Illness Date Seen by Provider: November 08, 2022 Time Seen by Provider: 14:10 Initial Comments Patient is a 66-year-old male history of prior stroke 22 years ago, lung cancer, COPD presents to the emergency department with a chief complaint of concern for stroke. Patient states approximately 45 minutes prior to arrival he felt like a curtain was coming across over the lateral part of his right eye (upper and lower). No eye pain. He states this is identical to how his stroke began 22 years ago. He denies any speech or swallowing difficulties. No unilateral new numbness weakness or tingling. He denies chest pain. He states he has chronic shortness of breath and is always on 3 L of oxygen per nasal cannula. No abdominal pain, nausea or vomiting. No problems with bowel or bladder. He states that he believes he is on both Plavix and daily baby aspirin. Patient is status post right thoracotomy with partial removal of his right lung for the cancer. He has completed treatment but the cancer has come back. He continues to smoke. Timing/Duration: 1 hour Severity: mild Associated Symptoms: vision changes Allergies and Home Medications Allergies Coded Allergies: bupropion (Unverified Allergy, Mild, RASH, 11/08/18) Patient Home Medication List Home Medication List Reviewed: Yes Albuterol Sulfate (Ventolin Hfa) 1 Puff Puff, 2 PUFF IH QID PRN for SHORTNESS OF BREATH, (Reported) Entered as Reported by: HORTENCIA GARCIA on 11/26/18 1254 Benzonatate (Tessalon Perles) 100 Mg Capsule, 200 MG PO TID Prescribed by: NICOLE MORTENSEN on 06/26/21 1501 Carvedilol (Carvedilol) 12.5 Mg Tablet, 6.25 MG PO BID, (Reported) Entered as Reported by: SHAQUILLE LAW on 03/12/17 1113 Cefdinir (Cefdinir) 300 Mg Capsule, 300 MG PO BID Prescribed by: SHABNAM GONCALVES on 11/27/18 1107 Cyanocobalamin (Vitamin B-12) (B-12) 1,000 Mcg Tablet, 1,000 MCG PO DAILY, (Reported) Entered as Reported by: HORTENCIA GARCIA on 11/26/18 1254 Dexamethasone (Decadron) 6 Mg Tablet, 6 MG PO DAILY Prescribed by: NICOLE MORTENSEN on 06/26/21 1501 Donepezil HCl (Donepezil HCl) 10 Mg Tablet, 5 MG PO DAILY, (Reported) Entered as Reported by: HORTENCIA GARCIA on 11/26/18 1254 Doxycycline Hyclate (Doxycycline Hyclate) 100 Mg Tablet, 100 MG PO BID Prescribed by: NICOLE MORTENSEN on 06/26/21 1501 Folic Acid (Folic Acid) 1 Mg Tablet, 1 MG PO DAILY, (Reported) Entered as Reported by: LIVAN GRANADOS on 11/08/18 1013 Ipratropium [place] (Ipratropium [place]) 30 Ml [place], 2 SPRAYS NS BID, (Reported) Entered as Reported by: HORTENCIA GARCIA on 11/26/18 1254 Levetiracetam (Levetiracetam) 500 Mg Tablet, 1,000 MG PO BID, (Reported) Entered as Reported by: SHAQUILLE LAW on 03/12/17 1110 [place] 3 Polyunsat Fatty Acids (Fish Oil 1,000 mg Capsule) 1,000 Mg Cap, 2,000 MG PO DAILY, (Reported) Entered as Reported by: SHAQUILLE LAW on 03/12/17 1113 [place] 3 Polyunsat Fatty Acids (Fish Oil 1,000 mg Capsule) 1,000 Mg Cap, 1,000 MG PO HS, (Reported) Entered as Reported by: SHAQUILLE LAW on 03/12/17 1113 Prednisone (Prednisone) 10 Mg Tab.ds.pk, 10 MG PO DAILY Prescribed by: SHABNAM GONCALVES on 11/27/18 1107 Sertraline HCl (Sertraline HCl) 50 Mg Tablet, 25 MG PO DAILY, (Reported) Entered as Reported by: LIVAN GRANADOS on 11/08/18 1013 Tiotropium Br/Olodaterol HCl (Stiolto Respimat Inhal [place]) 4 Gm Mist.inhal, 2 PUFF IH DAILY, (Reported) Entered as Reported by: HORTENCIA GARCIA on 11/26/18 1254 Tramadol HCl (Tramadol HCl) 50 Mg Tablet, 100 MG PO Q6H PRN for PAIN-MODERATE, (Reported) Entered as Reported by: LIVAN GRANADOS on 11/08/18 1013 Trazodone HCl (Trazodone HCl) 100 Mg Tablet, 200 MG PO HS, (Reported) Entered as Reported by: SHAQUILLE LAW on 03/12/17 1110 Verapamil HCl (Verapamil HCl) 40 Mg Tablet, 40 MG PO BID, (Reported) Entered as Reported by: SHAQUILLE LAW on 03/12/17 1110 Review of Systems Review of Systems Constitutional: see HPI Eyes: Decreased Acuity (right eye) Ears, Nose, Mouth, Throat: no symptoms reported Respiratory: short of breath (chronic) Cardiovascular: no symptoms reported Gastrointestinal: no symptoms reported Genitourinary: no symptoms reported Past Fggpqlb-Sgyyho-Rnfwnq Hx Seasonal Allergies Seasonal Allergies: Yes Past Medical History Surgery/Hospitalization HX: LUNG CA, COPD Surgeries: Yes (CAROTID stent) Lobectomy Respiratory: Yes (LUNG CANCER) COPD Cardiac: Yes High Cholesterol, Hypertension Neurological: Yes (LAST SEIZURE-08/2018) Seizure Disorder, Stroke Reproductive Disorders: No Sexually Transmitted Disease: No HIV/AIDS: No Genitourinary: No Gastrointestinal: Yes Gastrointestinal Bleed Musculoskeletal: Yes Arthritis Endocrine: No HEENT: Yes (GLASSES) Loss of Vision: Bilateral Hearing Impairment: Denies Cancer: Yes Lung, Skin What Type of Treatment Did You: Chemotherapy, Surgical Intervention Psychosocial: Yes Anxiety, PTSD, Depression Integumentary: No Blood Disorders: No Adverse Reaction/Blood Tranf: No (N/A) Family Medical History No Pertinent Family Hx Physical Exam Vital Signs Vital Signs - First Documented 11/08/22 14:07 Temp 36.3 Pulse 60 Resp 16 B/P (MAP) 102/51 (68) Pulse Ox 94 O2 Delivery Room Air Capillary Refill : Height, Weight, BMI Height: 5'8.00" Weight: 172lbs. 9.6oz. 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 as tested, no motor/sensory deficits, alert, normal mood/affect, oriented x 3 Cra[place] Nerves: normal hearing, normal speech, PERRL; No abnormal eye position, No abnormal gag reflex, No abnormal pupil position Coordination/Gait: normal finger to nose Motor/Sensory: no motor deficit, no sensory deficit, no pronator drift Skin: normal color, warm/dry Stroke Onset of Symptoms Date of Onset of Symptoms: November 08, 2022 Time of Symptom Onset: 13:15 Onset of Symptoms: Yes Symptoms onset unknown: No NIH Stroke Scale Assessment Select: Initial Level of Consciousness: 0=Alert (0), Level of Consciousness- Questions: 0=Answers both month/age (0), LOC Commands: 0=Performs both tasks (0), Gaze: Normal (0), Visual Marquez: 0=No visual loss (0), Facial Movement (Facial Paresis): 0=Normal symmetrical mnt (0), Motor Function-Arms Right: 0=No drift (0), Motor Function-Arms Left: 0=No drift (0), Motor Function-Legs Right: 0=No drift (0), Motor Function-Legs Left: 0=No drift (0), Limb Ataxia: 0=Absent (0), Sensory: 0=Normal:no loss (0), Best Language: 0=No aphasia (0), Dysarthria: 0=Normal (0), Extinction & Inattention: 0=No abnormality (0), Total: 0 Stroke Thrombolytic Exclusion Age 18 or Over: Yes Acute intenal hemorrhage: No History of CVA: Yes Uncontrolled Coagulation Defec: No Intracranial Hemorrhage: No Severe Hypertension: No GI or Bleed: No Subarachnoid Hemorrhage: No Intracranial Neoplasm/Aneurysm: No Oral Anticoagulants: Yes Surgery or Trauma: No Puncture of Non-Compressible V: No Recent CPR: No Diabetic Hemorrhagic Retinopat: No Organ Biopsy: No Recent Obstetric Delivery: No Glucose: No Significant Hepatic Dysfunctio: No NIH Stoke Scale >22: No Bacterial Endocarditis: No Pericarditis: No Improving Symptoms: Yes Platelets: No IV - TPa Received IV - TPa Procedure Performed?: No Progress/Results/Core Measures Results/Orders Lab Results Laboratory Tests Test 11/08/22 14:41 11/08/22 14:45 11/08/22 15:25 Range/Units White Blood Count 6.0 4.3-11.0 10^3/uL Red Blood Count 3.71 L 4.30-5.52 10^6/uL Hemoglobin 12.0 L 13.3-17.7 g/dL Hematocrit 37 L 40-54 % Mean Corpuscular Volume 99 80-99 fL Mean Corpuscular Hemoglobin 32 25-34 pg Mean Corpuscular Hemoglobin Concent 33 32-36 g/dL Red Cell Distribution Width 13.2 10.0-14.5 % Platelet Count 139 130-400 10^3/uL Mean Platelet Volume 10.2 9.0-12.2 fL Immature Granulocyte % (Auto) 0 % Neutrophils (%) (Auto) 65 42-75 % Lymphocytes (%) (Auto) 23 12-44 % Monocytes (%) (Auto) 6 0-12 % Eosinophils (%) (Auto) 5 0-10 % Basophils (%) (Auto) 1 0-10 % Neutrophils # (Auto) 3.9 1.8-7.8 10^3/uL Lymphocytes # (Auto) 1.4 1.0-4.0 10^3/uL Monocytes # (Auto) 0.4 0.0-1.0 10^3/uL Eosinophils # (Auto) 0.3 0.0-0.3 10^3/uL Basophils # (Auto) 0.0 0.0-0.1 10^3/uL Immature Granulocyte # (Auto) 0.0 0.0-0.1 10^3/uL Percent Immature Platelet Fraction 3.8 0.0-7.6 % Prothrombin Time 12.8 12.2-14.7 SEC INR Comment 1.0 0.8-1.4 Activated Partial Thromboplast Time 40 H 24-35 SEC D-Dimer 0.71 H 0.00-0.49 UG/ML Sodium Level 137 135-145 MMOL/L Potassium Level 4.3 3.6-5.0 MMOL/L Chloride Level 100 98-107 MMOL/L Carbon Dioxide Level 28 21-32 MMOL/L Anion Gap 9 5-14 MMOL/L Blood Urea Nitrogen 12 7-18 MG/DL Creatinine 0.84 0.60-1.30 MG/DL Estimat Glomerular Filtration Rate 95 BUN/Creatinine Ratio 14 Glucose Level 78 70-105 MG/DL Calcium Level 8.7 8.5-10.1 MG/DL Corrected Calcium 9.2 8.5-10.1 MG/DL Total Bilirubin 0.3 0.1-1.0 MG/DL Aspartate Amino Transf (AST/SGOT) 17 5-34 U/L Alanine Aminotransferase (ALT/SGPT) 13 0-55 U/L Alkaline Phosphatase 73 40-136 U/L Troponin I < 0.028 <0.028 NG/ML Total Protein 6.5 6.4-8.2 GM/DL Albumin 3.4 3.2-4.5 GM/DL Smear Scan YES Glucometer 86 70-110 MG/DL Urine Color ORANGE Urine Clarity CLOUDY Urine pH 6.0 5-9 Urine Specific [place] 1.020 1.016-1.022 Urine Protein NEGATIVE NEGATIVE Urine Glucose (UA) NEGATIVE NEGATIVE Urine Ketones TRACE H NEGATIVE Urine Nitrite NEGATIVE NEGATIVE Urine Bilirubin 1+ H NEGATIVE Urine Urobilinogen 1.0 < = 1.0 MG/DL Urine Leukocyte Esterase NEGATIVE NEGATIVE Urine RBC (Auto) NEGATIVE NEGATIVE Urine RBC NONE /HPF Urine WBC 0-2 /HPF Urine Squamous Epithelial Cells 0-2 /HPF Urine Crystals PRESENT H /LPF Urine Amorphous Sediment FEW CARLOZ URATES H /LPF Urine Bacteria TRACE /HPF Urine Casts PRESENT /LPF Urine Hyaline Casts 2-5 H /LPF Urine Mucus MODERATE H /LPF Urine Culture Indicated NO My Orders Orders - CATALINA LEWIS MD Ekg Tracing (11/08/22 14:10) Cbc With Automated Diff (11/08/22 14:20) Protime With Inr (11/08/22 14:20) Partial Thromboplastin Time (11/08/22 14:20) Comprehensive Metabolic Panel (11/08/22 14:20) Fibrin Degradation Products (11/08/22 14:20) Troponin I [place] (11/08/22 14:20) Ua Culture If Indicated (11/08/22 14:20) Chest 1 View, Ap/Pa Only (11/08/22 14:20) Nothing By Mouth (11/08/22 Lunch) Accucheck Stat ONCE (11/08/22 14:20) Ed Iv/Invasive Line Start (11/08/22 14:20) Ed Iv/Invasive Line Start (11/08/22 14:20) Vital Signs Stroke Patient Q15M (11/08/22 14:20) Ct Head Wo-R/O Stroke (11/08/22 14:20) O2 (11/08/22 14:20) Intake & Output 06,14,22 (11/08/22 14:20) Monitor-Rhythm Ecg Trace Only (11/08/22 14:20) Dysphagia Screening Tool Q10MX1 (11/08/22 14:20) Post Thrombolytic Adminstratio (11/08/22 14:20) Lipid Panel (11/09/22 06:00) Aspirin Chewable Tablet (Baby Aspirin Ch (11/08/22 16:15) Ct Angio Head/Neck (11/08/22 16:08) Ns Iv 1000 Ml (Sodium Chloride 0.9%) (11/08/22 16:08) Vital Signs/I&O 11/08/22 14:07 Temp 36.3 Pulse 60 Resp 16 B/P (MAP) 102/51 (68) Pulse Ox 94 O2 Delivery Room Air Progress Progress Note #1: Time: 14:53 Progress Note Patient states the "curtain" sensation has resolved. He feels like his vision is back to baseline. Progress Note #2: Time: 16:18 Progress Note Patient seen and evaluated by me. Evaluation today includes physical exam, "stroke work-up" to include CBC, Chem-12, coags, D-dimer, EKG, single view chest x-ray, CT head without contrast, CT angio head and neck. Pertinent physical exam findings frail-appearing elderly male in no acute distress. Diminished breath sounds throughout most pronounced on the right with an occasional crackle. No increased work of breathing or respiratory distress. Supplemented on 3 L of oxygen per nasal cannula at 94%. Heart is regular, bradycardic in the 50s. Patient has an Sdzvtv-[id number]-Ppcc in the right upper chest wall that is nontender. Abdomen is nontender. No lower extremity edema. No focal neurologic deficits are appreciated on exam. His visual marquez appear to be intact. Differential diagnosis based on history and physical, acute CVA, TIA Labs and imaging reviewed and interpreted by me, radiologist reads are done on chest x-ray and CT. CBC is normal, hemoglobin is 12, hematocrit 37. Chem-12 is completely within normal limits, troponin is undetectable. PT is 12.8, INR 1.0, PTT of 40. D-dimer 0.71. Urinalysis shows specific gravity of 1.020 with trace ketones and bacteria, 1+ bili otherwise unremarkable. Chest x-ray with no focal infiltrates CT head without contrast no acute intracranial abnormality per radiology. Case is discussed with stroke neurology, Dr. Bauer who recommends completing CT angio head and neck and continuing baby aspirin. He states that consideration for antiplatelet would be in order after completion of the rest of the stroke work-up. I discussed the case with Dr. Li, hospitalist who accepts the patient for admission to the medical floor. Patient remains asymptomatic. Vital signs stable. Initial ECG Impression Date: November 08, 2022 Initial ECG Impression Time: 14:15 Initial ECG Rate: 58 Initial ECG Rhythm: S.Martinez Initial ECG Intervals: Normal Initial ECG Impression: Normal Diagnostic Imaging Diagonstic Imaging: Xray Plain Films/CT/US/NM/MRI: chest [facility] [place] [place] NAME: SOLANGE MAHONEY MED REC#: [id number] PT STATUS: REG ER : 1955 PHYSICIAN: CATALINA LEWIS MD ADMIT DATE: 11/08/22/ER Draft Date of Exam:11/08/22 CHEST 1 VIEW, AP/PA ONLY INDICATION: Blindness in the right eye. Neural deficit. COMPARISON: 06/26/2021. FINDINGS: Single frontal radiographic view of the chest was obtained and again demonstrates asymmetric elevation of the right hemidiaphragm. Lungs are otherwise clear. There is no large effusion or pneumothorax. Cardiac silhouette and pulmonary vasculature are within normal limits. Right subclavian Port-A-Cath is seen with tip in the low SVC. Osseous structures show no acute abnormality. IMPRESSION: No acute cardiopulmonary process. Dictated on workstation # [id number] Dict: 11/08/22 1452 Trans: 11/08/[address] [facility] [id number] Interpreted by: GERARDO DUENAS MD Electronically signed by: Diagonstic Imaging: CT Comments [facility] [place] [place] NAME: SOLANGE MAHONEY MED REC#: [id number] PT STATUS: REG ER : 1955 PHYSICIAN: CATALINA LEWIS MD ADMIT DATE: 11/08/22/ER Draft Date of Exam:11/08/22 CT HEAD WO-R/O STROKE PROCEDURE: CT head wo r/o stroke. TECHNIQUE: Multiple contiguous axial images were obtained through the brain without the use of intravenous contrast. Auto Exposure Controls were utilized during the CT exam to meet ALARA standards for radiation dose reduction. INDICATION: Left-sided weakness. Right blindness. COMPARISON: 11/23/2018. FINDINGS: Again identified is a moderate-sized area of encephalomalacia involving the anterior and lateral margins of the right frontal lobe. There is expected ex vacuo dilatation of the anterior horn of the right lateral ventricle. There is no new large area of loss of proctor-white matter junction differentiation to suggest new evolving acute territorial infarct. There is no new mass effect or midline shift. No intra or extra-axial intracranial hemorrhage is seen. No other extra-axial masses or fluid collections are identified. Bony calvarium is intact. Paranasal sinuses and mastoid air cells are clear. IMPRESSION: 1. No new acute intracranial abnormality. No CT evidence of new acute infarct, mass, or hemorrhage. 2. Redemonstration of encephalomalacia from prior infarct in the right frontal lobe. 3. The report was called to Nany in the ER by jlm@2:52 PM. Dictated on workstation # [id number] Dict: 11/08/22 1431 Trans: 11/08/22 1452 [id number] Interpreted by: GERARDO DUENAS MD Electronically signed by: Departure Communication (Admissions) Time/Spoke to Admitting Phy: 16:[address] Li (hospitalist) accepts for obs admission Impression Primary Impression: TIA (transient ischemic attack) Disposition: ADMITTED INPATIENT Condition: Stable Admissions Decision to Admit Reason: Admit from ER (General) Decision to Admit/Date: November 08, 2022 Time/Decision to Admit Time: 16:18 Departure-Patient Inst. Referrals: JENNY HERRERA MD (PCP/Family) Primary Care Physician CATALINA LEWIS MD November 08, 2022 14:15
[2022-11-08 14:45] LABS: EOSINOPHILS # (AUTO) 0.3 10^3/uL (0.0-0.3); MEAN CORPUSCULAR VOLUME 99 fL (80-99)
[2022-11-08 14:47] LABS: BASOPHILS % (AUTO) 1 % (0-10); EOSINOPHILS % (AUTO) 5 % (0-10); HEMATOCRIT 37 % (40-54); LYMPHOCYTES # (AUTO) 1.4 10^3/uL (1.0-4.0); LYMPHOCYTES % (AUTO) 23 % (12-44); MEAN CORPUSCULAR HEMOGLOBIN 32 pg (25-34); MEAN CORPUSCULAR HGB CONC 33 g/dL (32-36); MEAN PLATELET VOLUME 10.2 fL (9.0-12.2); MONOCYTES # (AUTO) 0.4 10^3/uL (0.0-1.0); MONOCYTES % (AUTO) 6 % (0-12); NEUTROPHILS # (AUTO) 3.9 10^3/uL (1.8-7.8); NEUTROPHILS % (AUTO) 65 % (42-75); PLATELET COUNT 139 10^3/uL (130-400)
--- NOTE | 2022-11-08 14:53 | Diagnostic Imaging Report ---
PROCEDURE: CT head wo r/o stroke. TECHNIQUE: Multiple contiguous axial images were obtained through the brain without the use of intravenous contrast. Auto Exposure Controls were utilized during the CT exam to meet ALARA standards for radiation dose reduction. INDICATION: Left-sided weakness. Right blindness. COMPARISON: 11/23/2018. FINDINGS: Again identified is a moderate-sized area of encephalomalacia involving the anterior and lateral margins of the right frontal lobe. There is expected ex vacuo dilatation of the anterior horn of the right lateral ventricle. There is no new large area of loss of proctor-white matter junction differentiation to suggest new evolving acute territorial infarct. There is no new mass effect or midline shift. No intra or extra-axial intracranial hemorrhage is seen. No other extra-axial masses or fluid collections are identified. Bony calvarium is intact. Paranasal sinuses and mastoid air cells are clear. IMPRESSION: 1. No new acute intracranial abnormality. No CT evidence of new acute infarct, mass, or hemorrhage. 2. Redemonstration of encephalomalacia from prior infarct in the right frontal lobe. 3. The report was called to Nany in the ER by reji@2:52 PM. Dictated by: Dictated on workstation # [id number]
[2022-11-08 14:54] LABS: ALBUMIN 3.4 GM/DL (3.2-4.5); CHLORIDE 100 MMOL/L (98-107); POTASSIUM 4.3 MMOL/L (3.6-5.0); SODIUM 137 MMOL/L (135-145)
[2022-11-08 14:56] LABS: CALCIUM 8.7 MG/DL (8.5-10.1)
[2022-11-08 14:57] LABS: GLUCOSE 78 MG/DL (70-105); PROTHROMBIN TIME PATIENT 12.8 SEC (12.2-14.7); TOTAL PROTEIN 6.5 GM/DL (6.4-8.2)
[2022-11-08 14:58] LABS: CARBON DIOXIDE 28 MMOL/L (21-32)
[2022-11-08 14:59] LABS: BILIRUBIN,TOTAL 0.3 MG/DL (0.1-1.0)
--- NOTE | 2022-11-08 14:59 | Diagnostic Imaging Report ---
INDICATION: Blindness in the right eye. Neural deficit. COMPARISON: 06/26/2021. FINDINGS: Single frontal radiographic view of the chest was obtained and again demonstrates asymmetric elevation of the right hemidiaphragm. Lungs are otherwise clear. There is no large effusion or pneumothorax. Cardiac silhouette and pulmonary vasculature are within normal limits. Right subclavian Port-A-Cath is seen with tip in the low SVC. Osseous structures show no acute abnormality. IMPRESSION: No acute cardiopulmonary process. Dictated by: Dictated on workstation # [id number]
[2022-11-08 15:00] LABS: ALKALINE PHOSPHATASE 73 U/L (40-136)
[2022-11-08 15:01] LABS: CREATININE SERUM 0.84 MG/DL (0.60-1.30); GFR ESTIMATED 95
[2022-11-08 15:02] LABS: BUN/CREATININE RATIO 14
[2022-11-08 15:03] LABS: ALANINE AMINOTRANSFERASE 13 U/L (0-55)
[2022-11-08 15:31] LABS: FIBRIN DEGRADATION PRODUCTS 0.71 UG/ML (0.00-0.49)
[2022-11-08 15:32] LABS: CLARITY,URINE CLOUDY; COLOR,URINE ORANGE; GLUCOSE, URINE (UA) NEGATIVE (NEGATIVE); KETONES,URINE TRACE (NEGATIVE); LEUKOCYTE ESTERASE ,URINE NEGATIVE (NEGATIVE); NITRITE,URINE NEGATIVE (NEGATIVE); PROTEIN,URINE NEGATIVE (NEGATIVE)
[2022-11-08 15:54] LABS: SMEAR SCAN COMMENT YES
[2022-11-08 15:58] LABS: BACTERIA,URINE TRACE /HPF; SQUAMOUS EPITHELIAL CELL,UR 0-2 /HPF; WBC,URINE 0-2 /HPF
[2022-11-08 15:59] LABS: AMORPHOUS SEDIMENT,UR FEW AMOR URATES /LPF; BILIRUBIN,URINE 1+ (NEGATIVE)
[2022-11-08] MEDS ORDERED: NS IV 1000 ML 1,000 ML IV STA (16:08)
[2022-11-08] MEDS ORDERED: ASPIRIN 81 MG CHEW (CHILDREN'S ASA) PO ONE (16:15)
[2022-11-08] MEDS ORDERED: NS 100 ML (IVPB) BAG IV ONE (16:30)
[2022-11-08] MEDS ORDERED: IOHEXOL 350 MG/ML 100 ML (OMNIPAQUE 350) VIAL IV ONE (16:30)
--- NOTE | 2022-11-08 16:51 | Diagnostic Imaging Report ---
PROCEDURE: CT angiography of the head and CT angiography of the neck with and without contrast. TECHNIQUE: Contiguous noncontrast images were obtained from the skull base through the vertex. After intravenous contrast administration, helical CT angiography of the neck was performed. Source data was reformatted into 3D MIP projections. Delayed post contrast acquisition was also obtained. Auto Exposure Controls were utilized during the CT exam to meet ALARA standards for radiation dose reduction. INDICATION: Loss of vision in the right eye. COMPARISON: MRI brain from 08/15/[address] head of 11/08/2022. FINDINGS: Aortic arch is normal without dissection. Right common carotid artery is completely occluded at its origin. The left common carotid artery is normal. Left carotid endarterectomy has been performed. Additionally, there is a stent present within the left proximal ICA without stenosis per NASCET criteria. Cervical division of the ICA remains patent. Cervical division of the right ICA is chronically occluded. The vertebral arteries are codominant and widely patent throughout the neck. No vertebral artery dissection. Basilar artery is widely patent without terminal aneurysm. Posterior cerebral arteries are patent centrally. There is patient motion artifact at the level of the base of the brain which mildly limits fine detail assessment of the [place]. There is reconstitution of flow in the distal internal carotid artery on the right from intracranial collaterals. The M1 and M2 divisions of the middle cerebral arteries are normal. Anterior cerebral arteries are patent. No anterior communicating artery aneurysm. Dural venous sinuses are patent. Lung apices are clear with the exception of emphysema. No cervical lymphadenopathy. Thyroid is normal. Encephalomalacia in the right inferior frontal lobe is again noted. No concerning calvarial abnormality. Paranasal sinuses and mastoid air cells are clear. IMPRESSION: 1. 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 Reconstitution of flow of the intracranial supraclinoid ICA due to contralateral collaterals. 2. No intracranial large vessel occlusion or saccular aneurysm. 3. Patent dural venous sinuses. 4. The left ICA stent remains patent without stenosis. Dictated by: Dictated on workstation # [id number]
[2022-11-08] MEDS ORDERED: NS IV 500 ML 500 ML IV PRN (17:15)
[2022-11-08] MEDS ORDERED: polyethylene glycoL POWDER 17 GM (MIRALAX) PACK PO PRN (17:15)
[2022-11-08] MEDS ORDERED: LACTULOSE SYRUP 10GM/15ML (ENULOSE) 30ML UDC PO PRN (17:15)
[2022-11-08] MEDS ORDERED: ANTACID SUSP 30 ML UDC (MYLANTA) PO PRN (17:15)
[2022-11-08] MEDS ORDERED: ONDANSETRON 4 MG/2 ML (SDV) Z0FRAN IV PRN (17:15)
[2022-11-08] MEDS ORDERED: ACETAMINOPHEN 325 MG TABLET PO PRN (17:15)
[2022-11-08] MEDS ORDERED: ENOXAPARIN 40 MG/0.4 ML (LOVENOX) SYR SC SCH (17:15)
[2022-11-08] MEDS ORDERED: CALCIUM CARBONATE 500 MG (TUMS) TAB.CHEW PO PRN (17:15)
[2022-11-08] MEDS ORDERED: diphenhydrAMINE 50 MG/ML INJ (BENADRYL) IVP PRN (17:15)
[2022-11-08] MEDS ORDERED: BISACODYL 10 MG SUPP (DULCOLAX) PR PRN (17:15)
[2022-11-08] MEDS ORDERED: ONDANSETRON 4 MG (ZOFRAN) ORAL DISSOLVE TAB PO PRN (17:15)
[2022-11-08] MEDS ORDERED: MELATONIN 3 MG TABLET PO PRN (17:15)
[2022-11-08] MEDS ORDERED: MILK OF MAGNESIA 400 MG/5 ML 30 ML UDC PO PRN (17:15)
[2022-11-08] MEDS ORDERED: diphenhydrAMINE 25 MG TAB (BENADRYL) PO PRN (17:15)
[2022-11-08 17:21] VITALS: BP 119/82
[2022-11-08 18:00] VITALS: BP 119/82
[2022-11-08] MEDS ORDERED: ENOXAPARIN INJECTION 30 MG/0.3 ML SYR SC SCH (18:00)
[2022-11-08 20:04] VITALS: BP 126/63
[2022-11-08] MEDS ORDERED: traZODone 100 MG (DESYREL) TAB PO SCH (21:00)
[2022-11-08] MEDS: DOCUSATE SODIUM 100 MG (COLACE) CAP PO SCH (21:41)
[2022-11-08] MEDS: SENNOSIDES 8.6 MG (SENOKOT) TAB PO SCH (21:41)
[2022-11-08] MEDS: HYDROcodone/APAP 5 MG/325 MG (LORTAB) TAB PO PRN (21:44)
[2022-11-09 00:22] VITALS: BP 113/54
[2022-11-09 04:21] VITALS: BP 110/63
[2022-11-09 05:16] LABS: POTASSIUM 4.5 MMOL/L (3.6-5.0)
[2022-11-09 05:17] LABS: CALCIUM 8.6 MG/DL (8.5-10.1)
[2022-11-09 05:21] LABS: CREATININE SERUM 0.9 MG/DL (0.60-1.30)
[2022-11-09] MEDS ORDERED: KCL 20 MEQ TAB (K-DUR) PO SCH (06:00)
[2022-11-09] MEDS ORDERED: POTASSIUM CL 10MEQ/50ML IVPB 50 ML IV SCH (06:00)
[2022-11-09] MEDS ORDERED: MAGNESIUM 1 GM/100 ML IVPB 100 ML IV SCH (06:00)
[2022-11-09 07:30] VITALS: BP 112/60
[2022-11-09] MEDS: SENNOSIDES 8.6 MG (SENOKOT) TAB PO SCH (08:03)
[2022-11-09] MEDS: DOCUSATE SODIUM 100 MG (COLACE) CAP PO SCH (08:03)
[2022-11-09] MEDS: HYDROcodone/APAP 5 MG/325 MG (LORTAB) TAB PO PRN (08:10)
[2022-11-09] MEDS ORDERED: ASPIRIN E.C. 81 MG (ECOTRIN) TAB PO SCH (09:00)
[2022-11-09] MEDS ORDERED: ASPI-1238 PO (11:29)
[2022-11-09] MEDS ORDERED: HYDR-3820 PO (11:29)
[2022-11-09] MEDS ORDERED: TMSL.4C PO (11:29)
[2022-11-09] MEDS ORDERED: ALB0.5V INH (11:29)
[2022-11-09] MEDS ORDERED: OMEG100032 PO ×2 (11:29)
[2022-11-09] MEDS ORDERED: DOCU100C37 PO (11:29)
[2022-11-09] MEDS ORDERED: SERT-414 PO (11:29)
--- NOTE | 2022-11-09 11:31 | Physical Therapy Evaluation ---
PT Evaluation-General Medical Diagnosis Admission Date November 08, 2022 at 16:53 Medical Diagnosis: TIA Onset Date: November 08, 2022 Therapy Diagnosis Therapy Diagnosis: Gait deficit, strength deficit Height/Weight Height (Feet): 5 Height (Inches): 8.00 Weight (Pounds): 172 Weight (Ounces): 9.6 Precautions Precautions/Isolations: Seizure, Fall Prevention, Standard Precautions Weight Bear Status Right Lower Extremity: Right Weight Bearing/Tolerated Left Lower Extremity: Left Weight Bearing/Tolerated Referral Physician: Dr. Li Reason for Referral: Evaluation/Treatment Medical History Reviewed History: Yes Social History Home: [facility] Current Living Status: Spouse Entry Into Home: Stairs With Railing PT Steps Into Home: 3 PT Steps Inside Home: 15 Prior Prior Level of Function SCALE: Activities may be completed with or without assistive devices. 0-Jgjufwghnk-uwsbffc completes the activity by him/herself with no assistance from a helper. 5-Set-up or Clean-up Assistance-helper sets up or cleans up; patient completes activity. [place] assists only prior to or following the activity. 4-Supervision or Touching Assistance-helper provides verbal cues and/or touching/steadying and/or contact guard assistance as patient completes activity. Assistance may be provided throughout the activity or intermittently. 3-Partial/Moderate Assistance-helper does LESS THAN HALF the effort. [place] lifts, holds or supports trunk or limbs, but provides less than half the effort. 2-Substantial/Maximal Assistance-helper does MORE THAN HALF the effort. [place] lifts or holds trunk or limbs and provides more than half the effort. 2-Xylebgtnq-daiecd does ALL the effort. Patient does none of the effort to complete the activity. Or, the assistance of 2 or more helpers is required for the patient to complete the activity. If activity was not attempted, code reason: 7-Patient Refused. 9-Not Applicable-not attempted and the patient did not perform the activity before the current illness, exacerbation or injury. 10-Not Attempted due to Environmental Limitations-(lack of equipment, weather restraints, etc.). 88-Not Attempted due to Medical Conditions or Safety Concerns. Bed Mobility: 6 Transfers (B,C,W/C): 6 Gait: 6 Stairs: 6 Indoor Mobility (Ambulation): Independent Stairs: Independent Prior Device Use: Cane PT Evaluation-Current Subjective Patient lying supine in bed upon PT arrival, agreeable to treatment. Patient rates pain at 0/10 currently. Objective Patient Orientation: Person, Place, Time, Situation Attachments: Oxygen ROM/Strength ROM Lower Extremities WFLs BLEs all planes Strength Lower Extremities 4/5 BLEs all planes Sensory Vision: Functional Hearing: Hearing Aid/Aides Sensation Right Lower Extremit: Intact Sensation Left Lower Extremity: Intact Transfers Roll Left to Right (QC): 4 Sit to Lying (QC): 4 Lying to Sitting/Side of Bed(Q: 4 Sit to Stand (QC): 4 Chair/Kgi-ya-Pxuuu Xfer(QC): 4 Toilet Transfer (QC): 4 Gait Does the Patient Walk?: Yes Mode of Locomotion: Walk Anticipated Mode of Locomotion: Walk Walk 10 feet (QC): 4 Walk 50 ft with 2 Turns(QC): 4 Walk 150 ft (QC): 4 Distance: 200 feet Gait Assistive Device: FWW Balance Sitting Static: Good Sitting Dynamic: Good Standing Static: Fair Standing Dynamic: Fair Assessment/Needs Patient tolerated treatment fair. He demonstrates mild impulsiveness and does not always follow commands, however unclear if he does not understand the commands or simply does not listen to them. Patient performs all observed bed mobility and transfers with SBA/CGA. He ambulates 200 feet with FWW, with CGA and verbal cues for safety, progression, control of FWW. Patient unsteady at times and left UE does not appear to be able to hold onto the FWW at all times. Patient in chair post treatment with all needs met, nursing notified, call light in hand and SORORITY MOTHER in the room. Rehab Potential: Fair PT Tile Molder Hand Goals Tile Molder Hand Goals PT Skilled Nursing Goals Time Frame: November 29, 2022 Roll Left & Right (QC): 6 Sit to Lying (QC): 6 Lying-Sitting on Side/Bed(QC): 6 Sit to Stand (QC): 6 Chair/Emg-cw-Hksjw Xfer(QC): 6 Toilet Transfer (QC): 6 Does the Patient Walk: Yes Walk 10 feet (QC): 6 Walk 50ft with 2 Turns (QC): 6 Walk 150 ft (QC): 6 1 Step (curb) (QC): 4 4 Steps (QC): 4 12 Steps (QC): 4 PT Plan Problem List Problem List: Activity Tolerance, Functional Strength, Safety, Balance, Gait, Transfer, Bed Mobility, ROM Treatment/Plan Treatment Plan: Continue Plan of Care Treatment Plan: Bed Mobility, Education, Functional Activity Parul, Functional Strength, Group Therapy, Gait, Safety, Therapeutic Exercise, Transfers Treatment Duration: November 29, 2022 Frequency: 6 times per week Estimated Hrs Per Day: .25 hour per day Patient and/or Family Agrees t: Yes Safety Risks/Education Patient Education: Gait Training, Transfer Techniques Teaching Recipient: Patient Teaching Methods: Demonstration, Discussion Response to Teaching: Verbalize Understanding, Return Demonstration Time Time In: 910 Time Out: 930 DATE: November 09, 2022 Total Billed Treatment Time: 20 Total Billed Treatment Visit, YENNY GALLO PT November 09, 2022 11:31
[2022-11-09 11:51] VITALS: BP 117/61
[2022-11-09] MEDS ORDERED: CLOP-31 PO (12:32)
[2022-11-09] MEDS ORDERED: ATOR40TA PO (12:32)
--- NOTE | 2022-11-09 13:12 | Short Stay Summary-Hospitalist ---
SHINEMELVI 11/09/22 1312: History of Present Illness HPI/Chief Complaint This is a 66y M with PMH of stroke and lung cancer who presented to the ED 11/08 with concerns of stroke. He reports that he lost peripheral vision, moving lateral to medial, in his right eye yesterday around 1300. This occurred on and off for 45 minutes to 1 hour. He did not have any pain in the eye, no speech difficulties, no weakness/numbness/tingling, no CP or SOB. Notes his last stroke 22 years ago started similarly with vision loss and then he became weak. He has not had any weakness recently. He uses 3L of O2 via NC, states he mostly uses this at night. 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 Reconstitution of flow of the intracranial supraclinoid ICA due to contralateral collaterals. Left ICA stent patent. Today he says his vision is completely normal and he has not had any more episodes of vision loss, he has no numbness/tingling/weakness. Has a headache that he says is chronic for him. Denies CP, SOB, nausea/vomiting. Echo today with LVEF 65-70% Source: patient Exam Limitations: no limitations Date Seen 11/09/22 Time Seen by a Provider: 08:15 Attending Physician Rossana Foote MD PCP Admitting Physician: Abdoul Veras MD Attending Physician: Abdoul Veras MD Referring Physician Date of Admission November 08, 2022 at 16:53 Home Medications & Allergies Home Medications Reviewed patient Home Medication Reconciliation performed by pharmacy medication reconciliations computer operations technician and/or nursing. Patients Allergies have been reviewed. Allergies Allergies Coded Allergies bupropion (Unverified Allergy, Mild, RASH, 11/08/18) Past Medical/Social/Family Hx Patient Social History Marrital Status: Tobacco Use?: Yes Tobacco type used: Cigarettes Smoking Status: Current Everyday Smoker (1.5 ppd) Use of E-Cig and/or Vaping dev: No Substance use?: Yes Substance type: Marijuana Substance frequency: Several times a month Alcohol Use?: No Pt stated abuse/neglect: No Immunizations Up To Date Date of Pneumonia Vaccine: November 08, 2014 Current Status Advance Directives: No Primary Language: Arabic Preferred Spoken Language: Arabic Implanted or Applied Medical D: CPAP, Port-a-cath (right) Past Medical History Stroke 2000, Lung cancer dx 2018, Seizure d/o (last seizure 2018), Hyperlipidemia, HTN, COPD, Arthritis, Anxiety/Depression/PTSD S/p endarterectomy with left ICA stent, s/p right lung lobectomy, Right port in place Family Medical History Family Hx: Father-stroke, Sister-leukemia Review of Systems Constitutional: No fever, No weakness EENTM: No blurred vision, No double vision, No eye pain Respiratory: cough (chronic); No short of breath Cardiovascular: No chest pain, No edema Gastrointestinal: No nausea, No vomiting All Other Systems Reviewed Negative Unless Noted: Yes (Negative excepted noted.) Physical Exam Physical Exam Vital Signs Vital Signs - First Documented 11/08/22 14:07 Temp 36.3 Pulse 60 Resp 16 B/P (MAP) 102/51 (68) Pulse Ox 94 O2 Delivery Nasal Cannula O2 Flow Rate 3.00 Capillary Refill : Less Than 3 Seconds Height, Weight, BMI Height: 5'8.00" Weight: 172lbs. 9.6oz. 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 Short Stay Diagnosis Discharge Diagnosis-Short Stay Admission Diagnosis TIA Final Discharge Diagnosis TIA Conclusion Plan TIA Amaurosis fugax Hx stroke Hx endarterectomy with left ICA stent CT head without acute process CTA head with chronic right ICA occlusion with collaterals, left ICA stent patent Echo with LVEF 65-70% Continue ASA Start Plavix HLD- LDL 109 Start Lipitor Lung CA Follows with Dr. Maradiaga at [facility] center Seizure d/o Continue Keppra Tobacco Abuse Discussed cessation, patient refuses at this time DVT prophylaxis: Lovenox F/u with PCP, Dr. Foote, in 1 week Clinical Quality Measures Stroke: Date of last known well: November 08, 2022 Time of last known well: 13:15 Symptoms onset unknown: No ABDOUL VERAS MD 11/09/22 1541: History of Present Illness Time Seen by a Provider: 12:10 Results Results/Procedures Imaging: Reviewed Imaging Report Short Stay Diagnosis Conclusion Plan Admitted with TIA. CTA with known carotid stenosis. Begin Plavix. Begin Lipitor. Follow up with your PCP in about a week. Diagnosis/Problems Diagnosis/Problems (1) TIA (transient ischemic attack) Status: Acute (2) Amaurosis fugax Status: Acute (3) COPD (chronic obstructive pulmonary disease) Status: Acute (4) Lung cancer Status: Acute Supervisory-Addendum Brief Verification & Attestation Participated in pt care: history, MDM, physical Personally performed: exam, history, MDM, supervision of care Care discussed with: Medical Student Procedures: n/a Results interpretation: Verified all documentation A medical student performed and documented this service in my presence. I reviewed and verified all information documented by the medical student and made modifications to such information, when appropriate. I personally performed the physical exam and medical decision making. MELVI RIOJAS November 09, 2022 13:12 ABDOLU VERAS MD November 09, 2022 15:41
[2022-11-09 13:51] VITALS: BP 117/61
== END 2022-11-09 14:28 | disposition home or self-care (01) ==
LOC: EDUNIT# 13:59 → ER 14:01 → 4TH 16:53
PROVIDERS: ADMIT Internal Medicine; ATTEND Internal Medicine
DX: G45.9 Transient cerebral ischemic attack, unspecified (principal); E78.5 Hyperlipidemia, unspecified; C34.90 Malignant neoplasm of unspecified part of unspecified bronchus or lung; R56.9 Unspecified convulsions; F17.210 Nicotine dependence, cigarettes, uncomplicated; G45.3 Amaurosis fugax; J44.9 Chronic obstructive pulmonary disease, unspecified; Z28.310 Unvaccinated for COVID-19
CPT/HCPCS: 36415; 70450; 70496; 70498; 71045; 80048; 80053; 80061; 81000; 82947; 84484; 85025; 85379; 85610; 85730; 93005; 93041; 93306; 94664; 94760

== ENCOUNTER 2023-01-25 11:05 | Outpatient (RCR) | payer OTHER ==
[~2023-01-25 11:05] MED LIST changes: +ALB0.5V INH; +ASPI-1238 PO; +ATOR40TA PO; +DOCU100C37 PO; +HYDR-3820 PO; +OMEG100032 PO; -ROSU20TA32 PO; +ROSU20TA73 PO; +SERT-414 PO; +TMSL.4C PO
[2023-01-25 11:29] LABS: BASOPHILS % (AUTO) 1 % (0-10); EOSINOPHILS # (AUTO) 0.2 10^3/uL (0.0-0.3); EOSINOPHILS % (AUTO) 4 % (0-10); HEMATOCRIT 37 % (40-54); HEMOGLOBIN 12.1 g/dL (13.3-17.7); LYMPHOCYTES % (AUTO) 30 % (12-44); MEAN CORPUSCULAR HEMOGLOBIN 33 pg (25-34); MEAN CORPUSCULAR HGB CONC 33 g/dL (32-36); MEAN CORPUSCULAR VOLUME 100 fL (80-99); MEAN PLATELET VOLUME 10.1 fL (9.0-12.2); MONOCYTES # (AUTO) 0.4 10^3/uL (0.0-1.0); MONOCYTES % (AUTO) 5 % (0-12); NEUTROPHILS % (AUTO) 60 % (42-75); PLATELET COUNT 173 10^3/uL (130-400); WHITE BLOOD COUNT 6.6 10^3/uL (4.3-11.0)
[2023-01-25 11:49] LABS: ALBUMIN 3.8 GM/DL (3.2-4.5); BILIRUBIN,TOTAL 0.3 MG/DL (0.1-1.0); CALCIUM 9.2 MG/DL (8.5-10.1); CREATININE SERUM 1.02 MG/DL (0.60-1.30); POTASSIUM 4.2 MMOL/L (3.6-5.0)
== END 2023-01-29 | disposition home or self-care (01) ==
LOC: ONC 11:05
PROVIDERS: ATTEND Internal Medicine Hematology & Oncology
DX: C34.11 Malignant neoplasm of upper lobe, right bronchus or lung (principal); K21.9 Gastro-esophageal reflux disease without esophagitis; J44.9 Chronic obstructive pulmonary disease, unspecified; Z72.0 Tobacco use
CPT/HCPCS: 80053; 84443; 85025

== ENCOUNTER 2023-04-19 10:28 | Outpatient (RCR) | payer OTHER ==
[2023-04-19 10:49] LABS: BASOPHILS % (AUTO) 0 % (0-10); EOSINOPHILS # (AUTO) 0.2 10^3/uL (0.0-0.3); EOSINOPHILS % (AUTO) 3 % (0-10); HEMATOCRIT 42 % (40-54); HEMOGLOBIN 13.6 g/dL (13.3-17.7); LYMPHOCYTES # (AUTO) 2.6 10^3/uL (1.0-4.0); LYMPHOCYTES % (AUTO) 37 % (12-44); MEAN CORPUSCULAR HEMOGLOBIN 33 pg (25-34); MEAN CORPUSCULAR HGB CONC 33 g/dL (32-36); MEAN CORPUSCULAR VOLUME 101 fL (80-99); MONOCYTES # (AUTO) 0.6 10^3/uL (0.0-1.0); MONOCYTES % (AUTO) 8 % (0-12); NEUTROPHILS # (AUTO) 3.7 10^3/uL (1.8-7.8); NEUTROPHILS % (AUTO) 52 % (42-75); PLATELET COUNT 185 10^3/uL (130-400); WHITE BLOOD COUNT 7.2 10^3/uL (4.3-11.0)
[2023-04-19 11:09] LABS: ALBUMIN 3.6 GM/DL (3.2-4.5); BILIRUBIN,TOTAL 0.5 MG/DL (0.1-1.0); CREATININE SERUM 0.87 MG/DL (0.60-1.30); TOTAL PROTEIN 7.2 GM/DL (6.4-8.2)
== END 2023-05-01 | disposition home or self-care (01) ==
LOC: ONC 10:28
PROVIDERS: ATTEND Internal Medicine Hematology & Oncology
DX: Z45.2 Encounter for adjustment and management of vascular access device (principal); C34.11 Malignant neoplasm of upper lobe, right bronchus or lung; J44.9 Chronic obstructive pulmonary disease, unspecified; Z72.0 Tobacco use
CPT/HCPCS: 36415; 36591; 80053; 85025; 99214